=== PATIENT | male | born 1945 | race Caucasian/White ===

== ENCOUNTER 2018-04-16 09:09 | Inpatient (IN) | payer MEDICARE, OTHER ==
--- OUTSIDE RECORDS SUMMARY | 2018-04-16 09:15 | XMS REPORT ---
:1945 External Reference #:[id number] Author Organization [facility] Address [address] [address] Phone [phone] Care Team Providers Name Role Phone Nidhi Medeiros MD Primary Care Physician Unavailable Payers Type Date Identification Numbers Payment Provider Subscriber Medicare Primary Effective: Policy Number: Medicare Forrest Antony 2009 [id number] PayID: [id number] [address] [place] [address] Commercial Policy Number: [id number] [facility] Forrest Antony PayID: [id number] [address] [place] [address] Medigap Part B Effective: 2011 Policy Number: BS Allan Antony [id number] Expires: 2017 PayID: [id number] [address] [address] [place] [address] Medigap Part B Effective: 2010 Policy Number: BS Price IBARRAJeremy Antony [id number] Expires: 2011 PayID: [id number] [address] [address] [place] [address] Problems Date Description Provider Status Onset: 06/29/2013 Mitral valve disorder Sergio Whitley M.D. Active Onset: 06/29/2013 Coronary arteriosclerosis Sergio Whitley M.D. Active Onset: 06/29/2013 Benign essential hypertension Sergio Whitley M.D. Active Onset: 06/29/2013 Type 2 diabetes mellitus Sergio Whitley M.D. Active Onset: 08/31/2015 Alzheimer's disease Nivia Leal M.D. Active Onset: 10/07/2016 Essential hypertension ESE Howard Active Onset: 02/10/2018 Parkinson's disease Kj Wood M.D. Active Family History Date Family Member(s) Problem(s) Comments : (age 65 Years) Father due to Emphysema Father due to Cancer, Colon () : (age 75 Years) Mother due to Lymphoma Social History Type Date Description Comments Marital Status Lives With Margot Occupation Retired Cigarette Use Quit 21 Years Ago ETOH Use Rarely consumes alcohol Smoking Patient is a former smoker 32 years no smoking!! 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 at bedtime Yobany Whitley Nitro-Dur 08/26/ Active Patches 0.2mg/HR 90uni 1 patch I25.810 Sergio 2015 24HR ts every day on F. in the Mauser, morning, off M.D. at night 12 hours Donepezil HCL 03/19/ Active Tablets 10mg 90tab take 1 2015 s tablet by Mel, mouth once M.D. daily Aspir-81 07/08/ Active Tablets 81mg 100ta 1 by mouth Sergio 2013 DR wooten every day Driss Whitley M.D. Vitamins 07/04/ Active Tablets 30tab 1 PO qd Sergio Multiple 2003 s Driss Whitley M.D. calcium/vit D 07/04/ Active 600mg One PO bid Sergio 2003 Driss Whitley M.D. Lumigan / Active Solution 0.01% instill one Unknown 0000 drop in both eye at bedtime every day Magnesium Oxide / Active Capsules 400mg 1 by mouth Unknown -MG Supplement 0000 every day Vitamin B1 00/00/ Active Tablets 100mg 1 by mouth Unknown 0000 every day Carbidopa-Levodo / Active Tablets 10-100mg tab 1 by Unknown pa 0000 mouth every 6 hours Memantine HCL / Active Tablets 10mg 1 by mouth Unknown 0000 twice a day Tradjenta / Active Tablets 5mg 1 by mouth Unknown 0000 every day Lisinopril / Active Tablets 10mg 1 by mouth Unknown 0000 every day Pantoprazole / Active Solution 40mg 1 by mouth Unknown Sodium 0000 Rec every day Nystatin / Active Cream [id number] 2-3 daily Unknown 0000 t/GM Atorvastatin / Active Tablets 20mg half tab Unknown Calcium 0000 daily Nitrostat / Active Tablets 0.4mg 1sl as Unknown 0000 Sub needed, repeat five minutes up to three tabs, call 911 Aldactone 09/20/ Hx Tablets 25mg 90tab 1/2 tab by I42.9 Sergio 2015 - s mouth every F. 08/11/ day Gutierrez, 2016 Yobany Toprol XL 08/07/ Hx Tablets 25mg 90tab 1/2 by mouth I25.810 Sergio 2015 - ER 24HR s every day F. Gutierrez, 2015 Yobany Carvedilol 07/20/ Hx Tablets 3.125mg 60tab 1 by mouth I25.119 Sergio 2015 - s twice a day F. Gutierrez, 2015 Yobany Norvasc 07/08/ Hx Tablets 2.5mg 100ta 1 by mouth Sergio 2013 - bs every day . Gutierrez, 2014 Yobany Norvasc 05/03/ Hx Tablets 5mg 1 po qd Sergio 2009 - F. 07/08/ Gutierrez, 2013 Yobany Lopressor 05/04/ Hx Tablets 50mg 90tab 1/2 po qod x Sergio 2008 - s 2 weeks the . 09/04/ d/c Gutierrez, 2008 Yobany Lipitor 05/04/ Hx Tablets 20mg 90tab 1/2 tab po Sergio 2008 - s qd pm F. 03/19/ Gutierrez, 2016 Yobany Januvia 01/25/ Hx Tablets 100mg 90tab 1 po qd Sergio 2008 s , 2017 M.D. Norvasc 01/25/ Hx Tablets 2.5mg 180ta 2 po qd Sergio 2008 bs , 2009 M.D. Glucosamine/Kamran 11/03/ Hx Capsules 500-400 one bid Sergio droitin 2007, 2007 M.D. Aspirin 11/03/ Hx Tablets 325mg 1 PO qd Sergio 2007, 2013 M.D. Plavix 11/03/ Hx Tablets 75mg 90tab 1 PO qd Sergio 2007, 2012 M.D. Norvasc 11/03/ Hx Tablets 2.5mg 90tab 1 po qd Sergio 2007, 2008 M.D. Lipitor 04/21/ Hx Tablets 20mg 90tab 1 PO QHS Sergio 2007, 2008 M.D. Aspirin 04/21/ Hx Tablets 81mg 1 PO qd Sergio 2007, 2007 M.D. Altace 07/11/ Hx Capsules 10mg 90cap 1 po qd Sergio 2004, 2017 M.Barrera. Lopressor 07/10/ Hx Tablets 50mg 1 po qd Sergio 2004 - , 2008 M.D. Glipizide 07/10/ Hx Tablets 2.5mg 1 po qd Sergio Extended Release 2004, 2008 M.D. Ginko-Biloba 07/10/ Hx 60mg one bid Sergio 2004, 2007 M.Barrera. Ginseng 07/10/ Hx 100mg One bid Sergio 2004 - , 2007 M.D. Silenium 07/10/ Hx 100mg one qd Sergio 2004 - , 2007 M.Barrera. Beta-Carotene 07/10/ Hx 25,000Iu one qd Sergio 2004 F. 11/03/ Mauser, 2007 M.D. Glucosamine 07/10/ Hx 1500/1200 two qd Sergio chondroitin 2004 - F. 07/11/ Mauser, 2004 M.D. Glucosamine 07/10/ Hx 1500/1200 1 po bid Sergio 2004 - F. 03/18/ Mauser, 2015 M.D. Folic Acid 07/10/ Hx 400mcg One qd Sergio 2004 - F. 11/03/ [place]auser, 2007 M.D. Lipitor 07/05/ Hx Tablets 10mg 1 po bid Sergio 2003 - F. 04/21/ [place]er, 2007 M.D. Magnesium 07/05/ Hx Tablets 250mg qd Sergio 2003 - F. 11/03/ [place]er, 2007 M.D. Altace 07/05/ Hx Capsules 5mg 30cap 1 po qd Sergio 2003 - s F. 07/11/ Mauser, 2004 M.D. Prevacid 07/04/ Hx Capsules 30mg 60cap one qd-bid Sergio 2003 - s prn F. 06/21/ ulcer/GERD Mauser, 2003 M.D. Combivent 07/04/ Hx Aerosol 18mcg;103 two puffs Sergio Inhalation 2003 - mcg/Actua qid prn F. 07/05/ ti Mauser, 2003 M.D. Colace 07/04/ Hx Capsules 100mg 30cap 1 po qd Sergio 2003 - s F. 07/05/ [place]er, 2003 M.D. Ferrous 07/04/ Hx Tablets 300mg 30tab one po bid Sergio Gluconate 2003 - s F. 07/05/ Mauser, 2003 M.D. Glucophage 07/04/ Hx Tablets 500mg 60tab 0NE bid Sergio 2003 - s F. 06/21/ Mauser, 2003 M.D. Glucotrol 07/04/ Hx Tablets 2.5mg 60tab 1 po qd Sergio 2003 - s F. 07/11/ Mauser, 2004 M.D. Lopressor 07/04/ Hx Tablets 25mg 60tab 1 po bid Sergio 2003 - s F. 07/11/ [place]auser, 2004 M.D. Altace 07/04/ Hx Capsules 2.5mg 30cap 1 po qd Sergio 2003 - s F. use[place], 2003 M.D. Fish Oil 07/04/ Hx 1000mg one po bid Sergio 2003 - . , 2017 M.DRenée vit E 07/04/ 400Iu one po qd Sergio 2003 - . useerica, 2003 M.DRenée Vitamin C 07/04/ Hx 500mg one po qd Sergio 2003 - F. , 2014 M.D. Viagra 07/04/ Hx Tablets 50mg 30tab 1/2-1 tab Sergio 2003 - s before F. Gutierrez, 2004 M.D. Aspirin Buffered 07/03/ Caplets 325mg 100ca 1 PO qd Sergio 2003 - ps F. , 2007 M.D. Lipitor 06/27/ Hx Tablets 20mg 30tab 1 po qd Sergio 2003 - s F. , 2003 M.D. Prevacid 06/21/ Hx Capsules 30mg 1 po qd Sergio 2003 - . , 2017 M.DRenée Glucophage 06/21/ Hx Tablets 500mg two bid Sergio 2003 - . , 2017 M.D. Donepezil HCL / Hx Tablets 5mg 1 every day Unknown 0000 - 2015 Glucosamine / Hx Capsules 1200/1200 1 tab by Unknown Chondroitin 0000 - mg mouth bid 2017 Vitamin B12 / Hx Tablets 1000mg 1 by mouth Unknown 0000 - every day 2016 Spironolactone / Hx Tablets 25mg 45tab 1/2 by mouth Sergio - s every day . vianey, 2017 M.DRenée Medications Administered in Office Medication Date Status Form Strength Qnty SIG Indications Ordering Provider Inj, Administered Injection Eduardo Schmitz Regadenoson, 016 DO Braulio 0.1 MG FACC Technetium TC Administered Injection Eduarod SRenée 99M 016 DO Braulio Tetrofosmin, FACC Per Unit Dose Up To 40 Millicuries Vital Signs Date Vital Result Comment 04/07/2018 Height 70 inches 5'10" Weight 230.00 lb Heart Rate 86 /min BP Systolic Sitting 114 mmHg BP Diastolic Sitting 68 mmHg Respiratory Rate 16 /min BMI (Body Mass Index) 33.0 kg/m2 02/10/2018 Height 70 inches 5'10" Weight 222.00 lb Heart Rate 78 /min BP Systolic Sitting 102 mmHg BP Diastolic Sitting 58 mmHg Respiratory Rate 16 /min BMI (Body Mass Index) 31.9 kg/m2 10/02/2017 Height 65 inches 5'5" Weight 221.00 lb without shoes Heart Rate 92 /min BP Systolic Sitting 110 mmHg Lue lg cuff BP Diastolic Sitting 70 mmHg Lue lg cuff BP Systolic Standing 114 mmHg Lue lg cuff BP Diastolic Standing 70 mmHg Lue lg cuff Respiratory Rate 17 /min O2 % BldC Oximetry 94 % at room air BMI (Body Mass Index) 36.8 kg/m2 Ejection Fraction 30-35% date 08/26/2016 ECHO 08/12/2017 Height 70 inches 5'10" Weight 229.00 lb w/shoes Heart Rate 82 /min BP Systolic Sitting 118 mmHg LA lg cuff BP Diastolic Sitting 74 mmHg LA lg cuff BMI (Body Mass Index) 32.9 kg/m2 Ejection Fraction 30-35% Echo 08/26/16 08/12/2017 Height 70 inches 5'10" Weight 230.00 lb Heart Rate 68 /min BP Systolic Sitting 130 mmHg BP Diastolic Sitting 76 mmHg Respiratory Rate 16 /min BMI (Body Mass Index) 33.0 kg/m2 03/20/2017 Height 70 inches 5'10" Weight 230.00 lb Heart Rate 56 /min BP Systolic Sitting 128 mmHg BP Diastolic Sitting 80 mmHg Respiratory Rate 14 /min BMI (Body Mass Index) 33.0 kg/m2 03/19/2017 Height 70 inches 5'10" Weight 235.50 lb Heart Rate 68 /min irreg BP Systolic Sitting 132 mmHg LA, large BP Diastolic Sitting 68 mmHg LA, large BP Systolic Standing 118 mmHg la repeat large sittin BP Diastolic Standing 59 mmHg la repeat large sittin BMI (Body Mass Index) 33.8 kg/m2 Ejection Fraction 30-35% echo 08/26/16 11/21/2016 Heart Rate 74 /min BP Systolic 122 mmHg Ra, regular, manual BP Diastolic 60 mmHg Ra, regular, manual BP Systolic Sitting 125 mmHg Ra, home unit BP Diastolic Sitting 57 mmHg Ra, home unit 11/14/2016 Height 70 inches 5'10" Weight 236.00 lb with shoes Heart Rate 68 /min BP Systolic Sitting 98 mmHg Lue lg cuff BP Diastolic Sitting 70 mmHg Lue lg cuff BP Systolic Standing 104 mmHg Lue lrg cuff BP Diastolic Standing 70 mmHg Lue lrg cuff Respiratory Rate 17 /min BMI (Body Mass Index) 33.9 kg/m2 Ejection Fraction 30-35% date 08/26/2016 ECHO 10/07/2016 Height 70 inches 5'10" Weight 239.25 lb with shoes Heart Rate 74 /min BP Systolic Sitting 110 mmHg LA reg cuff BP Diastolic Sitting 70 mmHg LA reg cuff BMI (Body Mass Index) 34.3 kg/m2 Ejection Fraction 30% - 35% echo 08/26/16 09/20/2016 Height 70 inches 5'10" Weight 235.00 lb with shoes Heart Rate 84 /min BP Systolic Sitting 140 mmHg LA lrg cuff BP Diastolic Sitting 72 mmHg LA lrg cuff BMI (Body Mass Index) 33.7 kg/m2 Ejection Fraction 30%-35% echo 08/26/16 09/19/2016 Height 70 inches 5'10" Weight 235.00 lb Heart Rate 80 /min BP Systolic Sitting 132 mmHg BP Diastolic Sitting 78 mmHg BMI (Body Mass Index) 33.7 kg/m2 08/26/2016 Height 70 inches 5'10" Weight 238.00 lb with shoes Heart Rate 56 /min BP Systolic Sitting 140 mmHg LA reg cuff BP Diastolic Sitting 84 mmHg LA reg cuff BP Systolic Standing 140 mmHg LA reg cuff BP Diastolic Standing 80 mmHg LA reg cuff Respiratory Rate 16 /min BMI (Body Mass Index) 34.1 kg/m2 Ejection Fraction 35-40% date 06/26/15 ECHO 08/07/2016 Height 70 inches 5'10" Weight 239.25 lb with shoes BP Systolic Sitting 120 mmHg LA reg cuff BP Diastolic Sitting 90 mmHg LA reg cuff BMI (Body Mass Index) 34.3 kg/m2 Ejection Fraction 35-40% date 06/26/2015 ECHO 03/19/2016 Height 70 inches 5'10" Weight 229.25 lb Heart Rate 72 /min BP Systolic Sitting 124 mmHg BP Diastolic Sitting 72 mmHg Respiratory Rate 16 /min BMI (Body Mass Index) 32.9 kg/m2 08/31/2015 Height 70 inches 5'10" Weight 228.00 lb Heart Rate 68 /min BP Systolic Sitting 122 mmHg BP Diastolic Sitting 76 mmHg Respiratory Rate 14 /min BMI (Body Mass Index) 32.7 kg/m2 07/20/2015 Height 70 inches 5'10" Weight 226.50 lb w/ shoes Heart Rate 78 /min BP Systolic Sitting 144 mmHg LA, reg BP Diastolic Sitting 74 mmHg LA, reg BMI (Body Mass Index) 32.5 kg/m2 Ejection Fraction 35-40% 06/26/15 ECHO 06/21/2015 Height 70 inches 5'10" Weight 230.00 lb w/shoes Heart Rate 80 /min BP Systolic Sitting 124 mmHg LA reg cuff BP Diastolic Sitting 76 mmHg LA reg cuff BMI (Body Mass Index) 33.0 kg/m2 Ejection Fraction 40-45 echo 08/02/14 09/08/2014 Height 70 inches 5'10" Weight 227.25 lb Heart Rate 86 /min BP Systolic Sitting 140 mmHg LA reg cuff BP Diastolic Sitting 70 mmHg LA reg cuff Respiratory Rate 14 /min BMI (Body Mass Index) 32.6 kg/m2 07/08/2014 Height 70 inches 5'10" Weight 222.25 lb w/shoes. Heart Rate 72 /min BP Systolic Sitting 142 mmHg BP Diastolic Sitting 76 mmHg Respiratory Rate 16 /min BMI (Body Mass Index) 31.9 kg/m2 06/29/2013 Height 70 inches 5'10" Weight 239.00 lb Heart Rate 80 /min BP Systolic Sitting 138 mmHg BP Diastolic Sitting 82 mmHg Respiratory Rate 16 /min BMI (Body Mass Index) 34.3 kg/m2 11/21/2010 Height 70 inches 5'10" Weight 247.00 lb Heart Rate 79 /min BP Systolic 128 mmHg BP Diastolic 82 mmHg Respiratory Rate 16 /min BMI (Body Mass Index) 35.4 kg/m2 09/04/2009 Height 70 inches 5'10" Weight 251.00 lb Heart Rate 83 /min BP Systolic Sitting 130 mmHg BP Diastolic Sitting 70 mmHg BMI (Body Mass Index) 36.0 kg/m2 05/04/2009 Height 70 inches 5'10" Weight 254.00 lb Heart Rate 60 /min BP Systolic Sitting 126 mmHg L BP Diastolic Sitting 50 mmHg L BMI (Body Mass Index) 36.4 kg/m2 01/25/2009 Height 70 inches 5'10" Weight 258.00 lb Heart Rate 68 /min BP Systolic Sitting 158 mmHg L BP Diastolic Sitting 70 mmHg L BMI (Body Mass Index) 37.0 kg/m2 11/03/2008 Height 70 inches 5'10" Weight 260.00 lb Heart Rate 54 /min BP Systolic Sitting 170 mmHg L BP Diastolic Sitting 82 mmHg L BMI (Body Mass Index) 37.3 kg/m2 04/21/2008 Height 70 inches 5'10" Weight 259.00 lb Heart Rate 61 /min BP Systolic Sitting 140 mmHg L BP Diastolic Sitting 80 mmHg L BMI (Body Mass Index) 37.2 kg/m2 07/11/2005 Height 70 inches 5'10" Weight 257.00 lb Heart Rate 84 /min BP Systolic Sitting 130 mmHg R BP Diastolic Sitting 64 mmHg R BP Systolic Standing 140 mmHg R BP Diastolic Standing 76 mmHg R O2 % BldC Oximetry 97 % BMI (Body Mass Index) 36.9 kg/m2 07/18/2004 Height 70 inches 5'10" Weight 260.00 lb Heart Rate 68 /min regular BP Systolic Sitting 128 mmHg BP Diastolic Sitting 80 mmHg BP Systolic Standing 124 mmHg BP Diastolic Standing 80 mmHg BMI (Body Mass Index) 37.3 kg/m2 07/05/2004 Height 70 inches 5'10" Weight 260.00 lb Heart Rate 59 /min BP Systolic Sitting 148 mmHg left arm, right arm:150/88 BP Diastolic Sitting 88 mmHg left arm, right arm:150/88 BP Systolic Standing 138 mmHg BP Diastolic Standing 84 mmHg O2 % BldC Oximetry 96 % BMI (Body Mass Index) 37.3 kg/m2 Results Test Date Test Result H/L Range Note CBC Auto Diff 10/07/2017 White Blood Count 8.4 10^3/uL 3.5-10.8 Red Blood Count 4.88 10^6/uL 4.0-5.4 Hemoglobin 16.2 g/dL 14.0-18.0 Hematocrit 49 % 42-52 Mean Corpuscular Volume 100 fL High 80-94 Mean Corpuscular Hemoglobin 33 pg High 27-31 Mean Corpuscular HGB Conc 33 g/dL 31-36 Red Cell Distribution Width 13 % 10.5-15 Platelet Count 200 10^3/uL 150-450 Mean Platelet Volume 9 um3 7.4-10.4 Abs Neutrophils 5.2 10^3/uL 1.5-7.7 Abs Lymphocytes 1.8 10^3/uL 1.0-4.8 Abs Monocytes 0.8 10^3/uL 0-0.8 Abs Eosinophils 0.5 10^3/uL 0-0.6 Abs Basophils 0.1 10^3/uL 0-0.2 Abs Nucleated RBC 0 10^3/uL Granulocyte % 62.1 % 38-83 Lymphocyte % 21.0 % Low 25-47 Monocyte % 9.6 % High 1-9 Eosinophil % 6.5 % High 0-6 Basophil % 0.8 % 0-2 Nucleated Red Blood Cells % 0 Lipid Panel - [facility] 10/07/2017 Creatine Kinase(CK) 58 U/L 10-223 1 Comp Metabolic Panel 10/07/2017 Sodium 137 mmol/L 133-145 Potassium 4.6 mmol/L 3.5-5.0 Chloride 102 mmol/L 101-111 Co2 Carbon Dioxide 24 mmol/L 22-32 Anion Gap 11 mmol/L 2-11 Glucose 91 mg/dL 70-100 Blood Urea Nitrogen 10 mg/dL 6-24 Creatinine 1.09 mg/dL 0.67-1.17 BUN/Creatinine Ratio 9.2 8-20 Calcium 10.2 mg/dL 8.6-10.3 Total Protein 7.0 g/dL 6.4-8.9 Albumin 4.2 g/dL 3.2-5.2 Globulin 2.8 g/dL 2-4 Albumin/Globulin Ratio 1.5 1-3 Total Bilirubin 0.70 mg/dL 0.2-1.0 Alkaline Phosphatase 64 U/L 34-104 Alt 17 U/L 7-52 Ast 20 U/L 13-39 Egfr Non- 66.3 >60 Egfr 85.3 >60 2 Laboratory test finding 10/07/2017 Magnesium 1.6 mg/dL Low 1.9-2.7 3 TSH (Thyroid Stim Horm) 1.40 mcIU/mL 0.34-5.60 4 Lipid Profile (Trig/Chol/HDL) 10/07/2017 Triglycerides 87 mg/dL 5 Cholesterol 145 mg/dL 6 HDL Cholesterol 59.4 mg/dL 7 LDL Cholesterol 68 mg/dL 8 Laboratory test finding 05/01/2017 PSA Screening 6.667 ng/mL High 0-4.000 9 Lipid Profile (Trig/Chol/HDL) 05/01/2017 Triglycerides 110 mg/dL 10 Cholesterol 123 mg/dL 11 HDL Cholesterol 49.1 mg/dL 12 LDL Cholesterol 52 mg/dL 13 Comp Metabolic Panel 05/01/2017 Sodium 136 mmol/L 133-145 Potassium 4.7 mmol/L 3.5-5.0 Chloride 101 mmol/L 101-111 Co2 Carbon Dioxide 25 mmol/L 22-32 Anion Gap 10 mmol/L 2-11 Glucose 74 mg/dL 70-100 Blood Urea Nitrogen 14 mg/dL 6-24 Creatinine 1.26 mg/dL High 0.67-1.17 BUN/Creatinine Ratio 11.1 8-20 Calcium 9.7 mg/dL 8.6-10.3 Total Protein 7.5 g/dL 6.4-8.9 Albumin 4.6 g/dL 3.2-5.2 Globulin 2.9 g/dL 2-4 Albumin/Globulin Ratio 1.6 1-3 Total Bilirubin 0.70 mg/dL 0.2-1.0 Alkaline Phosphatase 53 U/L 34-104 Alt 31 U/L 7-52 Ast 29 U/L 13-39 Egfr Non- 56.1 >60 Egfr 72.1 >60 14 Lipid Panel - [facility] 05/01/2017 Creatine Kinase(CK) 176 U/L 10-223 15 CBC Auto Diff 05/01/2017 White Blood Count 9.7 10^3/uL 3.5-10.8 Red Blood Count 5.09 10^6/uL 4.0-5.4 Hemoglobin 16.9 g/dL 14.0-18.0 Hematocrit 51 % 42-52 Mean Corpuscular Volume 101 fL High 80-94 Mean Corpuscular Hemoglobin 33 pg High 27-31 Mean Corpuscular HGB Conc 33 g/dL 31-36 Red Cell Distribution Width 13 % 10.5-15 Platelet Count 235 10^3/uL 150-450 Mean Platelet Volume 9 um3 7.4-10.4 Abs Neutrophils 6.2 10^3/uL 1.5-7.7 Abs Lymphocytes 2.1 10^3/uL 1.0-4.8 Abs Monocytes 0.9 10^3/uL High 0-0.8 Abs Eosinophils 0.5 10^3/uL 0-0.6 Abs Basophils 0.1 10^3/uL 0-0.2 Abs Nucleated RBC 0.01 10^3/uL Granulocyte % 63.4 % 38-83 Lymphocyte % 21.2 % Low 25-47 Monocyte % 9.2 % High 1-9 Eosinophil % 5.3 % 0-6 Basophil % 0.9 % 0-2 Nucleated Red Blood Cells % 0.1 Basic Metabolic Panel 09/27/2016 Sodium 138 mmol/L 133-145 Potassium 4.4 mmol/L 3.5-5.0 Chloride 102 mmol/L 101-111 Co2 Carbon Dioxide 29 mmol/L 22-32 Anion Gap 7 mmol/L 2-11 Glucose 121 mg/dL High 70-100 Blood Urea Nitrogen 15 mg/dL 6-24 Creatinine 1.28 mg/dL High 0.67-1.17 BUN/Creatinine Ratio 11.7 8-20 Calcium 10.0 mg/dL 8.6-10.3 Egfr Non- 55.2 >60 Egfr 71.0 >60 16 Creatinine 09/02/2016 Creatinine 1.16 mg/dL 0.67-1.17 Egfr Non- 61.9 >60 Egfr 79.6 >60 17 CBC Auto Diff 08/14/2016 White Blood Count 6.8 10^3/uL 3.5-10.8 Red Blood Count 4.99 10^6/uL 4.0-5.4 Hemoglobin 16.5 g/dL 14.0-18.0 Hematocrit 50 % 42-52 Mean Corpuscular Volume 100 fL High 80-94 Mean Corpuscular Hemoglobin 33 pg High 27-31 Mean Corpuscular HGB Conc 33 g/dL 31-36 Red Cell Distribution Width 13 % 10.5-15 Platelet Count 159 10^3/uL 150-450 Mean Platelet Volume 9 um3 7.4-10.4 Abs Neutrophils 3.9 10^3/uL 1.5-7.7 Abs Lymphocytes 1.6 10^3/uL 1.0-4.8 Abs Monocytes 0.8 10^3/uL 0-0.8 Abs Eosinophils 0.5 10^3/uL 0-0.6 Abs Basophils 0.1 10^3/uL 0-0.2 Abs Nucleated RBC 0.01 10^3/uL Granulocyte % 58.0 % 38-83 Lymphocyte % 22.9 % Low 25-47 Monocyte % 11.2 % High 1-9 Eosinophil % 6.8 % High 0-6 Basophil % 1.1 % 0-2 Nucleated Red Blood Cells % 0.1 Basic Metabolic Panel 08/14/2016 Sodium 137 mmol/L 133-145 Potassium 4.7 mmol/L 3.5-5.0 Chloride 102 mmol/L 101-111 Co2 Carbon Dioxide 27 mmol/L 22-32 Anion Gap 8 mmol/L 2-11 Glucose 141 mg/dL High 70-100 Blood Urea Nitrogen 12 mg/dL 6-24 Creatinine 1.24 mg/dL High 0.67-1.17 BUN/Creatinine Ratio 9.7 8-20 Calcium 9.2 mg/dL 8.6-10.3 Egfr Non- 57.3 >60 Egfr 73.7 >60 18 Lipid Panel - [facility] 07/22/2014 Creatine Kinase 47 U/L 10-223 Comp Metabolic Panel 07/22/2014 Sodium 136 mmol/L 133-145 Potassium 4.4 mmol/L 3.7-5.6 Chloride 103 mmol/L 101-111 Co2 Carbon Dioxide 26 mmol/L 22-32 Anion Gap 7 mmol/L 2-11 Glucose 95 mg/dL 70-100 Blood Urea Nitrogen 9 mg/dL 6-24 Creatinine 1.04 mg/dL 0.67-1.17 BUN/Creatinine Ratio 8.7 8-20 Calcium 9.2 mg/dL 8.6-10.3 Total Protein 6.8 g/dL 6.4-8.9 Albumin 4.2 g/dL 3.2-5.2 Globulin 2.6 g/dL 2-4 Albumin/Globulin Ratio 1.6 1-3 Total Bilirubin 0.70 mg/dL 0.2-1.0 Alkaline Phosphatase 52 U/L 34-104 Alt 16 U/L 7-52 Ast 18 U/L 13-39 Egfr Non- 70.6 >60 Egfr 90.8 >60 19 Lipid Profile (Trig/Chol/HDL) 07/22/2014 Triglycerides 101 mg/dL 20 Cholesterol 120 mg/dL 21 HDL Cholesterol 49.2 mg/dL 22 LDL Cholesterol 51 mg/dL 23 Laboratory test finding 07/22/2014 TSH (Thyroid Stimulating 1.51 IU/mL 0.34-5.60 Horm) CBC Auto Diff 07/22/2014 White Blood Count 6.0 10^3/uL 4.8-10.8 Red Blood Count 4.82 10^6/uL 4.0-5.4 Hemoglobin 16.1 g/dL 14.0-18.0 Hematocrit 48 % 42-52 Mean Corpuscular Volume 99 fL High 80-94 Mean Corpuscular Hemoglobin 33 pg High 27-31 Mean Corpuscular HGB Conc 34 g/dL 31-36 Red Cell Distribution Width 13 % 10.5-15 Platelet Count 173 10^3/uL 150-450 Mean Platelet Volume 8 um3 7.4-10.4 Abs Neutrophils 3.2 10^3/uL 1.5-7.7 Abs Lymphocytes 1.4 10^3/uL 1.0-4.8 Abs Monocytes 0.6 10^3/uL 0-0.8 Abs Eosinophils 0.7 10^3/uL High 0-0.6 Abs Basophils 0.1 10^3/uL 0-0.2 Abs Nucleated RBC 0.01 10^3/uL Granulocyte % 53.9 % 38-83 Lymphocyte % 22.8 % Low 25-47 Monocyte % 10.4 % High 1-9 Eosinophil % 11.9 % High 0-6 Basophil % 1.0 % 0-2 Nucleated Red Blood Cells % 0.1 Vitamin B12 And Folate Serum 07/22/2014 Vitamin B12 304 pg/mL 180-914 24 Folate > 20.00 ng/mL >3.99 Laboratory test finding 07/22/2014 PSA Diagnostic 0.548 ng/mL 0-4.0 25 1 FASTING 2 Because ethnic data is not always readily available, this report includes an eGFR for both -Americans and non- Americans. The National Kidney Disease Education Program (NKDEP) does not endorse the use of the MDRD equation for patients that are not between the ages of 18 and 70, are , have extremes of body size, muscle mass, or nutritional status, or are non- or non-. According to the National Kidney Foundation, irrespective of diagnosis, the stage of the disease is based on the level of kidney function: Stage Description GFR(mL/min/1.73 m(2)) 1 Kidney damage with normal or decreased GFR 90 2 Kidney damage with mild decrease in GFR 60-89 3 Moderate decrease in GFR 30-59 4 Severe decrease in GFR 15-29 5 Kidney failure <15 (or dialysis) 3 FASTING 4 FASTING 5 Desirable: <150 Borderline High: 150-199 High: 200-499 Very High: >500 6 Desirable: <200 Borderline High: 200-239 High: >239 7 Low: <40 Desirable: 40-60 High: >60 8 Desirable: <100 Near Optimal: 100-129 Borderline High: 130-159 High: 160-189 Very High: >189 9 Serum levels of PSA measured using the [employer] DXI Hybritech immunoassay should not be interpreted as absolute evidence of the presence or absence of disease. The PSA value should be used in conjunction with other pertinent clinical diagnostic procedures. The values obtained with different assay methods or kits cannot be used interchangeably. 10 Desirable <150 Borderline high 150-199 High 200-499 Very High >500 11 Desirable <200 Borderline high 200-239 High >239 12 Low <40 Desirable: 40-60 High: >60 13 Desirable: <100 mg/dL Near Optimal: 100-129 mg/dL Borderline High: 130-159 mg/dL High: 160-189 mg/dL Very High: >189 mg/dL 14 Because ethnic data is not always readily available, this report includes an eGFR for both -Americans and non- Americans. The National Kidney Disease Education Program (NKDEP) does not endorse the use of the MDRD equation for patients that are not between the ages of 18 and 70, are , have extremes of body size, muscle mass, or nutritional status, or are non- or non-. According to the National Kidney Foundation, irrespective of diagnosis, the stage of the disease is based on the level of kidney function: Stage Description GFR(mL/min/1.73 m(2)) 1 Kidney damage with normal or decreased GFR 90 2 Kidney damage with mild decrease in GFR 60-89 3 Moderate decrease in GFR 30-59 4 Severe decrease in GFR 15-29 5 Kidney failure <15 (or dialysis) 15 FASTING cc pmd Copy Result to: NIDHI MEDEIROS ([id number]) 16 Because ethnic data is not always readily available, this report includes an eGFR for both -Americans and non- Americans. The National Kidney Disease Education Program (NKDEP) does not endorse the use of the MDRD equation for patients that are not between the ages of 18 and 70, are , have extremes of body size, muscle mass, or nutritional status, or are non- or non-. According to the National Kidney Foundation, irrespective of diagnosis, the stage of the disease is based on the level of kidney function: Stage Description GFR(mL/min/1.73 m(2)) 1 Kidney damage with normal or decreased GFR 90 2 Kidney damage with mild decrease in GFR 60-89 3 Moderate decrease in GFR 30-59 4 Severe decrease in GFR 15-29 5 Kidney failure <15 (or dialysis) 17 Because ethnic data is not always readily available, this report includes an eGFR for both -Americans and non- Americans. The National Kidney Disease Education Program (NKDEP) does not endorse the use of the MDRD equation for patients that are not between the ages of 18 and 70, are , have extremes of body size, muscle mass, or nutritional status, or are non- or non-. According to the National Kidney Foundation, irrespective of diagnosis, the stage of the disease is based on the level of kidney function: Stage Description GFR(mL/min/1.73 m(2)) 1 Kidney damage with normal or decreased GFR 90 2 Kidney damage with mild decrease in GFR 60-89 3 Moderate decrease in GFR 30-59 4 Severe decrease in GFR 15-29 5 Kidney failure <15 (or dialysis) 18 Because ethnic data is not always readily available, this report includes an eGFR for both -Americans and non- Americans. The National Kidney Disease Education Program (NKDEP) does not endorse the use of the MDRD equation for patients that are not between the ages of 18 and 70, are , have extremes of body size, muscle mass, or nutritional status, or are non- or non-. According to the National Kidney Foundation, irrespective of diagnosis, the stage of the disease is based on the level of kidney function: Stage Description GFR(mL/min/1.73 m(2)) 1 Kidney damage with normal or decreased GFR 90 2 Kidney damage with mild decrease in GFR 60-89 3 Moderate decrease in GFR 30-59 4 Severe decrease in GFR 15-29 5 Kidney failure <15 (or dialysis) 19 Because ethnic data is not always readily available, this report includes an eGFR for both -Americans and non- Americans. The National Kidney Disease Education Program (NKDEP) does not endorse the use of the MDRD equation for patients that are not between the ages of 18 and 70, are , have extremes of body size, muscle mass, or nutritional status, or are non- or non-. According to the National Kidney Foundation, irrespective of diagnosis, the stage of the disease is based on the level of kidney function: Stage Description GFR(mL/min/1.73 m(2)) 1 Kidney damage with normal or decreased GFR 90 2 Kidney damage with mild decrease in GFR 60-89 3 Moderate decrease in GFR 30-59 4 Severe decrease in GFR 15-29 5 Kidney failure <15 (or dialysis) 20 Desirable <150 Borderline high 150-199 High 200-499 Very High >500 21 Desirable <200 Borderline high 200-239 High >239 22 Low <40 Desirable: 40-60 High: >60 23 Desirable <100 Near Optimal 100-129 Borderline high 130-159 High 160-189 Very High >189 24 Normal Range 180 to 914 Indeterminate Range 145 to 180 Deficient Range <145 25 Serum levels of PSA measured using the [employer] DXI Hybritech immunoassay should not be interpreted as absolute evidence of the presence or absence of disease. The PSA value should be used in conjunction with other pertinent clinical diagnostic procedures. A PSA value in the range of 0.1 to 0.6 ng/ml is indeterminate if being used as an indicator of recurrent or residual disease. The values obtained with different assay methods or kits cannot be used interchangeably. Procedures Date CPT Code Description Status 11/07/2017 89690 ECHO Transthoracic, Real-Time 2D With Doppler And Color Completed Flow 11/07/2017 16693 ECHO Transthoracic, Real-Time 2D With Doppler And Color Completed Flow 10/18/2017 71414 Holter Monitor Review (24 hr)dr gordillo & taylor Completed only 10/14/2017 35533 ECG Monitor/Recording W/Visual Superimposition Scanning Completed 10/14/2017 48375 ECG Monitor/Recording W/Visual Superimposition Scanning Completed 10/02/2017 16460 EKG Tracing & Interpretation Completed 10/02/2017 98185 EKG Tracing & Interpretation Completed 08/12/2017 96706 EKG Tracing & Interpretation Completed 03/19/2017 73815 EKG Tracing & Interpretation Completed 09/20/2016 15310 EKG Tracing & Interpretation Completed 08/26/2016 02500 ECHO Transthoracic, Real-Time 2D With Doppler And Color Completed Flow 08/07/2016 73838 EKG Tracing & Interpretation Completed 08/05/2016 25531 Stress Test Completed 08/05/2016 70296 Myocardial Perfusion Imaging Tomographic (Spect) Completed Multiple Studies 07/20/2015 09238 EKG Tracing & Interpretation Completed 06/26/2015 69143 ECHO Transthoracic, Real-Time 2D With Doppler And Color Completed Flow 06/21/2015 52819 EKG Tracing & Interpretation Completed 08/02/2014 68224 ECHO Transthoracic, Real-Time 2D With Doppler And Color Completed Flow 07/08/2014 61878 EKG Tracing & Interpretation Completed 07/06/2013 47912 Treadmill Interp/Report Only Completed 07/06/2013 83112 Stress Test Supervsn W/Out I/R Completed 06/29/2013 55198 ECHO Transthoracic, Real-Time 2D With Doppler And Color Completed Flow 06/29/2013 13861 EKG Tracing & Interpretation Completed 07/17/2011 26030 ECHO Transthoracic, Real-Time 2D With Doppler And Color Completed Flow 11/21/2010 62496 EKG Tracing & Interpretation Completed 09/04/2009 90995 EKG Tracing & Interpretation Completed 07/18/2009 99399 Treadmill Interp/Report Only Completed 07/18/2009 02007 Stress Test Supervsn W/Out I/R Completed 11/03/2008 84215 EKG Tracing & Interpretation Completed 07/27/2008 89735 ECHO/Stress Completed 07/27/2008 95834 ECHO/Stress Completed 07/27/2008 62027 Stress Test Completed 07/27/2008 75790 Stress Test Completed 07/27/2008 35013 Stress Test Completed 04/21/2008 97177 EKG Tracing & Interpretation Completed 07/30/2005 59990 Stress Test Supervsn W/Out I/R Completed 07/30/2005 11523 Treadmill Interp/Report Only Completed 07/30/2005 94209 ECHO/Stress Completed 07/11/2005 86738 EKG Tracing & Interpretation Completed 07/18/2004 70283 Color Doppler Completed 07/18/2004 04900 Pulse Doppler & Continuous Wave Completed 07/18/2004 09358 Echocardiogram Completed 07/05/2004 78196 EKG Tracing & Interpretation Completed 01/12/2004 83547 ECHO/Stress Completed 01/12/2004 68977 Stress Test Completed 01/12/2004 01738 IV Infusion For DX/Upt To 1 HR. Completed 01/12/2004 16049 Intro. Needle Or Intracath.,Vein Completed Encounters Type Date Location Provider CPT E/M Dx Office Visit 02/10/2018 [facility] Kj Wood M.D. 10472 G30.9 11:00a [facility] G20 Office Visit 10/02/2017 10:30a [facility] ESE Howard 12302 E78.5 I10 I49.1 I25.810 I42.9 Office Visit 08/12/2017 10:45a [facility] Nivia Leal, 58610 G30.9 [facility] Yobany I49.9 Office Visit 03/20/2017 8:45a [facility] Nivia Leal, 14455 G30.9 [facility] Yobany F02.80 Office Visit 03/19/2017 11:20a [facility] Sergio Whitley M.D. 98929 I10 I42.9 I25.810 R06.00 I34.9 Office Visit 11/21/2016 2:[place]p [facility] [place] [address] I10 Office Visit 11/14/2016 1:00p [facility] ESE Howard 32847 I42.9 I10 I25.810 Office Visit 10/07/2016 11:00a [facility] ESE Howard 45514IRW I25.810 I42.9 I10 Office Visit 09/20/2016 1:20p [facility] Sergio Whitley M.D. 90847 I42.9 I25.810 R06.00 I34.9 Office Visit 09/19/2016 9:45a [facility] Nivia AntonyRenée Leal, 24656 G30.9 [facility] M.DRenée F02.80 Office Visit 08/26/2016 11:00a [facility] ESE Howard 04663 I25.810 I42.9 R06.00 Office Visit 08/07/2016 2:30p [facility] Sergio Whitley M.D. 41372 I34.9 R94.31 I42.9 I25.810 Office Visit 03/19/2016 9:45a [facility] Nivia AntonyRenée Leal, [address] [facility] M.Smitha F02.80 Office Visit 08/31/2015 10:00a [facility] Nivia AntonyRenée Leal, 38794 F03.90 [facility] M.DRenée Office Visit 07/20/2015 9:30a [facility] ESE [place] 55090 414.01 412 401.1 250.00 425.9 414.8 Office Visit 06/21/2015 1:40p [facility] Sergio Whitley M.D. 21547 424.0 412 401.1 250.00 414.01 425.9 Office Visit 09/08/2014 11:00a [facility] ESE Howard 32454ZNU 414.01 401.1 250.00 424.0 Office Visit 07/08/2014 8:40a [facility] Sergio Whitley M.D. 21151 424.0 414.01 401.1 412 250.00 794.31 275.2 785.1 780.93 Office Visit 06/29/2013 11:00a [facility] Sergio Whitley M.D. 97071 424.0 414.01 401.1 250.00 Office Visit 11/21/2010 10:00a [facility] Sergio Whitley 51804 414.01 MRenéeDRenée 401.1 250.00 272.0 414.02 Office Visit 09/04/2009 10:00a [facility] Sergio Whitley 91958 414.01 M.D. 401.1 250.00 272.0 Office Visit 06/06/2009 10:30[place] [facility] [place] [address] 401.1 Office Visit 05/04/2009 11:20a [facility] Sergio Whitley, 45137 414.01 M.D. 250.00 424.0 272.0 786.09 Office Visit 01/25/2009 11:00a [facility] Sergio Whitley, 18560 414.01 M.D. 250.00 272.0 V45.81 401.0 Office Visit 11/03/2008 11:20a [facility] Sergio Whitley, 53989 414.01 M.D. 250.00 272.0 Office Visit 04/21/2008 10:20a [facility] Sergio Whitley, 60904 414.01 M.D. 250.00 272.0 V45.81 Office Visit 07/11/2005 9:40a [facility] Sergio Whitley, 12150 414.01 M.D. 250.00 272.0 Office Visit 07/05/2004 9:40a [facility] Sergio Whitley, 58581 414.01 M.D. 401.0 250.00 Plan of Care Future Appointment(s):07/16/2018 11:00 am - Kj Wood M.D. at [facility]04/07/2018 - Kj Wood M.D.G30.9 Alzheimer's disease, [id number] Parkinson's disease
[2018-04-16] MEDS ORDERED: NS 0.9% 1000 ML* 1,000 ML IV ONE ×2 (09:31→11:15)
[2018-04-16 09:55] LABS: ABS Basophils 0 10^3/ul (0-0.2); ABS Eosinophils 0.1 10^3/ul (0-0.6); ABS Lymphocytes 0.9 10^3/ul (1.0-4.8); ABS Monocytes 0.8 10^3/ul (0-0.8); ABS Neutrophils 7.4 10^3/ul (1.5-7.7); ABS Nucleated RBC 0 10^3/ul; Eosinophil % 0.9 % (0-6); Hematocrit 46 % (42-52); Hemoglobin 15.6 g/dl (14.0-18.0); Lymphocyte % 9.4 % (25-47); Mean Corpuscular HGB Conc 34 g/dl (31-36); Mean Corpuscular Hemoglobin 34 pg (27-31); Mean Corpuscular Volume 98 fL (80-94); Mean Platelet Volume 7.7 um3 (7.4-10.4); Nucleated Red Blood Cells % 0.1; Platelet Count 201 10^3/ul (150-450); Red Blood Count 4.67 10^6/ul (4.0-5.4); Red Cell Distribution Width 14 % (10.5-15); White Blood Count 9.2 10^3/ul (3.5-10.8)
--- NOTE | 2018-04-16 10:07 | ED ---
Back Pain - HPI Summary HPI Summary: Pt. is a 73-year-old male who presents emergency department for evaluation after a fall that occurred last night. Patient is a history of Parkinson's, dementia, diabetes,........ Last night around midnight he states he was going to the bathroom when he took to small of a step and fell. He states he did not strike his head or lose consciousness. He has chronic low back pain and states his pain is worse after fall. Pt. lives at home with his who is present. She states he is at his baseline mentation. Patient states he was unable to get off of the floor because his legs felt weak which is chronic and his was unable to help him off the floor as well. Patient laid on the floor until this morning when he called EMS and was brought to the emergency department. Patient denies chest pain, shortness of breath, lightheadedness, dizziness, recent illness, Tylenol pain, vomiting, diarrhea, urinary symptoms. Symptoms are moderate in severity. Movement makes symptoms worse. Rest makes symptoms better. Patient states he took oxycodone this morning and pain has improved. - History of Current Complaint Chief Complaint: EDBackInjuryPain Stated Complaint: FALL Time Seen by Provider: 04/16/18 09:20 Hx Obtained From: Patient, Family/Junction Maker Pain Intensity: 9 - Allergies/Home Medications Allergies/Adverse Reactions: Allergies Allergy/AdvReac Type Severity Reaction Status Date / Time lorazepam [From Ativan] Allergy Mild Agitation Verified 04/16/18 09:18 Home Medications: Home Medications Aspirin EC TAB* [Ecotrin EC Low Dose 81 MG*] 81 mg PO DAILY 04/16/18 [History Confirmed 04/16/18] Atorvastatin* [Lipitor*] 10 mg PO DAILY 04/16/18 [History Confirmed 04/16/18] Bimatoprost 0.01% OPHTH (NF) [Lumigan 0.01% OPHTH (NF)] 1 drop BOTH EYES QPM [History Confirmed 04/16/18] Calcium Carbonate/Vitamin D3 [Calcium 600 + Vit D Tablet] 1 tab PO BID 04/16/18 [History Confirmed 04/16/18] Carbidopa/Levodop 10/100 MG(*) [Sinemet 10/100 TAB(*)] 1 tab PO Q6H 04/16/18 [ History Confirmed 04/16/18] Donepezil TAB* [Aricept 5 MG TAB*] 10 mg PO DAILY 04/16/18 [History Confirmed ] Linagliptin (NF) [Tradjenta (NF)] 5 mg PO DAILY 04/16/18 [History Confirmed ] Lisinopril TAB* [Prinivil TAB*] 10 mg PO DAILY 04/16/18 [History Confirmed 04/16] Memantine TAB* [Namenda TAB*] 10 mg PO BID 04/16/18 [History Confirmed 04/16/18] Multivitamins/Minerals TAB* [Theragran/minerals TAB*] 1 tab PO DAILY 04/16/18 [ History Confirmed 04/16/18] Nitroglycerin 0.2 MG/HR PATCH* [Nitroglycerin 5 MG PATCH*] 1 patch TRANSDERM DAILY 04/16/18 [History Confirmed 04/16/18] Nystatin CREAM* [Nystatin Cream*] 1 applic TOPICAL TID 04/16/18 [History Confirmed 04/16/18] Pantoprazole TAB (NF) [Protonix TAB (NF)] 40 mg PO DAILY 04/16/18 [History Confirmed 04/16/18] Thiamine TAB* [Vitamin B-1 TAB*] 100 mg PO DAILY 04/16/18 [History Confirmed ] PMH/Surg Hx/FS Hx/Imm Hx Previously Healthy: Yes Endocrine/Hematology History: Reports: Hx Diabetes Cardiovascular History: Reports: Hx Angina, Hx Coronary Artery Disease, Hx Hypertension, Other Cardiovascular Problems/Disorders - heart failure, irregular HR Denies: Hx Pacemaker/ICD Respiratory History: Denies: Hx Asthma, Hx Chronic Obstructive Pulmonary Disease (COPD) Musculoskeletal History: Reports: Hx Arthritis, Hx Back Problems Sensory History: Reports: Hx Cataracts, Hx Contacts or Glasses, Hx Hearing Aid, Hx Hearing Problem Opthamlomology History: Reports: Hx Cataracts, Hx Contacts or Glasses Neurological History: Reports: Hx Dementia - very mild Psychiatric History: Denies: Hx Panic Disorder - Surgical History Surgery Procedure, Year, and Place: HEART CATH WITH STENTS 2001, TRIPLE BYPASS 2000. carpal tunnel 2005. back surgery 2006 @ [facility] [place] Infectious Disease History: No Infectious Disease History: Denies: Traveled Outside the [place] in Last 30 Days - Social History Occupation: Retired Lives: With Family Alcohol Use: Weekly Alcohol Amount: 3-4 DRINKS Substance Use Type: Reports: None Smoking Status (MU): Never Smoked Tobacco Review of Systems Constitutional: Negative Negative: Fever, Chills Eyes: Negative ENT: Negative Cardiovascular: Negative Negative: Palpitations, Chest Pain Respiratory: Negative Negative: Shortness Of Breath, Cough Gastrointestinal: Negative Negative: Abdominal Pain, Vomiting, Diarrhea, Nausea Genitourinary: Negative Positive: Other - Low back pain Positive: Bruising Neurological: Negative Negative: Headache, Weakness, Paresthesia, Numbness, Syncope, Slurred Speech All Other Systems Reviewed And Are Negative: Yes Physical Exam Triage Information Reviewed: Yes Vital Signs On Initial Exam: Initial Vitals Temp Pulse Resp BP Pulse Ox 98.3 F 87 18 149/94 92 04/16/18 09:13 04/16/18 09:13 04/16/18 09:13 04/16/18 09:13 04/16/18 09:13 Vital Signs Reviewed: Yes Appearance: Positive: Well-Appearing - Patient sitting up in bed in no acute distress. Pleasant. present. Skin: Positive: Warm, Dry Head/Face: Positive: Normal Head/Face Inspection Eyes: Positive: Normal Neck: Positive: Supple, Nontender Respiratory/Lung Sounds: Positive: Clear to Auscultation, Breath Sounds Present Cardiovascular: Positive: Normal, RRR Abdomen Description: Positive: Nontender, Soft - Obese Musculoskeletal: Positive: Strength/ROM Intact, Other - Superficial abrasions on bilateral lower extremities without pain. No midline back tenderness but lumbar pain with rotation and flexion and extension. Chronic 3/5 strength in right foot. 5/5 strength in left foot. Neurological: Positive: Normal, CN Intact II-III Psychiatric: Positive: Affect/Mood Appropriate Diagnostics - Vital Signs Vital Signs Temp Pulse Resp BP Pulse Ox 04/16/18 09:14 115 14 149/94 84 04/16/18 09:13 98.3 F 87 18 149/94 92 - Laboratory Lab Results: Lab Results 04/16/18 Range/Units 09:44 WBC 9.2 (3.5-10.8) 10^3/ul RBC 4.67 (4.0-5.4) 10^6/ul Hgb 15.6 (14.0-18.0) g/dl Hct 46 (42-52) % MCV 98 H (80-94) fL MCH 34 H (27-31) pg MCHC 34 (31-36) g/dl RDW 14 (10.5-15) % Plt Count 201 (150-450) 10^3/ul MPV 7.7 (7.4-10.4) um3 Neut % (Auto) 80.5 (38-83) % Lymph % (Auto) 9.4 L (25-47) % [place] % (Auto) 8.7 H (0-7) % Eos % (Auto) 0.9 (0-6) % Baso % (Auto) 0.5 (0-2) % Absolute Neuts (auto) 7.4 (1.5-7.7) 10^3/ul Absolute Lymphs (auto) 0.9 L (1.0-4.8) 10^3/ul Absolute Monos (auto) 0.8 (0-0.8) 10^3/ul Absolute Eos (auto) 0.1 (0-0.6) 10^3/ul Absolute Basos (auto) 0 (0-0.2) 10^3/ul Absolute Nucleated RBC 0 10^3/ul Nucleated RBC % 0.1 Result Diagrams: 04/16/18 09:44 04/16/18 09:44 Lab Statement: Any lab studies that have been ordered have been reviewed, and results considered in the medical decision making process. Back Pain Course/Dx - Course Course Of Treatment: Patient presenting for worsening low back pain after minute mechanical fall that occurred at midnight. Patient did lie on the ground for about 9 hours before calling for help. In the ER patient's only complaint is low back pain. He has no neuro deficits on exam. Will obtain basic labs, EKG, chest x-ray, CT scan of lumbar spine in severity fluids. Patient declines pain medication at this time. CT scan lumbar spine shows chronic changes without acute injury, reading per radiology. Labs are unremarkable other than mildly increased creatinine 1.26 and elevated CK of 599. She done at 0947 shows a sinus rhythm of 75 bpm, incomplete bundle branch block, left axis deviation, no STEMI. Patient was eventually given IV morphine for pain. He is is concerned with him going home and this amount of pain and patient notes his legs feel weak and he does not feel he'll be able to ambulate secondary to pain. Case discussed with Dr. Carolina and will give patient a liter of IV fluids and recheck CK to make sure it is not rising. Repeat CK is coming down to 552. Attempted daily patient but he is unwilling Bed Secondary to Back Pain. Patient Is Concerned with Taking Him Home and That She Will Not Be Able to Care for Him. Hospitalist Was Consulted for Possible Admission for PT/OT Evaluation and Placement. Patient was examined by hospitalist, Dr. Jordan, and she has accepted admission. - Diagnoses Differential Diagnosis/HQI/PQRI: Positive: Arthritis, Fracture, Herniated Disc, Strain, Sprain Provider Diagnoses: Back pain, Fall, Elevated creatine kinase level Discharge - Sign-Out/Discharge Documenting (check all that apply): Discharge/Admit/Transfer - Discharge Plan Condition: Stable Disposition: ADMITTED TO [facility] Referrals: Luc Medeiros MD [Primary Care Provider] - - Billing Disposition and Condition Condition: STABLE Disposition: [facility]OSP-[facility]
[2018-04-16 10:15] LABS: EGFR Non-African American 55.9 (>60)
--- NOTE | 2018-04-16 10:27 | RAD ---
INDICATION: Fall. COMPARISON: Comparison is made with prior chest x-ray study from December 03 2005. TECHNIQUE: A single AP AP view of the chest was obtained in the sitting position. FINDINGS: The patient appears to be status post coronary artery bypass surgery. The heart is within normal limits in size. The right costophrenic angle is cut off on the film limiting the study. The lungs are underinflated and clear. No pneumothorax or pleural effusion is seen. IMPRESSION: SLIGHTLY LIMITED EXAM, NO EVIDENCE FOR ACUTE FINDING.
--- NOTE | 2018-04-16 10:52 | RAD ---
Indication: Back pain. CT of the lumbar spine was obtained in the axial plane. Sagittal and coronal reconstructed images were obtained. The vertebral bodies appear normal in height. Normal bone marrow signal is noted. At L5-S1 there is no disc protrusion. No central or foraminal stenosis is identified. Facet arthropathy is noted. At L4-L5 there is degenerative disc disease. Broad-based protrusion flattens the thecal sac. There is grade 1 spondylolisthesis noted. Facet and ligamentous hypertrophy is noted. Moderate degree of spinal stenosis is noted. At L3-L4 there is degenerative disc disease noted. I cannot totally exclude impingement upon the right exiting nerve root due to broad-based protrusion. At L2-L3 retrolisthesis is noted. Moderate facet hypertrophy is noted. At L1-L2 no disc protrusion is identified. No fracture noted. IMPRESSION: At L3-L4 degenerative disc disease, broad-based protrusion with ligamentous hypertrophy results in mild to moderate spinal stenosis. I cannot totally exclude right nerve root impingement of the exiting L3 nerve root. Grade 1 spondylolisthesis of L4 on 5. Facet arthropathy is noted. Moderate degree of central stenosis is noted at L4-L5.
[2018-04-16 11:21] LABS: Urine Appearance Clear; Urine Blood Negative (Negative); Urine Color Yellow; Urine Ketones 1+ (Negative); Urine Protein Negative (Negative); Urine Specific Gravity 1.013 (1.010-1.030); Urine Urobilinogen Negative (Negative)
[2018-04-16] MEDS ORDERED: Morphine VIAL* 4 MG/ML VIAL (1 ml vial) IV ONE (11:22)
[2018-04-16] MEDS ORDERED: Al Hydrox/Mg Hydrox/Simet LIQ* 30 ML UDC PO PRN (15:27)
[2018-04-16] MEDS ORDERED: Morphine VIAL* 4 MG/ML VIAL (1 ml vial) IV PRN (15:27)
[2018-04-16] MEDS ORDERED: Dextrose 50% Syringe 50 ML* 25 GM/50 ML SYRINGE IV PUSH PRN (15:32)
[2018-04-16] MEDS ORDERED: oxyCODONE/Acetamin 5/325 MG* TAB PO ONE (16:51)
[2018-04-16] MEDS: Insulin LISPRO* 1 UNITS UNIT SUBCUT SCH ×2 (19:26→20:58)
[2018-04-16] MEDS: Carbidopa/Levodop 10/100 MG TAB(*) PO SCH ×2 (19:26→21:41)
[2018-04-16] MEDS: oxyCODONE/Acetamin 5/325 MG* TAB PO PRN (19:37)
[2018-04-16] MEDS: NS 0.9% 1000 ML* 1,000 ML IV SCH (19:57)
[2018-04-16] MEDS: Docusate CAP* 100 MG PO SCH (20:59)
[2018-04-16] MEDS: Senna TAB PO SCH (21:00)
[2018-04-16] MEDS: Memantine TAB* 10 MG PO SCH (21:00)
[2018-04-16] MEDS: Heparin VIAL(*) 5000 UNITS/ML VIAL (FIVE THOUSAND) SUBCUT SCH (21:42)
[2018-04-16] MEDS: Nystatin CREAM* 15 GM TUBE TOPICAL SCH (21:44)
[2018-04-16] MEDS ORDERED: hydrALAZINE IV* 20 MG/ML VIAL IV SLOW PU PRN (23:20)
--- NOTE | 2018-04-17 01:19 | HP ---
CC: Dr. Medeiros; Dr. Whitley; Dr. Gold * HISTORY AND PHYSICAL: DATE OF ADMISSION: 04/16/18 PRIMARY CARE PROVIDER: Dr. Medeiros. CHIEF COMPLAINT: Lower back pain, status post fall. HISTORY OF PRESENT ILLNESS: Forrest Antony is a 73-year-old male with history of Parkinson's, mild dementia, coronary artery disease, and chronic lower back pain who presented to the hospital with the help of his after he has fallen a couple of times in the past several days. The patient's , who gives primary history when the patient is being evaluated, stated that the patient has fallen couple of times in the past week. Both of those falls were purely mechanical. He simply tripped and fell. There was no history of the patient losing consciousness. After the second fall, he had problems getting up and the patient's brought him to the emergency department for evaluation. Apparently, the patient has chronic lumbar spine problems for which he had epidural injections with steroids by Dr. Gold that "did not help." He has chronic right lumbar radiculopathy. Today, he complains of pain mostly in the left buttock and bilateral knees. Due to pain in the left leg, he refuses to get up from bed. As per the patient's , the patient's memory is "not good." In fact, during the conversation today, he occasionally is oriented x2, but occasionally he forgets where he is. He is going to be placed on overnight observation with a diagnosis of status post fall and back pain. The patient also has mild rhabdomyolysis. PAST MEDICAL HISTORY: 1. History of coronary artery disease, status post coronary artery bypass grafting. 2. History of coronary artery stenting in 2007. 3. History of diabetes, type 2. 4. Hypertension. 5. History of mild COPD. 6. History of Parkinson. 7. History of lumbar laminectomy in the past. 8. History of cataract surgery bilaterally. CURRENT MEDICATIONS: 1. Multivitamin 1 tablet daily. 2. Calcium, vitamin D 1 tablet b.i.d. 3. Namenda 10 mg b.i.d. 4. Sinemet 10/100 one tablet every 6 hours. 5. Thiamine 100 mg daily. 6. Nitroglycerin patch 0.2 mg per hour daily. 7. Lumigan eye drops 0.01% 1 drop both eyes q.p.m. 8. Lipitor 10 mg daily. 9. Nystatin cream apply to affected areas t.i.d. 10. Aricept 10 mg daily. 11. Aspirin 81 mg daily. 12. Protonix 40 mg daily. 13. Lisinopril 10 mg daily. 14. Tradjenta 5 mg daily. ALLERGIES: LORAZEPAM. FAMILY HISTORY: Positive for brother who had colon cancer at the age of 55. The patient's father of colon cancer at the age of 65. Her mother of lymphoma at the age of 75. SOCIAL HISTORY: The patient has a history of remote smoking for a total of 25 years, 2 packs per day. Currently, he does not smoke anymore. He denies any alcohol or drug use. He lives with his , who is his surrogate. His 's name is Margot Antony. REVIEW OF SYSTEMS: Please see history of present illness. Please note that the patient is a very poor historian. His is helping with the report of the patient's recent events with the patient and the patient's falls, although she also is not in the best of historians at this point. Currently, the patient denies any chest pain, shortness of breath. His memory has been impaired for quite some time. He is usually ambulating with a roller walker and he has had troubles with that. His pain is chronic and basically uncontrolled at this point. He has had no urinary symptoms. All the remaining 12 systems were attempted to be reviewed with the patient and the patient's and they were otherwise negative. PHYSICAL EXAMINATION GENERAL: The patient is a pleasant 73-year-old obese male, who is in no acute distress. He is alert and oriented x2. He is able to tell me the current date , but occasionally he gets disoriented and he does not know where he is. VITAL SIGNS: Blood pressure of 160/92, heart rate of 82 and regular, respiratory rate 20, oxygen saturation 91% on room air, temperature of 98.3. HEENT: Head: Atraumatic, normocephalic. Eyes: Pupils are equal, reactive to light and accommodation. Oropharynx clear. Mucosa moist. NECK: Supple. No JVD. No bruits bilaterally. RESPIRATORY: Clear to auscultation bilaterally. CARDIOVASCULAR: Regular rate and rhythm. No murmur. ABDOMEN: Protuberant ventral hernia noted, nontender. Bowel sounds are present in all 4 quadrants. EXTREMITIES: There is no edema. Pulses are +2 bilaterally. No clubbing or cyanosis. NEURO: On neuro evaluation, the patient refuses to raise his left leg over 30 degrees of the bed due to pain elicited in the knee area. He denies pain in the hip area. Complains of bilateral back and buttock pain when raising his legs. There is no neuro abnormality detected otherwise and motor strength in bilateral lower extremities and bilateral upper extremities is 5/5. Notable Parkinsonian tremor also during the evaluation. Cranial nerves II through XII grossly intact and speech is intact. SKIN: On evaluation of the skin, the patient has multiple small abrasions in bilateral hips and bilateral knees. PSYCHIATRIC: Very poor historian. No evidence of anxiety or depression. LABORATORY DATA/DIAGNOSTIC STUDIES: Laboratory data showed white blood cell count of 9.2, hemoglobin 15.6, hematocrit of 46, MCV of 98, and platelets of 201. Sodium was 137, potassium 4.2, chloride 100, carbon dioxide 27, BUN 11, creatinine was 1.26. Liver function tests are unremarkable. Total CPK of 599 at admission. Urinalysis grossly unremarkable. Lumbar spine CT, impression, "At L3-L4, degenerative disk disease, broad based protrusion with ligamentous hypertrophy resulting in mild to moderate spinal stenosis. I cannot totally exclude right nerve root impingement of the existing L3 root. Grade 1 spondylolisthesis of L4 on L5. Positive arthropathy is noted. Moderate degree of central stenosis noted at L4 and L5." ASSESSMENT AND PLAN: 1. Status post fall with mild rhabdomyolysis. The patient is going to be placed on intravenous hydration. CPK levels are going to be repeated in the morning. I will obtain physical therapy, occupational therapy evaluation in regards to the patient's history of frequent falls. 2. Acute kidney injury, likely due to mild dehydration. Once again, intravenous fluids are going to be instituted. 3. The patient has a history of chronic lower back pain. At this point, I do not believe he is a good candidate for neurosurgery. At this point, we will continue medical management with narcotic pain killers. 4. For his Parkinson, his outpatient medications are going to be continued. 5. For his diabetes, his oral medications for diabetes are going to be held and the patient is going to be placed on insulin sliding scale. 6. For DVT prophylaxis, the patient is going to be placed on heparin subcutaneously. 7. The patient's code status is full. His surrogate is his . TIME SPENT: Approximately 72 minutes were spent on admission of this patient, more than half of that time was spent [id number] with the patient during the interview and physical exam. [id number]/[facility] #: [id number] MTDD
[2018-04-17] MEDS: Omeprazole CAP* 20 MG PO SCH (04:08)
[2018-04-17] MEDS: Carbidopa/Levodop 10/100 MG TAB(*) PO SCH ×4 (04:08→20:38)
[2018-04-17] MEDS: Heparin VIAL(*) 5000 UNITS/ML VIAL (FIVE THOUSAND) SUBCUT SCH ×3 (04:09→21:33)
[2018-04-17 06:46] LABS: ABS Basophils 0.1 10^3/ul (0-0.2); ABS Eosinophils 0.3 10^3/ul (0-0.6); ABS Lymphocytes 1.4 10^3/ul (1.0-4.8); ABS Monocytes 0.8 10^3/ul (0-0.8); ABS Neutrophils 5.6 10^3/ul (1.5-7.7); ABS Nucleated RBC 0 10^3/ul; Eosinophil % 3.8 % (0-6); Hematocrit 44 % (42-52); Hemoglobin 14.5 g/dl (14.0-18.0); Lymphocyte % 17.6 % (25-47); Mean Corpuscular HGB Conc 33 g/dl (31-36); Mean Corpuscular Hemoglobin 33 pg (27-31); Mean Corpuscular Volume 99 fL (80-94); Mean Platelet Volume 8.1 um3 (7.4-10.4); Nucleated Red Blood Cells % 0.1; Platelet Count 179 10^3/ul (150-450); Red Blood Count 4.38 10^6/ul (4.0-5.4); Red Cell Distribution Width 14 % (10.5-15); White Blood Count 8.2 10^3/ul (3.5-10.8)
[2018-04-17 07:00] LABS: EGFR Non-African American 62.2 (>60)
[2018-04-17] MEDS: Insulin LISPRO* 1 UNITS UNIT SUBCUT SCH ×4 (07:54→20:34)
[2018-04-17] MEDS: oxyCODONE/Acetamin 5/325 MG* TAB PO PRN ×2 (08:34→13:06)
[2018-04-17] MEDS: Thiamine TAB* 100 MG TAB PO SCH (08:35)
[2018-04-17] MEDS: Aspirin EC TAB* 81 MG TAB.EC PO SCH (08:35)
[2018-04-17] MEDS: Atorvastatin* 10 MG TAB PO SCH (08:35)
[2018-04-17] MEDS: Memantine TAB* 10 MG PO SCH ×2 (08:35→20:38)
[2018-04-17] MEDS: Donepezil TAB* 5 MG PO SCH (08:35)
[2018-04-17] MEDS: Senna TAB PO SCH ×2 (08:35→20:38)
[2018-04-17] MEDS: Docusate CAP* 100 MG PO SCH ×2 (08:35→20:38)
[2018-04-17] MEDS: Nitroglycerin 0.2 MG/HR PATCH* (5 MG) TRANSDERM SCH (08:35)
[2018-04-17] MEDS: Nystatin CREAM* 15 GM TUBE TOPICAL SCH ×3 (08:38→20:40)
[2018-04-17] MEDS: NS 0.9% 1000 ML* 1,000 ML IV SCH (11:36)
--- NOTE | 2018-04-17 17:25 | PN ---
Subjective Date of Service: 04/17/18 Interval History: Pt is feeling ok. He tells me he got quite confused with a medication that he received today. Nursing indicates it was after the morphine he got increasingly confused. He denies any pain at this time. Objective Active Medications: Acetaminophen (Tylenol Tab*) 650 mg PO Q4H PRN PRN Reason: FEVER/PAIN Al Hydrox/Mg Hydrox/Simethicone (Maalox Plus*) 30 ml PO Q6H PRN PRN Reason: INDIGESTION Aspirin (Aspirin Ec Tab*) 81 mg PO DAILY [facility] Last Admin: 04/17/18 08:35 Dose: 81 mg Atorvastatin Calcium (Lipitor*) 10 mg PO DAILY [facility] Last Admin: 04/17/18 08:35 Dose: 10 mg Carbidopa/Levodopa (Sinemet 10/100 Tab(*)) 1 tab PO Q6H [facility] Last Admin: 04/17/18 16:30 Dose: 1 tab Dextrose (D50w Syringe 50 Ml*) 12.5 gm IV PUSH .FOR FS < 60 - SS PRN PRN Reason: FS < 60 Docusate Sodium (Colace Cap*) 100 mg PO BID [facility] Last Admin: 04/17/18 08:35 Dose: 100 mg Donepezil HCl (Aricept Tab*) 10 mg PO DAILY [facility] Last Admin: 04/17/18 08:35 Dose: 10 mg Heparin Sodium (Porcine) (Heparin Vial(*)) 5,000 units SUBCUT Q8HR [facility] Last Admin: 04/17/18 13:07 Dose: 5,000 units Hydralazine HCl (Apresoline Iv*) 5 mg IV SLOW PU Q6H PRN PRN Reason: BLOOD PRESSURE Sodium Chloride (Ns 0.9% 1000 Ml*) 1,000 mls @ 75 mls/hr IV PER RATE [facility] Stop: 04/18/18 04:49 Last Admin: 04/17/18 11:36 Dose: 75 mls/hr Insulin Human Lispro (Humalog*) 0 units SUBCUT ACHS [facility] PRN Reason: Protocol Last Admin: 04/17/18 16:33 Dose: Not Given Memantine (Namenda Tab*) 10 mg PO BID [facility] Last Admin: 04/17/18 08:35 Dose: 10 mg Morphine Sulfate (Morphine Vial*) 2 mg IV Q4H PRN PRN Reason: PAIN Last Admin: 04/17/18 11:30 Dose: 2 mg Nitroglycerin (Nitroglycerin 5 Mg Patch*) 1 patch TRANSDERM DAILY [facility] Last Admin: 04/17/18 08:35 Dose: 1 patch Nystatin (Nystatin Cream*) 1 applic TOPICAL TID [facility] Last Admin: 04/17/18 13:07 Dose: 1 applic Omeprazole (Prilosec Cap*) 20 mg PO 0600 [facility] Last Admin: 04/17/18 04:08 Dose: 20 mg Oxycodone/Acetaminophen (Percocet 5/325 Tab*) 1 tab PO Q4H PRN PRN Reason: Pain Last Admin: 04/17/18 13:06 Dose: 1 tab Senna (Senokot Tab*) 1 tab PO BID [facility] Last Admin: 04/17/18 08:35 Dose: 1 tab Thiamine HCl (Vitamin B-1 Tab*) 100 mg PO DAILY [facility] Last Admin: 04/17/18 08:35 Dose: 100 mg Vital Signs - 8 hr 04/17/18 04/17/18 04/17/18 11:24 11:30 11:45 Temperature 98.3 F Pulse Rate 80 Respiratory 20 16 18 Rate Blood Pressure 133/70 (mmHg) O2 Sat by Pulse 95 Oximetry 04/17/18 04/17/18 04/17/18 12:58 13:06 14:49 Temperature Pulse Rate Respiratory 18 18 16 Rate Blood Pressure (mmHg) O2 Sat by Pulse Oximetry Oxygen Devices in Use Now: None Appearance: Elderly male sitting up in a recliner chair, NAD Eyes: No Scleral Icterus Ears/Nose/Mouth/Throat: Mucous Membranes Moist Respiratory: Symmetrical Chest Expansion and Respiratory Effort, Clear to Auscultation Cardiovascular: NL Sounds; No Murmurs; No JVD, RRR, No Edema Abdominal: NL Sounds; No Tenderness; No Distention Extremities: No Clubbing, Cyanosis Skin: No Nodules or Sclerosis, - - excoriations noted on pt's knees bilaterally and R anterior deal Neurological: - - moderately confused Result Diagrams: 04/17/18 06:10 04/17/18 06:10 Additional Lab and Data: Lab Results 04/16/18 Range/Units 09:44 WBC 9.2 (3.5-10.8) 10^3/ul RBC 4.67 (4.0-5.4) 10^6/ul Hgb 15.6 (14.0-18.0) g/dl Hct 46 (42-52) % MCV 98 H (80-94) fL MCH 34 H (27-31) pg MCHC 34 (31-36) g/dl RDW 14 (10.5-15) % Plt Count 201 (150-450) 10^3/ul MPV 7.7 (7.4-10.4) um3 Neut % (Auto) 80.5 (38-83) % Lymph % (Auto) 9.4 L (25-47) % [place] % (Auto) 8.7 H (0-7) % Eos % (Auto) 0.9 (0-6) % Baso % (Auto) 0.5 (0-2) % Absolute Neuts (auto) 7.4 (1.5-7.7) 10^3/ul Absolute Lymphs (auto) 0.9 L (1.0-4.8) 10^3/ul Absolute Monos (auto) 0.8 (0-0.8) 10^3/ul Absolute Eos (auto) 0.1 (0-0.6) 10^3/ul Absolute Basos (auto) 0 (0-0.2) 10^3/ul Absolute Nucleated RBC 0 10^3/ul Nucleated RBC % 0.1 Assess/Plan/Problems-Billing Mr. Antony is a 73 yo M who has a h/o probable dementia, parkinsons, HTN, Type II DM and CAD who presented to the ER after falling a couple times in one week. - Patient Problems (1) Low back pain Current Visit: Yes Status: Acute Code(s): M54.5 - LOW BACK PAIN SNOMED Code(s): 917308190 Comment: S/P fall. Will need STR per PT. Stop morphine due to confusion and utilize percocet alone for now. (2) Type II diabetes mellitus Current Visit: Yes Status: Acute Comment: BS are under very good control. Continue lispro sliding scale. (3) HTN (hypertension) Current Visit: Yes Status: Acute Code(s): I10 - ESSENTIAL (PRIMARY) HYPERTENSION SNOMED Code(s): 44417004 Comment: BP is under fair control. Resume lisinopril. (4) CAD (coronary artery disease) Current Visit: Yes Status: Acute Code(s): I25.10 - ATHSCL HEART DISEASE OF [place] CORONARY ARTERY W/O ANG PCTRS SNOMED Code(s): 35952798 Comment: Stable without complaints. Continue ASA. (5) Parkinsons disease Current Visit: Yes Status: Acute Code(s): G20 - PARKINSON'S DISEASE SNOMED Code(s): 96564643 Comment: Contiue sinement and aricept and namenda for dementia. (6) DVT prophylaxis Current Visit: Yes Status: Acute Code(s): MVN3732 - SNOMED Code(s): 352688568 Comment: SQ heparin (7) Full code status Current Visit: Yes Status: Acute Code(s): Z78.9 - OTHER SPECIFIED HEALTH STATUS SNOMED Code(s): 879687110
[2018-04-18] MEDS: Carbidopa/Levodop 10/100 MG TAB(*) PO SCH ×4 (03:58→21:23)
[2018-04-18] MEDS: Heparin VIAL(*) 5000 UNITS/ML VIAL (FIVE THOUSAND) SUBCUT SCH ×3 (05:45→21:25)
[2018-04-18] MEDS: Omeprazole CAP* 20 MG PO SCH (05:45)
[2018-04-18] MEDS: Insulin LISPRO* 1 UNITS UNIT SUBCUT SCH ×4 (07:45→21:23)
--- NOTE | 2018-04-18 09:18 | PN ---
Subjective Date of Service: 04/18/18 Interval History: Patient reports back pain, this is chronic. Was out of bed to chair w/ Garrett yesterday. Prior to admission was able to get out of bed and walk short distances. Has new urinary incontinence. Denies dysuria. Has the urge, but cannot get out of bed to go. Family History: Unchanged from Admission Social History: Unchanged from Admission Past Medical History: Unchanged from Admission Objective Active Medications: Acetaminophen (Tylenol Tab*) 650 mg PO Q4H PRN PRN Reason: FEVER/PAIN Al Hydrox/Mg Hydrox/Simethicone (Maalox Plus*) 30 ml PO Q6H PRN PRN Reason: INDIGESTION Aspirin (Aspirin Ec Tab*) 81 mg PO DAILY [facility] Last Admin: 04/17/18 08:35 Dose: 81 mg Atorvastatin Calcium (Lipitor*) 10 mg PO DAILY [facility] Last Admin: 04/17/18 08:35 Dose: 10 mg Carbidopa/Levodopa (Sinemet 10/100 Tab(*)) 1 tab PO Q6H [facility] Last Admin: 04/18/18 03:58 Dose: 1 tab Dextrose (D50w Syringe 50 Ml*) 12.5 gm IV PUSH .FOR FS < 60 - SS PRN PRN Reason: FS < 60 Docusate Sodium (Colace Cap*) 100 mg PO BID [facility] Last Admin: 04/17/18 20:38 Dose: 100 mg Donepezil HCl (Aricept Tab*) 10 mg PO DAILY [facility] Last Admin: 04/17/18 08:35 Dose: 10 mg Heparin Sodium (Porcine) (Heparin Vial(*)) 5,000 units SUBCUT Q8HR [facility] Last Admin: 04/18/18 05:45 Dose: 5,000 units Insulin Human Lispro (Humalog*) 0 units SUBCUT ACHS [facility] PRN Reason: Protocol Last Admin: 04/18/18 07:45 Dose: Not Given Lisinopril (Prinivil Tab*) 10 mg PO DAILY [facility] Memantine (Namenda Tab*) 10 mg PO BID [facility] Last Admin: 04/17/18 20:38 Dose: 10 mg Nitroglycerin (Nitroglycerin 5 Mg Patch*) 1 patch TRANSDERM DAILY [facility] Last Admin: 04/17/18 08:35 Dose: 1 patch Nystatin (Nystatin Cream*) 1 applic TOPICAL TID [facility] Last Admin: 04/17/18 20:40 Dose: 1 applic Omeprazole (Prilosec Cap*) 20 mg PO 0600 [facility] Last Admin: 04/18/18 05:45 Dose: 20 mg Oxycodone/Acetaminophen (Percocet 5/325 Tab*) 1 tab PO Q4H PRN PRN Reason: Pain Last Admin: 04/17/18 13:06 Dose: 1 tab Senna (Senokot Tab*) 1 tab PO BID [facility] Last Admin: 04/17/18 20:38 Dose: 1 tab Thiamine HCl (Vitamin B-1 Tab*) 100 mg PO DAILY [facility] Last Admin: 04/17/18 08:35 Dose: 100 mg Vital Signs - 8 hr 04/18/18 04/18/18 03:35 08:30 Temperature 36.9 C 37.0 C Pulse Rate 76 84 Respiratory 16 18 Rate Blood Pressure 153/87 171/94 (mmHg) O2 Sat by Pulse 93 100 Oximetry Oxygen Devices in Use Now: None Appearance: elderly, eating breakfast Eyes: No Scleral Icterus Ears/Nose/Mouth/Throat: Clear Oropharnyx Neck: No Thyroid Enlargement, Masses Respiratory: Clear to Auscultation, Clear to Percussion Cardiovascular: NL Sounds; No Murmurs; No JVD Abdominal: NL Sounds; No Tenderness; No Distention Skin: No Rash or Ulcers Neurological: - - alert, oriented to self, place, motor 4/5 hip flex bilat, 5/5 distal Lines/Tubes/Other Access: Clean, Dry and Intact Peripheral IV Nutrition: Taking PO's Result Diagrams: 04/17/18 06:10 04/17/18 06:10 Additional Lab and Data: L Assess/Plan/Problems-Billing Mr. Antony is a 73 yo M who has a h/o probable dementia, parkinsons, HTN, Type II DM and CAD who presented to the ER after falling a couple times in one week. - Patient Problems (1) Parkinsons disease Current Visit: Yes Status: Acute Priority: Medium Code(s): G20 - PARKINSON 'S DISEASE SNOMED Code(s): 13074454 Comment: -Continue sinement for PD and aricept and namenda for dementia. -mobility is main issue, eval by PT appreciated -back pain also contributes (2) Type II diabetes mellitus Current Visit: Yes Status: Acute Priority: Low Comment: -BS are under very good control. Continue lispro sliding scale. (3) HTN (hypertension) Current Visit: Yes Status: Acute Priority: Medium Code(s): I10 - ESSENTIAL (PRIMARY) HYPERTENSION SNOMED Code(s): 69767628 Comment: - not under good control. Resumed lisinopril yesterday - will add norvasc (4) Urinary incontinence due to immobility Current Visit: Yes Status: Acute Priority: Low Code(s): R39.81 - FUNCTIONAL URINARY INCONTINENCE SNOMED Code(s): 725262563 Comment: -reviewed UA, no infection -will work on mobility, avoid Yun (5) DVT prophylaxis Current Visit: Yes Status: Acute Priority: Low Code(s): MEX5667 - SNOMED Code(s): 645419776 Comment: SQ heparin
[2018-04-18] MEDS: Docusate CAP* 100 MG PO SCH ×2 (10:22→21:23)
[2018-04-18] MEDS: Donepezil TAB* 5 MG PO SCH (10:22)
[2018-04-18] MEDS: Lisinopril TAB* 10 MG PO SCH (10:23)
[2018-04-18] MEDS: Aspirin EC TAB* 81 MG TAB.EC PO SCH (10:23)
[2018-04-18] MEDS: Atorvastatin* 10 MG TAB PO SCH (10:23)
[2018-04-18] MEDS: Nitroglycerin 0.2 MG/HR PATCH* (5 MG) TRANSDERM SCH (10:23)
[2018-04-18] MEDS: Nystatin CREAM* 15 GM TUBE TOPICAL SCH ×3 (10:23→21:25)
[2018-04-18] MEDS: Thiamine TAB* 100 MG TAB PO SCH (10:23)
[2018-04-18] MEDS: Senna TAB PO SCH ×2 (10:23→21:23)
[2018-04-18] MEDS: Memantine TAB* 10 MG PO SCH ×2 (10:23→21:23)
[2018-04-18] MEDS: amLODIPine TAB* 5 MG PO SCH (10:23)
[2018-04-18] MEDS: Acetaminophen TAB* 325 MG PO PRN ×3 (10:31→21:22)
[2018-04-19] MEDS: Carbidopa/Levodop 10/100 MG TAB(*) PO SCH ×4 (03:49→21:54)
[2018-04-19] MEDS: Heparin VIAL(*) 5000 UNITS/ML VIAL (FIVE THOUSAND) SUBCUT SCH ×3 (05:43→21:54)
[2018-04-19] MEDS: Omeprazole CAP* 20 MG PO SCH (05:43)
[2018-04-19] MEDS: Insulin LISPRO* 1 UNITS UNIT SUBCUT SCH ×4 (07:58→21:53)
[2018-04-19] MEDS: amLODIPine TAB* 5 MG PO SCH (09:12)
[2018-04-19] MEDS: Lisinopril TAB* 10 MG PO SCH (09:12)
[2018-04-19] MEDS: Donepezil TAB* 5 MG PO SCH (09:12)
[2018-04-19] MEDS: Memantine TAB* 10 MG PO SCH ×2 (09:12→21:53)
[2018-04-19] MEDS: Docusate CAP* 100 MG PO SCH ×2 (09:12→21:53)
[2018-04-19] MEDS: Senna TAB PO SCH ×2 (09:12→21:53)
[2018-04-19] MEDS: Thiamine TAB* 100 MG TAB PO SCH (09:12)
[2018-04-19] MEDS: Aspirin EC TAB* 81 MG TAB.EC PO SCH (09:12)
[2018-04-19] MEDS: Atorvastatin* 10 MG TAB PO SCH (09:12)
[2018-04-19] MEDS: Acetaminophen TAB* 325 MG PO PRN (09:13)
[2018-04-19] MEDS: Nystatin CREAM* 15 GM TUBE TOPICAL SCH ×3 (09:15→21:54)
[2018-04-19] MEDS: Nitroglycerin 0.2 MG/HR PATCH* (5 MG) TRANSDERM SCH (09:15)
[2018-04-19] MEDS: oxyCODONE/Acetamin 5/325 MG* TAB PO PRN ×3 (10:46→20:06)
--- NOTE | 2018-04-19 15:54 | PN ---
Subjective Date of Service: 04/19/18 Interval History: Patient had some relief of back pain w/ Percocet earlier. Has been able to get up to chair. Seen by Dr. Hernandez today, seen by Dr. Albarado yesterday. Has blood testing and nerve conduction testing planned tomorrow. Family History: Unchanged from Admission Social History: Unchanged from Admission Past Medical History: Unchanged from Admission Objective Active Medications: Acetaminophen (Tylenol Tab*) 650 mg PO Q4H PRN PRN Reason: FEVER/PAIN Last Admin: 04/19/18 09:13 Dose: 650 mg Al Hydrox/Mg Hydrox/Simethicone (Maalox Plus*) 30 ml PO Q6H PRN PRN Reason: INDIGESTION Amlodipine Besylate (Norvasc Tab*) 2.5 mg PO DAILY [facility] Last Admin: 04/19/18 09:12 Dose: 2.5 mg Aspirin (Aspirin Ec Tab*) 81 mg PO DAILY [facility] Last Admin: 04/19/18 09:12 Dose: 81 mg Carbidopa/Levodopa (Sinemet 10/100 Tab(*)) 1 tab PO Q6H [facility] Last Admin: 04/19/18 09:16 Dose: 1 tab Dextrose (D50w Syringe 50 Ml*) 12.5 gm IV PUSH .FOR FS < 60 - SS PRN PRN Reason: FS < 60 Docusate Sodium (Colace Cap*) 100 mg PO BID [facility] Last Admin: 04/19/18 09:12 Dose: 100 mg Donepezil HCl (Aricept Tab*) 10 mg PO DAILY [facility] Last Admin: 04/19/18 09:12 Dose: 10 mg Heparin Sodium (Porcine) (Heparin Vial(*)) 5,000 units SUBCUT Q8HR [facility] Last Admin: 04/19/18 14:05 Dose: 5,000 units Insulin Human Lispro (Humalog*) 0 units SUBCUT ACHS [facility] PRN Reason: Protocol Last Admin: 04/19/18 12:16 Dose: Not Given Lisinopril (Prinivil Tab*) 10 mg PO DAILY [facility] Last Admin: 04/19/18 09:12 Dose: 10 mg Memantine (Namenda Tab*) 10 mg PO BID [facility] Last Admin: 04/19/18 09:12 Dose: 10 mg Nitroglycerin (Nitroglycerin 5 Mg Patch*) 1 patch TRANSDERM DAILY [facility] Last Admin: 04/19/18 09:15 Dose: 1 patch Nystatin (Nystatin Cream*) 1 applic TOPICAL TID [facility] Last Admin: 04/19/18 14:05 Dose: 1 applic Omeprazole (Prilosec Cap*) 20 mg PO 0600 [facility] Last Admin: 04/19/18 05:43 Dose: 20 mg Oxycodone/Acetaminophen (Percocet 5/325 Tab*) 1 tab PO Q4H PRN PRN Reason: Pain Last Admin: 04/19/18 10:46 Dose: 1 tab Senna (Senokot Tab*) 1 tab PO BID [facility] Last Admin: 04/19/18 09:12 Dose: 1 tab Thiamine HCl (Vitamin B-1 Tab*) 100 mg PO DAILY [facility] Last Admin: 04/19/18 09:12 Dose: 100 mg Vital Signs - 8 hr 04/19/18 04/19/18 04/19/18 08:00 10:46 12:13 Temperature 36.8 C Pulse Rate 69 Respiratory 18 18 18 Rate Blood Pressure 114/59 (mmHg) O2 Sat by Pulse 95 Oximetry Oxygen Devices in Use Now: None Appearance: alert, sitting in chair Ears/Nose/Mouth/Throat: Clear Oropharnyx Neck: NL Appearance and Movements; NL JVP Respiratory: Symmetrical Chest Expansion and Respiratory Effort, Clear to Auscultation Cardiovascular: NL Sounds; No Murmurs; No JVD Abdominal: NL Sounds; No Tenderness; No Distention Neurological: - - alert, oriented to place, person, motor 4+/5 bilat LE hip flexion, 5/5 distal Lines/Tubes/Other Access: Clean, Dry and Intact Peripheral IV Result Diagrams: 04/17/18 06:10 04/17/18 06:10 Additional Lab and Data: Laboratory Tests 04/19/18 04/19/18 13:52 13:52 ESR 15 Total Creatine Kinase 66 Vitamin B12 416 TSH 1.29 Assess/Plan/Problems-Billing Mr. Antony is a 73 yo M who has a h/o dementia, parkinsons, HTN, Type II DM and CAD who presented to the ER after falling a couple times in one week. - Patient Problems (1) Parkinsons disease Current Visit: Yes Status: Acute Priority: Medium Code(s): G20 - PARKINSON 'S DISEASE SNOMED Code(s): 21267591 Comment: -Continue sinement for PD and aricept and namenda for dementia. -mobility is main issue, eval by PT appreciated (2) Type II diabetes mellitus Current Visit: Yes Status: Acute Priority: Low Comment: -BS are under very good control. Continue lispro sliding scale. -A1c pending in AM (3) HTN (hypertension) Current Visit: Yes Status: Acute Priority: Medium Code(s): I10 - ESSENTIAL (PRIMARY) HYPERTENSION SNOMED Code(s): 75921523 Comment: - Resumed lisinopril after admission - under better control w/ norvasc added (4) Urinary incontinence due to immobility Current Visit: Yes Status: Acute Priority: Low Code(s): R39.81 - FUNCTIONAL URINARY INCONTINENCE SNOMED Code(s): 271949981 Comment: -reviewed UA, no infection -will work on mobility, avoid Yun (5) DVT prophylaxis Current Visit: Yes Status: Acute Priority: Low Code(s): VTK5551 - SNOMED Code(s): 940848381 Comment: SQ heparin (6) Spinal stenosis Current Visit: Yes Status: Acute Priority: Medium Code(s): M48.00 - SPINAL STENOSIS, SITE UNSPECIFIED SNOMED Code(s): 38737220 Comment: -Discussed case with Dr. Hernandez -tests pending to assess for radiculopathy, other causes of neuropathy -may need neurosurgical intervention. Status and Disposition: inpatient, may need short-term rehab
--- NOTE | 2018-04-19 22:05 | CONS ---
CC: Dr. Wood* NEUROLOGY CONSULTATION: DATE OF CONSULT: 04/19/18 REFERRING PHYSICIAN: Dr. Burnett. LOCATION: He is an inpatient in room 416. CHIEF COMPLAINT: Difficulty walking. HISTORY OF PRESENT ILLNESS: Forrest Antony is a 73-year-old man with a history of parkinsonism, dementia, and lumbar stenosis. He has had chronic back pain, which has been refractory to treatment. He was in [place] over the winter and fell and spent 2 weeks in the hospital and rehab center. He improved and was able to return to [place]. After about a month at home, his back pain was worse again. He had some steroid injections at the pain clinic and did not see an improvement. He saw Dr. Kj Wood in followup in our office in February. He would walk, bent forward at the waist with significant back pain. He was diagnosed as having Parkinson's disease in [place] this past winter. He was put on Sinemet in between that and physical therapy his walking improved. He fell at home and was not able to get up. He came into the emergency room and was admitted on April 16. Since being here, he has not been able to bear weight due to severe pain in his back and legs. I was asked to see him in consultation. He reports back pain, which radiates into both proximal legs. He does not have pain in his feet, but he has numbness in his feet and he was diagnosed having a neuropathy from diabetes some time in the past, but forgets the details. He does not have any pain in his neck or arms or weakness in his arms. No numbness in his hands. His laboratory studies so far had been notable for a CT of the lumbar spine, which reveals pretty severe degenerative disk disease. He has grade 1 spondylolisthesis of L4 and L5. He had an MRI of the lumbar spine last June, which looked similar. Other laboratory studies notable this admission has an elevated creatinine kinase when he came in at 599, it came down to 552 later that day and 327 the day before yesterday. He had been falling at home. He is on atorvastatin 10 mg and he thinks he has been on a long time, but he is cognitively impaired and is not able to give me a clear history on that. He does note some tremor in his hands. PAST MEDICAL HISTORY: Notable for dementia, treated with donepezil and Namenda ; COPD; recent diagnosis of Parkinson's disease; coronary artery disease with stenting, also bypass grafting; remote history of lumbar laminectomy over 10 years ago; hypertension. MEDICATIONS: At home consist of: 1. Thiamine 100 mg p.o. daily. 2. Sinemet 10/100 one tablet q.6 hours. 3. Nitroglycerin 0.2 mg patch per hour daily. 4. Lipitor 10 mg p.o. daily. 5. Aricept 10 mg p.o. daily. 6. Tradjenta 5 mg p.o. daily. 7. Protonix 40 mg p.o. daily. 8. Aspirin 81 mg p.o. daily. 9. Lisinopril 40 mg p.o. daily. ALLERGIES: He said to be allergic to LORAZEPAM, although the reaction is not recollected. SOCIAL HISTORY: He lives with his and they split time between [place] and [place]. He quit smoking years ago. He drinks alcohol rarely. He lives with his . REVIEW OF SYSTEMS: He denies current chest pain, shortness of breath, or abdominal pain. He says his bladder control is "pretty good." He denies problem with vision. No history of head trauma, strokes, or seizures. No problems with swallowing or choking. No change in voice. PHYSICAL EXAMINATION: He is an overweight gentleman, seated in the hospital recliner with his legs held up in extension. Temperature 98.0 orally, blood pressure 140/76, heart rate about 70 and seems regular, respiratory rate 18, and oxygen saturation is 94% on room air. Lungs are clear bilaterally. Heart is in a regular rhythm without murmurs heard. Carotid pulses are hard to feel, I do not hear any bruits. Oral mucosa is moist and atraumatic. Neck range of motion is mildly limited in lateral rotation and lateral flexion, but there is no pain. There is no pedal edema. Feet are warm. On neurological exam, pupils react equally from 3 to 2 mm. Eye movements are normal. Visual fernandez are full to confrontation. Funduscopic exam is normal. Facial musculature is symmetric with light hypomimia. Palate and tongue are normal and speech is clear without hypophonia or dysarthria. He is a little bit hard of hearing bilaterally. Neck muscle bulk and strength is intact. Facial sensation to light touch and pin is symmetric. On sensory exam, he has absent pin discrimination in the legs to the knees, normal pin discrimination in the hands. He has absent light touch in the feet to the ankles, normal light touch in the hands. He has absent vibration in the toes, absent at the right ankle, markedly diminished at the left ankle. He has impaired proprioception in the great toes and ankles bilaterally. He has normal vibration and proprioception in the hands. Motor exam in the upper extremities is normal. There are no abnormalities of tone or weakness proximally or distally. In the lower extremities, there is pain with movement of the proximal legs in any direction. This is both passively and actively. It is very hard to assess proximal strength in the lower extremities accordingly. He has bilateral ankle dorsiflexor weakness, worse on the rightwards perhaps are grade 3 than on the leftwards perhaps grade 4-. Plantar flexion seems weak, but he develops proximal pain with forceful testing. He has reasonably good quadriceps strength , but it is hard to assess resistive strength because of the pain. Reflexes are trace at the biceps and otherwise absent. Plantar responses are flexor bilaterally. He has some mild sustention tremor and action tremor on [id number] maneuver bilaterally. I did not see a rest tremor. Finger taps are a bit slow and clumsy in both hands, little worse on the left. He is awake and alert and oriented to person and place. He is not aware how long he has been in the hospital. He knows what year it is. He is able to provide some history, but clearly has impaired memory. Language is fluent, but he loses his train of thought pretty easily. DIAGNOSTIC STUDIES/LAB DATA: Laboratory data reviewed and includes images of the lumbar spine MRI from 06/19/17 and of the lumbar spine CT from 04/16/18. CT of the brain from May is reviewed and reveals somewhat enlarged ventricles and some atrophy. Laboratory studies at this admission included unremarkable urinalysis, chemistry profile notable for normal glucoses, creatinine kinase described above and most recently 327 on 04/17/18, normal liver enzymes. Last vitamin B12 level in the chart is from 07/22/14 was normal. TSH normal on 10/07/17 at 1.4. CBC on admission unremarkable. IMPRESSION AND PLAN: Impression is that of a pretty severe neuropathy as well as proximal pain in the lower extremities making hard to assess strength. Proximal pain seems to be more diffuse and that would expect from lumbar stenosis alone particularly at rest and just with passive movement. Monitoring with his elevated creatinine kinase if he does not have inflammatory or toxic myopathy. I advised stopping atorvastatin, getting nerve conductions and an EMG study which we will plan to do tomorrow. Recommend additional blood work for his neuropathy to include a hemoglobin A1c, Lyme screen, serum protein electrophoresis, vitamin B12 level, and I will repeat his creatinine kinase. Also check a sedimentation rate. Another consideration with his parkinsonism and cognitive decline and gait would be normal pressure hydrocephalus. That would not explain the pain in his lower extremities and so I am going to pursue that angle first before considering repeat imaging of his brain. We will continue to follow while he is here and until his workup is complete. [id number]/[facility] #: [id number] FAIZAN
[2018-04-20] MEDS: Carbidopa/Levodop 10/100 MG TAB(*) PO SCH ×4 (04:05→22:24)
[2018-04-20] MEDS: Omeprazole CAP* 20 MG PO SCH (05:29)
[2018-04-20] MEDS: Heparin VIAL(*) 5000 UNITS/ML VIAL (FIVE THOUSAND) SUBCUT SCH ×3 (05:29→22:24)
[2018-04-20] MEDS: Insulin LISPRO* 1 UNITS UNIT SUBCUT SCH ×4 (07:51→22:26)
[2018-04-20] MEDS: oxyCODONE/Acetamin 5/325 MG* TAB PO PRN ×2 (08:43→14:52)
[2018-04-20] MEDS: Senna TAB PO SCH ×2 (08:44→22:24)
[2018-04-20] MEDS: Memantine TAB* 10 MG PO SCH ×2 (08:44→22:25)
[2018-04-20] MEDS: Thiamine TAB* 100 MG TAB PO SCH (08:44)
[2018-04-20] MEDS: Docusate CAP* 100 MG PO SCH ×2 (08:44→22:25)
[2018-04-20] MEDS: Aspirin EC TAB* 81 MG TAB.EC PO SCH (08:44)
[2018-04-20] MEDS: Donepezil TAB* 5 MG PO SCH (08:45)
[2018-04-20] MEDS: Lisinopril TAB* 10 MG PO SCH (08:45)
[2018-04-20] MEDS: Nitroglycerin 0.2 MG/HR PATCH* (5 MG) TRANSDERM SCH (08:45)
[2018-04-20] MEDS: amLODIPine TAB* 5 MG PO SCH (08:45)
[2018-04-20] MEDS: Nystatin CREAM* 15 GM TUBE TOPICAL SCH ×3 (08:47→22:27)
[2018-04-20] MEDS: Lidocaine PATCH 5%* 1 PATCH TRANSDERM SCH (11:57)
--- NOTE | 2018-04-20 15:08 | CONS ---
CC: Dr. Medeiros; Dr. Brewster * NEUROLOGY FOLLOWUP NOTE: DATE OF CONSULTATION: 04/20/18 LOCATION: He is an inpatient, room 416. HOSPITALIST: Bladimir Zelaya MD CHIEF COMPLAINT: Back pain, weakness. INTERVAL HISTORY: Since yesterday, Mr. Antony feels the same. He still has a lot of pain in his back and hips are worse with any movement. The pain radiates into his thighs. He has not noticed any numbness or weakness in his arms or neck pain. MEDICATIONS: Medications are reviewed and he remains on: 1. Amlodipine 2.5 mg p.o. daily. 2. Aspirin 81 mg p.o. daily. 3. Sinemet 10/100 mg 1 p.o. q.6 hours. 4. Donepezil 10 mg p.o. daily. 5. Dilaudid 0.5 mg IV q.6 hours as needed for pain. 6. Heparin subcutaneous 5000 units q.8 hours. 7. Lidoderm patch daily. 8. Lisinopril 10 mg p.o. daily. 9. Namenda 10 mg p.o. b.i.d. 10. Nitroglycerin patch 1 daily. 11. Omeprazole 20 mg p.o. daily. 12. Oxycodone 1 p.o. q.4 hours p.r.n. 13. Thiamine 100 mg p.o. daily. PHYSICAL EXAM: On exam he remains afebrile, blood pressure most recently 122/57 , heart rate in the 80s. Respirations 18 and oxygen saturation is 98% on room air. He continues with exquisite pain with movement about the hips or proximal legs. He has pretty good strength proximally in the upper extremities and some intrinsic hand muscle weakness. He has bilateral ankle dorsiflexor weakness and more profound toe dorsiflexor weakness. Proximal testing is difficult due to pain, but he has difficulty raising his legs up without his arms. DIAGNOSTIC STUDIES/LAB DATA: Includes nerve conduction EMG testing today, which reveals a pretty severe neuropathy, but also abundant chronic and recent denervation in L5, S1, and possibly L4 myotomes on the right. There is no evidence of a myopathic process. Other laboratory data includes a normal vitamin B12 level at 416 yesterday, normal TSH, creatine kinase is down to 66. Lyme screen and serum protein electrophoresis are pending. Sedimentation rate is normal at 15. IMPRESSION: Most of his weakness is from his back pain and subsequent radiculopathies. However, there may be a significant component from a peripheral neuropathy which may be diabetic as no other etiology is evident. Lyme screen and serum protein electrophoresis are still pending. There is no evidence of a myopathic process. I will reinstitute his atorvastatin. I recommended neurosurgical consultation. I am not sure that they would feel that they could help him with his multiple medical issues, but I think at least we should ask their opinion. I will discuss my impression with Dr. Zelaya. If his Lyme screen comes back positive or serum protein electrophoresis is positive , then further evaluation will be needed. [id number]/[facility] #: [id number] FAIZAN
--- NOTE | 2018-04-20 17:49 | PN ---
Subjective Date of Service: 04/20/18 Interval History: Pt with 9/10 pain in lower left back with any motion. 6/10 at rest. Had EMG with Dr. Hernandez which showed demylination. Was referred to Dr. Kingsley of Neurosurgery. Lidocaine patch added in AM. Family History: Unchanged from Admission Social History: Unchanged from Admission Past Medical History: Unchanged from Admission Objective Active Medications: Acetaminophen (Tylenol Tab*) 650 mg PO Q4H PRN PRN Reason: FEVER/PAIN Last Admin: 04/19/18 09:13 Dose: 650 mg Al Hydrox/Mg Hydrox/Simethicone (Maalox Plus*) 30 ml PO Q6H PRN PRN Reason: INDIGESTION Amlodipine Besylate (Norvasc Tab*) 2.5 mg PO DAILY [facility] Last Admin: 04/20/18 08:45 Dose: 2.5 mg Aspirin (Aspirin Ec Tab*) 81 mg PO DAILY [facility] Last Admin: 04/20/18 08:44 Dose: 81 mg Carbidopa/Levodopa (Sinemet 10/100 Tab(*)) 1 tab PO Q6H [facility] Last Admin: 04/20/18 15:52 Dose: 1 tab Dextrose (D50w Syringe 50 Ml*) 12.5 gm IV PUSH .FOR FS < 60 - SS PRN PRN Reason: FS < 60 Docusate Sodium (Colace Cap*) 100 mg PO BID [facility] Last Admin: 04/20/18 08:44 Dose: 100 mg Donepezil HCl (Aricept Tab*) 10 mg PO DAILY [facility] Last Admin: 04/20/18 08:45 Dose: 10 mg Heparin Sodium (Porcine) (Heparin Vial(*)) 5,000 units SUBCUT Q8HR [facility] Last Admin: 04/20/18 14:51 Dose: 5,000 units Hydromorphone HCl (Dilaudid Inj*) 0.5 mg IV Q6H PRN PRN Reason: PAIN Insulin Human Lispro (Humalog*) 0 units SUBCUT ACHS [facility] PRN Reason: Protocol Last Admin: 04/20/18 16:54 Dose: Not Given Lidocaine (Lidoderm 5% Patch*) 1 patch TRANSDERM DAILY [facility] Last Admin: 04/20/18 11:57 Dose: 1 patch Lisinopril (Prinivil Tab*) 10 mg PO DAILY [facility] Last Admin: 04/20/18 08:45 Dose: 10 mg Memantine (Namenda Tab*) 10 mg PO BID [facility] Last Admin: 04/20/18 08:44 Dose: 10 mg Nitroglycerin (Nitroglycerin 5 Mg Patch*) 1 patch TRANSDERM DAILY [facility] Last Admin: 04/20/18 08:45 Dose: 1 patch Nystatin (Nystatin Cream*) 1 applic TOPICAL TID [facility] Last Admin: 04/20/18 14:57 Dose: 1 applic Omeprazole (Prilosec Cap*) 20 mg PO 0600 [facility] Last Admin: 04/20/18 05:29 Dose: 20 mg Oxycodone/Acetaminophen (Percocet 5/325 Tab*) 1 tab PO Q4H PRN PRN Reason: Pain Last Admin: 04/20/18 14:52 Dose: 1 tab Pharmacy Profile Note (Lidocaine Patch Remove*) 1 note N/A 2100 [facility] Senna (Senokot Tab*) 1 tab PO BID [facility] Last Admin: 04/20/18 08:44 Dose: 1 tab Thiamine HCl (Vitamin B-1 Tab*) 100 mg PO DAILY [facility] Last Admin: 04/20/18 08:44 Dose: 100 mg Vital Signs - 8 hr 04/20/18 04/20/18 04/20/18 10:43 12:06 14:52 Temperature 98.9 F Pulse Rate 82 Respiratory 18 18 17 Rate Blood Pressure 122/57 (mmHg) O2 Sat by Pulse 98 Oximetry 04/20/18 04/20/18 04/20/18 15:47 16:15 16:54 Temperature 100.0 F 98.2 F Pulse Rate 78 Respiratory 16 17 Rate Blood Pressure 110/60 (mmHg) O2 Sat by Pulse 99 Oximetry Oxygen Devices in Use Now: None Appearance: NAD Eyes: No Scleral Icterus, PERRLA Ears/Nose/Mouth/Throat: NL Teeth, Lips, Gums, Mucous Membranes Moist Neck: NL Appearance and Movements; NL JVP, Trachea Midline Respiratory: Symmetrical Chest Expansion and Respiratory Effort, Clear to Auscultation Cardiovascular: NL Sounds; No Murmurs; No JVD, RRR Lymphatic: No Cervical Adenopathy, No Axillary Adenopathy Extremities: No Edema Skin: No Rash or Ulcers, No Nodules or Sclerosis Neurological: Alert and Oriented x 3 Nutrition: Taking PO's Result Diagrams: 04/17/18 06:10 04/17/18 06:10 Additional Lab and Data: Laboratory Results - last 24 hr 04/19/18 04/20/18 04/20/18 21:44 07:33 12:00 POC Glucose (mg/dL) 112 H 109 H 122 H 04/20/18 16:38 POC Glucose (mg/dL) 119 H Assess/Plan/Problems-Billing Mr. Antony is a 73 yo M who has a h/o dementia, parkinsons, HTN, Type II DM and CAD who presented to the ER after falling a couple times in one week. - Patient Problems (1) Spinal stenosis Current Visit: Yes Status: Acute Priority: Medium Code(s): M48.00 - SPINAL STENOSIS, SITE UNSPECIFIED SNOMED Code(s): 17536058 Comment: -Discussed case with Dr. Hernandez, now s/p EMG w/ e/o demylination -awaiting neurosurgical evaluation with Dr. Kingsley. (2) Low back pain Current Visit: Yes Status: Acute Code(s): M54.5 - LOW BACK PAIN SNOMED Code(s): 313604923 Comment: S/P fall. Will need STR per PT. continue percocet prn s/p EMG with Dr. Hernandez with (3) CAD (coronary artery disease) Current Visit: Yes Status: Acute Code(s): I25.10 - ATHSCL HEART DISEASE OF [place] CORONARY ARTERY W/O ANG PCTRS SNOMED Code(s): 74667757 Comment: Stable without complaints. Continue ASA. (4) DVT prophylaxis Current Visit: Yes Status: Acute Priority: Low Code(s): WXE9549 - SNOMED Code(s): 722169692 Comment: SQ heparin (5) Full code status Current Visit: Yes Status: Acute Code(s): Z78.9 - OTHER SPECIFIED HEALTH STATUS SNOMED Code(s): 372262841 (6) HTN (hypertension) Current Visit: Yes Status: Acute Priority: Medium Code(s): I10 - ESSENTIAL (PRIMARY) HYPERTENSION SNOMED Code(s): 49241632 Comment: - continue lisinopril 10 and norvasc 2.5mg (7) Parkinsons disease Current Visit: Yes Status: Acute Priority: Medium Code(s): G20 - PARKINSON 'S DISEASE SNOMED Code(s): 38271482 Comment: -Continue sinement for PD and aricept and namenda for dementia. -mobility is main issue, eval by PT appreciated (8) Type II diabetes mellitus Current Visit: Yes Status: Acute Priority: Low Comment: -BS are under very good control. Continue lispro sliding scale. -A1c 5.1 (9) Urinary incontinence due to immobility Current Visit: Yes Status: Acute Priority: Low Code(s): R39.81 - FUNCTIONAL URINARY INCONTINENCE SNOMED Code(s): 949664325 Comment: -reviewed UA, no infection -will work on mobility, avoid Yun Status and Disposition: inpatient, may need short-term rehab
[2018-04-20] MEDS: Lidocaine Patch REMOVE* 1 NOTE MISC SCH (22:26)
[2018-04-20] MEDS: Acetaminophen TAB* 325 MG PO PRN (23:55)
[2018-04-21] MEDS: Carbidopa/Levodop 10/100 MG TAB(*) PO SCH ×4 (04:57→21:38)
[2018-04-21] MEDS: Heparin VIAL(*) 5000 UNITS/ML VIAL (FIVE THOUSAND) SUBCUT SCH ×3 (05:55→21:39)
[2018-04-21] MEDS: Omeprazole CAP* 20 MG PO SCH (05:55)
[2018-04-21] MEDS: Insulin LISPRO* 1 UNITS UNIT SUBCUT SCH ×4 (08:50→21:32)
[2018-04-21] MEDS: Docusate CAP* 100 MG PO SCH ×2 (09:32→21:39)
[2018-04-21] MEDS: Memantine TAB* 10 MG PO SCH ×2 (09:32→21:38)
[2018-04-21] MEDS: Lisinopril TAB* 10 MG PO SCH (09:32)
[2018-04-21] MEDS: Donepezil TAB* 5 MG PO SCH (09:32)
[2018-04-21] MEDS: Aspirin EC TAB* 81 MG TAB.EC PO SCH (09:32)
[2018-04-21] MEDS: Thiamine TAB* 100 MG TAB PO SCH (09:33)
[2018-04-21] MEDS: amLODIPine TAB* 5 MG PO SCH (09:33)
[2018-04-21] MEDS: Senna TAB PO SCH ×2 (09:33→21:38)
[2018-04-21] MEDS: Nitroglycerin 0.2 MG/HR PATCH* (5 MG) TRANSDERM SCH (09:34)
[2018-04-21] MEDS: Acetaminophen TAB* 325 MG PO PRN ×2 (09:38→19:55)
[2018-04-21] MEDS: Lidocaine PATCH 5%* 1 PATCH TRANSDERM SCH (09:39)
[2018-04-21] MEDS: Nystatin CREAM* 15 GM TUBE TOPICAL SCH ×3 (09:43→21:39)
[2018-04-21] MEDS: oxyCODONE/Acetamin 5/325 MG* TAB PO PRN (12:39)
--- NOTE | 2018-04-21 16:38 | CONSULT ---
Consult Consult: Neurosurgery Consult Date of Consult: 04/21/18 Reason for Consult: Lower extremity weakness, low back pain Referring Provider: Dr. Zelaya Primary Care Provider: Dr. Medeiros HPI: This is a 73 year old male with past medical history significant for dementia, HTN, parkinson's disease, diabetes type II and CAD who presented to [facility] after a fall with complaint of severe low back pain. He and his provide the history during this consult. He reports a long history of chronic low back pain which has been managed with medication, lumbar epidural steroid injections, therapy, radiofrequency ablation and surgery. Approximately 15 years ago, he underwent surgery for what sounds like stenosis, he recovered well and was asymptomatic for many years until recent months. The patient was following with Dr. Gold for low back pain management in 2016. He underwent MRI of the lumbar spine on 06/19/17, LESI on 07/24/18 and 08/07/17, and RFA on . The patient states that these treatments did not provide lasting improvement in low back pain. His reports recent history beginning while they were in [place] in December 2017. She states that he would experience severe low back pain without radiculopathy while walking, improved with sitting or limiting movement. He experienced a fall while in [place] which she describes as the patient suddenly losing complete strength in his legs and falling to the ground. He presented to [facility] for evaluation and was admitted for 5 days. He underwent imaging work up while admitted including lumbar spine MRI on 01/12/18. This imaging was not available for review today. He was then discharged to a rehab facility where he spent 2 weeks regaining strength and mobility. His states that he was doing very well at time of discharge from rehab, independently mobile and low back pain manageable. They returned home to [place] on . Approximately 2 weeks ago, he developed more severe low back pain. He again experienced 2 falls where he lost complete strength and fell suddenly. When this occurs, he is unable to get himself up secondary to weakness of the lower extremities. His called for help and EMS transported the patient to [facility]. Currently, the patient complains of low back pain. He is unable to describe a specific distribution of pain radiating into the lower extremities. He does report numbness/tingling in the right anterolateral thigh and into the lateral lower leg but sparing the foot. He denies numbness and tingling of the LLE. He has difficulty standing up and has required the use of a lift while in the hospital. He is unable to describe whether he has difficulty standing secondary to pain or weakness. He reports increased back pain with coughing and sneezing. Past Medical History: 1. HTN 2. Diabetes type II 3. Dementia 4. Parkinson's Disease 5. Coronary artery disease with CABG and stenting 6. COPD 7. Thoracic and abdominal aortic aneurysms diagnosed 12/2017 in [place] Past Surgical History: 1. Lumbar laminectomy approx 15 years ago 2. Bilateral cataract extractions Family History: Patient's father and brother with history of colon cancer. Social History: Patient is a former smoker. Does not consume alcohol. Lives with his . Home Medications: 1. Aspirin EC TAB* [Ecotrin EC Low Dose 81 MG*] 81 mg PO DAILY 04/16/18 [ History Confirmed 04/16/18] 2. Atorvastatin* [Lipitor*] 10 mg PO DAILY 04/16/18 [History Confirmed 04/16/18] 3. Bimatoprost 0.01% OPHTH (NF) [Lumigan 0.01% OPHTH (NF)] 1 drop BOTH EYES QPM 04/16/18 [History Confirmed 04/16/18] 4. Calcium Carbonate/Vitamin D3 [Calcium 600 + Vit D Tablet] 1 tab PO BID [History Confirmed 04/16/18] 5. Carbidopa/Levodop 10/100 MG(*) [Sinemet 10/100 TAB(*)] 1 tab PO Q6H 04/16/18 [History Confirmed 04/16/18] 6. Donepezil TAB* [Aricept 5 MG TAB*] 10 mg PO DAILY 04/16/18 [History Confirmed 04/16/18] 7. Linagliptin (NF) [Tradjenta (NF)] 5 mg PO DAILY 04/16/18 [History Confirmed 04/16/18] 8. Lisinopril TAB* [Prinivil TAB*] 10 mg PO DAILY 04/16/18 [History Confirmed ] 9. Memantine TAB* [Namenda TAB*] 10 mg PO BID 04/16/18 [History Confirmed ] 10. Multivitamins/Minerals TAB* [Theragran/minerals TAB*] 1 tab PO DAILY [History Confirmed 04/16/18] 11. Nitroglycerin 0.2 MG/HR PATCH* [Nitroglycerin 5 MG PATCH*] 1 patch TRANSDERM DAILY 04/16/18 [History Confirmed 04/16/18] 12. Nystatin CREAM* [Nystatin Cream*] 1 applic TOPICAL TID 04/16/18 [History Confirmed 04/16/18] 13. Pantoprazole TAB (NF) [Protonix TAB (NF)] 40 mg PO DAILY 04/16/18 [History Confirmed 04/16/18] 14. Thiamine TAB* [Vitamin B-1 TAB*] 100 mg PO DAILY 04/16/18 [History Confirmed 04/16/18] Allergies: 1. Lorazepam ROS: Full ROS completed. Pertinent findings stated in HPI and all others negative. Physical Exam: Vital Signs: Temp Pulse Resp BP Pulse Ox 98.7 F 73 16 110/56 94 04/21/18 15:13 04/21/18 15:13 04/21/18 15:13 04/21/18 15:13 04/21/18 15:13 General: Alert and no distress, sitting comfortably in chair. HEENT: Head is normocephalic and atraumatic. PERRL, EOMI. Sclerae anicteric. Gross hearing intact. Moist mucus membranes. Neck: Supple and symmetric. CV: Radial pulses 2+ and equal. Pedal pulses 2+ and equal. Mild bilateral pedal edema. Lungs: Breathing is nonlabored. Abdomen: The abdomen is rounded, nontender and nondistended. Normoactive bowel sounds. Hips: Bilateral hips nontender to palpation, no pain elicited with hip rotation. Neuro: CN II-XII intact. Speech is clear. Able to answer questions appropriately. No pronator drift. No ankle clonus. Strength 5/5 bilateral upper extremities. Sensation intact to light touch throughout upper and lower. Strength RLE: hip flexor 4/5, dorsiflexion 4/5, quadriceps 5/5, gastroc 5/5. Strength LLE: 5/5 with exception of mild dorseflexion weakness. Imagin. CT lumbar spine 04/16/18 shows degenerative disc disease, L2-3 retrolisthesis , spondylolisthesis L4-5. 2. MRI lumbar spine 06/19/17 shows degenerative disc disease and stenosis worst at L2-3, L3-4 and L4-5. Assessment: This is a 73 year old male with multiple medical conditions who presents with exacerbation of chronic low back pain and lower extremity weakness , limiting his mobility. Weakness appreciated primarily in RLE. Persistent low back pain despite medical management. Plan: 1. Recommend MRI of the lumbar spine, possibly work up as outpatient 2. Continue pain management
--- NOTE | 2018-04-21 17:36 | PN ---
Subjective Date of Service: 04/21/18 Interval History: complaint of continued pain in left lower back. The percoset made him feel a little "funny" used tylenol today. Family History: Unchanged from Admission Social History: Unchanged from Admission Past Medical History: Unchanged from Admission Objective Active Medications: Acetaminophen (Tylenol Tab*) 650 mg PO Q4H PRN PRN Reason: FEVER/PAIN Last Admin: 04/21/18 09:38 Dose: 650 mg Al Hydrox/Mg Hydrox/Simethicone (Maalox Plus*) 30 ml PO Q6H PRN PRN Reason: INDIGESTION Amlodipine Besylate (Norvasc Tab*) 2.5 mg PO DAILY [facility] Last Admin: 04/21/18 09:33 Dose: 2.5 mg Aspirin (Aspirin Ec Tab*) 81 mg PO DAILY [facility] Last Admin: 04/21/18 09:32 Dose: 81 mg Carbidopa/Levodopa (Sinemet 10/100 Tab(*)) 1 tab PO Q6H [facility] Last Admin: 04/21/18 16:29 Dose: 1 tab Dextrose (D50w Syringe 50 Ml*) 12.5 gm IV PUSH .FOR FS < 60 - SS PRN PRN Reason: FS < 60 Docusate Sodium (Colace Cap*) 100 mg PO BID [facility] Last Admin: 04/21/18 09:32 Dose: 100 mg Donepezil HCl (Aricept Tab*) 10 mg PO DAILY [facility] Last Admin: 04/21/18 09:32 Dose: 10 mg Heparin Sodium (Porcine) (Heparin Vial(*)) 5,000 units SUBCUT Q8HR [facility] Last Admin: 04/21/18 14:11 Dose: 5,000 units Hydromorphone HCl (Dilaudid Inj*) 0.5 mg IV Q6H PRN PRN Reason: PAIN Insulin Human Lispro (Humalog*) 0 units SUBCUT ACHS [facility] PRN Reason: Protocol Last Admin: 04/21/18 16:44 Dose: Not Given Lidocaine (Lidoderm 5% Patch*) 1 patch TRANSDERM DAILY [facility] Last Admin: 04/21/18 09:39 Dose: 1 patch Lisinopril (Prinivil Tab*) 10 mg PO DAILY [facility] Last Admin: 04/21/18 09:32 Dose: 10 mg Memantine (Namenda Tab*) 10 mg PO BID [facility] Last Admin: 04/21/18 09:32 Dose: 10 mg Nitroglycerin (Nitroglycerin 5 Mg Patch*) 1 patch TRANSDERM DAILY [facility] Last Admin: 04/21/18 09:34 Dose: 1 patch Nystatin (Nystatin Cream*) 1 applic TOPICAL TID [facility] Last Admin: 04/21/18 14:12 Dose: Not Given Omeprazole (Prilosec Cap*) 20 mg PO 0600 [facility] Last Admin: 04/21/18 05:55 Dose: 20 mg Oxycodone/Acetaminophen (Percocet 5/325 Tab*) 1 tab PO Q4H PRN PRN Reason: Pain Last Admin: 04/21/18 12:39 Dose: 1 tab Pharmacy Profile Note (Lidocaine Patch Remove*) 1 note N/A 2100 [facility] Last Admin: 04/20/18 22:26 Dose: 1 note Senna (Senokot Tab*) 1 tab PO BID [facility] Last Admin: 04/21/18 09:33 Dose: 1 tab Thiamine HCl (Vitamin B-1 Tab*) 100 mg PO DAILY [facility] Last Admin: 04/21/18 09:33 Dose: 100 mg Vital Signs - 8 hr 04/21/18 04/21/18 04/21/18 11:43 12:39 14:14 Temperature 97.4 F Pulse Rate 72 Respiratory 17 20 18 Rate Blood Pressure 108/59 (mmHg) O2 Sat by Pulse 94 Oximetry 04/21/18 15:13 Temperature 98.7 F Pulse Rate 73 Respiratory 16 Rate Blood Pressure 110/56 (mmHg) O2 Sat by Pulse 94 Oximetry Oxygen Devices in Use Now: None Appearance: NAD Eyes: No Scleral Icterus, PERRLA Ears/Nose/Mouth/Throat: NL Teeth, Lips, Gums Neck: NL Appearance and Movements; NL JVP Respiratory: Symmetrical Chest Expansion and Respiratory Effort, Clear to Auscultation Cardiovascular: NL Sounds; No Murmurs; No JVD, RRR Abdominal: NL Sounds; No Tenderness; No Distention, No Hepatosplenomegaly Extremities: No Edema, No Clubbing, Cyanosis Neurological: Alert and Oriented x 3, NL Sensation Nutrition: Taking PO's Result Diagrams: 04/17/18 06:10 04/17/18 06:10 Additional Lab and Data: Laboratory Results - last 24 hr 06/03/18 06/05/18 06/05/18 13:52 07:36 11:32 POC Glucose (mg/dL) 87 81 Lyme Disease Serology Negative 04/21/18 16:37 POC Glucose (mg/dL) 120 H Lyme Disease Serology Assess/Plan/Problems-Billing Mr. Antony is a 73 yo M who has a h/o dementia, parkinsons, HTN, Type II DM and CAD who presented to the ER after falling a couple times in one week. 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 - Patient Problems (1) Spinal stenosis Current Visit: Yes Status: Acute Priority: Medium Code(s): M48.00 - SPINAL STENOSIS, SITE UNSPECIFIED SNOMED Code(s): 27697158 Comment: -Discussed case with Dr. Hernandez, now s/p EMG w/ e/o demylination -Appreciate neurosurgical recs: no intervention planned this admission, can f/u as an outpatient but can get lumbar spine MRI w/o contrast to further evaluate ( consider in house if he goes to [facility], since likely won't transfer at this late hour, have placed order for overnight). (2) Low back pain Current Visit: Yes Status: Acute Code(s): M54.5 - LOW BACK PAIN SNOMED Code(s): 313490206 Comment: S/P fall. Will need STR per PT. continue percocet prn s/p EMG with Dr. Hernandez (3) CAD (coronary artery disease) Current Visit: Yes Status: Acute Code(s): I25.10 - ATHSCL HEART DISEASE OF [place] CORONARY ARTERY W/O ANG PCTRS SNOMED Code(s): 39737192 Comment: Stable without complaints. Continue ASA. (4) DVT prophylaxis Current Visit: Yes Status: Acute Priority: Low Code(s): LTX0751 - SNOMED Code(s): 179089121 Comment: SQ heparin (5) Full code status Current Visit: Yes Status: Acute Code(s): Z78.9 - OTHER SPECIFIED HEALTH STATUS SNOMED Code(s): 591209160 (6) HTN (hypertension) Current Visit: Yes Status: Acute Priority: Medium Code(s): I10 - ESSENTIAL (PRIMARY) HYPERTENSION SNOMED Code(s): 78586784 Comment: - continue lisinopril 10 and norvasc 2.5mg (7) Parkinsons disease Current Visit: Yes Status: Acute Priority: Medium Code(s): G20 - PARKINSON 'S DISEASE SNOMED Code(s): 35346088 Comment: -Continue sinement for PD and aricept and namenda for dementia. -mobility is main issue, eval by PT appreciated (8) Type II diabetes mellitus Current Visit: Yes Status: Acute Priority: Low Comment: -BS are under very good control, and has not required any SSI. Continue lispro sliding scale. -A1c 5.1 (9) Urinary incontinence due to immobility Current Visit: Yes Status: Acute Priority: Low Code(s): R39.81 - FUNCTIONAL URINARY INCONTINENCE SNOMED Code(s): 320626211 Comment: -reviewed UA, no infection -will work on mobility, avoid Yun Status and Disposition: inpatient, planned short-term rehab
--- NOTE | 2018-04-21 21:11 | RAD ---
Indication: Lumbar stenosis, back pain. Image sequences: Sagittal T1, T2, STIR, axial T1 and T2-weighted images of the lumbar spine were obtained. Vertebral bodies appear normal in height. Grade 1 spondylolisthesis of L4 on L5 is noted. There is an epidural mass occupying the posterior lateral aspect of the spinal canal. This measures approximately 5.9 cm in length x 1.3 cm AP x 1.5 cm in width. This has increased signal on T1-weighted sequences and decreased signal on T2-weighted sequences. This may represent a fat-containing tumor. Other differential considerations such as a hematoma is not totally excluded. Contrast enhanced study is suggested. This mass occupies the spinal canal from L2 the top of L2 to the bottom of L3. There is marked spinal stenosis at the L2 level. At L2-L3 facet arthropathy is noted. No central or foraminal stenosis is noted. At L1-L2 and T12-L1 degenerative disc disease is noted. IMPRESSION: Ovoid intrathecal mass extending from L2 through the L3 level with increased signal on T1-weighted sequences and decreased signal on T2-weighted sequences. This was not present on prior exam of June 19, 2017. Differential diagnosis includes lipoma or possibly a hematoma. Correlation with contrast enhancement is suggested. Marked spinal stenosis is noted at the L2 level.
--- NOTE | 2018-04-21 21:39 | PN ---
Hospitalist Progress Note Date of Service: 04/21/18 Pt's RN paged me informing my person that she was called by our commercial tire service technician, Destiney to ask practitioners to take a look at the result of the "MRI of his head." Unfortunately, context was unclear and only was able to see MRI of his lumbar area available to me. Given this discrepancy, clarified above with Destiney who mentioned her radiologist instructed her that given the finding found on non-contrast MRI, that if team would further want to study it, that labs will need to be ordered for the AM. More specifically, she confirmed that the MRI in question is of lumbar area and not head. When the findings were reviewed, the differential offered by radiologist is either a lipoma or hematoma vs. the clinical impression of possible spinal stenosis. He is currently on ASA for his history of CAD as well as possible spinal stenosis. Given question of hematoma, I will hold ASA and DVT prophylaxis with heparin until patient is re-evaluated in AM. Will ask nursing staff to continue with neurochecks. AM labs ordered in case MRI with contrast will be the course of action in AM.
[2018-04-21] MEDS: Lidocaine Patch REMOVE* 1 NOTE MISC SCH (21:40)
[2018-04-22] MEDS: Carbidopa/Levodop 10/100 MG TAB(*) PO SCH ×4 (04:04→21:06)
[2018-04-22] MEDS: Omeprazole CAP* 20 MG PO SCH (05:31)
[2018-04-22 06:10] LABS: ABS Basophils 0.1 10^3/ul (0-0.2); ABS Eosinophils 0.5 10^3/ul (0-0.6); ABS Lymphocytes 1.7 10^3/ul (1.0-4.8); ABS Monocytes 0.8 10^3/ul (0-0.8); ABS Nucleated RBC 0 10^3/ul; Eosinophil % 7.6 % (0-6); Hematocrit 45 % (42-52); Hemoglobin 14.9 g/dl (14.0-18.0); Lymphocyte % 28.4 % (25-47); Mean Corpuscular HGB Conc 33 g/dl (31-36); Mean Corpuscular Hemoglobin 33 pg (27-31); Mean Corpuscular Volume 99 fL (80-94); Mean Platelet Volume 8.1 um3 (7.4-10.4); Nucleated Red Blood Cells % 0.1; Platelet Count 208 10^3/ul (150-450); Red Blood Count 4.51 10^6/ul (4.0-5.4); Red Cell Distribution Width 14 % (10.5-15)
[2018-04-22 06:35] LABS: EGFR Non-African American 62.2 (>60)
[2018-04-22] MEDS ORDERED: Magnesium Sulfate 2 GM IV* 2 GM/50 ML BAG IVPB ONE (08:14)
[2018-04-22] MEDS: Insulin LISPRO* 1 UNITS UNIT SUBCUT SCH ×4 (08:59→21:07)
[2018-04-22] MEDS: Lidocaine PATCH 5%* 1 PATCH TRANSDERM SCH (09:10)
[2018-04-22] MEDS: Nitroglycerin 0.2 MG/HR PATCH* (5 MG) TRANSDERM SCH (09:11)
[2018-04-22] MEDS: Memantine TAB* 10 MG PO SCH ×2 (09:12→21:06)
[2018-04-22] MEDS: Thiamine TAB* 100 MG TAB PO SCH (09:12)
[2018-04-22] MEDS: Lisinopril TAB* 10 MG PO SCH (09:12)
[2018-04-22] MEDS: Donepezil TAB* 5 MG PO SCH (09:12)
[2018-04-22] MEDS: Senna TAB PO SCH ×2 (09:12→21:05)
[2018-04-22] MEDS: amLODIPine TAB* 5 MG PO SCH (09:12)
[2018-04-22] MEDS: Docusate CAP* 100 MG PO SCH ×2 (09:12→21:06)
[2018-04-22] MEDS: Nystatin CREAM* 15 GM TUBE TOPICAL SCH ×3 (09:13→22:37)
[2018-04-22] MEDS: oxyCODONE/Acetamin 5/325 MG* TAB PO PRN (09:15)
[2018-04-22] MEDS ORDERED: Gadoteridol* (CONTRAST) 279.3 MG/ML 10 ML IV ONE (10:30)
--- NOTE | 2018-04-22 11:05 | RAD ---
HISTORY: Follow-up intrathecal mass, recent fall COMPARISONS: April 21, 2018, June 19, 2017 TECHNIQUE: The following sequences were obtained of the lumbar spine: Sagittal and axial T1-weighted images were obtained after contrast enhancement with a gadolinium-based intravenous contrast agent. The study is read in conjunction with the MRI of April 21, 2018. FINDINGS: Again noted is a intradural, extramedullary mass centered posteriorly within the central canal of silhouette of L2 and L3. This is high signal on precontrast T1-weighted images. This is similar in signal intensity after contrast enhancement. This does not saturate with fat. IMPRESSION: THE EXTRA MEDULLARY MASS NOTED ON THE PREVIOUS EXAMINATION DOES NOT DEMONSTRATE ENHANCEMENT AND DOES NOT SATURATE WITH FAT. GIVEN THE HISTORY OF RECENT TRAUMA, THIS MOST LIKELY REPRESENTS AN EPIDURAL HEMATOMA.
[2018-04-22] MEDS ORDERED: Perflutren Lipid Microsphere* 3 ML VIAL ONE (11:22)
--- NOTE | 2018-04-22 14:44 | ECHO ---
Amended Report Patient: MILTON GR [facility] Rec#: [id number] : 1945 Date: 04/22/2018 Age: 73y Height: 177.8 cm / 70.0 in Weight: 102.51 kg / 225.9 lbs Sex: M BSA: 2.2 Room#: [facility] Admit Date#: 04/17/2018 Type: Inpatient Referring: Bladimir Zelaya Reading: Jenny Ellison MD Parliamentary Counsel: Jeanne Uribe RDCS CC: Luc Medeiros MD Transthoracic Echocardiogram Indication: CAD BP: 146/76 HR: 73 Rhythm: NSR Findings History: CAD,s/p CABG, s/p PCI,DM.HTN,COPD,Parkinson's,dementia,peripheral neuropathy. Technical Comments: The study is technically difficult. Definity used to enhance images. The study is technically limited due to the patient's history of COPD. Left Ventricle: The left ventricular chamber size is normal. Moderate concentric left ventricular hypertrophy is observed. There are multiple regional wall motion abnormalities. Base of the lateral wall and anterior carlson move best. Septum is dyskinetic, large inferior posterior scar. There is moderate to severely decreased left ventricular systolic function. The estimated ejection fraction is 35-40%. Post surgical hypokinesis of the interventricular septum is observed consistent with coronary artery bypass. Abnormal left ventricular diastolic filling is observed, consistent with impaired relaxation. Left Atrium: The left atrium is mildly dilated. Right Ventricle: The right ventricular cavity size is normal. The right ventricular global systolic function is normal. The septum has abnormal paradoxical motion consistent with post-operative pressure. Right Atrium: The right atrial cavity size is normal. Aortic Valve: The aortic valve is trileaflet. There is no evidence of aortic valve thickening. There is no evidence of aortic regurgitation. There is no evidence of aortic stenosis. Mitral Valve: The mitral valve leaflets appear normal. There is mild mitral regurgitation. There is no evidence of mitral stenosis. Tricuspid Valve: The tricuspid valve leaflets are normal. There is trace to mild tricuspid regurgitation. The right ventricular systolic pressure is estimated at 33 mmHg. There is evidence that pulmonary hypertension may be underestimated. There is no tricuspid stenosis. Pulmonic Valve: The pulmonic valve appears normal. There is no evidence of pulmonic regurgitation. There is no pulmonic stenosis. Pericardium: A pericardial fat pad is visualized. Aorta: There is mild dilatation of the ascending aorta. The aortic arch is not well visualized. There is no dilation of the aortic root. Pulmonary Artery: The main pulmonary artery appears normal. Contrast: Definity was used to optimize study. 5 ml. Intravenous contrast was used to enhance endocardial border definition. Conclusions Moderate concentric left ventricular hypertrophy is observed. There are multiple regional wall motion abnormalities. Base of the lateral wall and anterior carlson move best. Septum is dyskinetic, large inferior posterior scar. There is moderate to severely decreased left ventricular systolic function. The estimated ejection fraction is 35%. Abnormal left ventricular diastolic filling is observed, consistent with impaired relaxation. The right ventricular global systolic function is normal. There is mild mitral regurgitation. There is trace to mild tricuspid regurgitation. The right ventricular systolic pressure is estimated at 33 mmHg: pulmonary hypertension may be underestimated. There is mild dilatation of the ascending aorta: 3.5 cm. Compared with prior echo of 11/07/17, EF was 40-45%, septal dyskinesis seen before, other wall motion abnormalities newly described, valve function is stable, aorta diameter previously measured 4.1 cm. Measurements Name Value Normal Range RVIDd (AP) 2D 3 cm (0.9 - 2.6) RVDdMajor (2D) 2.7 cm (2.2 - 4.4) RAd ISD 4CH 5 cm (3.4 - 4.9) RA (A4C)W 3.3 cm (2.9 - 4.6) IVSd (2D) 1.4 cm (0.6 - 1) LVPWd (2D) 1.3 cm (0.6 - 1) LVIDd (2D) 3.7 cm (3.6 - 5.4) LVIDs (2D) 2.4 cm - LV FS (2D) 37 % (25 - 45) Aortic Annulus 2 cm (1.4 - 2.6) Ao root diameter (2D) 3.5 cm (2.1 - 3.5) Ascending Ao 3.5 cm (2.1 - 3.4) LA dimension (AP) 2D 4.4 cm (2.3 - 3.8) LAd ISD 4CH 5.6 cm (2.9 - 5.3) LA ISD 4CH W 3.6 cm (2.5 - 4.5) Name Value Normal Range LA ESV SP 4CH (A/L) 73 ml - LA ESV SP 2CH (A/L) 55 ml - LA ESV BP (A/L) 64 ml - LA ESV BP (A/L) index 29.33 ml/m2 - LA ESV SP 4CH (MOD) 69 ml - LA ESV SP 2CH (MOD) 51 ml - Name Value Normal Range MV E-wave Vmax 0.5 m/sec - MV deceleration time 243 msec - MV A-wave Vmax 0.8 m/sec - MV E:A ratio 0.63 ratio - LV septal e' Vmax 0.04 m/sec - LV lateral e' Vmax 0.09 m/sec - LV E:e' septal ratio 12.5 ratio - LV E:e' lateral ratio 5.56 ratio - Name Value Normal Range AV Vmax 1.3 m/sec - AV VTI 23.2 cm - AV peak gradient 7.05 mmHg - AV mean gradient 4.13 mmHg - LVOT Vmax 0.7 m/sec - LVOT VTI 15.6 cm - LVOT peak gradient 2.17 mmHg - LVOT mean gradient 1.15 mmHg - Name Value Normal Range MR Vmax 4.44 m/sec - MR VTI 152.68 cm - Name Value Normal Range TR Vmax 2.5 m/sec - TR peak gradient 25 mmHg - RAP 8 mmHg - RVSP 33 mmHg - Name Value Normal Range PV Vmax 0.7 m/sec - PV peak gradient 2.02 mmHg -
--- NOTE | 2018-04-22 17:57 | PN ---
Subjective Date of Service: 04/22/18 Interval History: MRI non contrast with mass. MRI with contrast ordered and most consistent with hematoma per radiology report. Pain similar, hurts with movement. ECHO performed. surgery planned on Friday. Family History: Unchanged from Admission Social History: Unchanged from Admission Past Medical History: Unchanged from Admission Objective Active Medications: Acetaminophen (Tylenol Tab*) 650 mg PO Q4H PRN PRN Reason: FEVER/PAIN Last Admin: 04/21/18 19:55 Dose: 650 mg Al Hydrox/Mg Hydrox/Simethicone (Maalox Plus*) 30 ml PO Q6H PRN PRN Reason: INDIGESTION Amlodipine Besylate (Norvasc Tab*) 2.5 mg PO DAILY [facility] Last Admin: 04/22/18 09:12 Dose: 2.5 mg Carbidopa/Levodopa (Sinemet 10/100 Tab(*)) 1 tab PO Q6H [facility] Last Admin: 04/22/18 17:15 Dose: 1 tab Dextrose (D50w Syringe 50 Ml*) 12.5 gm IV PUSH .FOR FS < 60 - SS PRN PRN Reason: FS < 60 Docusate Sodium (Colace Cap*) 100 mg PO BID [facility] Last Admin: 04/22/18 09:12 Dose: 100 mg Donepezil HCl (Aricept Tab*) 10 mg PO DAILY [facility] Last Admin: 04/22/18 09:12 Dose: 10 mg Hydromorphone HCl (Dilaudid Inj*) 0.5 mg IV Q6H PRN PRN Reason: PAIN Insulin Human Lispro (Humalog*) 0 units SUBCUT ACHS [facility] PRN Reason: Protocol Last Admin: 04/22/18 16:53 Dose: Not Given Lidocaine (Lidoderm 5% Patch*) 1 patch TRANSDERM DAILY [facility] Last Admin: 04/22/18 09:10 Dose: 1 patch Lisinopril (Prinivil Tab*) 10 mg PO DAILY [facility] Last Admin: 04/22/18 09:12 Dose: 10 mg Memantine (Namenda Tab*) 10 mg PO BID [facility] Last Admin: 04/22/18 09:12 Dose: 10 mg Nitroglycerin (Nitroglycerin 5 Mg Patch*) 1 patch TRANSDERM DAILY [facility] Last Admin: 04/22/18 09:11 Dose: 1 patch Nystatin (Nystatin Cream*) 1 applic TOPICAL TID [facility] Last Admin: 04/22/18 13:50 Dose: Not Given Omeprazole (Prilosec Cap*) 20 mg PO 0600 [facility] Last Admin: 04/22/18 05:31 Dose: 20 mg Oxycodone/Acetaminophen (Percocet 5/325 Tab*) 1 tab PO Q4H PRN PRN Reason: Pain Last Admin: 04/22/18 09:15 Dose: 1 tab Pharmacy Profile Note (Lidocaine Patch Remove*) 1 note N/A 2100 [facility] Last Admin: 04/21/18 21:40 Dose: 1 note Senna (Senokot Tab*) 1 tab PO BID [facility] Last Admin: 04/22/18 09:12 Dose: 1 tab Thiamine HCl (Vitamin B-1 Tab*) 100 mg PO DAILY [facility] Last Admin: 04/22/18 09:12 Dose: 100 mg Vital Signs - 8 hr 04/22/18 04/22/18 04/22/18 11:10 12:00 15:04 Temperature 97.9 F 98.3 F Pulse Rate 71 76 Respiratory 18 17 20 Rate Blood Pressure 116/57 95/49 (mmHg) O2 Sat by Pulse 96 97 Oximetry 04/22/18 16:23 Temperature Pulse Rate Respiratory Rate Blood Pressure 98/50 (mmHg) O2 Sat by Pulse Oximetry Oxygen Devices in Use Now: None Appearance: NAD, sitting in chair. Eyes: No Scleral Icterus, PERRLA Ears/Nose/Mouth/Throat: NL Teeth, Lips, Gums Neck: NL Appearance and Movements; NL JVP Respiratory: Symmetrical Chest Expansion and Respiratory Effort, Clear to Auscultation Cardiovascular: NL Sounds; No Murmurs; No JVD, RRR, No Edema Extremities: No Edema, No Clubbing, Cyanosis Skin: No Rash or Ulcers, No Nodules or Sclerosis Neurological: Alert and Oriented x 3, NL Sensation Nutrition: Taking PO's Result Diagrams: 04/22/18 05:49 04/22/18 05:49 Additional Lab and Data: Laboratory Results - last 24 hr 04/19/18 04/22/18 04/22/18 13:52 05:49 05:49 WBC 6.0 RBC 4.51 Hgb 14.9 Hct 45 MCV 99 H MCH 33 H MCHC 33 RDW 14 Plt Count 208 MPV 8.1 Neut % (Auto) 49.2 Lymph % (Auto) 28.4 [place] % (Auto) 13.6 H Eos % (Auto) 7.6 H Baso % (Auto) 1.2 Absolute Neuts (auto) 3.0 Absolute Lymphs (auto) 1.7 Absolute Monos (auto) 0.8 Absolute Eos (auto) 0.5 Absolute Basos (auto) 0.1 Absolute Nucleated RBC 0 Nucleated RBC % 0.1 Sodium 136 L Potassium 4.4 Chloride 101 Carbon Dioxide 28 Anion Gap 7 BUN 19 Creatinine 1.15 Est GFR ( Amer) 79.9 Est GFR (Non-Af Amer) 62.2 BUN/Creatinine Ratio 16.5 Glucose 104 H POC Glucose (mg/dL) Calcium 9.4 Phosphorus 3.3 Magnesium 1.7 L Total Bilirubin 0.50 AST 30 ALT 6 L Alkaline Phosphatase 58 Total Protein 6.9 Total Protein (PEP) 6.4 Albumin 3.8 Albumin (PEP) 3.0 L Globulin 3.1 Albumin/Globulin Ratio 1.2 Albumin/Globulin (PEP) 0.88 Dgflo-6-Brawdwrya 0.3 Klinr-1-Gahckkqkv 1.1 H Lrwt-6-Jhwfefmz 1.1 Gamma Globulins 0.9 PEP Impression See comment 04/22/18 04/22/18 04/22/18 08:00 11:56 16:50 WBC RBC Hgb Hct MCV MCH MCHC RDW Plt Count MPV Neut % (Auto) Lymph % (Auto) [place] % (Auto) Eos % (Auto) Baso % (Auto) Absolute Neuts (auto) Absolute Lymphs (auto) Absolute Monos (auto) Absolute Eos (auto) Absolute Basos (auto) Absolute Nucleated RBC Nucleated RBC % Sodium Potassium Chloride Carbon Dioxide Anion Gap BUN Creatinine Est GFR ( Amer) Est GFR (Non-Af Amer) BUN/Creatinine Ratio Glucose POC Glucose (mg/dL) 97 101 H 111 H Calcium Phosphorus Magnesium Total Bilirubin AST ALT Alkaline Phosphatase Total Protein Total Protein (PEP) Albumin Albumin (PEP) Globulin Albumin/Globulin Ratio Albumin/Globulin (PEP) Pqeoc-3-Ejvlupdtc Itffg-5-Ifiabxukk Vazr-1-Jvwqujnw Gamma Globulins PEP Impression 04/22/18 20:55 WBC RBC Hgb Hct MCV MCH MCHC RDW Plt Count MPV Neut % (Auto) Lymph % (Auto) [place] % (Auto) Eos % (Auto) Baso % (Auto) Absolute Neuts (auto) Absolute Lymphs (auto) Absolute Monos (auto) Absolute Eos (auto) Absolute Basos (auto) Absolute Nucleated RBC Nucleated RBC % Sodium Potassium Chloride Carbon Dioxide Anion Gap BUN Creatinine Est GFR ( Amer) Est GFR (Non-Af Amer) BUN/Creatinine Ratio Glucose POC Glucose (mg/dL) 145 H Calcium Phosphorus Magnesium Total Bilirubin AST ALT Alkaline Phosphatase Total Protein Total Protein (PEP) Albumin Albumin (PEP) Globulin Albumin/Globulin Ratio Albumin/Globulin (PEP) Pqejb-0-Cfefoejbt Zuygc-8-Cjnxwdemj Biqx-1-Wooyyzky Gamma Globulins PEP Impression Assess/Plan/Problems-Billing 73 yo M PMH CAD s/p CABG, 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 Interthecal mass 5.9x1.3x1.5cm, ?hematoma vs tumor. Planned Neurosurgery 04/24. - Patient Problems (1) Spinal stenosis Current Visit: Yes Status: Acute Priority: Medium Code(s): M48.00 - SPINAL STENOSIS, SITE UNSPECIFIED SNOMED Code(s): 93376025 Comment: - Appreciate Dr. Hernandez recs EMG w/ e/o demylination -Appreciate neurosurgical recs: planned surgery Tuesday 04/24. was found to have interthecal mass. hematoma vs tumor vs lipoma (though does not enhace with fat so less likely) Pt Revised Cardiac Risk Index of 2 points (CHF, e/o previous infarction on EKG) , moderate but acceptable risk for surgery. (2) Low back pain Current Visit: Yes Status: Acute Code(s): M54.5 - LOW BACK PAIN SNOMED Code(s): 539256010 Comment: likely related to interthecal mass. S/P fall. continue percocet prn and tyelonol prn (3) CAD (coronary artery disease) Current Visit: Yes Status: Acute Code(s): I25.10 - ATHSCL HEART DISEASE OF [place] CORONARY ARTERY W/O ANG PCTRS SNOMED Code(s): 08351868 Comment: Stable without complaints. Continue ASA. patient not on statin, adding lipid panel for AM. (4) DVT prophylaxis Current Visit: Yes Status: Acute Priority: Low Code(s): GGY5086 - SNOMED Code(s): 720939401 Comment: SQ heparin (5) Full code status Current Visit: Yes Status: Acute Code(s): Z78.9 - OTHER SPECIFIED HEALTH STATUS SNOMED Code(s): 370419050 (6) HTN (hypertension) Current Visit: Yes Status: Acute Priority: Medium Code(s): I10 - ESSENTIAL (PRIMARY) HYPERTENSION SNOMED Code(s): 00232340 Comment: Pt has developed hypotension to 90s systolic will stop home lisinopril 10 and norvasc 2.5mg (7) Parkinsons disease Current Visit: Yes Status: Acute Priority: Medium Code(s): G20 - PARKINSON 'S DISEASE SNOMED Code(s): 90743830 Comment: -Continue sinement for PD and aricept and namenda for dementia. -mobility is main issue, eval by PT appreciated (8) Type II diabetes mellitus Current Visit: Yes Status: Acute Priority: Low Comment: -BS are under very good control, and has not required any SSI. Continue lispro sliding scale. -A1c 5.1 (9) Urinary incontinence due to immobility Current Visit: Yes Status: Acute Priority: Low Code(s): R39.81 - FUNCTIONAL URINARY INCONTINENCE SNOMED Code(s): 347809364 Comment: -reviewed UA, no infection -will work on mobility, avoid Yun (10) Systolic and diastolic CHF, chronic Current Visit: Yes Status: Acute Code(s): I50.42 - CHRONIC COMBINED SYSTOLIC AND DIASTOLIC HRT FAIL SNOMED Code(s): 313091633430928 Comment: euvolemic ECHO with EF 35-40%, diastolic dysfunction. Status and Disposition: inpatient, planned short-term rehab
[2018-04-22] MEDS: Acetaminophen TAB* 325 MG PO PRN (21:05)
[2018-04-22] MEDS: Lidocaine Patch REMOVE* 1 NOTE MISC SCH (22:33)
[2018-04-23] MEDS: Carbidopa/Levodop 10/100 MG TAB(*) PO SCH ×4 (04:30→20:44)
[2018-04-23] MEDS: Omeprazole CAP* 20 MG PO SCH (05:40)
[2018-04-23] MEDS: Insulin LISPRO* 1 UNITS UNIT SUBCUT SCH ×4 (08:16→20:49)
[2018-04-23] MEDS: Docusate CAP* 100 MG PO SCH ×2 (08:17→20:31)
[2018-04-23] MEDS: Memantine TAB* 10 MG PO SCH ×2 (08:17→20:31)
[2018-04-23] MEDS: Thiamine TAB* 100 MG TAB PO SCH (08:17)
[2018-04-23] MEDS: Senna TAB PO SCH ×2 (08:17→20:31)
[2018-04-23] MEDS: Acetaminophen TAB* 325 MG PO PRN ×2 (08:18→20:31)
[2018-04-23] MEDS: Donepezil TAB* 5 MG PO SCH (08:18)
[2018-04-23] MEDS: Nitroglycerin 0.2 MG/HR PATCH* (5 MG) TRANSDERM SCH (08:21)
[2018-04-23] MEDS: oxyCODONE/Acetamin 5/325 MG* TAB PO PRN (10:12)
[2018-04-23] MEDS: Lidocaine PATCH 5%* 1 PATCH TRANSDERM SCH (10:14)
[2018-04-23] MEDS: Nystatin CREAM* 15 GM TUBE TOPICAL SCH ×3 (10:16→20:34)
[2018-04-23] MEDS: HYDROmorphone INJ* 2 MG/ML CARPUJECT SYRINGE IV PRN ×2 (11:43→19:21)
--- NOTE | 2018-04-23 15:58 | PN ---
Subjective Date of Service: 04/23/18 Interval History: Pt able to sleep, still has a lot of pain in back with any movement. Lipid panel good. right foot slightly purple this AM. Family History: Unchanged from Admission Social History: Unchanged from Admission Past Medical History: Unchanged from Admission Objective Active Medications: Acetaminophen (Tylenol Tab*) 650 mg PO Q4H PRN PRN Reason: FEVER/PAIN Last Admin: 04/23/18 08:18 Dose: 650 mg Al Hydrox/Mg Hydrox/Simethicone (Maalox Plus*) 30 ml PO Q6H PRN PRN Reason: INDIGESTION Carbidopa/Levodopa (Sinemet 10/100 Tab(*)) 1 tab PO Q6H [facility] Last Admin: 04/23/18 10:12 Dose: 1 tab Dextrose (D50w Syringe 50 Ml*) 12.5 gm IV PUSH .FOR FS < 60 - SS PRN PRN Reason: FS < 60 Docusate Sodium (Colace Cap*) 100 mg PO BID [facility] Last Admin: 04/23/18 08:17 Dose: 100 mg Donepezil HCl (Aricept Tab*) 10 mg PO DAILY [facility] Last Admin: 04/23/18 08:18 Dose: 10 mg Hydromorphone HCl (Dilaudid Inj*) 0.5 mg IV Q6H PRN PRN Reason: PAIN Last Admin: 04/23/18 11:43 Dose: 0.5 mg Insulin Human Lispro (Humalog*) 0 units SUBCUT ACHS [facility] PRN Reason: Protocol Last Admin: 04/23/18 13:19 Dose: 2 unit Lidocaine (Lidoderm 5% Patch*) 1 patch TRANSDERM DAILY [facility] Last Admin: 04/23/18 10:14 Dose: 1 patch Memantine (Namenda Tab*) 10 mg PO BID [facility] Last Admin: 04/23/18 08:17 Dose: 10 mg Nitroglycerin (Nitroglycerin 5 Mg Patch*) 1 patch TRANSDERM DAILY [facility] Last Admin: 04/23/18 08:21 Dose: 1 patch Nystatin (Nystatin Cream*) 1 applic TOPICAL TID [facility] Last Admin: 04/23/18 10:16 Dose: 1 applic Omeprazole (Prilosec Cap*) 20 mg PO 0600 [facility] Last Admin: 04/23/18 05:40 Dose: 20 mg Pharmacy Profile Note (Lidocaine Patch Remove*) 1 note N/A 2100 [facility] Last Admin: 04/22/18 22:33 Dose: 1 note Senna (Senokot Tab*) 1 tab PO BID [facility] Last Admin: 04/23/18 08:17 Dose: 1 tab Thiamine HCl (Vitamin B-1 Tab*) 100 mg PO DAILY [facility] Last Admin: 04/23/18 08:17 Dose: 100 mg Vital Signs - 8 hr 04/23/18 04/23/18 04/23/18 08:00 10:12 11:04 Temperature 97.9 F Pulse Rate 92 Respiratory 16 18 17 Rate Blood Pressure 103/59 (mmHg) O2 Sat by Pulse 98 Oximetry 04/23/18 11:43 Temperature Pulse Rate Respiratory 18 Rate Blood Pressure (mmHg) O2 Sat by Pulse Oximetry Oxygen Devices in Use Now: None Appearance: NAD Ears/Nose/Mouth/Throat: NL Teeth, Lips, Gums Neck: NL Appearance and Movements; NL JVP, Trachea Midline Respiratory: Symmetrical Chest Expansion and Respiratory Effort, Clear to Auscultation Cardiovascular: NL Sounds; No Murmurs; No JVD, RRR Abdominal: NL Sounds; No Tenderness; No Distention, No Hepatosplenomegaly Lymphatic: No Cervical Adenopathy, No Axillary Adenopathy Extremities: No Edema, - - slight purple right foot, intact pulses. 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 Interthecal mass 5.9x1.3x1.5cm, ?hematoma vs tumor. Planned Neurosurgery 04/24. - Patient Problems (1) Spinal stenosis Current Visit: Yes Status: Acute Priority: Medium Code(s): M48.00 - SPINAL STENOSIS, SITE UNSPECIFIED SNOMED Code(s): 01993888 Comment: - Appreciate Dr. Hernandez recs EMG w/ e/o demylination -Appreciate neurosurgical recs: planned surgery Tuesday 04/24. was found to have interthecal mass. hematoma vs tumor vs lipoma (though does not enhace with fat so less likely) Pt Revised Cardiac Risk Index of 2 points (CHF, e/o previous infarction on EKG) , moderate but acceptable risk for surgery. (2) Low back pain Current Visit: Yes Status: Acute Code(s): M54.5 - LOW BACK PAIN SNOMED Code(s): 658767204 Comment: likely related to larger interthecal mass. S/P fall. continue percocet prn and tyelonol prn (3) CAD (coronary artery disease) Current Visit: Yes Status: Acute Code(s): I25.10 - ATHSCL HEART DISEASE OF [place] CORONARY ARTERY W/O ANG PCTRS SNOMED Code(s): 95714656 Comment: Stable without complaints. Continue ASA. patient not on statin, on recheck:LDL 73, HDL 40. (4) DVT prophylaxis Current Visit: Yes Status: Acute Priority: Low Code(s): KYZ6274 - SNOMED Code(s): 324431406 Comment: SQ heparin (5) Full code status Current Visit: Yes Status: Acute Code(s): Z78.9 - OTHER SPECIFIED HEALTH STATUS SNOMED Code(s): 670136116 (6) HTN (hypertension) Current Visit: Yes Status: Acute Priority: Medium Code(s): I10 - ESSENTIAL (PRIMARY) HYPERTENSION SNOMED Code(s): 64153177 Comment: BPs better 100-110. Will continue to hold home lisinopril 10 and norvasc 2.5mg (7) Parkinsons disease Current Visit: Yes Status: Acute Priority: Medium Code(s): G20 - PARKINSON 'S DISEASE SNOMED Code(s): 58866554 Comment: -Continue sinement for PD and aricept and namenda for dementia. -mobility is main issue, eval by PT appreciated (8) Type II diabetes mellitus Current Visit: Yes Status: Acute Priority: Low Comment: -BS are under very good control, and has not required any SSI. Continue lispro sliding scale. -A1c 5.1 (9) Urinary incontinence due to immobility Current Visit: Yes Status: Acute Priority: Low Code(s): R39.81 - FUNCTIONAL URINARY INCONTINENCE SNOMED Code(s): 809795190 Comment: -reviewed UA, no infection -will work on mobility, avoid Yun (10) Systolic and diastolic CHF, chronic Current Visit: Yes Status: Acute Code(s): I50.42 - CHRONIC COMBINED SYSTOLIC AND DIASTOLIC HRT FAIL SNOMED Code(s): 592435755799902 Comment: euvolemic ECHO with EF 35-40%, diastolic dysfunction. Status and Disposition: inpatient, planned surgery with Dr. Brewster 04/24
--- NOTE | 2018-04-23 19:34 | PN ---
Progress Note - Progress Note Date of Service: 04/23/18 SOAP: Subjective: []Patient with back pain , LE weakness Workup reveals lumbar mass L2-L4 Differential diagnosis of hematoma vs tumor Objective: []Neuro exam stable Weakness of dorsiflexion noted Echo report noted Assessment: []Patient has mass from L2-L4 Appears intrathecal though epidural hematoma a possibility Plan: []A proposed decompressive laminectomy with removal of tumor or hematoma discussed with patient and his . A proposed procedure was discussed in detail. The risks of surgery including bleeding infection, numbness, weakness, and CSF leak were all discussed Plan Lumbar Decompression L1-L4 with removal of tumor Patient and aware of increased risk from his marginal cardiac status. Procedure is basically urgent as he is losing neurological function and has a significant mass.
[2018-04-23] MEDS: Lidocaine Patch REMOVE* 1 NOTE MISC SCH (20:35)
[2018-04-24] MEDS: Carbidopa/Levodop 10/100 MG TAB(*) PO SCH ×4 (03:02→21:53)
[2018-04-24] MEDS: oxyCODONE TAB* 5 MG TAB PO PRN ×2 (03:05→12:30)
[2018-04-24] MEDS: Omeprazole CAP* 20 MG PO SCH (05:35)
[2018-04-24] MEDS ORDERED: Artificial Tear OPHTH.OINT* 3.5 GM ONE (06:59)
[2018-04-24] MEDS ORDERED: Lidocaine 1% MPF wEPI 200,000* 30 ML SDV ONE (07:09)
[2018-04-24] MEDS ORDERED: Thrombin 5,000 UNITS* 1 APPLIC KIT - topical use - TOPICAL ONE (07:09)
[2018-04-24] MEDS ORDERED: Bacitracin IV* 50,000 UNITS INJ ONE (07:09)
[2018-04-24] MEDS ORDERED: Propofol* 10 MG/ML 20 ML BTL IV PUSH ONE (07:10)
[2018-04-24] MEDS ORDERED: Lidocaine 2% PF * 5 ML VIAL ONE (07:10)
[2018-04-24] MEDS ORDERED: Ondansetron ODT TAB* 4 MG ONE (07:10)
[2018-04-24] MEDS ORDERED: Phenylephrine INJ* 10 MG/ML 1 ML VIAL (10 MG) ONE (07:10)
[2018-04-24] MEDS ORDERED: Dexamethasone IV* 4 MG/ML 1 ML (4 MG) ONE (07:10)
[2018-04-24] MEDS ORDERED: fentaNYL* 50 MCG/ML 2 ML VIAL (100 MCG VIAL) ONE (07:10)
[2018-04-24] MEDS ORDERED: Midazolam* 1 MG/ML 5 ML VIAL (5 MG) ONE ×2 (07:11→08:10)
[2018-04-24] MEDS ORDERED: Cisatracurium* 2 MG/ML MDV 5 ML ONE (07:11)
[2018-04-24] MEDS ORDERED: ceFAZolin 2 GM PREMIX (*) 2 GM/50 ML BAG IVPB ONE (07:32)
[2018-04-24] MEDS: Insulin LISPRO* 1 UNITS UNIT SUBCUT SCH ×4 (09:36→21:45)
[2018-04-24] MEDS ORDERED: fentaNYL* 50 MCG/ML 2 ML VIAL (100 MCG VIAL) IV PRN (10:14)
[2018-04-24] MEDS ORDERED: Naloxone* 0.4 MG/ML 1 ML VIAL IV PRN (10:14)
[2018-04-24] MEDS ORDERED: HYDROmorphone INJ* 1 MG/ML CARPUJECT SYRINGE ONE (10:38)
[2018-04-24] MEDS: Docusate CAP* 100 MG PO SCH ×3 (11:06→21:49)
[2018-04-24] MEDS: Nystatin CREAM* 15 GM TUBE TOPICAL SCH ×3 (11:07→22:13)
[2018-04-24] MEDS: Senna TAB PO SCH ×3 (11:07→21:47)
[2018-04-24] MEDS: Memantine TAB* 10 MG PO SCH ×3 (11:07→21:47)
[2018-04-24] MEDS: Donepezil TAB* 5 MG PO SCH (12:37)
[2018-04-24] MEDS: Thiamine TAB* 100 MG TAB PO SCH (12:38)
[2018-04-24] MEDS: Lidocaine PATCH 5%* 1 PATCH TRANSDERM SCH (12:51)
--- NOTE | 2018-04-24 13:38 | RAD ---
HISTORY: LUMBAR LAMINECTOMY FOR TUMOR L1-L4 COMPARISONS: MRI dated April 22, 2018 VIEWS: 1 , portable intraoperative view of the spine for localization during surgery FINDINGS: A single crosstable lateral view of the spine performed at 8:41 AM demonstrates a metallic probe opposite of L3-L4, counting from L5 as the last lumbar vertebral body. IMPRESSION: LIMITED PORTABLE VIEW OF THE SPINE FOR LOCALIZATION DURING SPINAL SURGERY
[2018-04-24] MEDS: HYDROmorphone INJ* 2 MG/ML CARPUJECT SYRINGE IV PRN (14:07)
[2018-04-24] MEDS: Nitroglycerin 0.2 MG/HR PATCH* (5 MG) TRANSDERM SCH (14:07)
[2018-04-24] MEDS ORDERED: Morphine VIAL* 4 MG/ML VIAL (1 ml vial) IV PRN (15:31)
[2018-04-24] MEDS: oxyCODONE/Acetamin 5/325 MG* TAB PO PRN ×2 (16:39→21:50)
--- NOTE | 2018-04-24 18:53 | PN ---
Subjective Date of Service: 04/24/18 Interval History: Pt had hematoma found during surgery (per RN report). now on bedrest with improved levels of pain (though still "8/10"). no numbness in lower extremity. good urine output. no reported complications. Family History: Unchanged from Admission Social History: Unchanged from Admission Past Medical History: Unchanged from Admission Objective Active Medications: Acetaminophen (Tylenol Tab*) 650 mg PO Q4H PRN PRN Reason: FEVER/PAIN Last Admin: 04/23/18 20:31 Dose: 650 mg Al Hydrox/Mg Hydrox/Simethicone (Maalox Plus*) 30 ml PO Q6H PRN PRN Reason: INDIGESTION Carbidopa/Levodopa (Sinemet 10/100 Tab(*)) 1 tab PO Q6H [facility] Last Admin: 04/24/18 17:45 Dose: 1 tab Dextrose (D50w Syringe 50 Ml*) 12.5 gm IV PUSH .FOR FS < 60 - SS PRN PRN Reason: FS < 60 Docusate Sodium (Colace Cap*) 100 mg PO BID [facility] Last Admin: 04/24/18 12:37 Dose: 100 mg Donepezil HCl (Aricept Tab*) 10 mg PO DAILY [facility] Last Admin: 04/24/18 12:37 Dose: 10 mg Lactated Ringer's (Lactated Ringers 1000 Ml Bag*) 1,000 mls @ 75 mls/hr IV PER RATE [facility] Last Admin: 04/24/18 12:34 Dose: 75 mls/hr Insulin Human Lispro (Humalog*) 0 units SUBCUT ACHS [facility] PRN Reason: Protocol Last Admin: 04/24/18 17:39 Dose: Not Given Memantine (Namenda Tab*) 10 mg PO BID [facility] Last Admin: 04/24/18 12:37 Dose: 10 mg Morphine Sulfate (Morphine Vial*) 2 mg IV Q4H PRN PRN Reason: PAIN Nitroglycerin (Nitroglycerin 5 Mg Patch*) 1 patch TRANSDERM DAILY [facility] Last Admin: 04/24/18 14:07 Dose: 1 patch Nystatin (Nystatin Cream*) 1 applic TOPICAL TID [facility] Last Admin: 04/24/18 14:11 Dose: Not Given Omeprazole (Prilosec Cap*) 20 mg PO 0600 [facility] Last Admin: 04/24/18 05:35 Dose: 20 mg Oxycodone/Acetaminophen (Percocet 5/325 Tab*) 2 tab PO Q4H PRN PRN Reason: PAIN Last Admin: 04/24/18 16:39 Dose: 2 tab Senna (Senokot Tab*) 1 tab PO BID [facility] Last Admin: 04/24/18 12:37 Dose: 1 tab Thiamine HCl (Vitamin B-1 Tab*) 100 mg PO DAILY [facility] Last Admin: 04/24/18 12:38 Dose: 100 mg Vital Signs - 8 hr 04/24/18 04/24/18 04/24/18 10:53 10:55 10:57 Temperature 98.1 F Pulse Rate Respiratory 16 17 16 Rate Blood Pressure 141/75 143/72 (mmHg) O2 Sat by Pulse 96 94 Oximetry 04/24/18 04/24/18 04/24/18 11:00 11:05 11:10 Temperature Pulse Rate 66 66 68 Respiratory 15 15 14 Rate Blood Pressure 131/73 139/73 127/66 (mmHg) O2 Sat by Pulse 94 100 100 Oximetry 04/24/18 04/24/18 04/24/18 11:15 11:16 11:18 Temperature Pulse Rate 66 66 66 Respiratory 16 15 14 Rate Blood Pressure 116/75 (mmHg) O2 Sat by Pulse 96 97 95 Oximetry 04/24/18 04/24/18 04/24/18 11:19 11:20 11:21 Temperature Pulse Rate 64 66 69 Respiratory 14 17 16 Rate Blood Pressure 108/62 (mmHg) O2 Sat by Pulse 96 95 95 Oximetry 04/24/18 04/24/18 04/24/18 11:23 11:24 11:25 Temperature Pulse Rate 68 66 68 Respiratory 16 16 18 Rate Blood Pressure 107/70 (mmHg) O2 Sat by Pulse 95 95 94 Oximetry 04/24/18 04/24/18 04/24/18 11:27 11:28 11:29 Temperature Pulse Rate 68 70 68 Respiratory 16 16 16 Rate Blood Pressure (mmHg) O2 Sat by Pulse 94 94 94 Oximetry 04/24/18 04/24/18 04/24/18 11:30 11:32 11:33 Temperature Pulse Rate 72 68 69 Respiratory 15 15 15 Rate Blood Pressure 110/73 (mmHg) O2 Sat by Pulse 94 94 94 Oximetry 04/24/18 04/24/18 04/24/18 11:34 11:35 11:45 Temperature 98.2 F Pulse Rate 67 67 65 Respiratory 14 16 15 Rate Blood Pressure 118/62 115/61 (mmHg) O2 Sat by Pulse 94 95 95 Oximetry 04/24/18 04/24/18 04/24/18 11:46 12:15 12:30 Temperature 97.4 F Pulse Rate 69 Respiratory 20 20 20 Rate Blood Pressure 123/67 (mmHg) O2 Sat by Pulse 100 Oximetry 04/24/18 04/24/18 04/24/18 13:09 14:07 14:16 Temperature 98.4 F 97.5 F Pulse Rate 75 76 Respiratory 18 18 18 Rate Blood Pressure 139/66 123/69 (mmHg) O2 Sat by Pulse 97 98 Oximetry 04/24/18 04/24/18 04/24/18 16:00 16:04 16:27 Temperature 97.9 F Pulse Rate 80 Respiratory 18 22 Rate Blood Pressure 136/65 (mmHg) O2 Sat by Pulse 94 94 Oximetry 04/24/18 16:39 Temperature Pulse Rate Respiratory 16 Rate Blood Pressure (mmHg) O2 Sat by Pulse Oximetry Oxygen Devices in Use Now: Nasal Cannula Appearance: NAD. lying flat being fed food. Eyes: No Scleral Icterus, PERRLA Ears/Nose/Mouth/Throat: NL Teeth, Lips, Gums, Mucous Membranes Moist Neck: NL Appearance and Movements; NL JVP Respiratory: Symmetrical Chest Expansion and Respiratory Effort, Clear to Auscultation Cardiovascular: NL Sounds; No Murmurs; No JVD Abdominal: NL Sounds; No Tenderness; No Distention, No Hepatosplenomegaly Extremities: No Edema Skin: No Rash or Ulcers, No Nodules or Sclerosis Neurological: Alert and Oriented x 3, NL Sensation Nutrition: Taking PO's Result Diagrams: 04/22/18 05:49 04/23/18 21:40 Additional Lab and Data: Laboratory Results - last 24 hr 04/23/18 04/23/18 04/24/18 20:43 21:40 06:49 Potassium 4.9 POC Glucose (mg/dL) 139 H 123 H 04/24/18 04/24/18 04/24/18 11:03 12:36 16:32 Potassium POC Glucose (mg/dL) 135 H 153 H 98 Assess/Plan/Problems-Billing 73 yo M PMH CAD s/p CABG, 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 Interthecal mass 5.9x1.3x1.5cm that was found to be a hematoma with Dr. Brewster's neurosurgery 04/24. - Patient Problems (1) Spinal stenosis Current Visit: Yes Status: Acute Priority: Medium Code(s): M48.00 - SPINAL STENOSIS, SITE UNSPECIFIED SNOMED Code(s): 25378630 Comment: - Appreciate Dr. Hernandez recs EMG w/ e/o demylination -Appreciate neurosurgical recs s/p surgery Tuesday 04/24 which reportedly found hematoma. follow-up official report. (2) Low back pain Current Visit: Yes Status: Acute Code(s): M54.5 - LOW BACK PAIN SNOMED Code(s): 711042368 Comment: acute on chronic, likely worsened by interthecal hematoma. continue percocet prn and tyelonol prn Physical therapy. (3) CAD (coronary artery disease) Current Visit: Yes Status: Acute Code(s): I25.10 - ATHSCL HEART DISEASE OF [place] CORONARY ARTERY W/O ANG PCTRS SNOMED Code(s): 57674981 Comment: Stable without complaints. Continue ASA. patient not on statin, on recheck:LDL 73, HDL 40. (4) DVT prophylaxis Current Visit: Yes Status: Acute Priority: Low Code(s): UVO0539 - SNOMED Code(s): 825772149 Comment: SQ heparin (5) Full code status Current Visit: Yes Status: Acute Code(s): Z78.9 - OTHER SPECIFIED HEALTH STATUS SNOMED Code(s): 652098701 (6) HTN (hypertension) Current Visit: Yes Status: Acute Priority: Medium Code(s): I10 - ESSENTIAL (PRIMARY) HYPERTENSION SNOMED Code(s): 08028418 Comment: BPs better 100-110. Will continue to hold home lisinopril 10 and norvasc 2.5mg (7) Parkinsons disease Current Visit: Yes Status: Acute Priority: Medium Code(s): G20 - PARKINSON 'S DISEASE SNOMED Code(s): 58104013 Comment: -Continue sinement for PD and aricept and namenda for dementia. -mobility is main issue, eval by PT appreciated (8) Type II diabetes mellitus Current Visit: Yes Status: Acute Priority: Low Comment: -BS are under very good control, and has not required any SSI. Continue lispro sliding scale. -A1c only 5.1 - home med is tradjenta 5mg daily. (9) Urinary incontinence due to immobility Current Visit: Yes Status: Acute Priority: Low Code(s): R39.81 - FUNCTIONAL URINARY INCONTINENCE SNOMED Code(s): 065709787 Comment: -reviewed UA, no infection -will work on mobility, avoid Yun (10) Systolic and diastolic CHF, chronic Current Visit: Yes Status: Acute Code(s): I50.42 - CHRONIC COMBINED SYSTOLIC AND DIASTOLIC HRT FAIL SNOMED Code(s): 073989339083453 Comment: euvolemic ECHO with EF 35-40%, diastolic dysfunction. Status and Disposition: inpatient, s/p surgery with Dr. Brewster 04/24. Being evaluated by [facility] vs has offer from [facility].
[2018-04-24] MEDS: Nitro Patch/OINT Remove PATCH OFF SCH (22:34)
[2018-04-25] MEDS: oxyCODONE/Acetamin 5/325 MG* TAB PO PRN ×4 (02:59→22:03)
[2018-04-25] MEDS: Carbidopa/Levodop 10/100 MG TAB(*) PO SCH ×4 (03:01→22:04)
[2018-04-25] MEDS: Omeprazole CAP* 20 MG PO SCH (06:15)
[2018-04-25] MEDS: Insulin LISPRO* 1 UNITS UNIT SUBCUT SCH ×4 (07:59→22:06)
--- NOTE | 2018-04-25 08:57 | PN ---
Progress Note - Progress Note Date of Service: 04/25/18 SOAP: Subjective: [S/p decompressive lumbar laminectomy L2-3 for evacuation of intradural hematoma , POD #1. Patient has remained flat post-operatively for CSF loss during surgery. Patient continues to complain of back pain. Denies headache, nausea, lower extremity symptoms. Is eating and drinking well. ] Objective: [ Vital Signs: Temp Pulse Resp BP Pulse Ox 98.7 F 85 18 130/60 91 04/25/18 07:20 04/25/18 07:20 04/25/18 07:45 04/25/18 07:20 04/25/18 07:45 General: Alert and oriented to person, place and date. Neuro: RLE weakness persistent, Left foot weakness improved. Sensation intact. ] Assessment: [Stable post-op] Plan: [1. Patient may sit up to 30 degrees, if headache then return to flat position. 2. Continue pain management.]
[2018-04-25] MEDS: Senna TAB PO SCH ×2 (09:31→22:06)
[2018-04-25] MEDS: Donepezil TAB* 5 MG PO SCH (09:31)
[2018-04-25] MEDS: Thiamine TAB* 100 MG TAB PO SCH (09:32)
[2018-04-25] MEDS: Docusate CAP* 100 MG PO SCH ×2 (09:32→22:06)
[2018-04-25] MEDS: Memantine TAB* 10 MG PO SCH ×2 (09:32→19:43)
[2018-04-25] MEDS: Nystatin CREAM* 15 GM TUBE TOPICAL SCH ×3 (09:33→22:05)
[2018-04-25] MEDS: Nitroglycerin 0.2 MG/HR PATCH* (5 MG) TRANSDERM SCH (10:04)
[2018-04-25] MEDS: Cyclobenzaprine TAB* 10 MG PO PRN ×2 (10:06→19:40)
[2018-04-25 10:31] LABS: ABS Basophils 0.1 10^3/ul (0-0.2); ABS Eosinophils 0 10^3/ul (0-0.6); ABS Lymphocytes 1.8 10^3/ul (1.0-4.8); ABS Monocytes 1.1 10^3/ul (0-0.8); ABS Neutrophils 6.8 10^3/ul (1.5-7.7); ABS Nucleated RBC 0 10^3/ul; Eosinophil % 0.5 % (0-6); Hematocrit 43 % (42-52); Hemoglobin 14.1 g/dl (14.0-18.0); Lymphocyte % 18.1 % (25-47); Mean Corpuscular HGB Conc 33 g/dl (31-36); Mean Corpuscular Hemoglobin 33 pg (27-31); Mean Corpuscular Volume 99 fL (80-94); Mean Platelet Volume 8.2 um3 (7.4-10.4); Nucleated Red Blood Cells % 0; Platelet Count 200 10^3/ul (150-450); Red Blood Count 4.35 10^6/ul (4.0-5.4); Red Cell Distribution Width 14 % (10.5-15); White Blood Count 9.7 10^3/ul (3.5-10.8)
[2018-04-25 10:51] LABS: EGFR Non-African American 64.8 (>60)
[2018-04-25] MEDS ORDERED: Magnesium Sulfate IV* 3 GM in NS 0.9% 100 ML* 100 ML IVPB ONE (15:44)
--- NOTE | 2018-04-25 15:48 | PN ---
Subjective Date of Service: 04/25/18 Interval History: pt reports back pain but states he is able to sleep. Currently reports mild HELMS, HOB lowered, "reports 'thats feels better". Denies numbness tingling, Reports he has a good appetite. No fever or chills. No SOB/CP Family History: Unchanged from Admission Social History: Unchanged from Admission Past Medical History: Unchanged from Admission Objective Active Medications: Acetaminophen (Tylenol Tab*) 650 mg PO Q4H PRN PRN Reason: FEVER/PAIN Last Admin: 04/23/18 20:31 Dose: 650 mg Al Hydrox/Mg Hydrox/Simethicone (Maalox Plus*) 30 ml PO Q6H PRN PRN Reason: INDIGESTION Carbidopa/Levodopa (Sinemet 10/100 Tab(*)) 1 tab PO Q6H [facility] Last Admin: 04/25/18 15:34 Dose: 1 tab Cyclobenzaprine HCl (Flexeril Tab*) 10 mg PO TID PRN PRN Reason: muscle spams Last Admin: 04/25/18 10:06 Dose: 10 mg Dextrose (D50w Syringe 50 Ml*) 12.5 gm IV PUSH .FOR FS < 60 - SS PRN PRN Reason: FS < 60 Docusate Sodium (Colace Cap*) 100 mg PO BID [facility] Last Admin: 04/25/18 09:32 Dose: 100 mg Donepezil HCl (Aricept Tab*) 10 mg PO DAILY [facility] Last Admin: 04/25/18 09:31 Dose: 10 mg Lactated Ringer's (Lactated Ringers 1000 Ml Bag*) 1,000 mls @ 75 mls/hr IV PER RATE [facility] Last Admin: 04/24/18 12:34 Dose: 75 mls/hr Magnesium Sulfate 3 gm/ Sodium (Chloride) 106 mls @ 53 mls/hr IVPB ONCE ONE Stop: 04/25/18 17:43 Insulin Human Lispro (Humalog*) 0 units SUBCUT ACHS [facility] PRN Reason: Protocol Last Admin: 04/25/18 14:02 Dose: 1 unit Memantine (Namenda Tab*) 10 mg PO BID [facility] Last Admin: 04/25/18 09:32 Dose: 10 mg Morphine Sulfate (Morphine Vial*) 2 mg IV Q4H PRN PRN Reason: PAIN Nitroglycerin (Nitroglycerin 5 Mg Patch*) 1 patch TRANSDERM DAILY [facility] Last Admin: 04/25/18 10:04 Dose: 1 patch Nystatin (Nystatin Cream*) 1 applic TOPICAL TID [facility] Last Admin: 04/25/18 14:04 Dose: Not Given Omeprazole (Prilosec Cap*) 20 mg PO 0600 [facility] Last Admin: 04/25/18 06:15 Dose: 20 mg Oxycodone/Acetaminophen (Percocet 5/325 Tab*) 2 tab PO Q4H PRN PRN Reason: PAIN Last Admin: 04/25/18 15:34 Dose: 2 tab Pharmacy Profile Note (Nitro Patch/Oint Remove*) 1 note PATCH OFF 2100 [facility] Last Admin: 04/24/18 22:34 Dose: 1 patch Senna (Senokot Tab*) 1 tab PO BID [facility] Last Admin: 04/25/18 09:31 Dose: 1 tab Thiamine HCl (Vitamin B-1 Tab*) 100 mg PO DAILY [facility] Last Admin: 04/25/18 09:32 Dose: 100 mg Vital Signs - 8 hr 04/25/18 04/25/18 04/25/18 09:44 10:06 11:30 Temperature 99.3 F Pulse Rate 91 Respiratory 18 16 18 Rate Blood Pressure 126/55 (mmHg) O2 Sat by Pulse 92 Oximetry 04/25/18 04/25/18 04/25/18 12:20 15:24 15:34 Temperature 97.9 F Pulse Rate 85 Respiratory 18 18 16 Rate Blood Pressure 125/57 (mmHg) O2 Sat by Pulse 95 Oximetry Oxygen Devices in Use Now: None Appearance: A+O x3 in NAD Eyes: No Scleral Icterus, PERRLA Ears/Nose/Mouth/Throat: Mucous Membranes Moist Neck: NL Appearance and Movements; NL JVP Respiratory: Symmetrical Chest Expansion and Respiratory Effort, Clear to Auscultation Cardiovascular: NL Sounds; No Murmurs; No JVD, RRR Abdominal: NL Sounds; No Tenderness; No Distention Extremities: No Edema, No Clubbing, Cyanosis Neurological: Alert and Oriented x 3, NL Sensation Lines/Tubes/Other Access: Clean, Dry and Intact Peripheral IV Nutrition: Taking PO's Result Diagrams: 04/25/18 10:02 04/25/18 10:02 Additional Lab and Data: Laboratory Results - last 24 hr 04/23/18 04/23/1818 20:43 21:40 06:49 Potassium 4.9 POC Glucose (mg/dL) 139 H 123 H 04/24/18 04/24/18 04/24/18 11:03 12:36 16:32 Potassium POC Glucose (mg/dL) 135 H 153 H 98 Assess/Plan/Problems-Billing 73 yo M PMH CAD s/p CABG, 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 Interthecal mass 5.9x1.3x1.5cm that was found to be a hematoma with Dr. Brewster's neurosurgery 04/24. - Patient Problems (1) Status post lumbar spine operative procedure for decompression of spinal cord Comment: POD#1 - Dispo Per NS L2-L3 lumbar laminectomy L2-L3 for evacuation of intradural hematoma Pt has been lauying flat post-op for CSF loss during surgery - ok to sit at 30 degrees per NS unless HELMS returns and he should return to flat again continue neuro checks Pain management; bowel regimen. (2) Spinal stenosis Comment: - Appreciate Dr. David de leon EMG w/ e/o demylination (3) CAD (coronary artery disease) Comment: Stable without complaints. Continue ASA. patient not on statin, on recheck:LDL 73, HDL 40. (4) HTN (hypertension) Comment: BPs stable 100-120. Will continue to hold home lisinopril 10 and norvasc 2.5mg (5) Low back pain Comment: Improving. acute on chronic, likely worsened by interthecal hematoma. continue percocet prn and tyelonol prn Physical therapy when cleared by NS. (6) Parkinsons disease Comment: -Continue sinement for PD and aricept and namenda for dementia. -mobility is main issue, continue with PT when cleared by NS (7) Systolic and diastolic CHF, chronic Comment: appears euvolemic ECHO with EF 35-40%, diastolic dysfunction. (8) Type II diabetes mellitus Comment: -BS are under very good control, and has not required any SSI. Continue lispro sliding scale. -A1c only 5.1 - home med is tradjenta 5mg daily, currently on hold. (9) DVT prophylaxis Comment: SCDs (10) Full code status Status and Disposition: inpatient, s/p surgery with Dr. Brewster 04/24. Being evaluated by [facility] vs has offer from [facility].
[2018-04-25] MEDS ORDERED: Magnesium Sulfate 2 GM IV IVPB ONE (16:00)
[2018-04-25] MEDS ORDERED: Magnesium Sulfate 1 GM IV* 1 GM/100 ML BAG IV ONE (17:00)
[2018-04-25] MEDS: Nitro Patch/OINT Remove PATCH OFF SCH (21:59)
[2018-04-26] MEDS: Omeprazole CAP* 20 MG PO SCH (05:30)
[2018-04-26] MEDS: Carbidopa/Levodop 10/100 MG TAB(*) PO SCH ×4 (05:30→22:03)
[2018-04-26 05:39] LABS: Hematocrit 43 % (42-52); Hemoglobin 14.3 g/dl (14.0-18.0); Mean Corpuscular HGB Conc 33 g/dl (31-36); Mean Corpuscular Hemoglobin 33 pg (27-31); Mean Corpuscular Volume 98 fL (80-94); Mean Platelet Volume 7.7 um3 (7.4-10.4); Platelet Count 202 10^3/ul (150-450); Red Blood Count 4.39 10^6/ul (4.0-5.4); Red Cell Distribution Width 13 % (10.5-15); White Blood Count 14.5 10^3/ul (3.5-10.8)
[2018-04-26 05:47] LABS: ABS Basophils 0.1 10^3/ul (0-0.2); ABS Eosinophils 0.1 10^3/ul (0-0.6); ABS Lymphocytes 1.1 10^3/ul (1.0-4.8); ABS Monocytes 2.4 10^3/ul (0-0.8); ABS Neutrophils 10.9 10^3/ul (1.5-7.7); ABS Nucleated RBC 0 10^3/ul; Eosinophil % 0.5 % (0-6); Lymphocyte % 7.6 % (25-47); Nucleated Red Blood Cells % 0
[2018-04-26 05:56] LABS: EGFR Non-African American 69.8 (>60)
[2018-04-26] MEDS: oxyCODONE/Acetamin 5/325 MG* TAB PO PRN ×2 (07:40→15:29)
[2018-04-26] MEDS ORDERED: Magnesium Sulfate 2 GM IV* 2 GM/50 ML BAG IVPB ONE (08:54)
[2018-04-26] MEDS: Insulin LISPRO* 1 UNITS UNIT SUBCUT SCH ×4 (09:20→20:13)
[2018-04-26] MEDS: Thiamine TAB* 100 MG TAB PO SCH (09:24)
[2018-04-26] MEDS: Memantine TAB* 10 MG PO SCH ×2 (09:24→20:21)
[2018-04-26] MEDS: Donepezil TAB* 5 MG PO SCH (09:24)
[2018-04-26] MEDS: Docusate CAP* 100 MG PO SCH ×2 (09:24→20:21)
[2018-04-26] MEDS: Senna TAB PO SCH ×2 (09:24→20:22)
--- NOTE | 2018-04-26 10:01 | RAD ---
INDICATION: Audible rhonchi and leukocytosis COMPARISON: Chest x-ray February 14, 2018 TECHNIQUE: Single AP portable view of the chest was obtained. FINDINGS: Image quality is compromised due to the relative inferiority of a portable chest x-ray. Postsurgical findings are unchanged from the previous chest x-ray. There is a mild degree of cardiomegaly similar in appearance to the previous chest x-ray. There is coarse calcification overlying the arch of the aorta. The lungs are grossly clear. There is no evidence of a large pleural effusion. Visualized bones are normal for the patient's age. IMPRESSION: No radiographic evidence for acute cardiopulmonary abnormality on this portable chest x-ray.
[2018-04-26] MEDS: Nitroglycerin 0.2 MG/HR PATCH* (5 MG) TRANSDERM SCH (10:27)
[2018-04-26] MEDS: Nystatin CREAM* 15 GM TUBE TOPICAL SCH ×3 (10:30→20:22)
--- NOTE | 2018-04-26 10:43 | RAD ---
INDICATION: Change of mental status in a patient with a recent history of L2/L3 laminectomy COMPARISON: Most recent CT of the brain is dated May 31, 2015. TECHNIQUE: Contiguous axial sections of the brain were obtained from the skull base to the vertex without contrast. FINDINGS: There is extra-axial air adjacent to the anterior margin of the left frontal lobe and scattered along the medial margins of the bilateral frontal lobes and scattered along the peripheral margin of the anterolateral right temporal lobe. There is also a focus of air in the right anterior horn ventricle. The ventricles otherwise exhibit mild involutional changes not significantly changed from the prior CT examination. There is a mild degree of subcortical and periventricular white matter hypoattenuation most consistent with chronic microvascular disease. Otherwise the orosco-white matter differentiation is adequately maintained and there is no sulcal effacement. No significant focal abnormality or mass effect is present. There is no evidence for intracranial hemorrhage. No significant focal osseous abnormality is present. The visualized portion of the paranasal sinuses appear clear. The mastoid air cells are well aerated bilaterally. IMPRESSION: Interval appearance of extra-axial gas adjacent to the bilateral frontal lobes, right temporal lobe and in the anterior horn of the right ventricle as described above. Findings reported to ESE Barron over the telephone at 1038 hours on April 26, 2018.
--- NOTE | 2018-04-26 12:22 | PN ---
Progress Note - Progress Note Date of Service: 04/26/18 SOAP: Subjective: [S/p decompression for intradural hematoma evacuation, POD #2. Patient is quite drowsy today. Falling asleep with eyes open. Less alert and conversational this morning. Able to answer questions and follow commands. Denies headache, nausea, abdominal discomfort. Reports feeling feverish and chills. Eating and drinking without difficulty. ] Objective: [ Vital Signs: Temp Pulse Resp BP Pulse Ox 98.7 F 93 14 126/63 97 04/26/18 12:13 04/26/18 12:13 04/26/18 12:13 04/26/18 12:13 04/26/18 12:13 General: Patient recumbent in bed, no distress. Awakens to voice but falls asleep quickly. Back of gown is soaked with sweat. Neuro: Oriented to person and place. Able to follow commands but requires prompting. Answers questions appropriately. Upper extremity strength 5/5. Persistent lower extremity weakness. Sensation intact. No pronator drift. Pupils 2mm and reactive. Tongue protrudes midline, smile is symmetric. Incision: Intact with suture. No swelling or bulging. No erythema or ecchymosis. Dressing changed today with RN. ] Assessment: [S/p lumbar decompression for intradural hematoma evacuation. Change in mental status and alertness compared to yesterday morning. ] Plan: [1. CT brain stat 2. Urinalysis 3. Discontinue mcknight catheter 4. Physical therapy consult 5. Up out of bed with assistance 6. Continue pain management 7. Continue neuro checks]
--- NOTE | 2018-04-26 14:08 | PN ---
Subjective Date of Service: 04/26/18 Interval History: Patient reports he feels better today. Denies HELMS. Back pain controlled. Per his mental status this afternoon appears to be improving and he is back to his baseline. There was concern this morning for AMS and leukocytosis - underwent CT brain which was wnls. Now currently back to baseline per . Pt denies any cough, SOB, CP. no fever or chills. reports improved appetite. No abdominal pain, nausea. No urinary symptoms. Family History: Unchanged from Admission Social History: Unchanged from Admission Past Medical History: Unchanged from Admission Objective Active Medications: Acetaminophen (Tylenol Tab*) 650 mg PO Q4H PRN PRN Reason: FEVER/PAIN Last Admin: 04/23/18 20:31 Dose: 650 mg Al Hydrox/Mg Hydrox/Simethicone (Maalox Plus*) 30 ml PO Q6H PRN PRN Reason: INDIGESTION Carbidopa/Levodopa (Sinemet 10/100 Tab(*)) 1 tab PO Q6H [facility] Last Admin: 04/26/18 11:22 Dose: 1 tab Cyclobenzaprine HCl (Flexeril Tab*) 10 mg PO TID PRN PRN Reason: muscle spams Last Admin: 04/25/18 19:40 Dose: 10 mg Dextrose (D50w Syringe 50 Ml*) 12.5 gm IV PUSH .FOR FS < 60 - SS PRN PRN Reason: FS < 60 Docusate Sodium (Colace Cap*) 100 mg PO BID [facility] Last Admin: 04/26/18 09:24 Dose: 100 mg Donepezil HCl (Aricept Tab*) 10 mg PO DAILY [facility] Last Admin: 04/26/18 09:24 Dose: 10 mg Lactated Ringer's (Lactated Ringers 1000 Ml Bag*) 1,000 mls @ 75 mls/hr IV PER RATE [facility] Last Admin: 04/24/18 12:34 Dose: 75 mls/hr Insulin Human Lispro (Humalog*) 0 units SUBCUT ACHS [facility] PRN Reason: Protocol Last Admin: 04/26/18 12:16 Dose: Not Given Memantine (Namenda Tab*) 10 mg PO BID [facility] Last Admin: 04/26/18 09:24 Dose: 10 mg Morphine Sulfate (Morphine Vial*) 2 mg IV Q4H PRN PRN Reason: PAIN Nitroglycerin (Nitroglycerin 5 Mg Patch*) 1 patch TRANSDERM DAILY [facility] Last Admin: 04/26/18 10:27 Dose: 1 patch Nystatin (Nystatin Cream*) 1 applic TOPICAL TID [facility] Last Admin: 04/26/18 10:30 Dose: 1 applic Omeprazole (Prilosec Cap*) 20 mg PO 0600 [facility] Last Admin: 04/26/18 05:30 Dose: 20 mg Oxycodone/Acetaminophen (Percocet 5/325 Tab*) 2 tab PO Q4H PRN PRN Reason: PAIN Last Admin: 04/26/18 07:40 Dose: 2 tab Pharmacy Profile Note (Nitro Patch/Oint Remove*) 1 note PATCH OFF 2100 [facility] Last Admin: 04/25/18 21:59 Dose: 1 patch Senna (Senokot Tab*) 1 tab PO BID [facility] Last Admin: 04/26/18 09:24 Dose: 1 tab Thiamine HCl (Vitamin B-1 Tab*) 100 mg PO DAILY [facility] Last Admin: 04/26/18 09:24 Dose: 100 mg Vital Signs - 8 hr 04/26/18 04/26/18 04/26/18 07:14 07:40 08:00 Temperature 99.7 F Pulse Rate 101 Respiratory 20 18 18 Rate Blood Pressure 135/90 (mmHg) O2 Sat by Pulse 93 93 Oximetry 04/26/18 04/26/18 04/26/18 08:35 10:52 12:13 Temperature 98.7 F Pulse Rate 93 Respiratory 20 18 14 Rate Blood Pressure 126/63 (mmHg) O2 Sat by Pulse 97 Oximetry Oxygen Devices in Use Now: None Appearance: 73 yo male sitting up in bed in [facility]. A+O x3 Eyes: No Scleral Icterus, PERRLA, - Ears/Nose/Mouth/Throat: Mucous Membranes Moist Respiratory: Symmetrical Chest Expansion and Respiratory Effort, Clear to Auscultation Cardiovascular: NL Sounds; No Murmurs; No JVD, RRR, No Edema Abdominal: NL Sounds; No Tenderness; No Distention Extremities: No Edema, No Clubbing, Cyanosis Skin: No Rash or Ulcers, No Nodules or Sclerosis Neurological: Alert and Oriented x 3, NL Sensation, NL Muscle Strength and Tone Lines/Tubes/Other Access: Clean, Dry and Intact Peripheral IV Nutrition: Taking PO's Result Diagrams: 04/26/18 05:25 04/26/18 05:25 Additional Lab and Data: Laboratory Results - last 24 hr 04/23/18 04/23/18 04/24/18 20:43 21:40 06:49 Potassium 4.9 POC Glucose (mg/dL) 139 H 123 H 04/24/18 04/24/18 04/24/18 11:03 12:36 16:32 Potassium POC Glucose (mg/dL) 135 H 153 H 98 Assess/Plan/Problems-Billing 73 yo M PMH CAD s/p CABG, 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 Interthecal mass 5.9x1.3x1.5cm that was found to be a hematoma with Dr. Brewster's neurosurgery 04/24. - Patient Problems (1) Leukocytosis Comment: Suspect post-op reaction No obvious infection. Infectious work-up negative so far. Afebrile. Negative chest xray urine and blood cx pending (resent) normal lactic acid (2) Status post lumbar spine operative procedure for decompression of spinal cord Comment: POD#2 - Dispo Per NS L2-L3 lumbar laminectomy, L2-L3 evacuation of intradural hematoma Repeat CT brain d/t worsening AMS - suspect delirium continue neuro checks Pain management; bowel regimen. (3) Spinal stenosis Comment: - Appreciate Dr. David de leon EMG w/ e/o demylination (4) CAD (coronary artery disease) Comment: Stable without complaints. Continue ASA. patient not on statin, on recheck:LDL 73, HDL 40. (5) HTN (hypertension) Comment: Restart lisinopril 10 (6) Low back pain Comment: Improving. acute on chronic, likely worsened by interthecal hematoma. continue percocet prn and tyelonol prn Physical therapy ok per NS (7) Parkinsons disease Comment: - Dx Oct 2017 -Continue sinement for PD and aricept and namenda for dementia. -mobility is main issue, continue with PT when cleared by NS (8) Systolic and diastolic CHF, chronic Comment: appears euvolemic ECHO with EF 35-40%, diastolic dysfunction. Resume lisinopril (9) Type II diabetes mellitus Comment: -BS are under good control, required very little SSI. Does have a noted low blood sugar last night of 51, most likely d/t poor PO intake. Continue lispro sliding scale. -A1c only 5.1 - home med is tradjenta 5mg daily, currently on hold. (10) DVT prophylaxis Comment: SCDs (11) Full code status Status and Disposition: inpatient, s/p surgery with Dr. Brewster 04/24. Being evaluated by [facility] vs has offer from [facility].
[2018-04-26] MEDS: NS 0.9% 1000 ML* 1,000 ML IV SCH (17:07)
[2018-04-26 19:46] LABS: Urine Appearance Clear; Urine Blood 1+ (Negative); Urine Color Yellow; Urine Ketones Negative (Negative); Urine Protein Negative (Negative); Urine Specific Gravity 1.016 (1.010-1.030); Urine Urobilinogen Negative (Negative)
[2018-04-26] MEDS: Cyclobenzaprine TAB* 10 MG PO PRN (20:20)
[2018-04-26] MEDS: Nitro Patch/OINT Remove PATCH OFF SCH (20:23)
[2018-04-27] MEDS: NS 0.9% 1000 ML* 1,000 ML IV SCH (03:09)
[2018-04-27] MEDS: Carbidopa/Levodop 10/100 MG TAB(*) PO SCH ×4 (03:09→22:10)
[2018-04-27] MEDS: oxyCODONE/Acetamin 5/325 MG* TAB PO PRN ×3 (03:09→15:16)
[2018-04-27 05:35] LABS: Hematocrit 39 % (42-52); Hemoglobin 13.1 g/dl (14.0-18.0); Mean Corpuscular HGB Conc 33 g/dl (31-36); Mean Corpuscular Hemoglobin 33 pg (27-31); Mean Corpuscular Volume 97 fL (80-94); Mean Platelet Volume 7.9 um3 (7.4-10.4); Platelet Count 193 10^3/ul (150-450); Red Blood Count 4.03 10^6/ul (4.0-5.4); Red Cell Distribution Width 13 % (10.5-15); White Blood Count 12.4 10^3/ul (3.5-10.8)
[2018-04-27 05:43] LABS: ABS Basophils 0.1 10^3/ul (0-0.2); ABS Eosinophils 0.1 10^3/ul (0-0.6); ABS Lymphocytes 1.3 10^3/ul (1.0-4.8); ABS Monocytes 1.8 10^3/ul (0-0.8); ABS Neutrophils 9.1 10^3/ul (1.5-7.7); ABS Nucleated RBC 0 10^3/ul; Eosinophil % 0.9 % (0-6); Lymphocyte % 10.1 % (25-47); Nucleated Red Blood Cells % 0
[2018-04-27 05:53] LABS: EGFR Non-African American 67.6 (>60)
[2018-04-27] MEDS: Omeprazole CAP* 20 MG PO SCH (05:55)
--- NOTE | 2018-04-27 07:45 | PN ---
Progress Note - Progress Note Date of Service: 04/27/18 SOAP: Subjective: []Remains confused Will orient to place Na trending downward 129 this am Follows commands Objective: []Moves LE to request CT yest showed pneumocephalus,small chronic SDH on left Assessment: []slow progress Plan: []Increase activity level
[2018-04-27] MEDS ORDERED: Magnesium Sulfate 2 GM IV* 2 GM/50 ML BAG IVPB ONE (08:30)
[2018-04-27] MEDS: Insulin LISPRO* 1 UNITS UNIT SUBCUT SCH ×4 (09:14→21:52)
[2018-04-27] MEDS: Nystatin CREAM* 15 GM TUBE TOPICAL SCH ×3 (09:30→21:57)
[2018-04-27] MEDS: Nitroglycerin 0.2 MG/HR PATCH* (5 MG) TRANSDERM SCH (09:30)
[2018-04-27] MEDS: Donepezil TAB* 5 MG PO SCH (09:31)
[2018-04-27] MEDS: Thiamine TAB* 100 MG TAB PO SCH (09:31)
[2018-04-27] MEDS: Docusate CAP* 100 MG PO SCH ×2 (09:31→21:01)
[2018-04-27] MEDS: Lisinopril TAB* 10 MG PO SCH (09:31)
[2018-04-27] MEDS: Senna TAB PO SCH ×2 (09:31→21:02)
[2018-04-27] MEDS: Memantine TAB* 10 MG PO SCH ×2 (09:33→21:00)
--- NOTE | 2018-04-27 10:27 | PN ---
Subjective Date of Service: 04/27/18 Interval History: Patient per and staff continues to have some confusion, not feeding himself this morning, grabbing for objects that are not there. [place]". He denies any pain. is noted to be moving all extremities but is not following commands well. Family History: Unchanged from Admission Social History: Unchanged from Admission Past Medical History: Unchanged from Admission Objective Active Medications: Acetaminophen (Tylenol Tab*) 650 mg PO Q4H PRN PRN Reason: FEVER/PAIN Last Admin: 04/23/18 20:31 Dose: 650 mg Al Hydrox/Mg Hydrox/Simethicone (Maalox Plus*) 30 ml PO Q6H PRN PRN Reason: INDIGESTION Carbidopa/Levodopa (Sinemet 10/100 Tab(*)) 1 tab PO Q6H [facility] Last Admin: 04/27/18 09:31 Dose: 1 tab Dextrose (D50w Syringe 50 Ml*) 12.5 gm IV PUSH .FOR FS < 60 - SS PRN PRN Reason: FS < 60 Docusate Sodium (Colace Cap*) 100 mg PO BID [facility] Last Admin: 04/27/18 09:31 Dose: 100 mg Donepezil HCl (Aricept Tab*) 10 mg PO DAILY [facility] Last Admin: 04/27/18 09:31 Dose: 10 mg Insulin Human Lispro (Humalog*) 0 units SUBCUT ACHS [facility] PRN Reason: Protocol Last Admin: 04/27/18 09:14 Dose: Not Given Lisinopril (Prinivil Tab*) 10 mg PO DAILY [facility] Last Admin: 04/27/18 09:31 Dose: 10 mg Memantine (Namenda Tab*) 10 mg PO BID [facility] Last Admin: 04/27/18 09:33 Dose: 10 mg Nitroglycerin (Nitroglycerin 5 Mg Patch*) 1 patch TRANSDERM DAILY [facility] Last Admin: 04/27/18 09:30 Dose: 1 patch Nystatin (Nystatin Cream*) 1 applic TOPICAL TID [facility] Last Admin: 04/27/18 09:30 Dose: 1 applic Omeprazole (Prilosec Cap*) 20 mg PO 0600 [facility] Last Admin: 04/27/18 05:55 Dose: 20 mg Oxycodone/Acetaminophen (Percocet 5/325 Tab*) 2 tab PO Q4H PRN PRN Reason: PAIN Last Admin: 04/27/18 09:33 Dose: 2 tab Pharmacy Profile Note (Nitro Patch/Oint Remove*) 1 note PATCH OFF 2099 [facility] Last Admin: 04/26/18 20:23 Dose: 1 patch Senna (Senokot Tab*) 1 tab PO BID [facility] Last Admin: 04/27/18 09:31 Dose: 1 tab Thiamine HCl (Vitamin B-1 Tab*) 100 mg PO DAILY [facility] Last Admin: 04/27/18 09:31 Dose: 100 mg Vital Signs - 8 hr 04/27/18 04/27/18 04/27/18 03:08 03:09 04:58 Temperature 100.2 F Pulse Rate 105 Respiratory 24 22 20 Rate Blood Pressure 137/76 (mmHg) O2 Sat by Pulse 98 Oximetry 04/27/18 04/27/18 04/27/18 07:21 08:00 09:33 Temperature 99.3 F Pulse Rate 109 Respiratory 18 18 18 Rate Blood Pressure 152/91 (mmHg) O2 Sat by Pulse 92 92 Oximetry Oxygen Devices in Use Now: None Appearance: 73 yo male sitting up in bed alert, awake confused Eyes: No Scleral Icterus, PERRLA Ears/Nose/Mouth/Throat: Mucous Membranes Moist Respiratory: Symmetrical Chest Expansion and Respiratory Effort, Clear to Auscultation Cardiovascular: NL Sounds; No Murmurs; No JVD, RRR, No Edema Abdominal: NL Sounds; No Tenderness; No Distention Extremities: No Edema, No Clubbing, Cyanosis Skin: No Rash or Ulcers, No Nodules or Sclerosis Neurological: NL Sensation, - - alert + awake Lines/Tubes/Other Access: Clean, Dry and Intact Peripheral IV Nutrition: Taking PO's Result Diagrams: 04/27/18 05:14 04/27/18 05:14 Additional Lab and Data: Laboratory Results - last 24 hr 04/23/18 04/23/18 04/24/18 20:43 21:40 06:49 Potassium 4.9 POC Glucose (mg/dL) 139 H 123 H 04/24/18 04/24/18 04/24/18 11:03 12:36 16:32 Potassium POC Glucose (mg/dL) 135 H 153 H 98 Assess/Plan/Problems-Billing 73 yo M PMH CAD s/p CABG, 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 Interthecal mass 5.9x1.3x1.5cm that was found to be a hematoma with Dr. Brewster's neurosurgery 04/24. - Patient Problems (1) Altered mental status Comment: - Suspect delirium - Hyponatremia noted today 129 - per NS recommended Hypertonic 3% sodium chloride 250 ml bolus at 50 ml/hr over 5 hours - Discussed with Director Child Abuse Therapy who agreed could be done on floor with tele monitoring and Q2 hour vital signs for close/critical care monitoring. Per [facility] charge nurse/assisted living housekeeper nursing staff are not comfortable giving on floor, patient will be transferred to [facility] for infusion. Ok to give through peripheral line Serial Na+ continue neuro checks (2) Leukocytosis Comment: trending down - Dr. Brewster asked for empiric coveraged for meningitis in the setting of AMS Other infectious work-up negative so far. Afebrile. Negative chest xray Blood cx NTD, urinalysis unremarkable - urine cx pending normal lactic acid (3) Status post lumbar spine operative procedure for decompression of spinal cord Comment: POD#3 - Dispo Per NS L2-L3 lumbar laminectomy, L2-L3 evacuation of intradural hematoma Repeat CT brain negative - suspect delirium continue neuro checks Pain management; bowel regimen. (4) Spinal stenosis Comment: - Appreciate Dr. David de leon EMG w/ e/o demylination (5) CAD (coronary artery disease) Comment: Stable without complaints. Continue ASA. patient not on statin, on recheck:LDL 73, HDL 40. (6) HTN (hypertension) Comment: Restart lisinopril 10 (7) Low back pain Comment: Improving. acute on chronic, likely worsened by interthecal hematoma. continue percocet prn and tyelonol prn Physical therapy ok per NS (8) Parkinsons disease Comment: - Dx Oct 2017 -Continue sinement for PD and aricept and namenda for dementia. -mobility is main issue, continue with PT when cleared by NS (9) Systolic and diastolic CHF, chronic Comment: appears euvolemic ECHO with EF 35-40%, diastolic dysfunction. Resume lisinopril (10) Type II diabetes mellitus Comment: -Continue FSBG ACHS with lispro SS - fairly well controlled. -A1c only 5.1 - home med is tradjenta 5mg daily, currently on hold. (11) DVT prophylaxis Comment: SCDs (12) Full code status Status and Disposition: inpatient, s/p surgery with Dr. Brewster 04/24. Being evaluated by [facility] vs has offer from [facility].
[2018-04-27] MEDS ORDERED: Sodium Chloride 3% HYPERTONIC* 250 ML IVPB ONE ×2 (11:30→12:54)
[2018-04-27] MEDS: cefTRIAXone(*) 2 GM in NS 0.9% 100 ML* 100 ML IVPB SCH ×2 (12:06→23:19)
[2018-04-27] MEDS: Acetaminophen TAB* 325 MG PO PRN (20:58)
[2018-04-27] MEDS: Nitro Patch/OINT Remove PATCH OFF SCH (21:54)
[2018-04-28] MEDS: Carbidopa/Levodop 10/100 MG TAB(*) PO SCH ×4 (04:24→21:54)
[2018-04-28 05:26] LABS: Hematocrit 41 % (42-52); Hemoglobin 13.8 g/dl (14.0-18.0); Mean Corpuscular HGB Conc 34 g/dl (31-36); Mean Corpuscular Hemoglobin 33 pg (27-31); Mean Corpuscular Volume 98 fL (80-94); Mean Platelet Volume 8.5 um3 (7.4-10.4); Platelet Count 221 10^3/ul (150-450); Red Blood Count 4.17 10^6/ul (4.00-5.40); Red Cell Distribution Width 13 % (10.5-15); White Blood Count 12.7 10^3/ul (3.5-10.8)
[2018-04-28 05:38] LABS: ABS Basophils 0.1 10^3/ul (0-0.2); ABS Eosinophils 0.1 10^3/ul (0-0.6); ABS Lymphocytes 0.9 10^3/ul (1.0-4.8); ABS Monocytes 1.6 10^3/ul (0-0.8); ABS Neutrophils 10.1 10^3/ul (1.5-7.7); ABS Nucleated RBC 0 10^3/ul; Eosinophil % 0.7 % (0-6); Lymphocyte % 6.7 % (25-47); Nucleated Red Blood Cells % 0.1
[2018-04-28 05:41] LABS: EGFR Non-African American 75.7 (>60)
[2018-04-28] MEDS: Acetaminophen TAB* 325 MG PO PRN (06:27)
[2018-04-28] MEDS: Omeprazole CAP* 20 MG PO SCH (06:32)
[2018-04-28] MEDS: Nitroglycerin 0.2 MG/HR PATCH* (5 MG) TRANSDERM SCH (09:47)
[2018-04-28] MEDS: Docusate CAP* 100 MG PO SCH ×2 (09:47→21:56)
[2018-04-28] MEDS: Thiamine TAB* 100 MG TAB PO SCH (09:47)
[2018-04-28] MEDS: Senna TAB PO SCH ×2 (09:48→21:57)
[2018-04-28] MEDS: Nystatin CREAM* 15 GM TUBE TOPICAL SCH ×3 (09:48→21:59)
[2018-04-28] MEDS: Donepezil TAB* 5 MG PO SCH (09:48)
[2018-04-28] MEDS: Memantine TAB* 10 MG PO SCH ×2 (09:48→21:53)
[2018-04-28] MEDS: Lisinopril TAB* 10 MG PO SCH (09:48)
[2018-04-28] MEDS: cefTRIAXone(*) 2 GM in NS 0.9% 100 ML* 100 ML IVPB SCH ×2 (10:02→23:16)
[2018-04-28] MEDS: Insulin LISPRO* 1 UNITS UNIT SUBCUT SCH ×4 (10:02→21:58)
--- NOTE | 2018-04-28 14:22 | PN ---
Progress Note - Progress Note Date of Service: 04/28/18 SOAP: Subjective: [S/p lumbar decompression and evacuation of intradural hematoma, POD #4. Difficult to assess secondary to altered mental status. Patient remains confused. Able to follow some commands. Unable to answer questions regarding how he is feeling. Up to chair today with lin lift. Unable to participate with PT today.] Objective: [ Vital Signs: Temp Pulse Resp BP Pulse Ox 98.7 F 105 18 152/88 94 04/28/18 07:16 04/28/18 07:16 04/28/18 09:45 04/28/18 07:16 04/28/18 09:45 General: Confused and falls asleep during encounter. Neuro: Does not respond to orientation questions. Persistent lower extremity weakness although difficult to assess. Able to wiggle toes. CT brain on 04/26/18 shows pneumocephalus. ] Assessment: [Minimal progress. Confused and persistent lower extremity weakness postoperatively.] Plan: [1. Continue pain management. 2. Up to chair at least BID 3. Requires further monitoring.]
--- NOTE | 2018-04-28 18:35 | PN ---
Subjective Date of Service: 04/28/18 Interval History: Patient seen and examined, remains confused. No acute overnight events. Appears comfortable. Not able to follow commands. Family History: Unchanged from Admission Social History: Unchanged from Admission Past Medical History: Unchanged from Admission Objective Active Medications: Acetaminophen (Tylenol Tab*) 650 mg PO Q4H PRN PRN Reason: FEVER/PAIN Last Admin: 04/28/18 06:27 Dose: 650 mg Al Hydrox/Mg Hydrox/Simethicone (Maalox Plus*) 30 ml PO Q6H PRN PRN Reason: INDIGESTION Carbidopa/Levodopa (Sinemet 10/100 Tab(*)) 1 tab PO Q6H [facility] Last Admin: 04/28/18 16:54 Dose: 1 tab Dextrose (D50w Syringe 50 Ml*) 12.5 gm IV PUSH .FOR FS < 60 - SS PRN PRN Reason: FS < 60 Docusate Sodium (Colace Cap*) 100 mg PO BID [facility] Last Admin: 04/28/18 09:47 Dose: 100 mg Donepezil HCl (Aricept Tab*) 10 mg PO DAILY [facility] Last Admin: 04/28/18 09:48 Dose: 10 mg Ceftriaxone Sodium 2 gm/ (Sodium Chloride) 100 mls @ 200 mls/hr IVPB Q12H [facility] Last Admin: 04/28/18 10:02 Dose: 200 mls/hr Insulin Human Lispro (Humalog*) 0 units SUBCUT ACHS [facility] PRN Reason: Protocol Last Admin: 04/28/18 16:47 Dose: Not Given Lisinopril (Prinivil Tab*) 10 mg PO DAILY [facility] Last Admin: 04/28/18 09:48 Dose: 10 mg Memantine (Namenda Tab*) 10 mg PO BID [facility] Last Admin: 04/28/18 09:48 Dose: 10 mg Nitroglycerin (Nitroglycerin 5 Mg Patch*) 1 patch TRANSDERM DAILY [facility] Last Admin: 04/28/18 09:47 Dose: 1 patch Nystatin (Nystatin Cream*) 1 applic TOPICAL TID [facility] Last Admin: 04/28/18 16:00 Dose: 1 applic Omeprazole (Prilosec Cap*) 20 mg PO 0600 [facility] Last Admin: 04/28/18 06:32 Dose: 20 mg Oxycodone/Acetaminophen (Percocet 5/325 Tab*) 2 tab PO Q4H PRN PRN Reason: PAIN Last Admin: 04/27/18 15:16 Dose: 2 tab Pharmacy Profile Note (Nitro Patch/Oint Remove*) 1 note PATCH OFF 2099 [facility] Last Admin: 04/27/18 21:54 Dose: 1 patch Senna (Senokot Tab*) 1 tab PO BID [facility] Last Admin: 04/28/18 09:48 Dose: 1 tab Thiamine HCl (Vitamin B-1 Tab*) 100 mg PO DAILY [facility] Last Admin: 04/28/18 09:47 Dose: 100 mg Vital Signs - 8 hr 04/28/18 04/28/18 04/28/18 11:05 15:23 15:43 Temperature 98.2 F 98.4 F Pulse Rate 102 103 Respiratory 20 18 Rate Blood Pressure 125/72 114/73 (mmHg) O2 Sat by Pulse 95 99 99 Oximetry Oxygen Devices in Use Now: None Appearance: Alert, NAD Eyes: No Scleral Icterus, PERRLA Ears/Nose/Mouth/Throat: NL Teeth, Lips, Gums, Mucous Membranes Moist Neck: NL Appearance and Movements; NL JVP, Trachea Midline Respiratory: Symmetrical Chest Expansion and Respiratory Effort, Clear to Auscultation Cardiovascular: NL Sounds; No Murmurs; No JVD, No Edema Abdominal: NL Sounds; No Tenderness; No Distention Extremities: No Edema, No Clubbing, Cyanosis Neurological: NL Sensation, - - cconfused Nutrition: Taking PO's Result Diagrams: 04/28/18 05:11 04/28/18 05:11 Additional Lab and Data: Laboratory Results - last 24 hr 04/23/18 04/23/18 04/24/18 20:43 21:40 06:49 Potassium 4.9 POC Glucose (mg/dL) 139 H 123 H 04/24/18 04/24/18 04/24/18 11:03 12:36 16:32 Potassium POC Glucose (mg/dL) 135 H 153 H 98 Microbiology and Other Data: Microbiology 04/26/18 15:38 Aerobic Blood Culture - Preliminary Blood Venous No Growth Day 2 Anaerobic Blood Culture - Preliminary No Growth Day 2 04/26/18 11:34 Aerobic Blood Culture - Preliminary Blood Venous No Growth Day 2 Anaerobic Blood Culture - Preliminary No Growth Day 2 04/26/18 19:30 Urine Culture - Final Urine Assess/Plan/Problems-Billing 73 yo M PMH CAD s/p CABG, 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 Intradural mass 5.9x1.3x1.5cm that was found to be a hematoma with Dr. Brewster neurosurgery 04/24, with pneumocephalus on latest imaging and persistent confusion. - Patient Problems (1) Altered mental status Code(s): R41.82 - ALTERED MENTAL STATUS, UNSPECIFIED SNOMED Code(s): 731616597 Comment: - Multifactorial delerium; hyponatremia, neurosurgery, dementia - s/p 3% saline infusion, no improvement in mentation - Pneumocephalus noted on last scan - Neuro checks - Supportive care (2) CAD (coronary artery disease) Code(s): I25.10 - ATHSCL HEART DISEASE OF [place] CORONARY ARTERY W/O ANG PCTRS SNOMED Code(s): 48496396 Comment: - Stable, continue ASA. (3) HTN (hypertension) Code(s): I10 - ESSENTIAL (PRIMARY) HYPERTENSION SNOMED Code(s): 95869703 Comment: - Lisinopril 10mg daily (4) Leukocytosis Code(s): D72.829 - ELEVATED WHITE BLOOD CELL COUNT, UNSPECIFIED SNOMED Code(s) : 198489225 Comment: - Trending down - Dr. Brewster asked for empiric coveraged for meningitis in the setting of AMS - Other infectious work-up negative - Afebrile. - Follow cultures (5) Parkinsons disease Code(s): G20 - PARKINSON'S DISEASE SNOMED Code(s): 83677367 Comment: - Continue sinement, and aricept and namenda for dementia - Mobility is main issue, continue with PT when cleared by NS (6) Status post lumbar spine operative procedure for decompression of spinal cord Code(s): Z98.890 - OTHER SPECIFIED POSTPROCEDURAL STATES SNOMED Code(s): 855902537 Comment: - POD4 L2-L3 lumbar laminectomy, L2-L3 evacuation of intradural hematoma - POC as per neurosurgery (7) Systolic and diastolic CHF, chronic Code(s): I50.42 - CHRONIC COMBINED SYSTOLIC AND DIASTOLIC HRT FAIL SNOMED Code (s): 264591463181671 Comment: - Appears euvolemic - ECHO with EF 35-40%, diastolic dysfunction (8) Type II diabetes mellitus Comment: - A1c is 5.1 - Tradjenta at home - Continue SS coverage while inpatient (9) Urinary incontinence due to immobility Code(s): R39.81 - FUNCTIONAL URINARY INCONTINENCE SNOMED Code(s): 979190184 Comment: - Follow I&Os Status and Disposition: Denied by [facility]. Dispo to [facility] when clear by neurosurgery
[2018-04-28] MEDS: Nitro Patch/OINT Remove PATCH OFF SCH (21:59)
[2018-04-29] MEDS: Omeprazole CAP* 20 MG PO SCH (05:03)
[2018-04-29] MEDS: Carbidopa/Levodop 10/100 MG TAB(*) PO SCH ×2 (05:03→09:39)
[2018-04-29] MEDS: Insulin LISPRO* 1 UNITS UNIT SUBCUT SCH ×2 (08:36→14:02)
--- NOTE | 2018-04-29 09:19 | PN ---
Progress Note - Progress Note Date of Service: 04/29/18 SOAP: Subjective: [S/p lumbar decompression for evacuation of intradural hematoma. Mental status slightly improved today. Able to communicate pain and symptoms. Able to follow some commands. Remains confused but better today. Complains of low back pain. Denies headache and nausea.] Objective: [ Vital Signs: Temp Pulse Resp BP Pulse Ox 98.3 F 96 20 150/87 96 04/29/18 07:21 04/29/18 07:21 04/29/18 08:00 04/29/18 07:21 04/29/18 08:00 General: More alert today after being awoken. Oriented to person. Neuro: Lower extremity weakness improved. Sensation intact. Able to follow commands for physical exam today.] Assessment: [Slow progress, improving.] Plan: [1. Continue to monitor mental status. 2. Up out of bed at least BID 3. Physical therapy 4. Continue pain management. 5. Possible discharge to rehab today if bed available. ]
[2018-04-29] MEDS: Senna TAB PO SCH (09:38)
[2018-04-29] MEDS: Donepezil TAB* 5 MG PO SCH (09:38)
[2018-04-29] MEDS: Docusate CAP* 100 MG PO SCH (09:39)
[2018-04-29] MEDS: Thiamine TAB* 100 MG TAB PO SCH (09:39)
[2018-04-29] MEDS: Lisinopril TAB* 10 MG PO SCH (09:39)
[2018-04-29] MEDS: Memantine TAB* 10 MG PO SCH (09:39)
[2018-04-29] MEDS: Nitroglycerin 0.2 MG/HR PATCH* (5 MG) TRANSDERM SCH (09:41)
[2018-04-29] MEDS: Nystatin CREAM* 15 GM TUBE TOPICAL SCH ×2 (10:29→14:09)
[2018-04-29] MEDS: cefTRIAXone(*) 2 GM in NS 0.9% 100 ML* 100 ML IVPB SCH (10:53)
[2018-04-29 12:14] VITALS: BP 110/51
[2018-04-29] MEDS: Acetaminophen TAB* 325 MG PO PRN (14:05)
--- NOTE | 2018-04-29 14:56 | DS ---
AMENDED REPORT NOW INCLUDES COSIGNER DESIGNATION - ESIGNED BEFORE ADJUSTMENT CC: Dr. Medeiros * DISCHARGE SUMMARY: DATE OF ADMISSION: 04/16/18 DATE OF DISCHARGE: 04/29/18 PRIMARY CARE PROVIDER: Dr. Luc Medeiros ATTENDING PHYSICIAN: Dr. Kassie Phillip.* (DICTATED BY SIDNEY WEST NP) Dr. Phillip is also my attending for today. SPECIALISTS INVOLVED IN THIS PATIENT'S CARE: 1. Dr. Forrest Brewster of Neurosurgery. 2. Dr. Forrest Hernandez of Neurology. HOSPITAL COURSE: This is a 73-year-old male patient who presented on 04/16/18 with a complaint of lower back pain. His states that he had several falls at home. The patient does have a history of Parkinson's, mild dementia, coronary artery disease, and chronic low back pain; however, the patient's stated that falls were tripping and falling and not losing consciousness; however, the patient's said his chronic lumbar spine problems she felt were contributing to his falls and that his memory was not good and with his new diagnosis of Parkinson's, he was too unstable to be home. The patient was admitted at that time for fall with rhabdomyolysis. He was placed on IV hydration. We followed his CPK levels and his renal function secondary to dehydration. He was given some pain management and pain control for his chronic low back pain. His diabetes and Parkinson's were managed appropriately. The patient was not progressing secondary to his low back pain. He had received some imaging, CT of the lumbar spine and also MRI of the lumbar spine that was noted from 2017. So at that point, Neurosurgery was consulted and they planned for MRI of the lumbar spine on 04/21/18. MRI at that time showed an extramedullary mass noted. Given the patient's recent trauma, it was most consistent with an epidural hematoma. The patient again was evaluated by Dr. Brewster and he underwent resection and evacuation of the hematoma and decompression of the lumbar spine. After his lumbar laminectomy and evacuation of the hematoma, the patient had some CSF loss during surgery, had to remain flat postoperatively and was gradually increased in flexion to 30 degrees. Headache was controlled and the patient did not have any acute issues at that time. However, the patient did have some neurologic deficit. He does have underlying dementia. At this point, it was multifactorial given his extensive history of dementia and Parkinson's disease; however, it was also noted per Neurosurgery that he had a pneumocephalus postoperatively and this may have contributed to his continued altered mental status. The patient was given supportive care, pain control, physical therapy over the past week. He was cleared by Neurosurgery on 04/29/18 to be discharged to subacute rehab. DISCHARGE DIAGNOSES: 1. Altered mental status, multifactorial. 2. Coronary artery disease, stable. 3. Hypertension, stable. 4. Leukocytosis, resolved. 5. History of Parkinson's disease, stable, at baseline. 6. Intradural hematoma, status post evacuation and spinal decompression. 7. Combined systolic and diastolic heart failure, stable. 8. Diabetes mellitus type 2. 9. Urinary incontinence due to functional immobility. MEDICATIONS AT THE TIME OF DISCHARGE: Include: 1. Tylenol 650 mg as needed. 2. Maalox 30 mL as needed. 3. Sinemet 10/100 one tab q. 6 hours. 4. Colace 100 mg 2 times a day. 5. Donepezil 10 mg daily. 6. Lispro sliding scale. 7. Lisinopril 10 mg daily. 8. Namenda 10 mg 2 times a day. 9. Nitro patch, 1 patch transderm weekly. 10. Nystatin cream topical 3 times a day as needed. 11. Omeprazole 20 mg daily. 12. Percocet 2 tabs q. 4 hours as needed. 13. Thiamine 100 mg daily. 14. Senokot tablets, 1 tab 2 times a day as needed. On day of discharge, the patient does not have any acute complaints. His pain is well controlled. Due to his confusion, it is difficult to obtain a full review of systems; however, he does not appear to be in distress and he does appear to be very comfortable. PHYSICAL EXAMINATION: Vital Signs: Blood pressure 110/51, heart rate 96, respiratory rate 20, satting at 99% on room air with a temperature of 98.3. HEENT: The patient is atraumatic, normocephalic. PERRLA with nonicteric sclerae. Neck is supple, nontender. No JVD noted. No carotid bruit auscultated. Cardiovascular: S1, S2 present. No murmurs, gallops, or rubs noted. Lungs are clear bilaterally to auscultation with no wheezing, rhonchi, or rales. Abdomen is soft, nontender, nondistended. Positive bowel sounds in all 4 quadrants. Musculoskeletal: There is no clubbing, no cyanosis, and no edema. He has +2 distal pulses palpable. He is weak in the lower extremities at baseline. Neurologic: He is confused, but appropriate. Psychiatric: Again , confused, but appropriate. LABORATORY DATA: WBCs 12.7, RBCs 4.17, hemoglobin 13, hematocrit 41, platelets 221. Sodium 132, potassium 4.4, chloride 97, CO2 26, BUN 17, creatinine 0.97, GFR 75.7, glucose 128. Calcium 9.3. DISPOSITION: The patient is being discharged to [facility] for rehabilitation. His is aware of this plan. The patient was cleared by Neurosurgery today and will be transferred this afternoon in stable condition. He can have a heart healthy diet as tolerated and ambulation, physical therapy to continue to rehabilitate his lower back and keep him oriented given his dementia and Parkinson's. SIDNEY WEST NP [id number]/CPS #: [id number] [facility]ITAL[facility]
--- NOTE | 2018-04-30 13:21 | OP ---
DATE OF OPERATION: 04/24/18 - ROOM #336 DATE OF : 43 SURGEON: Forrest Brewster MD BARREL CAP SETTER: ESE Barron ANESTHESIA: General. 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 POST-OP DIAGNOSES: Intradural hematoma L2-3, spinal stenosis L3-4. OPERATIVE PROCEDURE: Lumbar laminectomy, L2-3, L3-4; with removal of intradural hematoma; decompression, L3-4; with bilateral foraminotomies, L3-4; with microdissection. DESCRIPTION OF PROCEDURE: After satisfactory general anesthesia was obtained, the patient was placed on the operating table in the prone position with the chest supported on the Jose Luis frame and back slightly flexed. The lumbar region was then clipped, prepped and draped in a sterile manner for lumbar laminectomy and skin incision outlined from L2 to L4. This incision was infiltrated with 1+ Xylocaine with epinephrine, after which it was turned in sharply to the level of the lumbar fascia. The fascia was divided along the spinous processes from L2 to L4, and the paraspinal musculature stripped away from these posterior elements using the periosteal elevator and monopolar cautery. Preoperative imaging had suggested an intradural mass at L2-3 as well as a significant stenosis at L3-4. The initial step in the decompression was removal of the posterior elements of L2 and L3. A bond manager x-ray was done verifying proper interspace localization after which the spinous processes of L2 and L3 were removed with a combination of the Ginger rib shear and Leksell rongeurs. A Midas Kwasi drill was then used to thin out the remaining portion of the lamina and base of the spinous process at L2 and a decompression carried out at L2 with a Kerrison rongeur. This was carried superiorly until all the posterior elements of L2 had been removed. In a similar manner, the posterior elements of L3 were removed. Inferiorly, at the L3-4 level, there was noted to be marked synovial hypertrophy contributing to a stenosis at this level. This was decompressed with the Kerrison rongeurs bilaterally. At the conclusion of this decompression, both L4 nerve roots were noted to be free in their course. At this point of the procedure, the operating microscope was brought into the field and the remainder of the procedure done under microscopic visualization. The dura was opened with an 11-blade knife and a very liquid intradural clot extruded itself. The intradural contents were inspected and appeared normal. There was no other evidence of mass or bleeding source. After assuring adequate hemostasis, the wound was thoroughly irrigated after which the dura was reapproximated with 4-0 Nurolon suture in a running locking manner. DuraSeal tissue adhesive was then used on top of the dura repair. The fascia was then reapproximated with closely spaced 0 Vicryl sutures, the subcutaneous tissues were reapproximated with 3-0 Vicryl sutures, and the skin was closed with a running locking nylon suture. The estimated blood loss was 150 cc and the final sponge, padding, and needle counts were correct. The patient was taken to the recovery room extubated and in stable condition. [id number]/[facility] #: [id number] FAIZAN
== END 2018-04-29 14:05 | DRG 515 ==
LOC: ED 09:09 → MED 15:27 → OBSVTOIN 04-17 09:30 → SSU 04-24 12:09 → ICU 04-27 13:31 → SSU 04-27 19:51
PROVIDERS: ADMIT Internal Medicine; ATTEND Internal Medicine
PROC: 00CU0ZZ Extirpation of Matter from Spinal Canal, Open Approach (ICD-10-PCS; 2018-04-20)
PROC: 01NB0ZZ Release Lumbar Nerve, Open Approach (ICD-10-PCS; principal; 2018-04-24 07:30)
DX: M48.061 Spinal stenosis, lumbar region without neurogenic claudication (principal); S06.4X0A Epidural hemorrhage without loss of consciousness, initial encounter; N17.9 Acute kidney failure, unspecified; I50.42 Chronic combined systolic (congestive) and diastolic (congestive) heart failure; E87.1 Hypo-osmolality and hyponatremia; T79.6XXA Traumatic ischemia of muscle, initial encounter; Z87.891 Personal history of nicotine dependence; G96.19 Other disorders of meninges, not elsewhere classified; G20 Parkinson's disease; F02.80 Dementia in other diseases classified elsewhere, unspecified severity, without behavioral disturbance, psychotic disturbance, mood disturbance, and anxiety; M54.5 Low back pain; G89.29 Other chronic pain; I25.10 Atherosclerotic heart disease of native coronary artery without angina pectoris; M19.90 Unspecified osteoarthritis, unspecified site; W01.0XXA Fall on same level from slipping, tripping and stumbling without subsequent striking against object, initial encounter; E66.9 Obesity, unspecified; E86.0 Dehydration; J44.9 Chronic obstructive pulmonary disease, unspecified; M51.16 Intervertebral disc disorders with radiculopathy, lumbar region; M43.10 Spondylolisthesis, site unspecified; I11.0 Hypertensive heart disease with heart failure; G62.89 Other specified polyneuropathies; E11.42 Type 2 diabetes mellitus with diabetic polyneuropathy; G93.89 Other specified disorders of brain; D72.829 Elevated white blood cell count, unspecified; R41.0 Disorientation, unspecified; R32 Unspecified urinary incontinence; Z68.32 Body mass index [BMI] 32.0-32.9, adult; Z98.41 Cataract extraction status, right eye; Z95.5 Presence of coronary angioplasty implant and graft; Z80.0 Family history of malignant neoplasm of digestive organs; Z80.7 Family history of other malignant neoplasms of lymphoid, hematopoietic and related tissues; Y92.002 Bathroom of unspecified non-institutional (private) residence as the place of occurrence of the external cause; Z88.8 Allergy status to other drugs, medicaments and biological substances; Z95.1 Presence of aortocoronary bypass graft; Z72.89 Other problems related to lifestyle; Z98.42 Cataract extraction status, left eye; Z79.4 Long term (current) use of insulin
CPT/HCPCS: 36415; 70450; 71045; 72100; 72131; 72148; 72149; 80048; 80051; 80053; 80061; 81003; 81015; 82550; 82607; 83036; 83605; 83735; 84100; 84155; 84165; 84300; 84443; 84484; 85025; 85652; 86618; 87040; 87086; 93005; 93306; 95885; 95886; 95910; 99284; A9270-GY; A9579; C8929; G8978-GP-CL; G8978-GP-CM; G8979-GP-CH; G8979-GP-CI; G8987-GO-CL; G8988-GO-CI; J0690; J0696; J1100; J1170; J1644; J2001; J2250; J2270; J2704; J3010; J3475

== ENCOUNTER 2018-05-06 10:36 | Inpatient (IN) | payer MEDICARE, OTHER ==
--- NOTE | 2018-05-06 10:58 | ED ---
Eloise Bolden Simon, scribed for Jacy Dominguez MD on 05/06/18 at 1058 . Altered Mental Status - HPI Summary HPI Summary: This patient is a 73 year old M presenting to [facility] accompanied by Margot with a chief complaint of AMS since his 04/24/18 spinal surgery performed by Dr. Brewster; the surgery was for stenosis and hematoma evacuation that occurred following a fall. and pt endorse post-op delirium, but deny fever. Pt was noted to have confusion post-operatively, had a CT scan and was given emperic antibiotics. states has not improved since. Pt reported LE weakness and pain prior to surgery and continues with report of pain since. Pt was transferred to [facility] for rehab approx 1 week ago. Pt has been unable to ambulate since. Pt reported to have slid out of bed and was found on the floor 2 days ago at [facility]. No obvious injuries noted. Per , care givers at [facility] reported drainage on bandage from wound yesterday and again today. Sutures remain in place. Pt with decreased food intake and difficulty feeding self. Pt does have a tremor which waxes and wanes. Pt able to identify and supply her name. Pt provided an incorrect year for himself, and cant identify the [place] president. Attempts have been made with PT per . REview of records states pt with a h/o Parkinson's disease and dementia Pt's mental status previously noted to wax and wane between A+Ox 4 and A+) to name only. Pt has been incontient since procedure. Pt unable to provide much history. No report of fevers, shortness of breath, chest pain, vomiting or other concerns Patients medication reviewed this visit. HPI limited due to Pt's AMS. - History Of Current Complaint Stated Complaint: CONFUSION Time Seen by Provider: 05/06/18 10:42 Hx Obtained From: Patient, Family/Supervisor Maintenance And Custodians, Medical Records Hx From Patient Unobtainable Due To: Dementia Onset/Duration: Still Present, Suddenly - post-op 04/24/18 Timing: Constant, Lasting Weeks Severity Initially: Moderate Severity Currently: Moderate Character: Confusion Aggravating Factor(s): Unknown Alleviating Factor(s): Unknown Associated Signs And Symptoms: Positive: Fever, Weakness Related History: Other: - 04/24 spinal surgery - Allergies/Home Medications Allergies/Adverse Reactions: Allergies Allergy/AdvReac Type Severity Reaction Status Date / Time lorazepam [From Ativan] Allergy Mild Agitation Verified 04/16/18 09:18 Home Medications: Home Medications Insulin LISPRO* [HumaLOG*] 2 units SUBCUT ACHS 05/06/18 [History Confirmed 05/06] Lisinopril TAB* [Prinivil TAB*] 10 mg PO DAILY 05/06/18 [History Confirmed 05/06] Nystatin TOP POWDER* 1 applic TOPICAL TID 05/06/18 [History Confirmed 05/06/18] oxyCODONE/Acetamin 5/325 MG* [Percocet 5/325 TAB*] 1 tab PO Q12HR 05/06/18 [ History Confirmed 05/06/18] PMH/Surg Hx/FS Hx/Imm Hx Previously Healthy: Yes Endocrine/Hematology History: Reports: Hx Diabetes Denies: Hx Anticoagulant Therapy Cardiovascular History: Reports: Hx Angina, Hx Coronary Artery Disease, Hx Hypertension, Other Cardiovascular Problems/Disorders - heart failure, irregular HR Denies: Hx Pacemaker/ICD Respiratory History: Reports: Hx Chronic Obstructive Pulmonary Disease (COPD) Denies: Hx Asthma Musculoskeletal History: Reports: Hx Arthritis, Hx Back Problems Sensory History: Reports: Hx Cataracts, Hx Contacts or Glasses, Hx Hearing Aid - AT HOME, Hx Hearing Problem Opthamlomology History: Reports: Hx Cataracts, Hx Contacts or Glasses Neurological History: Reports: Hx Dementia Psychiatric History: Denies: Hx Panic Disorder - Surgical History Surgery Procedure, Year, and Place: HEART CATH WITH STENTS 2001, TRIPLE BYPASS 2000. CTR. LUMBAR LAMINECTOMY-2005 @ [facility]. CATARACTS. EXCISION OF HEMATOMA IN BACK, LAMINECTOMY OF L2-3- 04/24/18 Infectious Disease History: No Infectious Disease History: Denies: Traveled Outside the [place] in Last 30 Days - Family History Known Family History: Positive: Diabetes, Other - cancer - Social History Lives: At [facility] currently Alcohol Use: Weekly Alcohol Amount: 3-4 drinks weekly Substance Use Type: Reports: None Smoking Status (MU): Never Smoked Tobacco Review of Systems Negative: Fever Positive: Arthralgia - lower back Positive: Other - coccyx skin breakdown Neurological: Other - Confusion, delerium Positive: Weakness All Other Systems Reviewed And Are Negative: Yes - Comments Additional Review of Systems Comments: ROS limited due to Pt's AMS. Physical Exam - Summary Physical Exam Summary: Vital Signs Reviewed: Yes Alert, oriented x 1 Eyes: Conjunctiva Clear, NIKHIL. EOM intact and full ENT: Hearing grossly normal TM x 2 clear, mmoist, uvula midline, no exudate, no erythema Neck: Positive: S(this upple Respiratory: Positive: No respiratory distress, No accessory muscle use + CTA throughout no w/r Cardiovascular: RRR nl s1, s2 no m/r CBT <2 sec abd soft + BS nt/nd no guarding, no distension is Pt with noted abdominal hernia. Non-tender Musculoskeletal Exam: Pt w4/5 b/l grasp. Pt with noted movement of feet. Pt unable SLE bilateral - unable to comprehend commands Neurological: Positive: Alert, but not oriented. Able to follow some simple commands Psychological: pt with confusion but no distress Skin: Positive: Suture line - lumbar area - c/d/I No warmth, drainage, odor, fluctuance, discomfort No drainage noted. No erythema. Suture in place Pt with STage 1 decubitus ulcer sacrum - no drainage, no bleeding Triage Information Reviewed: Yes Vital Signs On Initial Exam: Initial Vitals Temp Pulse Resp BP Pulse Ox 97.4 F 91 16 120/98 98 05/06/18 10:48 05/06/18 10:48 05/06/18 10:48 05/06/18 10:48 05/06/18 10:48 Vital Signs Reviewed: Yes Diagnostics - Vital Signs Vital Signs Temp Pulse Resp BP Pulse Ox 05/06/18 10:48 97.4 F 91 16 120/98 98 - Laboratory Result Diagrams: 05/06/18 11:52 05/06/18 11:52 Lab Statement: Any lab studies that have been ordered have been reviewed, and results considered in the medical decision making process. - Radiology CXR Xray Interpretation: Positive (See Comments) Radiology Interpretation Completed By: Radiologist - Cardiomegaly with minimal right basilar atelectasis with postoperative change. Dr. Dominguez has reviewed this radiology report. - CT Brain CT Interpretation: Positive (See Comments) - 1. Subacute nonhemorrhagic left frontotemporal infarct. There is associated mass effect 2. Resolution of left frontoparietal subdural collection 3. Resolution of pneumocephalus. CT Interpretation Completed By: Radiologist - 1. Subacute nonhemorrhagic left frontotemporal infarct. There is associated mass effect 2. Resolution of left frontoparietal subdural collection 3. Resolution of pneumocephalus. Dr. Dominguez has reviewed this report. - EKG 1104 Cardiac Rate: NL - 89 EKG Rhythm: Sinus Rhythm ST Segment: Normal EKG Interpretation: No STEMI EKG Comparison: No Significant Change - since 04/17 EKG Re-Evaluation - Re-Evaluation First Eval Comment: Pt continues with confusion. spoke with - updated regarding brain CT findings for subacute CVA. Will admit to hospitalist. Will d/w neurosurgery regarding wound check and possible suture removal Altered Mental Statu Course/Dx - Course Course Of Treatment: Patient is a 73-year-old gentleman with complex medical history including dementia, coronary artery disease, Parkinson's disease, radicular pain. Patient had surgery for spinal stenosis as well as hematoma evacuation 17 days ago. Postoperatively patient with confusion. Patient was transferred to [facility] for rehabilitation. Patient continues to have confusion and per his . Patient also continues to have back pain. There was concern today related to drainage from the wound. Upon exam wound is well- appearing clean dry and intact. Sutures are still in place. No drainage or erythema noted. Patient is confused however. Patient is alert and oriented to name and his 's name. Patient missed his year by 2. Patient is not alert to president. On exam, patient noticed to have stage I decubitus ulcer on his sacrum. This wound however does not appear infected. Patient without any other focal findings on exam.. Will check head CT, chest x-ray, laboratory studies, urine, and blood work. We will touch base with neurosurgery for them to evaluate the wound and possibly remove sutures. Plan for admission will be pending laboratory workup discussion with neurosurgery and family. Patient's controlling agreement with plan. - Diagnoses Provider Diagnoses: CVA (cerebral vascular accident), Confusion, Decubitus ulcer - Provider Notifications Discussed Care Of Patient With: Elliot Ortiz - Discussed stroke finding in Head CT. Time Discussed With Above Provider: 12:50 Instructed by Provider To: Admit As Inpatient - Dr. Ward Discharge - Sign-Out/Discharge Documenting (check all that apply): Discharge/Admit/Transfer - Discharge Plan Condition: Fair Disposition: ADMITTED TO [facility] Referrals: Luc Medeiros MD [Primary Care Provider] - - Billing Disposition and Condition Condition: FAIR Disposition: Admitted to [facility] Consult Consult: [address] Chris accepted admission to [facility]. [address] Dr[address] Brewster aware pt is being admitted, did not speak to him as he is in OR. The documentation as recorded by the Eloise malone Simon accurately reflects the service I personally performed and the decisions made by me, Jacy Dominguez MD.
[2018-05-06 12:00] LABS: Hematocrit 42 % (42-52); Hemoglobin 14.4 g/dl (14.0-18.0); Mean Corpuscular HGB Conc 34 g/dl (31-36); Mean Corpuscular Hemoglobin 33 pg (27-31); Mean Corpuscular Volume 97 fL (80-94); Platelet Count 346 10^3/ul (150-450); Red Blood Count 4.35 10^6/ul (4.00-5.40); Red Cell Distribution Width 13 % (10.5-15); White Blood Count 10.7 10^3/ul (3.5-10.8)
[2018-05-06 12:04] LABS: ABS Basophils 0 10^3/ul (0-0.2); ABS Eosinophils 0.2 10^3/ul (0-0.6); ABS Lymphocytes 1.3 10^3/ul (1.0-4.8); ABS Monocytes 0.9 10^3/ul (0-0.8); ABS Neutrophils 8.2 10^3/ul (1.5-7.7)
[2018-05-06 12:13] LABS: INR 1.09 (0.77-1.02)
[2018-05-06 12:36] LABS: EGFR Non-African American 55.4 (>60)
[2018-05-06 12:37] LABS: Monocytes % 7 % (0-7)
--- NOTE | 2018-05-06 12:53 | RAD ---
INDICATION: Confusion. Intracranial injury. COMPARISON: CT brain April 26, 2018 TECHNIQUE: Noncontrast axial source images were acquired from the skull base to the vertex. FINDINGS: Ventricles/sulci: There is cortical atrophy with compensatory dilatation of the CSF spaces. Brain parenchyma: There is a new rounded focus of decreased attenuation in the left frontotemporal region measuring 4.8 x 3.4 cm. This is associated with effacement of adjacent sulci and is consistent with a subacute, nonhemorrhagic infarct. There are no other focal parenchymal abnormalities. Intracranial hemorrhage:None. Extra-axial spaces: There is resolution of the left frontoparietal subdural collection. There is resolution of subdural air. Calvarium: There is no calvarial fracture or other calvarial abnormality. Scalp: There is no evidence of scalp or extracalvarial soft tissue abnormality. Paranasal sinuses/mastoid: The paranasal sinuses and mastoid air cells are clear. Other: None. IMPRESSION: 1. Subacute nonhemorrhagic left frontotemporal infarct. There is associated mass effect 2. Resolution of left frontoparietal subdural collection 3. Resolution of pneumocephalus.
[2018-05-06 13:05] LABS: Urine Appearance Clear; Urine Blood Negative (Negative); Urine Color Yellow; Urine Ketones Trace (Negative); Urine Protein Negative (Negative); Urine Specific Gravity 1.023 (1.010-1.030); Urine Urobilinogen Negative (Negative)
--- NOTE | 2018-05-06 13:12 | RAD ---
Indication: Confusion. 2 views of the chest including a reviewed and compared to previous exam dated April 26, 2018. Cardiomegaly is noted. Right basilar atelectasis is noted. Patient is status post tracer thoracotomy. Overall no significant change is noted since April 26, 2018. IMPRESSION: Cardiomegaly with minimal right basilar atelectasis with postoperative change.
[2018-05-06] MEDS ORDERED: Ondansetron 40 MG VIAL* 2 MG/ML 20 ML VIAL IV PRN (14:24)
[2018-05-06] MEDS ORDERED: Al Hydrox/Mg Hydrox/Simet LIQ* 30 ML UDC PO PRN (14:24)
[2018-05-06] MEDS ORDERED: Morphine VIAL* 4 MG/ML VIAL (1 ml vial) IV PRN (14:24)
[2018-05-06] MEDS ORDERED: Albuterol 2.5 MG/3 ML NEB.SOL* (0.083%) INH PRN (14:24)
[2018-05-06] MEDS ORDERED: NS 0.9% 1000 ML* 1,000 ML IV SCH (14:30)
[2018-05-06] MEDS ORDERED: Aspirin 81 mg CHEW TAB* 81 MG TAB.CHEW PO ONE (14:34)
[2018-05-06] MEDS ORDERED: Magnesium Sulfate 1 GM IV* 1 GM/100 ML BAG IV ONE (14:39)
[2018-05-06] MEDS ORDERED: Iodixanol* (CONTRAST) 320 MG/ML 100 ML SDV IV ONE (14:40)
[2018-05-06] MEDS ORDERED: Dextrose 50% Syringe 50 ML* 25 GM/50 ML SYRINGE IV PUSH PRN (15:01)
[2018-05-06] MEDS: Carbidopa/Levodop 10/100 MG TAB(*) PO SCH ×2 (16:31→20:43)
[2018-05-06] MEDS: Insulin LISPRO* 1 UNITS UNIT SUBCUT SCH ×2 (16:32→20:54)
--- NOTE | 2018-05-06 16:38 | RAD ---
INDICATION: Left-sided CVA COMPARISON: CT brain same date TECHNIQUE: Axial source images were acquired with coronal and sagittal reconstructions. CT angiographic technique was utilized with injection of 80 mL Visipaque 320. FINDINGS: Aortic arch: There is intimal calcifications of the arch and the great vessels arising from the arch but there is no evidence to suggest hemodynamically significant stenosis. Right carotid: The common carotid artery, carotid bifurcation, extracranial portions of the internal carotid artery, carotid artery at the skull base, carotid siphon, and carotid termination appear patent. There is moderate calcific plaque formation about the carotid bifurcation with a 70% diameter stenosis. There are also moderate intimal calcifications at the level of the siphon. Left carotid:The common carotid artery, carotid bifurcation, extracranial portions of the internal carotid artery, carotid artery at the skull base, carotid siphon, and carotid termination appear patent. There is moderate calcific plaque formation about the carotid bifurcation with a 50% diameter stenosis. There are also moderate intimal calcifications at the level of the carotid siphon Right middle and anterior cerebral arteries: There are no CT angiographic abnormalities of the middle or anterior cerebral arteries. Left middle and anterior cerebral arteries: There are no CT angiographic abnormalities of the middle or anterior cerebral arteries Right vertebral: The CT angiographic appearance of the vertebral artery is patent. There are sclerotic calcifications near the terminal portion of the vessel. The vertebral arteries are codominant. Left vertebral: The CT angiographic appearance of the vertebral artery is patent. The vertebral arteries are codominant Basilar artery: The basilar artery and basilar tip appear normal. Posterior cerebral arteries: The distal distribution of the right and left posterior cerebral arteries is normal. [place]: The CT angiographic appearance of the [place] is intact. Source images show no evidence of mass or adenopathy within the neck. There is an evolving nonhemorrhagic left frontotemporal infarct as described on the CT of the brain. IMPRESSION: 1. Mild atherosclerotic change of the aortic arch and great vessels arising from the arch. No hemodynamically significant narrowing. 2. 70% diameter stenosis right internal carotid artery with associated calcific plaque formation. 3. 50% diameter stenosis left internal carotid artery with associated calcific plaque formation. 4. Bilateral carotid siphon atherosclerotic changes. 5. No significant intracranial stenosis, evidence of branch occlusion, or aneurysm. CPT II Codes: 3100F [facility]
--- NOTE | 2018-05-06 18:10 | HP ---
CC: Dr. Medeiros* ADMISSION HISTORY AND PHYSICAL: DATE OF ADMISSION: 05/06/18. PATIENT OF: Dr. Dipti Chris. PRIMARY CARE PROVIDER: Dr. Medeiros. ATTENDING HOSPITALIST: Dr. Chris.* (DICTATED BY ESE STEINER) CHIEF COMPLAINT: Altered mental status. HISTORY OF PRESENT ILLNESS: Mr. Antony is a 73-year-old gentleman, who is well known to us from prior admission a week ago when he had a lower back pain secondary to a fall and had a lumbar spine surgery by Dr. Brewster back then. The patient presented to the emergency room today after he was brought from his residence at [facility] with increased confusion and altered mental status. According to the nursing staff, the patient has slid and fell out of his bed 2 days ago, but denies any head trauma or loss of consciousness. He has been more confused than his baseline dementia per nursing staff and also noted to have some drainage from his lower back midline incision from his surgery that was done a couple of weeks ago. The patient himself denies any back pain at current time. He, according to the , has been more confused lately and had delirium related to his long hospitalization a couple of weeks ago. He was evaluated in the emergency room and had a brain CT that revealed a subacute nonhemorrhagic infarct to the left frontotemporal lobe with associated mass effect. The patient exhibits no complaints of weakness, numbness, trouble swallowing, chest pain, or any other associated symptoms. He has been oriented at times and answered questions appropriately; however, at some times he questioned where he is and what time and what day it is. According to the , the patient's memory has been declining and has been on Aricept and Namenda for an extended period of time; however, since his surgery and hospitalization earlier this month, she noticed increased declining related to that. Given his ongoing declining mental status as well as the finding of the subacute infarct, we were asked to see the patient to consider admission, neurological consult, and a neurosurgery consultation as well to check his incision from prior surgery. I did look at the records from his admission last week. The patient was brought in on 04/16/18 and had complaints of back pain due to a fall. A lumbar spine MRI was done and noted to have degenerative disease as well as a questionable hematoma collection. He was taken to the operating room where he had a decompressive laminectomy with removal of hematoma by Dr. Brewster. He was eventually discharged to [facility] on 04/29/18 prior to presentation to the ED today. PAST MEDICAL HISTORY: As mentioned above, significant for: 1. History of coronary artery disease for which he had a coronary artery bypass graft. 2. Coronary artery stenting in 2007. 3. Diabetes mellitus type 2. 4. Hypertension. 5. COPD. 6. Parkinson's. 7. Advanced dementia. 8. History of lumbar laminectomy in the past as well as cataract extraction bilaterally. CURRENT MEDICATIONS: His medication list according to [facility] include: 1. Acetaminophen 650 mg p.o. q.4 hours as needed for pain or fever. 2. Maalox 30 mL p.o. q.6 hours as needed for heartburn. 3. Aspirin 81 mg p.o. daily. 4. Lipitor 10 mg p.o. daily. 5. Lumigan 0.01% ophthalmic solution 1 drop in both eyes every p.m. 6. Calcium carbonate 1 tablet p.o. b.i.d. 7. Carbidopa/levodopa 10/100 one tablet p.o. q.6 hours. 8. Colace 100 mg p.o. b.i.d. 9. Aricept 10 mg p.o. daily. 10. Insulin Humalog per sliding scale. 11. Tradjenta 5 mg p.o. daily. 12. Lisinopril 10 mg p.o. daily. 13. Namenda 10 mg p.o. daily. 14. Multivitamins with minerals 1 tablet p.o. daily. 15. Nitroglycerin patch 0.2% mg/hour transdermal. 16. Nystatin powder applied topically to affected area as prescribed. 17. Percocet 5/325 one tablet p.o. q.12 hours as needed for pain. 18. Protonix 40 mg p.o. daily. 19. Thiamine 100 mg p.o. daily. ALLERGIES: He is allergic to LORAZEPAM. FAMILY HISTORY: He reports brother who had colon cancer at age 55 and his father of colon cancer as well at age 65. Mother of lymphoma at age 75. SOCIAL HISTORY: The patient is a former smoker of 2 packs per day for a total of 25 years, who quit a few years ago. He denies alcohol use or illicit drugs. He lives with his , Margot, who is the surrogate decision maker. REVIEW OF SYSTEMS: See HPI; otherwise, remaining 14 systems were reviewed and essentially negative. PHYSICAL EXAMINATION GENERAL: He is a pleasant elderly gentleman in no acute distress or discomfort at the time of admission. VITAL SIGNS: Revealed a temperature of 97.4, a blood pressure of 139/84, a pulse of 85, respirations of 16, and O2 sat of 100% on room air. HEENT: Head is normocephalic, atraumatic. Sclerae anicteric. PERRLA. EOMs intact. Oropharynx is pink and moist. NECK: Supple. Trachea midline. No cervical adenopathy or thyromegaly. LUNGS: Clear to auscultation bilaterally. HEART: Regular rate and rhythm. Normal S1 and S2 without rubs, murmurs, or gallops. BACK: With normal curvature. No CVA tenderness. There is a lower midline incision over the lumbar spine area that appears to be intact with nylon suture closed in a running interrupted manner. There is no swelling, ecchymosis, or erythema noted. There is no bleeding or drainage from a relatively well-healed incision. ABDOMEN: Soft, nontender, and nondistended. There is a small nontender umbilical hernia noted with no evidence of incarceration. No other hernias, masses, or hepatosplenomegaly. EXTREMITIES: Without cyanosis, clubbing, or edema. RECTAL: Exam deferred at this time. NEUROLOGIC: Formal neurologic exam will eventually be performed by Dr. Healy, who was consulted earlier today; however, grossly it appears to be intact. Hand grasp is equal bilaterally. Sensation is intact bilaterally. Tongue is midline. LABORATORY WORKUP: CBC today with a white count of 10,000, hemoglobin of 14.4 , hematocrit of 42, and platelets of 346. Chemistry with a sodium of 137, potassium of 4.3, chloride of 100, CO2 of 28, BUN of 29, creatinine of 1.2 which appears to be lower than actually his baseline for the patient. His glucose is 164. Hemoglobin A1c was done back on 04/19/18 with value of 5.1. Magnesium is slightly low, which is at 1.8. LFTs essentially within normal limits. Urinalysis appears normal, and Lyme disease serology from 2 weeks ago is negative. ACCESSORY DIAGNOSTIC DATA: CT of the brain performed earlier today revealed evidence of a subacute nonhemorrhagic infarct involving the left frontotemporal area with associated mass effect and there was resolution of left frontoparietal subdural collection. IMPRESSION: A 73-year-old gentleman with multiple medical issues including coronary artery disease, hypertension, diabetes mellitus, chronic obstructive pulmonary disease, advanced dementia, as well as a recent spinal surgery with laminectomy as well as evacuation of subdural hematoma in the lumbar spine, who presented to the emergency room with a week history of progressive mental status declining as well as inability to stand up and ambulate after surgery, and was found to have a subacute nonhemorrhagic infarct on the CT of the head today. ASSESSMENT AND PLAN: 1. Cerebrovascular accident. It is unclear about the time frame when it initially happened; however, it exceeds the frame for any antifibrinolytic therapy at this point. The patient's mental and physical status has been declining since his discharge a week ago after his lumbar spine surgery. The findings of subacute infarct will be addressed with a neurological consult. The patient had a baby aspirin taken on his regular medication regimen this morning and recommendation was made to give him 3 more to make it a full dose aspirin as well. We will continue his statin therapy, check his fasting lipid panel tomorrow, and we will obtain PT/OT evaluation as well as speech therapy and swallowing evaluation to determine if the patient can adequately consume diet without any risk of aspiration. 2. Status post lumbar laminectomy with evacuation of hematoma. The patient at this time appears to be stable. On examination, I do not appreciate any evidence of CSF leakage, bleeding, swelling, erythema, or any suggestion of postoperative infection. His incision appears to be clean and intact. Likely, sutures need to be removed and I believe Dr. Dominguez from the ED had already contacted Dr. Kelly on that regard. 3. Fall. Appears to be a chronic issue for the patient. Unclear if it was related to cerebrovascular accident versus generalized weakness and advanced dementia. We will keep the patient at bedrest with out of bed to chair with assistance activity. Supportive care will be provided. 4. Acute kidney injury. This has been baseline for the patient. Also, it could be related to mild dehydration. We will resume IV fluids gently. 5. Diabetes mellitus. We will continue covering the patient per sliding scale. 6. Hypertension. I will continue his lisinopril. 7. Chronic dementia. We will continue his Aricept and Namenda. 8. DVT prophylaxis: The patient is a high risk and will be covered with a subcu heparin. 9. Code status: The patient is a full code and again his , Margot, is the health care proxy carrier. I have discussed the case with Dr. Chris, who agreed to plans, and he will be admitted to telemetry unit and a consultation with Neurology was already done with Dr. Healy, who will see the patient later this afternoon. At this point, his tells me that the patient had a carotid ultrasound in [place] back in December of this year and she does have records of all his care from [place] at home and she will bring it tomorrow. At this time, based on his BUN and creatinine, we will attempt to do a CTA of the head and neck for further evaluation of cerebrovascular accident and we will follow him up accordingly. TIME SPENT: I spent approximately 60 minutes admitting this patient with more than 50% spent on [id number] taking history and performing physical exam. ESE STEINER [id number]/[facility] #: [id number] FAIZAN
[2018-05-06] MEDS: Docusate CAP* 100 MG PO SCH (20:42)
[2018-05-06] MEDS: oxyCODONE/Acetamin 5/325 MG* TAB PO SCH (20:43)
[2018-05-06] MEDS: Memantine TAB* 10 MG PO SCH (20:44)
[2018-05-06] MEDS: Nystatin TOP POWDER* 15 GM BTL TOPICAL SCH (20:56)
[2018-05-06] MEDS: Heparin VIAL(*) 5000 UNITS/ML VIAL (FIVE THOUSAND) SUBCUT SCH (21:00)
--- NOTE | 2018-05-07 03:10 | CONS ---
CONSULTATION NOTE: DATE OF CONSULT: 05/06/18 REQUESTING PHYSICIAN: Dr. Chris and ESE Melton HISTORY OF PRESENT ILLNESS: Forrest Antony is a 73-year-old gentleman who was admitted for subacute left frontal stroke in the setting of recent admission for lumbosacral surgery. At baseline, he has a history of coronary artery disease with bypass and stents, remote history of smoking stopping 50 years ago , diabetes type 2, hypertension, as well as Parkinson's and dementia, on Aricept and Namenda, who was admitted on 04/16/[address] Hernandez saw him in consultation. He had a severe neuropathy noted on nerve conduction studies and EMG. He went on to have surgery with Dr. Brewster on 04/24/18 for removal of an epidural hematoma with evacuation and decompression. Before his surgery, Dr. Hernandez had obtained B12, which was 416 and normal TSH. He had had a CT of the brain, which had not shown evidence of stroke. His indicates that about 2 days at postop, he became delirious. She tells me it was like "he was on acid." This lasted for about 2 to 3 days. She indicates that this delayed his discharge by one day. He was not back to his baseline. He was discharged from hospital on 04/29/18. [facility]. She indicates he still did not know where he was, what he was talking about. He would reach out to things and bring them to his face, he would talk to people who were not there. His legs continued to be weak. He would stand with help. She indicates that his right side seemed weaker but she attributed this to pain and had noticed this prior to surgery. He would hold on to things when he stood. He did fall out of bed, she did not know the details behind this. She indicates that he never progressed in his leg strength. There were times where his mind was worse than others, off and on. PAST MEDICAL HISTORY: Includes coronary artery disease with bypass and stents; diabetes type 2; hypertension; COPD; Parkinson's disease; dementia, on Aricept and Namenda; laminectomy on 04/24/18 for epidural hematoma, evacuation and decompression; cataract surgery; severe neuropathy diagnosed on last admission on nerve conduction studies. CURRENT MEDICATIONS: Include: 1. Acetaminophen 650 mg p.o. q.4 hours p.r.n. fever, pain. 2. Simethicone 30 mL p.o. q.6 hours p.r.n. indigestion. 3. Albuterol 2.5 mg inhaled every 4 hours while awake p.r.n. shortness of breath and wheezing. 4. Aspirin 81 mg p.o. every day. 5. Lipitor 10 mg p.o. every day. 6. Carbidopa/Levodopa 10/100 one tablet p.o. q. 6 hours. 7. Docusate 100 mg p.o. b.i.d. 8. Donepezil 10 mg p.o. every day. 9. D50 p.r.n. ALLERGIES: Include ATIVAN/LORAZEPAM. FAMILY HISTORY: His father of COPD at age 66. His mother of bladder cancer at 75. His brother had diabetes and lung cancer. SOCIAL HISTORY: Mr. Antony is . He stopped smoking 50 years ago. He drinks an occasional beer. REVIEW OF SYSTEMS: Review of 10 systems was attempted. Mr. Antony does not feel he has any memory problems. He denies any problems with his mood. There has been no new numbness or weakness of arms or legs, change in bowel or bladder habits. There has been no recent sweats, rashes. He denies any pain. Clearly, his history is not entirely reliable and his positive findings from 's history at bedside were incorporated into the HPI. PHYSICAL EXAM: On examination, most recent temperature is 96.8 degrees temporal , heart rate 76 and regular, respiratory rate is 16, saturation is 97%, blood pressure is 126/99. He had a regular cardiac rhythm. His lungs were clear to auscultation. There was no carotid bruit. He was awake, knew he was at [facility], but could not tell me the town. He did not know the season. He thought it was 1969. He thought Evans was President. He was unable to give me details of his medical history. He had pupils that were equal and responsive to light. His fundi could be visualized on the left and was flat. He had full extraocular movements with saccadic intrusions. His facial expression was symmetric, but diminished. His facial sensation was symmetric. His palate was upgoing. Tongue was midline. Sternocleidomastoid and trapezius were 5/5 in strength. There was paratonia noted and perseveration. There was no pronator drift. He gave good proximal and distal arm strength, but it was hard for him to coordinate movements to command often perseverating or delayed in response. He did have good strength in keeping his legs straight at the knee with the extension and he did demonstrate for dorsiflexion bilaterally as well as some wiggling of the toes. I could not get him to participate further in coordination, sensory, and gait examination. I attempted sensory exam and he said he felt everything symmetrically between arms and legs. He did not feel vibration sensation to the best of my ability to detect at the toes and was reduced to the knees. His reflexes were 2+ at the triceps, 1+ at the brachioradialis, absent in the lower extremities and toes were equivocal. Gait was not tested given clinical status. DIAGNOSTIC STUDIES/LAB DATA: CBC shows a white count of 10.7, hemoglobin and hematocrit were 14.4 and 42, platelets were 346. Absolute neutrophils were noted to be elevated at 8.2, INR was 1.09. Metabolic panel showed BUN elevated at 29, creatinine at 1.27 with elevated BUN/creatinine ratio at 22.8, magnesium was low at 1.8. His urinalysis was negative. His CT of the brain did show a subacute left frontal cortical ischemic stroke. Previous CT had shown some air that has now resolved. His chest x-ray was read as showing cardiomegaly with minimal basilar atelectasis with postoperative change. His CTA of the brain and neck showed right internal carotid artery stenosis at 70%, left internal carotid artery stenosis at 50%. Please see report for details. CT of the brain was reviewed directly and compared to previous. He did have an echocardiogram on 04/22/18, which was read as showing moderate concentric left ventricular hypertrophy with multiple regional wall motion abnormalities with a dyskinetic septum, enlarged inferior, posterior scar with severely decreased left ventricular systolic function and an estimated ejection fraction of 35%. Please see report for details. There was no comment regarding PFO. His previous CT of the brain was postop on 04/26/18 and when reviewed did not show the left frontal stroke. IMPRESSION: Subacute left frontal stroke in a 73-year-old gentleman with history of coronary artery disease with bypass and wall motion abnormalities, diabetes type 2, hypertension, Parkinson's, dementia, severe polyneuropathy, and recent lumbosacral surgery on 04/24/18 for L2-3 hematoma evacuation and decompression. The timing of the stroke is unclear given postop delirium and continued confusion and inability to progress while in rehab at [facility]. He was described as having significant confusion after surgery, which can be seen in the setting of dementia, hospitalization and surgery. At [facility], he did not progress the way they would expect and this could also be seen in the setting of postop dementia patient. However, given lack of progression, falling out of bed, they returned to hospital and found left frontal stroke. The stroke is significant size and certainly could be contributing to decreased motivation and increased confusion. Appearance raises question of cardioembolic event. To clarify, an MRI of the brain would be hopeful if it is safe in the setting of his recent surgery. This should be cleared with Dr. Brewster. He does have significant risk factors for stroke. He also has been noted to have significant wall motion abnormalities with low ejection fraction and may have cardioembolic source based on his structure. He is on telemetry. I will check an echocardiogram with bubble study and if it is indeed he does not have a patent foramen ovale, I would check for a deep venous thrombosis given he is postop. Of note, anticoagulation may be an issue given his recent surgery as well as the fact that the surgery was for a spinal hematoma. He had been noted to fall in [place], and have difficulty walking and perhaps this was the source of this finding. He is a fall risk and on anticoagulation. This could result in further problems. He is on aspirin and Lipitor and I would continue these medications. I would stay vigilant for infection or electrolyte changes that could confound this clinical picture. TIME SPENT: Over 90 minutes were spent in direct patient care. Case was discussed with Dr. Healy, who will be assuming care tomorrow and education was given to the patient's including showing her the MRI results. [id number]/[facility] #: [id number] FAIZAN
[2018-05-07] MEDS: Carbidopa/Levodop 10/100 MG TAB(*) PO SCH ×4 (03:14→22:28)
[2018-05-07] MEDS: Heparin VIAL(*) 5000 UNITS/ML VIAL (FIVE THOUSAND) SUBCUT SCH ×3 (05:56→22:28)
[2018-05-07 06:06] LABS: ABS Basophils 0.1 10^3/ul (0-0.2); ABS Eosinophils 0.3 10^3/ul (0-0.6); ABS Lymphocytes 1.3 10^3/ul (1.0-4.8); ABS Monocytes 0.8 10^3/ul (0-0.8); ABS Neutrophils 4.3 10^3/ul (1.5-7.7); ABS Nucleated RBC 0 10^3/ul; Eosinophil % 4.2 % (0-6); Hematocrit 39 % (42-52); Hemoglobin 13.3 g/dl (14.0-18.0); Lymphocyte % 19.3 % (25-47); Mean Corpuscular HGB Conc 34 g/dl (31-36); Mean Corpuscular Hemoglobin 33 pg (27-31); Mean Corpuscular Volume 97 fL (80-94); Mean Platelet Volume 7.6 um3 (7.4-10.4); Nucleated Red Blood Cells % 0; Platelet Count 296 10^3/ul (150-450); Red Blood Count 4.06 10^6/ul (4.00-5.40); Red Cell Distribution Width 13 % (10.5-15); White Blood Count 6.7 10^3/ul (3.5-10.8)
[2018-05-07 06:42] LABS: EGFR Non-African American 72.2 (>60)
[2018-05-07] MEDS: Insulin LISPRO* 1 UNITS UNIT SUBCUT SCH ×4 (08:53→22:34)
[2018-05-07] MEDS: Memantine TAB* 10 MG PO SCH ×2 (08:55→22:28)
[2018-05-07] MEDS: Lisinopril TAB* 10 MG PO SCH (08:55)
[2018-05-07] MEDS: oxyCODONE/Acetamin 5/325 MG* TAB PO SCH ×2 (08:55→22:28)
[2018-05-07] MEDS: Donepezil TAB* 5 MG PO SCH (08:55)
[2018-05-07] MEDS: Aspirin EC TAB* 81 MG TAB.EC PO SCH (08:56)
[2018-05-07] MEDS: Docusate CAP* 100 MG PO SCH ×2 (08:56→22:29)
[2018-05-07] MEDS: Omeprazole CAP* 20 MG PO SCH (08:56)
[2018-05-07] MEDS: Thiamine TAB* 100 MG TAB PO SCH (08:56)
[2018-05-07] MEDS ORDERED: LINAGLIPTIN 5 MG PO SCH (09:00)
[2018-05-07] MEDS ORDERED: Atorvastatin* 10 MG TAB PO SCH (09:00)
[2018-05-07] MEDS ORDERED: Multivitamins/Minerals TAB PO SCH (09:00)
[2018-05-07] MEDS: Nitroglycerin 0.2 MG/HR PATCH* (5 MG) TRANSDERM SCH (09:03)
[2018-05-07] MEDS: Nystatin TOP POWDER* 15 GM BTL TOPICAL SCH ×3 (09:06→22:29)
[2018-05-07] MEDS ORDERED: Trimethobenzamide CAP* 300 MG PO PRN (16:00)
[2018-05-07] MEDS ORDERED: D5W 1/2 NS KCl 20 Meq 1000 ML* 1,000 ML IV SCH (16:00)
[2018-05-07] MEDS: Acetaminophen TAB* 325 MG PO PRN (16:04)
--- NOTE | 2018-05-07 16:12 | PN ---
Subjective Date of Service: 05/07/18 Interval History: No c/o. Objective Active Medications: Acetaminophen (Tylenol Tab*) 650 mg PO Q4H PRN PRN Reason: FEVER/PAIN Last Admin: 05/07/18 16:04 Dose: 650 mg Al Hydrox/Mg Hydrox/Simethicone (Maalox Plus*) 30 ml PO Q6H PRN PRN Reason: INDIGESTION Albuterol (Ventolin 2.5 Mg/3 Ml Neb.Mare*) 2.5 mg INH [id number] AWAKE PRN PRN Reason: sob/wheezing Aspirin (Aspirin Ec Tab*) 81 mg PO DAILY [facility] Last Admin: 05/07/18 08:56 Dose: 81 mg Atorvastatin Calcium (Lipitor*) 10 mg PO DAILY [facility] Last Admin: 05/07/18 08:55 Dose: 10 mg Carbidopa/Levodopa (Sinemet 10/100 Tab(*)) 1 tab PO Q6H [facility] Last Admin: 05/07/18 16:04 Dose: 1 tab Dextrose (D50w Syringe 50 Ml*) 12.5 gm IV PUSH .FOR FS < 60 - SS PRN PRN Reason: FS < 60 Docusate Sodium (Colace Cap*) 100 mg PO BID [facility] Last Admin: 05/07/18 08:56 Dose: 100 mg Donepezil HCl (Aricept Tab*) 10 mg PO DAILY [facility] Last Admin: 05/07/18 08:55 Dose: 10 mg Heparin Sodium (Porcine) (Heparin Vial(*)) 5,000 units SUBCUT Q8HR [facility] Last Admin: 05/07/18 13:28 Dose: 5,000 units Potassium Chloride/Dextrose (D5w 1/2 Ns Kcl 20 Meq 1000 Ml*) 1,000 mls @ 50 mls /hr IV PER RATE [facility] Insulin Human Lispro (Humalog*) 0 units SUBCUT ACHS [facility]; Protocol Last Admin: 05/07/18 13:10 Dose: Not Given Lisinopril (Prinivil Tab*) 10 mg PO DAILY [facility] Last Admin: 05/07/18 08:55 Dose: 10 mg Magnesium Hydroxide (Milk Of Magnesia Liq*) 30 ml PO Q4H PRN PRN Reason: CONSTIPATION Memantine (Namenda Tab*) 10 mg PO BID [facility] Last Admin: 05/07/18 08:55 Dose: 10 mg Multivitamins/Minerals (Theragran/Minerals Tab*) 1 tab PO DAILY [facility] Last Admin: 05/07/18 08:56 Dose: 1 tab Nitroglycerin (Nitroglycerin 5 Mg Patch*) 1 patch TRANSDERM DAILY [facility] Last Admin: 05/07/18 09:03 Dose: 1 patch Nystatin (Nystatin Top Powder*) 1 applic TOPICAL TID [facility] Last Admin: 05/07/18 13:30 Dose: 1 applic Omeprazole (Prilosec Cap*) 20 mg PO DAILY@0730 [facility] Last Admin: 05/07/18 08:56 Dose: 20 mg Oxycodone/Acetaminophen (Percocet 5/325 Tab*) 1 tab PO Q12HR [facility] Last Admin: 05/07/18 08:55 Dose: 1 tab Thiamine HCl (Vitamin B-1 Tab*) 100 mg PO DAILY [facility] Last Admin: 05/07/18 08:56 Dose: 100 mg Trimethobenzamide HCl (Tigan Cap*) 300 mg PO Q6H PRN PRN Reason: NAUSEA Vital Signs - 8 hr 05/07/18 05/07/18 08:55 11:39 Temperature 98.1 F Pulse Rate 79 Respiratory 18 20 Rate Blood Pressure 126/65 (mmHg) O2 Sat by Pulse 100 Oximetry Oxygen Devices in Use Now: None Appearance: Partly up in bed. Neutral affect. Looks comfortable. Eyes: No Scleral Icterus Respiratory: Symmetrical Chest Expansion and Respiratory Effort, Clear to Auscultation, Clear to Percussion Cardiovascular: NL Sounds; No Murmurs; No JVD, RRR, No Edema, - Extremities: No Edema, No Clubbing, Cyanosis, - Skin: No Rash or Ulcers, No Nodules or Sclerosis, - Neurological: NL Sensation - Disoriented, gave his age as 42, does not know he is in a hospital. Passive but polite. No tremor. Result Diagrams: 05/07/18 05:46 05/07/18 05:46 Microbiology and Other Data: Microbiology 05/06/18 11:52 Aerobic Blood Culture - Preliminary Blood Venous No Growth Day 1 Anaerobic Blood Culture - Preliminary No Growth Day 1 05/06/18 11:37 Aerobic Blood Culture - Preliminary Blood Venous No Growth Day 1 Anaerobic Blood Culture - Preliminary No Growth Day 1 05/06/18 14:21 Nasal Screen MRSA (PCR)(NIMISHA) - Final Nasal Mrsa Not Detected Assess/Plan/Problems-Billing Assessment: - Patient Problems (1) Dementia Current Visit: Yes Status: Acute Code(s): F03.90 - UNSPECIFIED DEMENTIA WITHOUT BEHAVIORAL DISTURBANCE SNOMED Code(s): 61145011 Comment: Treated with memantine by Dr. Medeiros. Worsened after CVA. Prognosis poor. I will try to talk to his about this. (2) CVA (cerebral vascular accident) Current Visit: Yes Status: Acute Code(s): I63.9 - CEREBRAL INFARCTION, UNSPECIFIED SNOMED Code(s): 855375781 Comment: L frontotemporal subacute CVA seen on CT 05/06/18. PMRU eval requested. Continue PT/OT. (3) CAD (coronary artery disease) Current Visit: No Status: Acute Code(s): I25.10 - ATHSCL HEART DISEASE OF [place] CORONARY ARTERY W/O ANG PCTRS SNOMED Code(s): 07431172 Comment: Continue statin, ASA. (4) HTN (hypertension) Current Visit: No Status: Acute Priority: Medium Code(s): I10 - ESSENTIAL (PRIMARY) HYPERTENSION SNOMED Code(s): 55585227 Comment: Continue lisinopril 10mg daily. (5) Type II diabetes mellitus Current Visit: No Status: Acute Priority: Low Comment: - A1c is 5.1 Stop linagliptin as all FS under 100 as of 05/07. - Continue SS coverage while inpatient (6) Status post lumbar spine operative procedure for decompression of spinal cord Current Visit: No Status: Acute Code(s): Z98.890 - OTHER SPECIFIED POSTPROCEDURAL STATES SNOMED Code(s): 967354800 Comment: sURGERY 04/24/18. Sutures removed and steri-strips applied by ADRY Dyer.
[2018-05-08] MEDS: Carbidopa/Levodop 10/100 MG TAB(*) PO SCH ×4 (04:06→22:38)
[2018-05-08] MEDS: Acetaminophen TAB* 325 MG PO PRN (04:06)
[2018-05-08] MEDS: Heparin VIAL(*) 5000 UNITS/ML VIAL (FIVE THOUSAND) SUBCUT SCH ×3 (05:14→22:36)
--- NOTE | 2018-05-08 08:48 | PN ---
Subjective Date of Service: 05/08/18 Interval History: No c/o. Objective Active Medications: Acetaminophen (Tylenol Tab*) 650 mg PO Q4H PRN PRN Reason: FEVER/PAIN Last Admin: 05/08/18 04:06 Dose: 650 mg Al Hydrox/Mg Hydrox/Simethicone (Maalox Plus*) 30 ml PO Q6H PRN PRN Reason: INDIGESTION Albuterol (Ventolin 2.5 Mg/3 Ml Neb.Mare*) 2.5 mg INH [id number] AWAKE PRN PRN Reason: sob/wheezing Aspirin (Aspirin Ec Tab*) 81 mg PO DAILY [facility] Last Admin: 05/07/18 08:56 Dose: 81 mg Carbidopa/Levodopa (Sinemet 10/100 Tab(*)) 1 tab PO Q6H [facility] Last Admin: 05/08/18 04:06 Dose: 1 tab Dextrose (D50w Syringe 50 Ml*) 12.5 gm IV PUSH .FOR FS < 60 - SS PRN PRN Reason: FS < 60 Docusate Sodium (Colace Cap*) 100 mg PO BID [facility] Last Admin: 05/07/18 22:29 Dose: 100 mg Donepezil HCl (Aricept Tab*) 10 mg PO DAILY [facility] Last Admin: 05/07/18 08:55 Dose: 10 mg Heparin Sodium (Porcine) (Heparin Vial(*)) 5,000 units SUBCUT Q8HR [facility] Last Admin: 05/08/18 05:14 Dose: 5,000 units Insulin Human Lispro (Humalog*) 0 units SUBCUT ACHS [facility]; Protocol Last Admin: 05/07/18 22:34 Dose: Not Given Lisinopril (Prinivil Tab*) 10 mg PO DAILY [facility] Last Admin: 05/07/18 08:55 Dose: 10 mg Magnesium Hydroxide (Milk Of Magnesia Liq*) 30 ml PO Q4H PRN PRN Reason: CONSTIPATION Memantine (Namenda Tab*) 10 mg PO BID [facility] Last Admin: 05/07/18 22:28 Dose: 10 mg Nitroglycerin (Nitroglycerin 5 Mg Patch*) 1 patch TRANSDERM DAILY [facility] Last Admin: 05/07/18 09:03 Dose: 1 patch Nystatin (Nystatin Top Powder*) 1 applic TOPICAL TID [facility] Last Admin: 06/21/18 22:29 Dose: 1 applic Omeprazole (Prilosec Cap*) 20 mg PO DAILY@0730 [facility] Last Admin: 05/07/18 08:56 Dose: 20 mg Oxycodone/Acetaminophen (Percocet 5/325 Tab*) 1 tab PO Q12HR [facility] Last Admin: 05/07/18 22:28 Dose: 1 tab Thiamine HCl (Vitamin B-1 Tab*) 100 mg PO DAILY [facility] Last Admin: 05/07/18 08:56 Dose: 100 mg Trimethobenzamide HCl (Tigan Cap*) 300 mg PO Q6H PRN PRN Reason: NAUSEA Vital Signs - 8 hr 05/08/18 05/08/18 03:57 08:00 Temperature 98.0 F Pulse Rate 75 Respiratory 16 18 Rate Blood Pressure 133/64 (mmHg) O2 Sat by Pulse 98 Oximetry Oxygen Devices in Use Now: None Appearance: Alert, sitting up in bed, enjoying his breakfast. In good spirits. Looks comfortable. Eyes: No Scleral Icterus Respiratory: Symmetrical Chest Expansion and Respiratory Effort, Clear to Auscultation, Clear to Percussion Cardiovascular: NL Sounds; No Murmurs; No JVD, RRR, No Edema, - Extremities: No Edema, No Clubbing, Cyanosis, - Skin: No Rash or Ulcers, No Nodules or Sclerosis, - Neurological: NL Sensation - Gave his age as 50, then 52. Pleasant and cooperative. No tremor. Result Diagrams: 05/07/18 05:46 05/07/18 05:46 Microbiology and Other Data: Microbiology 05/06/18 11:52 Aerobic Blood Culture - Preliminary Blood Venous No Growth Day 1 Anaerobic Blood Culture - Preliminary No Growth Day 1 05/06/18 11:37 Aerobic Blood Culture - Preliminary Blood Venous No Growth Day 1 Anaerobic Blood Culture - Preliminary No Growth Day 1 05/06/18 14:21 Nasal Screen MRSA (PCR)(NIMISHA) - Final Nasal Mrsa Not Detected Assess/Plan/Problems-Billing Assessment: - Patient Problems (1) Dementia Current Visit: Yes Status: Acute Code(s): F03.90 - UNSPECIFIED DEMENTIA WITHOUT BEHAVIORAL DISTURBANCE SNOMED Code(s): 42147098 Comment: Treated with memantine by Dr. Medeiros. Worsened after CVA. Prognosis poor. I will try to talk to his about this. (2) CVA (cerebral vascular accident) Current Visit: Yes Status: Acute Code(s): I63.9 - CEREBRAL INFARCTION, UNSPECIFIED SNOMED Code(s): 661707102 Comment: L frontotemporal subacute CVA seen on CT 05/06/18. PMRU eval requested. Continue PT/OT. (3) CAD (coronary artery disease) Current Visit: No Status: Acute Code(s): I25.10 - ATHSCL HEART DISEASE OF [place] CORONARY ARTERY W/O ANG PCTRS SNOMED Code(s): 51892116 Comment: Continue statin, ASA. (4) HTN (hypertension) Current Visit: No Status: Acute Priority: Medium Code(s): I10 - ESSENTIAL (PRIMARY) HYPERTENSION SNOMED Code(s): 73285570 Comment: Continue lisinopril 10mg daily. (5) Type II diabetes mellitus Current Visit: No Status: Acute Priority: Low Comment: - A1c is 5.1 Off linagliptin. Highest FS as of 22 AM is 113. - Continue SS coverage q 12 hr while inpatient (6) Status post lumbar spine operative procedure for decompression of spinal cord Current Visit: No Status: Acute Code(s): Z98.890 - OTHER SPECIFIED POSTPROCEDURAL STATES SNOMED Code(s): 388966069 Comment: Surgery was 04/24/18. Sutures removed and steri-strips applied by ADRY Dyer 05/07.
[2018-05-08] MEDS: Lisinopril TAB* 10 MG PO SCH (09:44)
[2018-05-08] MEDS: oxyCODONE/Acetamin 5/325 MG* TAB PO SCH ×2 (09:45→22:37)
[2018-05-08] MEDS: Omeprazole CAP* 20 MG PO SCH (09:45)
[2018-05-08] MEDS: Donepezil TAB* 5 MG PO SCH (09:46)
[2018-05-08] MEDS: Nitroglycerin 0.2 MG/HR PATCH* (5 MG) TRANSDERM SCH (09:47)
[2018-05-08] MEDS: Docusate CAP* 100 MG PO SCH ×2 (09:47→22:38)
[2018-05-08] MEDS: Aspirin 81 mg CHEW TAB* 81 MG TAB.CHEW PO SCH (09:47)
[2018-05-08] MEDS: Memantine TAB* 10 MG PO SCH ×2 (09:48→22:38)
[2018-05-08] MEDS: Thiamine TAB* 100 MG TAB PO SCH (09:59)
[2018-05-08] MEDS: Nystatin TOP POWDER* 15 GM BTL TOPICAL SCH ×3 (10:01→22:46)
--- NOTE | 2018-05-08 11:31 | PN ---
FOLLOWUP NOTE: DATE OF FOLLOWUP: 05/07/18. HISTORY: No acute overnight events. His is at the bedside, who feels he is making some slow improvements, but again notes that his legs are weak and he has not been able to walk normally in quite some time. His sutures were removed this afternoon by Neurosurgery. CURRENT MEDICATIONS: 1. Acetaminophen 650 mg q.4 hours. 2. Simethicone 30 mL q.6 hours. 3. Aspirin 81 mg daily. 4. Lipitor 10 mg daily. 5. Carbidopa/Levodopa 10/100 one tab q.6 hours. 6. Docusate. 7. Donepezil 10 mg daily. PHYSICAL EXAMINATION: Vital Signs: Temperature 98.1, blood pressure 126/65, heart rate 79, oxygen saturation 100% on room air. On general examination, he was lying on his left side and indicated that he was in some pain after the sutures had been removed. He is in no acute distress. His heart was in a regular rate and rhythm. Telemetry has shown sinus rhythm. On neurologic exam, he states he is in [facility]. He is not able to accurately state his age or date of today. He shows some perseveration when asked to name objects. He states calipers for everything presented to him. He is not able to name fingers or even a pen. His pupils are equally responsive to light. His versions are full, but with some saccadic intrusions. His frenandez were full to threat. His facial expression was symmetric. He has good upper extremity strength and is able to cooperate with some strength testing today with no clear focal weakness. His lower extremities are both antigravity and he is able to wiggle both toes. He denies any deficits to light touch in the upper and lower extremities. Reflexes are not tested today. DATA: His CBC today shows a white count of 6.7, hematocrit 39, hemoglobin 13.3 , platelet count 296. Chemistry panel is overall unremarkable. His lipid panel shows triglycerides of 96, cholesterol 119, LDL 76, HDL 24.2. IMPRESSION: A 73-year-old man with a history of dementia, coronary artery disease, type 2 diabetes, and Parkinson's disease, who came in with a subacute left frontal stroke. This occurs in the setting of recent lumbosacral surgery with evacuation of hematoma and decompression. His stroke could be contributing to some additional confusion. The size of the stroke and location appears that it could be consistent with an embolic source. We will obtain repeat TTE with a bubble study to evaluate for PFO. I do not think he needs MRI scan as I do not think it would be helpful to clarify the nature of the current stroke as it is well seen on the CT scan. If his bubble study is positive, then we can proceed with lower extremity Dopplers; however, he may not be a candidate for anticoagulation given his fall risks and the fact that he recently had a spinal hematoma. We will continue his current antiplatelet regimen as well as his statin and he should have therapy evaluations. [id number]/[facility] #: [id number] MTDBarrera
[2018-05-08] MEDS: Insulin LISPRO* 1 UNITS UNIT SUBCUT SCH ×2 (13:38→22:35)
[2018-05-08] MEDS: Aspirin EC TAB* 81 MG TAB.EC PO SCH (13:38)
--- NOTE | 2018-05-08 14:27 | ECHO ---
Patient: MILTON GR [facility] Rec#: [id number] : 1945 Date: 05/08/2018 Age: 73y Height: 180 cm / 70.9 in Weight: 102 kg / 224.8 lbs Sex: M BSA: 2.21 Room#: [facility] Admit Date#: 05/06/2018 Type: Inpatient Referring: Barbara Healy Reading: Guillermo Mack MD General Neurologist: Jeanne Uribe [facility] [place] Transthoracic Echocardiogram Indication: CVA BP: 133/64 HR: 82 Rhythm: NSR Findings History: Recent CVA,CAD with CABG in the past,DM,HTN,COPD,dementia. This is a limited transthoracic echo to evalulate for PFO. Complete echo done 04/22/2018. Technical Comments: The study quality is good. Completed at 1251. Right Atrium: There is no patent foramen ovale visualized. There is no evidence of patent foramen ovale shunting. A patent foramen ovale is not demonstrated by agitated contrast. Contrast: Normal saline was used as contrast for the bubble study. Intravenous contrast was used to help determine presence of intracardiac shunting. Conclusions There is no patent foramen ovale visualized. There is no evidence of patent foramen ovale shunting. A patent foramen ovale is not demonstrated by agitated contrast.
[2018-05-08] MEDS: Atorvastatin* 10 MG TAB PO SCH (15:38)
--- NOTE | 2018-05-08 17:00 | PN ---
Progress Note - Progress Note Date of Service: 05/08/18 SOAP: Subjective: [Patient is s/p lumbar decompression for intradural hematoma evacuation POD # 14. Attempted to remove suture from lumbar wound yesterday with small dehiscence of wound. Suture left in place and steristrips placed. Patient denies low back pain, lower extremity pain. Mental status improved since discharge to [facility]. ] Objective: [ Vital Signs: Temp Pulse Resp BP Pulse Ox 97.5 F 77 18 126/66 98 05/08/18 15:30 05/08/18 15:30 05/08/18 15:30 05/08/18 15:30 05/08/18 15:30 General: Alert and oriented to person. Neuro: Able to answer questions appropriately at times. Able to follow some commands. Right foot weakness improved post-operatively although unable to assess well. Incision: Small 1cm dehiscence of lumbar wound at superior pole. Suture tied off and steristrip placed over open area. No drainage, swelling, erythema or warmth. ] Assessment: [Improvement in pre-operative pain and RLE weakness. Small area wound dehiscence. ] Plan: [1. Daily dressing change. 2. Steristrips remain in place. 3. Nutrition consult with focus on poor wound healing. 4. Calorie count daily x3 days]
--- NOTE | 2018-05-08 17:18 | PN ---
Progress Note - Progress Note Date of Service: 05/07/18 SOAP: Subjective: [S/p lumbar decompression for intradural hematoma evacuation on 04/24/18. Patient returns after slow progress at [facility], CT shows stroke. Patient able to answer some questions appropriately. Denies low back and lower extremity pain. Spoke with patient's , he was not progressing at rehab and was concerned with this. She states that since he arrived at [facility], he has improved.] Objective: [General: Alert and oriented to person. Neuro: Able to answer some questions and follow some commands. RLE foot weakness improved since surgery although exam is limited. Incision: Attempted to remove suture today with small wound dehiscence. Steristrips placed and dressing. ] Assessment: [Slow recovery post-op, new stroke.] Plan: [1. Daily dressing changes. 2. Monitor nutrition. 3. Pain management.]
[2018-05-09] MEDS: Carbidopa/Levodop 10/100 MG TAB(*) PO SCH ×4 (03:33→22:48)
[2018-05-09] MEDS: Acetaminophen TAB* 325 MG PO PRN ×2 (03:33→15:54)
[2018-05-09] MEDS: Heparin VIAL(*) 5000 UNITS/ML VIAL (FIVE THOUSAND) SUBCUT SCH ×3 (05:32→22:53)
--- NOTE | 2018-05-09 07:06 | PN ---
Subjective Date of Service: 05/09/18 Interval History: No events reported overnight. Patient remains pleasantly confused, able to reorient. Intermittent back pain Objective Active Medications: Acetaminophen (Tylenol Tab*) 650 mg PO Q4H PRN PRN Reason: FEVER/PAIN Last Admin: 05/09/18 03:33 Dose: 650 mg Al Hydrox/Mg Hydrox/Simethicone (Maalox Plus*) 30 ml PO Q6H PRN PRN Reason: INDIGESTION Albuterol (Ventolin 2.5 Mg/3 Ml Neb.Mare*) 2.5 mg INH [id number] AWAKE PRN PRN Reason: sob/wheezing Aspirin (Aspirin 81 Mg Chew Tab*) 81 mg PO DAILY [facility] Last Admin: 05/08/18 09:47 Dose: 81 mg Atorvastatin Calcium (Lipitor*) 10 mg PO 1700 [facility] Last Admin: 05/08/18 15:38 Dose: 10 mg Carbidopa/Levodopa (Sinemet 10/100 Tab(*)) 1 tab PO Q6H [facility] Last Admin: 05/09/18 03:33 Dose: 1 tab Dextrose (D50w Syringe 50 Ml*) 12.5 gm IV PUSH .FOR FS < 60 - SS PRN PRN Reason: FS < 60 Docusate Sodium (Colace Cap*) 100 mg PO BID [facility] Last Admin: 05/08/18 22:38 Dose: 100 mg Donepezil HCl (Aricept Tab*) 10 mg PO DAILY [facility] Last Admin: 05/08/18 09:46 Dose: 10 mg Heparin Sodium (Porcine) (Heparin Vial(*)) 5,000 units SUBCUT Q8HR [facility] Last Admin: 05/09/18 05:32 Dose: 5,000 units Insulin Human Lispro (Humalog*) 0 units SUBCUT Q12H [facility]; Protocol Last Admin: 05/08/18 22:35 Dose: Not Given Lisinopril (Prinivil Tab*) 10 mg PO DAILY [facility] Last Admin: 05/08/18 09:44 Dose: 10 mg Magnesium Hydroxide (Milk Of Magnesia Liq*) 30 ml PO Q4H PRN PRN Reason: CONSTIPATION Memantine (Namenda Tab*) 10 mg PO BID [facility] Last Admin: 05/08/18 22:38 Dose: 10 mg Nitroglycerin (Nitroglycerin 5 Mg Patch*) 1 patch TRANSDERM DAILY [facility] Last Admin: 05/08/18 09:47 Dose: 1 patch Nystatin (Nystatin Top Powder*) 1 applic TOPICAL TID [facility] Last Admin: 05/08/18 22:46 Dose: 1 applic Omeprazole (Prilosec Cap*) 20 mg PO DAILY@0730 [facility] Last Admin: 05/08/18 09:45 Dose: 20 mg Oxycodone/Acetaminophen (Percocet 5/325 Tab*) 1 tab PO Q12HR [facility] Last Admin: 05/08/18 22:37 Dose: 1 tab Thiamine HCl (Vitamin B-1 Tab*) 100 mg PO DAILY [facility] Last Admin: 05/08/18 09:59 Dose: 100 mg Trimethobenzamide HCl (Tigan Cap*) 300 mg PO Q6H PRN PRN Reason: NAUSEA Vital Signs 05/08/18 05/08/18 05/08/18 07:21 08:00 09:45 Temperature 97.4 F Pulse Rate 72 Respiratory 20 18 18 Rate Blood Pressure 150/82 (mmHg) O2 Sat by Pulse 96 Oximetry 05/08/18 05/08/18 05/08/18 11:45 13:48 15:30 Temperature 98.4 F 97.5 F Pulse Rate 73 77 Respiratory 16 18 18 Rate Blood Pressure 141/72 126/66 (mmHg) O2 Sat by Pulse 96 98 Oximetry 05/08/18 05/08/18 05/08/18 19:15 19:54 20:00 Temperature 99 F 98.0 F Pulse Rate 91 Respiratory 16 18 Rate Blood Pressure 139/74 (mmHg) O2 Sat by Pulse 100 Oximetry 05/08/18 05/08/18 05/09/18 22:37 22:44 00:02 Temperature 98.2 F 98.7 F Pulse Rate 81 88 Respiratory 18 18 16 Rate Blood Pressure 149/82 144/86 (mmHg) O2 Sat by Pulse 92 93 Oximetry 05/09/18 05/09/18 00:37 04:39 Temperature 98.9 F Pulse Rate 83 Respiratory 18 16 Rate Blood Pressure 121/68 (mmHg) O2 Sat by Pulse 98 Oximetry Oxygen Devices in Use Now: None Neurology Exam: General: HEENT: Normocephelic/atraumatic, sclera anicteric, mucous membranes moist Neck: Supple Chest: Clear to auscultation bilaterally Cardiovascular: Regular rate and rhythm without murmurs, rubs, gallops Abdomen: Soft, obese Extremities: No clubbing, cyanosis, or edema Neurological Findings: Awake, Alert, oriented to person only. Does recognize that he recently underwent surgery for his back Speech: fluent without dysarthria, repetition intact Cranial Nerve: PEERL, EOM intact, VFF, no nystagmus, face symmetric bilaterally , facial sensation intact, hearing intact to finger rub bilaterally, palate elevates symmetrically, tongue midline Motor: 5/5 upper extremities with slightly increased tone in the RUE, no cogwheeling. Antigravity LEs with some giveway secondary to pain. 4+/5 distally , 4/5 proximally Sensation: intact to LT/PP bilaterally upper and lower extremities Reflexes down throughout. Babinski equivocal Finger to nose, rapid alternating movements intact without tremor, no dysdiadochokinesia. NO resting termor noted Result Diagrams: 05/07/18 05:46 05/07/18 05:46 Microbiology and Other Data: Microbiology 05/06/18 11:52 Aerobic Blood Culture - Preliminary Blood Venous No Growth Day 1 Anaerobic Blood Culture - Preliminary No Growth Day 1 05/06/18 11:37 Aerobic Blood Culture - Preliminary Blood Venous No Growth Day 1 Anaerobic Blood Culture - Preliminary No Growth Day 1 05/06/18 14:21 Nasal Screen MRSA (PCR)(NIMISHA) - Final Nasal Mrsa Not Detected Assessment/Plan Assessment: 73 year old with a history of CAD, Type 2 DM, HTN, PD, Dementia, Neuropathy status post LS surgery on 04/24/18 with failure to progress, found to have a left frontal stroke, subacute. 1. Stroke workup complete: repeat TTE showed no evidence of PFO so I think we can manage stroke with ASA only. 2. Continue statin, bp control, DM control 3. PT/OT 4. PD: On C/L, no changes 5. Dementia: On meds, no change 6. Status post LS surgery. NS following At this point, there is no further neurologic workup. I will sign off for now but remain available for any new issues or concerns. He will need continued PT/ OT and can follow up with me 6-8 weeks after d/c
[2018-05-09] MEDS: Insulin LISPRO* 1 UNITS UNIT SUBCUT SCH ×2 (08:11→22:47)
[2018-05-09] MEDS: Nitroglycerin 0.2 MG/HR PATCH* (5 MG) TRANSDERM SCH (09:08)
[2018-05-09] MEDS: Donepezil TAB* 5 MG PO SCH (09:09)
[2018-05-09] MEDS: Lisinopril TAB* 10 MG PO SCH (09:10)
[2018-05-09] MEDS: Memantine TAB* 10 MG PO SCH ×2 (09:10→22:47)
[2018-05-09] MEDS: oxyCODONE/Acetamin 5/325 MG* TAB PO SCH ×2 (09:10→22:46)
[2018-05-09] MEDS: Aspirin 81 mg CHEW TAB* 81 MG TAB.CHEW PO SCH (09:10)
[2018-05-09] MEDS: Omeprazole CAP* 20 MG PO SCH (09:11)
[2018-05-09] MEDS: Nystatin TOP POWDER* 15 GM BTL TOPICAL SCH ×3 (09:11→22:54)
[2018-05-09] MEDS: Docusate CAP* 100 MG PO SCH ×2 (09:11→22:46)
[2018-05-09] MEDS: Thiamine TAB* 100 MG TAB PO SCH (09:11)
--- NOTE | 2018-05-09 12:57 | PN ---
Progress Note - Progress Note Date of Service: 05/09/18 SOAP: Subjective: [S/p lumbar decompression for intradural hematoma, POD #15. Patient reports back pain although "it's not that bad". Back pain worse with movements in bed. Denies lower extremity pain. ] Objective: [ Vital Signs: Temp Pulse Resp BP Pulse Ox 98.1 F 84 18 109/60 95 05/09/18 11:29 05/09/18 11:29 05/09/18 11:39 05/09/18 11:29 05/09/18 11:29 General: Alert, sitting up eating lunch. Oriented to person. Neuro: Able to answer some questions and follow some commands. Pre op RLE weakness improving, 4/5 post-op. Sensation intact. Incision: Intact with suture except 1 cm superiorly. Small wound dehiscence approximated with steri strips. No drainage, erythema, warmth, swelling. Nontender. Dressing clean and dry.] Assessment: [Pre-operative symptoms improving, new stroke.] Plan: [1. Continue pain management. 2. Up out of bed to chair. 3. Encourage good nutrition; discussed this with patient's . 4. Continue daily dressing change.]
--- NOTE | 2018-05-09 13:27 | PN ---
Subjective Date of Service: 05/09/18 Interval History: No c/o. Objective Active Medications: Acetaminophen (Tylenol Tab*) 650 mg PO Q4H PRN PRN Reason: FEVER/PAIN Last Admin: 05/09/18 03:33 Dose: 650 mg Al Hydrox/Mg Hydrox/Simethicone (Maalox Plus*) 30 ml PO Q6H PRN PRN Reason: INDIGESTION Albuterol (Ventolin 2.5 Mg/3 Ml Neb.Mare*) 2.5 mg INH [id number] AWAKE PRN PRN Reason: sob/wheezing Aspirin (Aspirin 81 Mg Chew Tab*) 81 mg PO DAILY [facility] Last Admin: 05/09/18 09:10 Dose: 81 mg Atorvastatin Calcium (Lipitor*) 10 mg PO 1700 [facility] Last Admin: 05/08/18 15:38 Dose: 10 mg Carbidopa/Levodopa (Sinemet 10/100 Tab(*)) 1 tab PO Q6H [facility] Last Admin: 05/09/18 09:09 Dose: 1 tab Dextrose (D50w Syringe 50 Ml*) 12.5 gm IV PUSH .FOR FS < 60 - SS PRN PRN Reason: FS < 60 Docusate Sodium (Colace Cap*) 100 mg PO BID [facility] Last Admin: 05/09/18 09:11 Dose: 100 mg Donepezil HCl (Aricept Tab*) 10 mg PO DAILY [facility] Last Admin: 05/09/18 09:09 Dose: 10 mg Heparin Sodium (Porcine) (Heparin Vial(*)) 5,000 units SUBCUT Q8HR [facility] Last Admin: 05/09/18 13:19 Dose: 5,000 units Insulin Human Lispro (Humalog*) 0 units SUBCUT Q12H [facility]; Protocol Last Admin: 05/09/18 08:11 Dose: Not Given Lisinopril (Prinivil Tab*) 10 mg PO DAILY [facility] Last Admin: 05/09/18 09:10 Dose: 10 mg Magnesium Hydroxide (Milk Of Magnesia Liq*) 30 ml PO Q4H PRN PRN Reason: CONSTIPATION Memantine (Namenda Tab*) 10 mg PO BID [facility] Last Admin: 05/09/18 09:10 Dose: 10 mg Nitroglycerin (Nitroglycerin 5 Mg Patch*) 1 patch TRANSDERM DAILY [facility] Last Admin: 05/09/18 09:08 Dose: 1 patch Nystatin (Nystatin Top Powder*) 1 applic TOPICAL TID [facility] Last Admin: 05/09/18 13:20 Dose: 1 applic Omeprazole (Prilosec Cap*) 20 mg PO DAILY@0730 [facility] Last Admin: 05/09/18 09:11 Dose: 20 mg Oxycodone/Acetaminophen (Percocet 5/325 Tab*) 1 tab PO Q12HR [facility] Last Admin: 05/09/18 09:10 Dose: 1 tab Thiamine HCl (Vitamin B-1 Tab*) 100 mg PO DAILY [facility] Last Admin: 05/09/18 09:11 Dose: 100 mg Trimethobenzamide HCl (Tigan Cap*) 300 mg PO Q6H PRN PRN Reason: NAUSEA Vital Signs - 8 hr 05/09/18 05/09/18 05/09/18 08:00 08:37 09:10 Temperature 98.1 F Pulse Rate 86 Respiratory 18 19 18 Rate Blood Pressure 153/78 (mmHg) O2 Sat by Pulse 98 Oximetry 05/09/18 05/09/18 11:29 11:39 Temperature 98.1 F Pulse Rate 84 Respiratory 20 18 Rate Blood Pressure 109/60 (mmHg) O2 Sat by Pulse 95 Oximetry Oxygen Devices in Use Now: None Appearance: Alert, partly up in bed. More engaged today. Eyes: No Scleral Icterus Extremities: No Edema, No Clubbing, Cyanosis, - Skin: No Rash or Ulcers, No Nodules or Sclerosis, - Neurological: NL Sensation, - - Today he knew his age. He did not know he was in a hospital. No tremor. Result Diagrams: 05/07/18 05:46 05/07/18 05:46 Microbiology and Other Data: Microbiology 05/06/18 11:52 Aerobic Blood Culture - Preliminary Blood Venous No Growth Day 1 Anaerobic Blood Culture - Preliminary No Growth Day 1 05/06/18 11:37 Aerobic Blood Culture - Preliminary Blood Venous No Growth Day 1 Anaerobic Blood Culture - Preliminary No Growth Day 1 05/06/18 14:21 Nasal Screen MRSA (PCR)(NIMISHA) - Final Nasal Mrsa Not Detected Assess/Plan/Problems-Billing Assessment: 73 year old with a history of CAD, Type 2 DM, HTN, PD, Dementia, Neuropathy status post LS surgery on 04/24/18 with failure to progress, found to have a left frontal stroke, subacute. 1. Stroke workup complete: repeat TTE showed no evidence of PFO so I think we can manage stroke with ASA only. 2. Continue statin, bp control, DM control 3. PT/OT 4. PD: On C/L, no changes 5. Dementia: On meds, no change 6. Status post LS surgery. NS following At this point, there is no further neurologic workup. I will sign off for now but remain available for any new issues or concerns. He will need continued PT/ OT and can follow up with me 6-8 weeks after d/c - Patient Problems (1) Dementia Current Visit: Yes Status: Acute Code(s): F03.90 - UNSPECIFIED DEMENTIA WITHOUT BEHAVIORAL DISTURBANCE SNOMED Code(s): 27491117 Comment: Treated with donepezil and memantine by Dr. Medeiros and Dr. Leal. Worsened after CVA, although some improvement in cognition is past few days (05/09). I will try spoke with his 05/09--she is very focused on physical rehab for him. (2) CVA (cerebral vascular accident) Current Visit: Yes Status: Acute Code(s): I63.9 - CEREBRAL INFARCTION, UNSPECIFIED SNOMED Code(s): 200319388 Comment: L frontotemporal subacute CVA seen on CT 05/06/18. He was not accepted to [facility]. Continue PT/OT. Continue ASA. (3) CAD (coronary artery disease) Current Visit: No Status: Acute Code(s): I25.10 - ATHSCL HEART DISEASE OF [place] CORONARY ARTERY W/O ANG PCTRS SNOMED Code(s): 71912830 Comment: Continue statin, ASA. (4) HTN (hypertension) Current Visit: No Status: Acute Priority: Medium Code(s): I10 - ESSENTIAL (PRIMARY) HYPERTENSION SNOMED Code(s): 46745897 Comment: Continue lisinopril 10mg daily. (5) Type II diabetes mellitus Current Visit: No Status: Acute Priority: Low Comment: - A1c is 5.1 Off linagliptin. Highest FS as of 05/08 AM is 113. - Continue SS coverage q 12 hr while inpatient (6) Status post lumbar spine operative procedure for decompression of spinal cord Current Visit: No Status: Acute Code(s): Z98.890 - OTHER SPECIFIED POSTPROCEDURAL STATES SNOMED Code(s): 824784956 Comment: Surgery was 04/24/18. Sutures removed and steri-strips applied by ADRY Dyer 05/07. (7) Parkinsons disease Current Visit: No Status: Acute Priority: Medium Code(s): G20 - PARKINSON' S DISEASE SNOMED Code(s): 27901692 Comment: - Continue carbidopa/Ldopa.
[2018-05-09] MEDS: Atorvastatin* 10 MG TAB PO SCH (17:42)
[2018-05-10] MEDS: Carbidopa/Levodop 10/100 MG TAB(*) PO SCH ×4 (03:33→20:09)
[2018-05-10] MEDS: Acetaminophen TAB* 325 MG PO PRN (03:33)
[2018-05-10] MEDS: Heparin VIAL(*) 5000 UNITS/ML VIAL (FIVE THOUSAND) SUBCUT SCH ×3 (06:07→20:15)
[2018-05-10] MEDS: Insulin LISPRO* 1 UNITS UNIT SUBCUT SCH ×2 (07:30→20:23)
[2018-05-10] MEDS: Docusate CAP* 100 MG PO SCH ×2 (08:30→20:11)
[2018-05-10] MEDS: oxyCODONE/Acetamin 5/325 MG* TAB PO SCH ×2 (08:30→20:10)
[2018-05-10] MEDS: Omeprazole CAP* 20 MG PO SCH (08:30)
[2018-05-10] MEDS: Magnesium Hydroxide LIQ* 30 ML UDC PO PRN (08:30)
[2018-05-10] MEDS: Thiamine TAB* 100 MG TAB PO SCH (08:30)
[2018-05-10] MEDS: Nystatin TOP POWDER* 15 GM BTL TOPICAL SCH ×3 (08:31→20:23)
[2018-05-10] MEDS: Memantine TAB* 10 MG PO SCH ×2 (08:31→20:10)
[2018-05-10] MEDS: Aspirin 81 mg CHEW TAB* 81 MG TAB.CHEW PO SCH (08:31)
[2018-05-10] MEDS: Lisinopril TAB* 10 MG PO SCH (08:31)
[2018-05-10] MEDS: Donepezil TAB* 5 MG PO SCH (08:31)
[2018-05-10] MEDS: Nitroglycerin 0.2 MG/HR PATCH* (5 MG) TRANSDERM SCH (08:31)
--- NOTE | 2018-05-10 16:03 | PN ---
Subjective Date of Service: 05/10/18 Interval History: No c/o. Objective Active Medications: Acetaminophen (Tylenol Tab*) 650 mg PO Q4H PRN PRN Reason: FEVER/PAIN Last Admin: 05/10/18 03:33 Dose: 650 mg Al Hydrox/Mg Hydrox/Simethicone (Maalox Plus*) 30 ml PO Q6H PRN PRN Reason: INDIGESTION Albuterol (Ventolin 2.5 Mg/3 Ml Neb.Mare*) 2.5 mg INH [id number] AWAKE PRN PRN Reason: sob/wheezing Aspirin (Aspirin 81 Mg Chew Tab*) 81 mg PO DAILY [facility] Last Admin: 05/10/18 08:31 Dose: 81 mg Atorvastatin Calcium (Lipitor*) 10 mg PO 1700 [facility] Last Admin: 05/09/18 17:42 Dose: 10 mg Carbidopa/Levodopa (Sinemet 10/100 Tab(*)) 1 tab PO Q6H [facility] Last Admin: 05/10/18 15:37 Dose: 1 tab Dextrose (D50w Syringe 50 Ml*) 12.5 gm IV PUSH .FOR FS < 60 - SS PRN PRN Reason: FS < 60 Docusate Sodium (Colace Cap*) 100 mg PO BID [facility] Last Admin: 05/10/18 08:30 Dose: 100 mg Donepezil HCl (Aricept Tab*) 10 mg PO DAILY [facility] Last Admin: 05/10/18 08:31 Dose: 10 mg Heparin Sodium (Porcine) (Heparin Vial(*)) 5,000 units SUBCUT Q8HR [facility] Last Admin: 05/10/18 13:12 Dose: 5,000 units Insulin Human Lispro (Humalog*) 0 units SUBCUT Q12H [facility]; Protocol Last Admin: 05/10/18 07:30 Dose: Not Given Lisinopril (Prinivil Tab*) 10 mg PO DAILY [facility] Last Admin: 05/10/18 08:31 Dose: 10 mg Magnesium Hydroxide (Milk Of Magnesia Liq*) 30 ml PO Q4H PRN PRN Reason: CONSTIPATION Last Admin: 05/10/18 08:30 Dose: 30 ml Memantine (Namenda Tab*) 10 mg PO BID [facility] Last Admin: 05/10/18 08:31 Dose: 10 mg Multivitamins (Theragran Tab*) 1 tab PO DAILY [facility] Nitroglycerin (Nitroglycerin 5 Mg Patch*) 1 patch TRANSDERM DAILY [facility] Last Admin: 05/10/18 08:31 Dose: 1 patch Nystatin (Nystatin Top Powder*) 1 applic TOPICAL TID [facility] Last Admin: 05/10/18 13:13 Dose: 1 applic Omeprazole (Prilosec Cap*) 20 mg PO DAILY@0730 [facility] Last Admin: 05/10/18 08:30 Dose: 20 mg Oxycodone/Acetaminophen (Percocet 5/325 Tab*) 1 tab PO Q12HR [facility] Last Admin: 05/10/18 08:30 Dose: 1 tab Tamsulosin HCl (Flomax Cap*) 0.4 mg PO BEDTIME [facility] Thiamine HCl (Vitamin B-1 Tab*) 100 mg PO DAILY [facility] Last Admin: 05/10/18 08:30 Dose: 100 mg Trimethobenzamide HCl (Tigan Cap*) 300 mg PO Q6H PRN PRN Reason: NAUSEA Vital Signs - 8 hr 05/10/18 05/10/18 05/10/18 08:06 08:30 10:40 Temperature 97.4 F Pulse Rate 82 Respiratory 16 15 18 Rate Blood Pressure 125/86 (mmHg) O2 Sat by Pulse 97 Oximetry 05/10/18 11:32 Temperature 98.4 F Pulse Rate 77 Respiratory 16 Rate Blood Pressure 102/57 (mmHg) O2 Sat by Pulse 99 Oximetry Oxygen Devices in Use Now: None Appearance: Alert, partly up in bed. In good spirits, sociable. Looks comfortable. Eyes: No Scleral Icterus Extremities: No Edema, No Clubbing, Cyanosis, - Skin: No Rash or Ulcers, No Nodules or Sclerosis, - Neurological: NL Sensation - Sociable and cooperative but poor memory. No tremor. GRANADO. Result Diagrams: 05/07/18 05:46 05/07/18 05:46 Microbiology and Other Data: Microbiology 05/06/18 11:52 Aerobic Blood Culture - Preliminary Blood Venous No Growth Day 1 Anaerobic Blood Culture - Preliminary No Growth Day 1 05/06/18 11:37 Aerobic Blood Culture - Preliminary Blood Venous No Growth Day 1 Anaerobic Blood Culture - Preliminary No Growth Day 1 05/06/18 14:21 Nasal Screen MRSA (PCR)(NIMISHA) - Final Nasal Mrsa Not Detected Assess/Plan/Problems-Billing Assessment: 73 year old with a history of CAD, Type 2 DM, HTN, PD, Dementia, Neuropathy status post LS surgery on 04/24/18 with failure to progress, found to have a left frontal stroke, subacute. 1. Stroke workup complete: repeat TTE showed no evidence of PFO so I think we can manage stroke with ASA only. 2. Continue statin, bp control, DM control 3. PT/OT 4. PD: On C/L, no changes 5. Dementia: On meds, no change 6. Status post LS surgery. NS following At this point, there is no further neurologic workup. I will sign off for now but remain available for any new issues or concerns. He will need continued PT/ OT and can follow up with me 6-8 weeks after d/c - Patient Problems (1) Dementia Current Visit: Yes Status: Acute Code(s): F03.90 - UNSPECIFIED DEMENTIA WITHOUT BEHAVIORAL DISTURBANCE SNOMED Code(s): 85800154 Comment: Treated with donepezil and memantine by Dr. Medeiros and Dr. Leal. Worsened after CVA, although some improvement in cognition is past few days (05/09). I spoke with his 05/09--she is very focused on physical rehab for him. (2) CVA (cerebral vascular accident) Current Visit: Yes Status: Acute Code(s): I63.9 - CEREBRAL INFARCTION, UNSPECIFIED SNOMED Code(s): 835805287 Comment: L frontotemporal subacute CVA seen on CT 05/06/18. He was not accepted to [facility]. Continue PT/OT. Continue ASA. Calorie count 1300 anatoliy for 05/09. MVI ordered 05/10. (3) CAD (coronary artery disease) Current Visit: No Status: Acute Code(s): I25.10 - ATHSCL HEART DISEASE OF [place] CORONARY ARTERY W/O ANG PCTRS SNOMED Code(s): 22792362 Comment: Continue statin, ASA. (4) HTN (hypertension) Current Visit: No Status: Acute Priority: Medium Code(s): I10 - ESSENTIAL (PRIMARY) HYPERTENSION SNOMED Code(s): 01380786 Comment: Continue lisinopril 10mg daily. (5) Type II diabetes mellitus Current Visit: No Status: Acute Priority: Low Comment: - A1c is 5.1 Off linagliptin. Highest FS as of 05/08 AM is 113. - Continue SS coverage q 12 hr while inpatient (6) Status post lumbar spine operative procedure for decompression of spinal cord Current Visit: No Status: Acute Code(s): Z98.890 - OTHER SPECIFIED POSTPROCEDURAL STATES SNOMED Code(s): 488390402 Comment: Surgery was 04/24/18. Sutures removed and steri-strips applied by ADRY Dyer 05/07. (7) Parkinsons disease Current Visit: No Status: Acute Priority: Medium Code(s): G20 - PARKINSON' S DISEASE SNOMED Code(s): 87711881 Comment: - Continue carbidopa/Ldopa. (8) Urinary retention Current Visit: Yes Status: Acute Code(s): R33.9 - RETENTION OF URINE, UNSPECIFIED SNOMED Code(s): 414989809 Comment: Straight cath for 600 ml in ED. Tamsulosin started 05/10 hs. Consider voiding trial in a few days.
[2018-05-10] MEDS: Atorvastatin* 10 MG TAB PO SCH (17:16)
[2018-05-10] MEDS: Tamsulosin CAP* 0.4 MG PO SCH (20:11)
[2018-05-11] MEDS: Acetaminophen TAB* 325 MG PO PRN (03:59)
[2018-05-11] MEDS: Carbidopa/Levodop 10/100 MG TAB(*) PO SCH ×4 (04:00→21:58)
[2018-05-11] MEDS: Magnesium Hydroxide LIQ* 30 ML UDC PO PRN ×2 (04:11→08:11)
[2018-05-11] MEDS: Heparin VIAL(*) 5000 UNITS/ML VIAL (FIVE THOUSAND) SUBCUT SCH ×3 (06:06→22:03)
[2018-05-11] MEDS: Vitamin THERAPEUTIC TAB PO SCH (08:02)
[2018-05-11] MEDS: oxyCODONE/Acetamin 5/325 MG* TAB PO SCH ×2 (08:03→21:59)
[2018-05-11] MEDS: Lisinopril TAB* 10 MG PO SCH (08:03)
[2018-05-11] MEDS: Memantine TAB* 10 MG PO SCH ×2 (08:03→21:59)
[2018-05-11] MEDS: Donepezil TAB* 5 MG PO SCH (08:03)
[2018-05-11] MEDS: Docusate CAP* 100 MG PO SCH ×2 (08:04→21:58)
[2018-05-11] MEDS: Omeprazole CAP* 20 MG PO SCH (08:04)
[2018-05-11] MEDS: Insulin LISPRO* 1 UNITS UNIT SUBCUT SCH ×3 (08:04→21:52)
[2018-05-11] MEDS: Aspirin 81 mg CHEW TAB* 81 MG TAB.CHEW PO SCH (08:04)
[2018-05-11] MEDS: Thiamine TAB* 100 MG TAB PO SCH (08:05)
[2018-05-11] MEDS: Nitroglycerin 0.2 MG/HR PATCH* (5 MG) TRANSDERM SCH (08:05)
[2018-05-11] MEDS: Nystatin TOP POWDER* 15 GM BTL TOPICAL SCH ×3 (08:13→22:09)
[2018-05-11] MEDS ORDERED: NS 0.9% 500 ML* 500 ML IV ONE (12:36)
--- NOTE | 2018-05-11 13:16 | RAD ---
INDICATION: Hypotension COMPARISON: Similar examination May 06, 2018 TECHNIQUE: Single AP view of the chest was obtained. FINDINGS: Stable postoperative findings include sternotomy wires and surgical clips overlying the mediastinum. The heart and mediastinum exhibit normal size and contour. There is coarse calcification overlying the arch of the aorta. The lungs are grossly clear. There is no evidence of a large pleural effusion. Visualized bones are normal for the patient's age. IMPRESSION: No radiographic evidence for acute cardiopulmonary abnormality on this single AP view chest x-ray.
[2018-05-11 13:42] LABS: ABS Basophils 0.1 10^3/ul (0-0.2); ABS Eosinophils 0.1 10^3/ul (0-0.6); ABS Lymphocytes 1.3 10^3/ul (1.0-4.8); ABS Monocytes 0.8 10^3/ul (0-0.8); ABS Neutrophils 6.7 10^3/ul (1.5-7.7); Eosinophil % 0.8 % (0-6); Hematocrit 45 % (42-52); Hemoglobin 14.9 g/dl (14.0-18.0); Lymphocyte % 14.7 % (25-47); Mean Corpuscular HGB Conc 33 g/dl (31-36); Mean Corpuscular Hemoglobin 33 pg (27-31); Mean Corpuscular Volume 98 fL (80-94); Mean Platelet Volume 8.4 um3 (7.4-10.4); Platelet Count 272 10^3/ul (150-450); Red Blood Count 4.59 10^6/ul (4.00-5.40); Red Cell Distribution Width 13 % (10.5-15)
--- NOTE | 2018-05-11 13:47 | PN ---
Subjective Date of Service: 05/11/18 Interval History: Pt seen and examined. Meds and labs reviewed. Saw pt in preparation for previously planned D/C to [facility] today. Pt appeared comfortable, however , on repeat VS check, RN informed me that pt was hypotensive and consistent with manual reading of both arms. Informed staff that D/C plan is placed on hold as we begin to evaluate pts hypotension ROS: Denied HELMS/dizziness, F/C, N/V, CP, SOB, increased cough, sputum production , abd pain, diarrhea, constipation, dysuria, myalgias, arthralgias, throat pain , and new skin lesions. The rest of the 14 point ROS are unremarkable. PHYSICAL EXAM: GEN APPEARANCE: Awake, not in acute distress, not oriented to time and person, obese HEENT: NC/AT, PERRLA, moist oral mucosa, (-) throat erythema NECK: Soft, supple, (-) cervical LAD, (-)JVD HEART: S1S2 WNL, RRR, No MRG CHEST: CTA, BL, GAE, No W/R/R ABD: Soft, ND/NT, NABS 4x Q EXT: No C/C/E SKIN: Warm to touch PSYCH: No active psychosis, hallucinations, depression, SI/HI Objective Active Medications: Acetaminophen (Tylenol Tab*) 650 mg PO Q4H PRN PRN Reason: FEVER/PAIN Last Admin: 05/11/18 03:59 Dose: 650 mg Al Hydrox/Mg Hydrox/Simethicone (Maalox Plus*) 30 ml PO Q6H PRN PRN Reason: INDIGESTION Albuterol (Ventolin 2.5 Mg/3 Ml Neb.Mare*) 2.5 mg INH [id number] AWAKE PRN PRN Reason: sob/wheezing Aspirin (Aspirin 81 Mg Chew Tab*) 81 mg PO DAILY [facility] Last Admin: 05/11/18 08:04 Dose: 81 mg Atorvastatin Calcium (Lipitor*) 10 mg PO 1700 [facility] Last Admin: 05/10/18 17:16 Dose: 10 mg Carbidopa/Levodopa (Sinemet 10/100 Tab(*)) 1 tab PO Q6H [facility] Last Admin: 05/11/18 08:02 Dose: 1 tab Dextrose (D50w Syringe 50 Ml*) 12.5 gm IV PUSH .FOR FS < 60 - SS PRN PRN Reason: FS < 60 Docusate Sodium (Colace Cap*) 100 mg PO BID [facility] Last Admin: 05/11/18 08:04 Dose: 100 mg Donepezil HCl (Aricept Tab*) 10 mg PO DAILY [facility] Last Admin: 05/11/18 08:03 Dose: 10 mg Heparin Sodium (Porcine) (Heparin Vial(*)) 5,000 units SUBCUT Q8HR [facility] Last Admin: 05/11/18 06:06 Dose: 5,000 units Insulin Human Lispro (Humalog*) 0 units SUBCUT Q12H [facility]; Protocol Last Admin: 05/11/18 10:11 Dose: 1 unit Magnesium Hydroxide (Milk Of Magnesia Liq*) 30 ml PO Q4H PRN PRN Reason: CONSTIPATION Last Admin: 05/11/18 08:11 Dose: 30 ml Memantine (Namenda Tab*) 10 mg PO BID [facility] Last Admin: 05/11/18 08:03 Dose: 10 mg Multivitamins (Theragran Tab*) 1 tab PO DAILY [facility] Last Admin: 05/11/18 08:02 Dose: 1 tab Nitroglycerin (Nitroglycerin 5 Mg Patch*) 1 patch TRANSDERM DAILY [facility] Last Admin: 05/11/18 08:05 Dose: 1 patch Nystatin (Nystatin Top Powder*) 1 applic TOPICAL TID [facility] Last Admin: 05/11/18 08:13 Dose: 1 applic Omeprazole (Prilosec Cap*) 20 mg PO DAILY@0730 [facility] Last Admin: 05/11/18 08:04 Dose: 20 mg Oxycodone/Acetaminophen (Percocet 5/325 Tab*) 1 tab PO Q12HR [facility] Last Admin: 05/11/18 08:03 Dose: 1 tab Tamsulosin HCl (Flomax Cap*) 0.4 mg PO BEDTIME [facility] Last Admin: 05/10/18 20:11 Dose: 0.4 mg Thiamine HCl (Vitamin B-1 Tab*) 100 mg PO DAILY [facility] Last Admin: 05/11/18 08:05 Dose: 100 mg Trimethobenzamide HCl (Tigan Cap*) 300 mg PO Q6H PRN PRN Reason: NAUSEA Vital Signs - 8 hr 05/11/18 05/11/18 05/11/18 08:00 08:03 08:20 Temperature 98.3 F Pulse Rate 91 Respiratory 20 15 20 Rate Blood Pressure 114/60 (mmHg) O2 Sat by Pulse 95 Oximetry 05/11/18 05/11/18 05/11/18 12:02 12:08 12:25 Temperature 98.2 F Pulse Rate 87 Respiratory 20 20 Rate Blood Pressure 82/47 84/47 (mmHg) O2 Sat by Pulse 97 Oximetry 05/11/18 05/11/18 12:41 13:03 Temperature Pulse Rate Respiratory Rate Blood Pressure 78/50 78/52 (mmHg) O2 Sat by Pulse Oximetry Oxygen Devices in Use Now: None Result Diagrams: 05/11/18 13:19 05/07/18 05:46 Microbiology and Other Data: Microbiology 05/06/18 11:52 Aerobic Blood Culture - Preliminary Blood Venous No Growth Day 1 Anaerobic Blood Culture - Preliminary No Growth Day 1 05/06/18 11:37 Aerobic Blood Culture - Preliminary Blood Venous No Growth Day 1 Anaerobic Blood Culture - Preliminary No Growth Day 1 05/06/18 14:21 Nasal Screen MRSA (PCR)(NIMISHA) - Final Nasal Mrsa Not Detected Assess/Plan/Problems-Billing Assessment: 73 year old with a history of CAD, Type 2 DM, HTN, PD, Dementia, Neuropathy status post LS surgery on 04/24/18 with failure to progress, found to have a left frontal stroke, subacute. 1. Stroke workup complete: repeat TTE showed no evidence of PFO so I think we can manage stroke with ASA only. 2. Continue statin, bp control, DM control 3. PT/OT 4. PD: On C/L, no changes 5. Dementia: On meds, no change 6. Status post LS surgery. NS following At this point, there is no further neurologic workup. I will sign off for now but remain available for any new issues or concerns. He will need continued PT/ OT and can follow up with me 6-8 weeks after d/c - Patient Problems (1) Hypotension Current Visit: Yes Status: Acute Comment: -Possibly secondary to pre-renal cause/DHN, given I/Os early this AM were in the low negatives -D/C Lisinopril -Will give bolus and order STAT CBC, CMP, Magnesium, and lactic acid -Repeat CXR shows NAD -No complaints of CP/SOB and pt has been on DVT prophylaxis -Check cardiac enzymes (2) Dementia Current Visit: Yes Status: Acute Code(s): F03.90 - UNSPECIFIED DEMENTIA WITHOUT BEHAVIORAL DISTURBANCE SNOMED Code(s): 45699515 Comment: -Treated with donepezil and memantine by Dr. Medeiros and Dr. Leal. Worsened after CVA, although some improvement in cognition is past few days (). I spoke with his 05/09--she is very focused on physical rehab for him. (3) CVA (cerebral vascular accident) Current Visit: Yes Status: Acute Code(s): I63.9 - CEREBRAL INFARCTION, UNSPECIFIED SNOMED Code(s): 118286340 Comment: -L frontotemporal subacute CVA seen on CT 05/06/18. He was not accepted to [facility]. Continue PT/OT. Continue ASA. -Calorie count 1300 anatoliy for 05/09. MVI ordered 05/10. (4) CAD (coronary artery disease) Current Visit: No Status: Acute Code(s): I25.10 - ATHSCL HEART DISEASE OF [place] CORONARY ARTERY W/O ANG PCTRS SNOMED Code(s): 28698014 Comment: -Continue statin, ASA. (5) Diabetes 1.5, managed as type 2 Current Visit: Yes Status: Acute Code(s): E10.9 - TYPE 1 DIABETES MELLITUS WITHOUT COMPLICATIONS SNOMED Code(s): 878560600 Comment: -Continue Insulin SS Status and Disposition: -Hold off planned D/C to [facility] while pending W/U of acute hypotension
[2018-05-11 14:12] LABS: ABS Nucleated RBC 0 10^3/ul; Nucleated Red Blood Cells % 0
[2018-05-11] MEDS ORDERED: NS 0.9% 1000 ML* 1,000 ML IV SCH (14:15)
[2018-05-11 14:48] LABS: EGFR Non-African American 44.7 (>60)
[2018-05-11] MEDS: Atorvastatin* 10 MG TAB PO SCH (16:07)
[2018-05-11 16:11] LABS: Urine Appearance Cloudy; Urine Blood 1+ (Negative); Urine Color Yellow; Urine Ketones Trace (Negative); Urine Protein Negative (Negative); Urine Specific Gravity 1.023 (1.010-1.030); Urine Urobilinogen Negative (Negative)
[2018-05-11] MEDS: Tamsulosin CAP* 0.4 MG PO SCH (22:03)
[2018-05-12] MEDS: Carbidopa/Levodop 10/100 MG TAB(*) PO SCH ×3 (02:48→14:16)
[2018-05-12] MEDS: Omeprazole CAP* 20 MG PO SCH ×2 (05:37→08:45)
[2018-05-12] MEDS: Heparin VIAL(*) 5000 UNITS/ML VIAL (FIVE THOUSAND) SUBCUT SCH ×2 (05:37→14:16)
[2018-05-12 05:43] LABS: EGFR Non-African American 62.8 (>60)
[2018-05-12 06:09] LABS: ABS Basophils 0.1 10^3/ul (0-0.2); ABS Eosinophils 0.3 10^3/ul (0-0.6); ABS Lymphocytes 1.9 10^3/ul (1.0-4.8); ABS Monocytes 0.7 10^3/ul (0-0.8); ABS Neutrophils 5.5 10^3/ul (1.5-7.7); ABS Nucleated RBC 0 10^3/ul; Eosinophil % 3.9 % (0-6); Hematocrit 42 % (42-52); Hemoglobin 14.2 g/dl (14.0-18.0); Lymphocyte % 22.1 % (25-47); Mean Corpuscular HGB Conc 34 g/dl (31-36); Mean Corpuscular Hemoglobin 33 pg (27-31); Mean Corpuscular Volume 97 fL (80-94); Mean Platelet Volume 7.8 um3 (7.4-10.4); Nucleated Red Blood Cells % 0.1; Platelet Count 289 10^3/ul (150-450); Red Blood Count 4.29 10^6/ul (4.00-5.40); Red Cell Distribution Width 13 % (10.5-15); White Blood Count 8.6 10^3/ul (3.5-10.8)
[2018-05-12] MEDS: Aspirin 81 mg CHEW TAB* 81 MG TAB.CHEW PO SCH (08:46)
[2018-05-12] MEDS: Memantine TAB* 10 MG PO SCH (08:47)
[2018-05-12] MEDS: Vitamin THERAPEUTIC TAB PO SCH (08:47)
[2018-05-12] MEDS: Donepezil TAB* 5 MG PO SCH (08:48)
[2018-05-12] MEDS: Thiamine TAB* 100 MG TAB PO SCH (08:48)
[2018-05-12] MEDS: Insulin LISPRO* 1 UNITS UNIT SUBCUT SCH (08:50)
[2018-05-12] MEDS: oxyCODONE/Acetamin 5/325 MG* TAB PO SCH (08:51)
[2018-05-12] MEDS: Nystatin TOP POWDER* 15 GM BTL TOPICAL SCH ×2 (08:52→14:16)
[2018-05-12] MEDS: Docusate CAP* 100 MG PO SCH (08:52)
[2018-05-12] MEDS ORDERED: NS 0.9% 500 ML* 500 ML IV ONE (09:52)
[2018-05-12 13:09] VITALS: BP 113/69
--- NOTE | 2018-05-12 14:24 | DS ---
CC: Dr. Chris; Dr. Jacy Dominguez; Dr. Healy; Dr. Medeiros * DISCHARGE SUMMARY: DATE OF ADMISSION: 05/06/18 DATE OF DISCHARGE: 05/12/18 DISCHARGE DIAGNOSES: 1. Vascular dementia. 2. Cerebrovascular accident of the left frontotemporal, subacute cerebrovascular accident seen on CT on 05/06/18. 3. History of coronary artery disease. 4. History of diabetes mellitus. 5. Hypotension likely due to decreased p.o. intake as well as polypharmacy, resolved. DISCHARGE MEDICATIONS: 1. Carbidopa/levodopa 1 tab p.o. q.6 hours. 2. Colace 100 mg p.o. b.i.d. 3. Benazepril 5 mg p.o. daily. 4. Memantine 10 mg p.o. b.i.d. 5. Nystatin 1 application topically t.i.d. to affected intertriginous areas. 6. Pantoprazole 40 mg p.o. daily. 7. Thiamine 100 mg p.o. daily. 8. Tylenol 650 mg p.o. q.4 p.r.n. 9. Maalox Plus 30 mL p.o. q.6 hours p.r.n. 10. Aspirin 81 mg p.o. daily. 11. Atorvastatin 10 mg p.o. daily. 12. Bimatoprost 1 drop both eyes q.p.m. 13. Calcium carbonate and vitamin D3 1 tablet p.o. b.i.d. 14. Insulin lispro 2 units subcu a.c. and h.s. 15. Linagliptin 5 mg p.o. daily. 16. Tamsulosin 0.4 mg p.o. q.h.s. 17. Tramadol 50 mg p.o. q.8 p.r.n. 18. Trimethobenzamide 300 mg cap p.o. q.6 p.r.n. HISTORY OF PRESENT ILLNESS/HOSPITAL COURSE: The patient is a 73-year-old gentleman with history of CAD, status post CABG, diabetes mellitus and hypertension who presented with altered mental status. He was subsequently diagnosed with CVA with a CT scan done on 05/06/18, showing left frontotemporal subacute CVA. His dementia is likely due to a vascular cause and currently on donepezil and memantine. He was scheduled for discharge back to [facility] yesterday. Unfortunately, he was found to be mildly hypotensive, thought to be due to poor p.o. intake and polypharmacy. More specifically when he takes his Percocet, the at bedside mentions that he gets more confused and somewhat hypotensive. Hence, his Percocet has been discontinued and instead was placed on tramadol p.o. at a lower dose q.8 p.r.n. to control his pain. He was advised to follow up with his facility MD/PODIATRIC TECHNICIAN within [address] and to follow the reevaluations of his physical therapy as well as to follow his prescription instructions. PHYSICAL EXAMINATION: Reveals the most recent vital signs of records with blood pressure of 99/74, from previous 113/70; heart rate of 89; temperature 98 degrees Fahrenheit; saturating at 95%. General Appearance: The patient is awake, not in acute distress. HEENT: Normocephalic, atraumatic. PERRLA. Extraocular muscles intact. Negative for icterus. Moist oral mucosa. Negative throat erythema. Neck is soft and supple with no cervical lymphadenopathy, no JVD. Heart: S1, S2 within normal limits. Regular rate and rhythm. No murmurs, rubs or gallops. Chest: Clear to auscultation bilaterally. Good air entry. No wheezes, rales or rhonchi. Abdomen is soft, nondistended, nontender. Normoactive bowel sounds x4 quadrants. Extremities: No cyanosis, clubbing with 1+ bilateral lower extremity edema. Psychiatric: No active psychosis, depression, suicidal or homicidal ideations. Skin is warm to touch. [id number]/[facility] #: [id number] [facility]
== END 2018-05-12 14:54 | DRG 65 ==
LOC: ED 10:36 → MEDTELE 14:24
PROVIDERS: ADMIT Hospitalist; ATTEND Student in an Organized Health Care Education/Training Program
DX: I63.8 Other cerebral infarction (principal); N17.9 Acute kidney failure, unspecified; I25.10 Atherosclerotic heart disease of native coronary artery without angina pectoris; I11.9 Hypertensive heart disease without heart failure; J44.9 Chronic obstructive pulmonary disease, unspecified; E11.9 Type 2 diabetes mellitus without complications; G20 Parkinson's disease; K42.9 Umbilical hernia without obstruction or gangrene; F02.80 Dementia in other diseases classified elsewhere, unspecified severity, without behavioral disturbance, psychotic disturbance, mood disturbance, and anxiety; I95.2 Hypotension due to drugs; T40.2X5A Adverse effect of other opioids, initial encounter; Y92.230 Patient room in hospital as the place of occurrence of the external cause; Z79.1 Long term (current) use of non-steroidal anti-inflammatories (NSAID); Z95.1 Presence of aortocoronary bypass graft; Z95.5 Presence of coronary angioplasty implant and graft; Z79.82 Long term (current) use of aspirin; Z79.4 Long term (current) use of insulin; Z79.899 Other long term (current) drug therapy; Z88.8 Allergy status to other drugs, medicaments and biological substances; Z80.0 Family history of malignant neoplasm of digestive organs; Z80.7 Family history of other malignant neoplasms of lymphoid, hematopoietic and related tissues; Z87.891 Personal history of nicotine dependence; Z98.890 Other specified postprocedural states; Z91.81 History of falling
CPT/HCPCS: 36415; 70450; 70496; 70498; 71045; 71046; 80048; 80053; 80061; 81003; 81015; 83605; 83735; 84100; 84484; 85025; 85060; 85610; 87040; 87086; 87641; 93005; 93308; 99284; A9270-GY; G8978-GP-CM; G8979-GP-CM; G8987-GO-CN; G8988-GO-CJ; J1644; J3475; Q9967

== ENCOUNTER 2019-12-28 17:50 | Inpatient (IN) | payer MEDICARE, OTHER ==
[2019-12-28] MEDS ORDERED: NS 0.9% 1000 ML** 1,000 ML IV ONE ×2 (18:11→22:16)
--- NOTE | 2019-12-28 18:29 | ED ---
Altered Mental Status - HPI Summary HPI Summary: The patient is a 74-year-old male arriving via ambulance to [facility] with a chief complaint of AMS since this morning. Per , the patient has been suffering from early-onset dementia, but today his confusion appeared to be much worse than usual. He was incontinent of urine throughout the night, and he has been unable to ambulate today, which is unlike his baseline. He denies any fevers, vomiting, abdominal pain, CP, SOB, headache, or neck pain. His notes that he has been experienced some loose stool. He also has chronic back pain, which has been worse than usual as well. He had a witnessed fall yesterday, causing erythema to the right eye. He is not experiencing pain from the fall. No history of liver issues or EtOH abuse. No history of bladder infections. Past medical history significant for diabetes, angina, CAD, HTN, HLD, IA, COPD. Nonsmoker, occasional EtOH, no substance use. Medications reviewed. Allergies noted. Level 5 Caveat secondary to patient presenting with AMS. History obtained from and medical records. - History Of Current Complaint Stated Complaint: AMS PER EMS Time Seen by Provider: 12/28/19 17:54 Hx Obtained From: Family/Dental Associate - , EMS Onset/Duration: Still Present Timing: Constant, Lasting Hours Severity Initially: Mild Severity Currently: Moderate Character: Confusion Aggravating Factor(s): Unknown Alleviating Factor(s): Unknown Associated Signs And Symptoms: Negative: Vomiting, Fever, Headache - Allergies/Home Medications Allergies/Adverse Reactions: Allergies Allergy/AdvReac Type Severity Reaction Status Date / Time lorazepam [From Ativan] Allergy Mild Agitation Verified 12/28/19 19:51 carvedilol Allergy Unknown Verified 12/28/19 19:51 Reaction Details metoprolol [From Toprol XL] Allergy Unknown Verified 12/28/19 19:51 Reaction Details Home Medications: Home Medications Bimatoprost 0.01% OPHTH (NF) [Lumigan 0.01% OPHTH (NF)] 1 drop BOTH EYES BEDTIME 12/28/19 [History Confirmed 12/28/19] Carbidopa/Levodop 10/100 MG(*) [Sinemet 10/100 TAB(*)] 2 tab PO DAILY 12/28/19 [ History Confirmed 12/28/19] Multivitamins/Minerals TAB* [Theragran/minerals TAB*] 1 tab PO DAILY 12/28/19 [ History Confirmed 12/28/19] PMH/Surg Hx/FS Hx/Imm Hx Endocrine/Hematology History: Reports: Hx Diabetes Denies: Hx Anticoagulant Therapy Cardiovascular History: Reports: Hx Angina, Hx Coronary Artery Disease, Hx Hypercholesterolemia, Hx Hypertension, Hx Myocardial Infarction, Other Cardiovascular Problems/Disorders - heart failure, irregular HR Denies: Hx Pacemaker/ICD Respiratory History: Reports: Hx Chronic Obstructive Pulmonary Disease (COPD) Denies: Hx Asthma Musculoskeletal History: Reports: Hx Arthritis, Hx Back Problems Sensory History: Reports: Hx Cataracts, Hx Contacts or Glasses, Hx Hearing Problem Denies: Hx Hearing Aid Opthamlomology History: Reports: Hx Cataracts, Hx Contacts or Glasses Neurological History: Reports: Hx Dementia Psychiatric History: Denies: Hx Panic Disorder - Surgical History Surgical History: Yes Surgery Procedure, Year, and Place: HEART CATH WITH STENTS 2001, TRIPLE BYPASS 2000. CTR. LUMBAR LAMINECTOMY[place]2006 @ [facility] [place] CATARACTS. EXCISION OF HEMATOMA IN BACK, LAMINECTOMY OF L2-3- 04/24/18 - Family History Known Family History: Positive: Diabetes, Other - cancer - Social History Alcohol Use: Occasionally Hx Substance Use: No Substance Use Type: Reports: None Hx Tobacco Use: No Smoking Status (MU): Never Smoked Tobacco Review of Systems Negative: Fever Positive: Erythema - surrouding right eye Negative: Chest Pain Negative: Shortness Of Breath Negative: Abdominal Pain, Vomiting Negative: incontinence Positive: Myalgia - low back. Negative: Other - neck pain Neurological/Mental Status: Other - unable to ambulate, AMS Negative: Headache All Other Systems Reviewed And Are Negative: No - Comments Additional Review of Systems Comments: Level 5 Caveat secondary to AMS Physical Exam - Summary Physical Exam Summary: Constitutional: Well-developed, Well-nourished, Alert. (-) Distressed Skin: Warm, Dry HENT: Normocephalic; Atraumatic Eyes: Conjunctiva normal Neck: Musculoskeletal ROM normal neck. (-) JVD, (-) Stridor, (-) Tracheal deviation Cardio: Rhythm regular, rate normal, Heart sounds normal; Intact distal pulses; The pedal pulses are 2+ and symmetric. Radial pulses are 2+ and symmetric. (-) Murmur Pulmonary/Chest wall: Effort normal. (-) Respiratory distress, (-) Wheezes, (-) Rales Abd: Soft, (-) tenderness, (-) Distension, (-) Guarding, (-) Rebound Musculoskeletal: (-) Edema Lymph: (-) Cervical adenopathy Neuro: Alert, Oriented x2, No focal deficits, BUE tremors Psych: Mood and affect Normal GCS: 15 Triage Information Reviewed: Yes Vital Signs Reviewed: Yes Completion Of Physical Exam Limited Due To: Altered Mental Status, Level 5 - Elliot Coma Scale Best Eye Response: 4 - Spontaneous Best Motor Response: 6 - Obeys Commands Best Verbal Response: 5 - Oriented Coma Scale Total: 15 Procedures - Sedation Patient Received Moderate/Deep Sedation with Procedure: No Diagnostics - Laboratory Result Diagrams: 12/29/19 06:22 12/29/19 06:22 Lab Statement: Any lab studies that have been ordered have been reviewed, and results considered in the medical decision making process. - Radiology CXR Radiology Interpretation Completed By: ED Physician Summary of Radiographic Findings: Poor inspiration. Limited view. No consolidations noted. Dr. Webster has reviewed and interpreted this report. Pending official read. - CT Brain CT CT Interpretation Completed By: Radiologist Summary of CT Findings: Impression: 1. No acute intracranial findings. Age- related atrophy and chronic white matter change. 2. Evolution of left frontal temporal infarct, chronic. ED physician has reviewed this report. Cervical Spine CT CT Interpretation Completed By: Radiologist Summary of CT Findings: Impression: 1. No acute fracture identified. 2. Mild reversal normal lordosis in upper cervical spine, likely secondary to significant multilevel degenerative change as above with bulky anterior osteophytes from C3/C4 through C6/C7. ED physician has reviewed this report. - EKG 1829 Cardiac Rate: NL - 87 BPM EKG Rhythm: Sinus Rhythm Summary of EKG Findings: An EKG at 1829 reveals normal sinus rhythm at [address] BPM. No ischemic changes. Dr. Webster has reviewed and interpreted this EKG. Re-Evaluation - Re-Evaluation First Eval Re-Evaluation Time: 21:00 Comment: Patient and aware and agreeable with admission. Altered Mental Statu Course/Dx - Course Course Of Treatment: 74 y/o male arriving via ambulance with AMS onset this morning as observed by his , who notes patient has been experiencing inability to walk, urinary incontinence, and increased confusion compared to baseline of early-onset dementia. He also had a witnessed fall yesterday, but he is not c/o pain at this time. Hx of CAD, HTN, IA, diabetes, COPD. Level 5 Caveat. Physical exam reveals no neurological deficits, BUE tremors, alert & oriented x3. IV access obtained. Patient administered fluids and Ceftriaxone. Blood work significant for WBCs of 14.1, abs neutrophils of 11.3, INR of 1.11, creatinine of 1.29, and BNP of 172. Negative troponin. An EKG at 1829 reveals normal sinus rhythm at 87 BPM, no ischemic changes. CXR, per my interpretation, reveals poor inspiration, limited view, no consolidations noted. Brain CT is negative for acute findings, chronic changes noted. C-Spine CT reveals chronic changes but is otherwise negative for acute abnormalities. I spoke with Dr. Sullivan from the hospitalist services, who accepts the patient for admission. Patient and his understand and agree with plan. - Diagnoses Provider Diagnoses: Fall, Leukocytosis, General weakness, Dehydration - Provider Notifications Discussed Care Of Patient With: Kota Sullivan - hospitalist Time Discussed With Above Provider: 20:15 Instructed by Provider To: Other - I discussed the patient's case with Dr. Sullivan , who accepts the patient for admission. Discharge ED - Sign-Out/Discharge Documenting (check all that apply): Patient Departure - Patient accepted for admission by Dr. Sullivan. - Discharge Plan Condition: Stable Disposition: ADMITTED TO [facility] - Billing Disposition and Condition Condition: STABLE Disposition: Admitted to [facility] - Attestation Statements Document Initiated by Jammie: Yes Documenting Scribe: Loretta Rodriguez Provider For Whom Jammie is Documenting (Include Credential): Dr. Kj Webster DO Scribe Attestation: ILoretta scribed for Dr. Kj Webster DO on 12/29/19 at 1052. Scribe Documentation Reviewed: Yes Provider Attestation: The documentation as recorded by the Loretta malone accurately reflects the service I personally performed and the decisions made by me, Dr. Kj Webster DO Status of Scribe Document: Viewed
[2019-12-28 19:22] LABS: ABS Basophils 0.1 10^3/ul (0-0.2); ABS Eosinophils 0.1 10^3/ul (0-0.6); ABS Lymphocytes 1.3 10^3/ul (1.0-4.8); ABS Monocytes 1.2 10^3/ul (0-0.8); ABS Neutrophils 11.3 10^3/ul (1.5-7.7); Eosinophil % 0.9 %; Hematocrit 45 % (42-52); Hemoglobin 15.4 g/dL (14.0-18.0); Lymphocyte % 9.1 %; Mean Corpuscular HGB Conc 34 g/dL (31-36); Mean Corpuscular Hemoglobin 33 pg (27-31); Mean Corpuscular Volume 98 fL (80-94); Mean Platelet Volume 8.3 fL (7.4-10.4); Platelet Count 176 10^3/uL (150-450); Red Blood Count 4.64 10^6 /uL (4.18-5.48); Red Cell Distribution Width 14 % (10-15); White Blood Count 14.1 10^3/uL (3.5-10.8)
[2019-12-28 19:27] LABS: INR 1.11 (0.82-1.09)
[2019-12-28] MEDS ORDERED: cefTRIAXone(*) 1 GM in NS 0.9% 50 ML* 50 ML IVPB ONE (19:30)
[2019-12-28 19:43] LABS: Albumin 4.3 g/dL (3.2-5.2); Albumin/Globulin Ratio 1.3 (1-3); BUN/Creatinine Ratio 11.6 (8-20); Calcium 9.4 mg/dL (8.6-10.3); EGFR African American 65.7 (>60); EGFR Non-African American 54.3 (>60); Globulin 3.2 g/dL (2-4); Magnesium 1.9 mg/dL (1.9-2.7); Potassium 4.2 mmol/L (3.5-5.0); Total Bilirubin 0.7 mg/dL (0.2-1.0); Total Protein 7.5 g/dL (6.4-8.9); Troponin I 0.01 ng/mL (<0.03)
[2019-12-28 21:49] LABS: Activated Partial Thrombo Time 36.2 seconds (26.0-38.0)
[2019-12-28 22:36] LABS: Influenza A Molecular Negative (Negative); Influenza B Molecular Negative (Negative)
[2019-12-29] MEDS: NS 0.9% 1000 ML** 1,000 ML IV SCH ×3 (00:20→19:24)
--- NOTE | 2019-12-29 01:09 | HP ---
CC: Dr. Luc Medeiros * ADMISSION HISTORY AND PHYSICAL: DATE OF ADMISSION: 12/28/19 PRIMARY CARE PHYSICIAN: Dr. Luc Medeiros. CHIEF COMPLAINT: Altered mental status and delirium. HISTORY OF PRESENT ILLNESS: This is a 74-year-old gentleman with past medical history of chronic back pain Parkinson's with advanced dementia, history of stroke in summer of 2017. He was in his usual state of health; however, since this morning, the patient has been more and more confused and has been incontinent of urine throughout the night and was unable to ambulate. The who cares for him at home stated that this is very unusual for him so decided to bring him to the ER. The patient's otherwise denies any other symptoms, but she does state that he has been getting more and more agitated and he has been more incontinent of urine. Normally, he only wears the Depends at nighttime , but throughout the day he has been having multiple urinations with incontinence of urine, but no bowel incontinence. He has had some loose stools , but no real diarrhea according to the . He also had a witnessed fall after which he had erythema around the right eye, but did not say that he was having any pain. The patient himself could not provide much history as he was agitated and was trying to pull at his medical equipment throughout my evaluation. The patient's also stated that he has been dropping his food, unable to eat or drink much as he could not hold the containers. It is unclear if he has any swallowing difficulty at this point. PAST MEDICAL HISTORY: 1. History of coronary artery disease status post triple bypass in 1996 followed by a stent in 2007. 2. Type 2 diabetes on medication. 3. Hypertension. 4. Hyperlipidemia. 5. Parkinson's disease, but the diagnosis is unclear as states that one of the neurologist states he does have Parkinson's while the other is not sure, but the patient does take Sinemet either way. 6. History of advanced dementia, has been on dementia medications. 7. History of stroke in 2007, without any residual deficit. The patient did require rehab stay during that time. PAST SURGICAL HISTORY: He has had the open heart surgery as mentioned and a stent. He has also had lumbar laminectomy in the past and bilateral cataract surgery. HOME MEDICATIONS: The patient is currently on: 1. Glucosamine 1 tablet oral daily. 2. Neurontin 600 mg p.o. t.i.d. 3. Atorvastatin 10 mg oral daily. 4. Tylenol 1000 mg p.o. t.i.d. p.r.n. 5. Protonix 40 mg oral daily. 6. Tradjenta 5 mg oral daily. 7. Namenda 10 mg p.o. b.i.d. 8. Sinemet 2 tablets oral daily. 9. Mag-Ox 400 mg daily. 10. Lumigan 1 drop both eyes daily at bedtime. 11. Donepezil 10 mg oral daily. 12. Multivitamin 1 tablet oral daily. 13. Calcium with vitamin D one tablet p.o. b.i.d. 14. Aspirin 81 mg p.o. b.i.d.. 15. Entresto 1 tablet p.o. b.i.d. ALLERGIES: The patient is allergic to ATIVAN, CARVEDILOL, and METOPROLOL. ATIVAN causes severe agitation and an unknown reaction regarding CARVEDILOL and METOPROLOL. FAMILY HISTORY: Brother had colon cancer at age 55 and his father also had colon cancer as well at age 65. Mother of lymphoma at age 75. SOCIAL HISTORY: He is a former smoker of 2 packs per day for a total of 25 years, quit over 5 years ago. Denies any alcohol or drug use. Lives with his , Margot, who is his surrogate decision maker. The patient is otherwise full code according to the . REVIEW OF SYSTEMS: Unable to obtain due to the patient's mental status change, but states that there is no fever, no nausea, vomiting. PHYSICAL EXAMINATION GENERAL: The patient is arousable but does not follow much commands. VITAL SIGNS: In the ER, temperature was recorded at 99.8 maximum, heart rate 84 , respiration rate 21, saturating 96%, BP was 112/68. HEAD AND NECK: The patient does have a bruise on the right eye, with both pupils being reactive. Oral mucosa was severely dry. NECK: Supple. No jugular venous distention. LUNGS: Clear to auscultation bilaterally. No wheezing, rhonchi or rales. HEART: S1, S2. Regular rate and rhythm. ABDOMEN: Soft, obese with positive bowel sounds. EXTREMITIES: The patient did have some toe changes on the foot, which the says is from the previous falls and traumas, but no obvious infection there. He does have some erythema, also noted on his hands probably from scrapes and bruises, but not obviously cellulitic or any obvious abscesses. NEUROLOGIC: Difficult to assess as the patient was not following much commands. SKIN: The patient did have some intertrigo at the pubic skin folds. DIAGNOSTIC STUDIES/LABORATORY DATA: CBC shows mildly elevated white count of 14.1, hemoglobin and hematocrit are stable, platelet count is normal. Coagulation profile shows minimally elevated INR at 1.11. Comprehensive metabolic panel was remarkable for elevated creatinine of 1.29. B-Sarah was noted to be 172, ammonia 38, lactic acid normal. LFTs within normal limits. CT brain was showing evolution of the left frontotemporal infarct, which is chronic. Cervical CT showed no acute fracture, mild reversible normal lordosis in the upper cervical spine likely secondary to significant multilevel degenerative changes as above with bulky anterior osteophyte from C3-C4 through C6-C7. EKG shows sinus rhythm at 87 beats per minute without any ST elevations when compared to his old EKG from 2018 essentially unchanged in wave form. There is an incomplete left bundle branch block from prior which is still present during today's EKG. Portable chest x-ray difficult to read due to the patient's obesity, but I could not appreciate any obvious infiltrate or congestion. Official read by radiologist is still pending. There is a sternotomy suture that is still present. IMPRESSION: This is a 74-year-old gentleman with a history of questionable Parkinson's disease, advanced dementia, previous stroke, here due to new onset of delirium and agitation, unclear if this is due to UTI or infection. No obvious source at this point. The patient was attempted to have a Yun catheter in the ER, but it was a traumatic event and no urine could be obtained and a subsequent bladder scan revealed the patient is only having about 100 cc of urine. So, we will give the patient another liter of bolus. ASSESSMENT AND PLAN: 1. Delirium. Likely secondary to urinary tract infection. We will follow up repeat bladder scan to draw urinalysis and culture. If the urinalysis suggest a urinary tract infection, we could consider starting the patient on antibiotics. He already received a dose of Rocephin, which could be continued once the UA is performed. 2. History of dementia and stroke. CT so far is negative. We will also get a MRI to rule out any acute changes. In the meantime, we will start neuro-checks every 4 hours and follow him up on telemetry and perform a swallow evaluation and keep the patient n.p.o. until the swallow evaluation is complete with the exception of small sips of water with medications as necessary. 3. History of dementia. As mentioned, continue home medications. 4. History of coronary artery disease status post bypass graft and stenting. Continue home statin and aspirin therapy. 5. History of hypertension. We will hold Entresto in light of his acute kidney injury. 6. Acute kidney injury. We will continue with gentle hydration. 7. Type 2 diabetes. We will monitor fingersticks and check an A1c. We will hold the home diabetic medications until the patient is started on an oral diet. 8. Code status. The patient is currently full code. 9. DVT prophylaxis, on sequential compression device. [id number] #: [id number] FAIZAN
[2019-12-29] MEDS ORDERED: Acetaminophen TAB* 325 MG ONE (03:34)
[2019-12-29] MEDS: Acetaminophen TAB* 325 MG PO PRN ×2 (03:36→14:53)
[2019-12-29 06:55] LABS: ABS Eosinophils 0.1 10^3/ul (0-0.6); ABS Lymphocytes 1.5 10^3/ul (1.0-4.8); ABS Monocytes 1.3 10^3/ul (0-0.8); Eosinophil % 0.7 %; Hematocrit 39 % (42-52); Hemoglobin 13.1 g/dL (14.0-18.0); Lymphocyte % 12.4 %; Mean Corpuscular HGB Conc 33 g/dL (31-36); Mean Corpuscular Hemoglobin 33 pg (27-31); Mean Corpuscular Volume 98 fL (80-94); Mean Platelet Volume 8.9 fL (7.4-10.4); Platelet Count 156 10^3/uL (150-450); Red Blood Count 4.02 10^6 /uL (4.18-5.48); Red Cell Distribution Width 13 % (10-15)
[2019-12-29 07:12] LABS: BUN/Creatinine Ratio 10.8 (8-20); Calcium 7.9 mg/dL (8.6-10.3); EGFR African American 71.4 (>60); Potassium 4.2 mmol/L (3.5-5.0)
[2019-12-29] MEDS: Gabapentin CAP(*) 300 MG PO SCH ×3 (08:51→22:09)
[2019-12-29] MEDS: Magnesium Oxide TAB* 400 MG PO SCH (08:51)
[2019-12-29] MEDS: Atorvastatin* 10 MG TAB PO SCH (08:54)
[2019-12-29] MEDS: Multivitamins/Minerals TAB PO SCH (08:54)
[2019-12-29] MEDS: Memantine TAB* 10 MG PO SCH ×2 (08:54→22:10)
[2019-12-29] MEDS: Calcium/Vitamin D TAB 250/125* TAB PO SCH ×2 (08:55→22:08)
[2019-12-29] MEDS: Pantoprazole TAB * 40 MG TAB PO SCH (08:56)
[2019-12-29] MEDS: Carbidopa/Levodop 10/100 MG TAB(*) PO SCH (08:57)
[2019-12-29] MEDS: Donepezil TAB* 5 MG PO SCH (08:57)
[2019-12-29] MEDS ORDERED: Linagliptin (NF) 5 MG TAB PO SCH (09:00)
[2019-12-29] MEDS: GLUCOSAMINE CHONDROITIN PO SCH (09:04)
[2019-12-29 10:13] LABS: TSH (Thyroid Stimulating Horm) 0.59 mcIU/mL (0.34-5.60)
[2019-12-29 10:15] LABS: Free T4 0.92 ng/dL (0.61-1.12)
[2019-12-29 10:24] LABS: Folate > 20.00 ng/mL (>3.99)
--- NOTE | 2019-12-29 12:03 | CONS ---
CC: Dr. Luc Medeiros; Dr. Hernandez * CONSULTATION REPORT: DATE OF CONSULT: 12/29/19 REASON FOR CONSULTATION: Altered mental status. PRIMARY CARE PHYSICIAN: Dr. Luc Medeiros NEUROLOGIST: Dr. Hernandez. HISTORY OF PRESENT ILLNESS: Mr. Antony is a very nice 74-year-old gentleman who has advanced dementia and carries a diagnosis of possible Parkinson's disease, although his states that they have been told in the past that he does not have Parkinson's disease. With that said he is on carbidopa levodopa and follows with Dr. Hernandez. He has a history of coronary artery disease with bypass and stenting. He has a history of type 2 diabetes. He has had a stroke in the past with apparently no residual deficit. He has a history of back surgery and chronic back pain, hypertension, hyperlipidemia, and advanced dementia, on Aricept and Namenda. His states that at baseline he ambulates. He is generally alert and is able to carry on conversations. Two days ago, he fell. He got his feet tangled and fell into the snow bank, hit his head and has a bruise around his right eye. She states that he did not lose consciousness, but rather tripped and fell. He did not complain of any headaches or any other symptoms at that time, but yesterday morning he woke up and she states that he was very confused that he was very different than he normally is. He was weak, had been incontinent of urine, which he does have some baseline incontinence, but it seemed to be much worse. He was having incontinence throughout the night. The patient does note that he has been having some nighttime enuresis, but that overnight the night before it was much worse. He was also very agitated and confused more so than his baseline and based on this she brought him to the ER. He has had no bowel incontinence reported, although he has had some loose stools. There was no fevers reported, no dysuria reported. He has had no shortness of breath or chest pain. He has had no focal numbness, tingling, or weakness reported. No facial droop. No worsening speech, but he is very confused. Yesterday in the ER, he was agitated and trying to pull out his IV. His also noted that he had been dropping his food and not drinking as much because he could not hold containers although there was no choking reported. She states that at baseline he does have some shuffling of his gait and does have some tremor in his hands which seems to improve with the carbidopa levodopa. He was admitted back in 2018, at that time, he was having some difficulty walking. Dr. Hernandez saw him and in fact I had seen him in the past as well. At that time, he was having severe pain in his back, which radiated to his legs and also noted to have a neuropathy in his lower extremities. His reports that he had lumbar surgery, laminectomy in the past by Dr. Brewster and has chronic back pain after that. He does normally go to cardiac rehab. PAST MEDICAL HISTORY: As noted above. PAST SURGICAL HISTORY: Includes open heart surgery and stenting as well as lumbar laminectomy and bilateral cataracts. HOME MEDICATIONS: Include: 1. Glucosamine 1 tablet orally daily. 2. Neurontin 600 mg p.o. t.i.d. 3. Atorvastatin 10 mg daily. 4. Tylenol 1000 mg p.o. t.i.d. p.r.n. 5. Protonix 40 mg daily. 6. Tradjenta 5 mg daily. 7. Namenda 10 mg p.o. b.i.d. 8. Sinemet 2 tablets oral daily 25/100. 9. Mag-Ox 400 mg daily. 10. Lumigan 1 tab 1 drop in both eyes at bedtime. 11. Aricept 10 mg daily. 12. Multivitamin calcium and vitamin D. 13. Aspirin 81 mg p.o. b.i.d. 14. Entresto 1 tablet p.o. b.i.d. ALLERGIES: ATIVAN, CARVEDILOL, METOPROLOL, he has a paradoxical reaction to ATIVAN. FAMILY HISTORY: Brother with colon cancer and father with colon cancer. Mother with lymphoma. SOCIAL HISTORY: Prior smoker quit 5 years ago 25 pack year and no alcohol use. Lives with his who is his surrogate decision maker. She is at the bedside today, unable to provide history. REVIEW OF SYSTEMS: Difficult to obtain, the patient is unable to answer any questions meaningfully, but the notes review of systems as above. PHYSICAL EXAMINATION: Vital Signs: Temperature of 99.1 to 100.0 to 98.8 this morning, pulse of 88, respiratory rate of 24, O2 sats 97, blood pressure 124/61 to 140/55. General: He is a well-nourished, well-developed gentleman in no acute distress. He is obese. He is lying in his hospital bed. HEENT: Normocephalic. He has a bruise around his right eye. His sclerae are anicteric , his mucous membranes are moist. His oropharynx is clear. His nares are patent. His neck is supple. There is no thyromegaly or carotid bruits. Chest : Clear to auscultation bilaterally. Cardiovascular: Regular rate and rhythm. Abdomen is obese nontender. Extremities: No clubbing, cyanosis, or significant edema appreciated. Neurologic Exam: He is awake, alert. He is oriented to person only. He is somewhat distracted. He has positive speech, but he is able to form some basic sentences. There is no dysarthria appreciated. His cranial nerves pupils are equally round and reactive to light and accommodation. Extraocular muscles are intact. Visual fernandez are difficult to assess, but he has no nystagmus, or ptosis. His face is symmetric. Facial sensation is difficult to assess. His tongue is midline, palate raises symmetrically, his hearing appears intact to finger rub bilaterally. Motor Exam: He is spontaneously moving all extremities, although he is not following commands very well. He does not appear to have any drift in the upper or lower extremities. He does have 4+/5 resistance throughout with some give way weakness in all extremities. Tone appears somewhat increased in the upper extremities with some mild cogwheeling in the right upper extremity greater than left upper extremity. Sensation is very difficult to assess as he was not able to respond appropriately, but it appears that he may have some decreased sensation bilaterally in the lower extremities to pain. His finger-to -nose, he would not participate, but he does not have any resting tremor and no postural tremor appreciated when he raises his arms, could not assess rapid alternating movements and gait was not tested. He is too unsteady to stand at this time. DTRs were 1+ at the biceps and brachioradialis. 1+ at the patella, absent at the ankles, equivocal Babinski. DIAGNOSTIC STUDIES/LAB DATA: Lab work includes a complete metabolic profile with a creatinine of 1.29, which appears to be his baseline, hemoglobin A1c of 5.8. BNP is 172. Ammonia 38. LFTs were normal. He has a white count of 14.1 on admission, 12.0 today, hemoglobin 13.1, hematocrit 39. INR 1.11. Influenza A and B negative. Imaging includes a CT of the head, which was reviewed shows a left frontotemporal chronic infarct, significant atrophy, and some white matter disease bilaterally. No significant hydrocephalus is appreciated by me. He also had cervical spine CT, which showed no acute fracture, mild reversal of normal lordosis in the upper cervical spine likely secondary to significant multilevel degenerative changes. Chest x-ray yesterday show hypoinflated lungs, linear airspace opacification in the right lower lung zone, atelectasis versus infiltrate, mild similar enlargement of the cardiac silhouette. ASSESSMENT AND PLAN: Mr. Antony is a 74-year-old gentleman with a history of multiple medical problems including coronary artery disease status post open heart surgery and stenting in the past; type 2 diabetes; a history of a stroke in the distant past with no residuals; history of possible Parkinson's disease, on carbidopa levodopa; hypertension; hyperlipidemia; dementia, on medication, who presented to the hospital with an acute decline in his mental status more agitation than normal, what sounds like worsening incontinence of urine over the last few days, but particularly worse overnight prior to admission. A fall several days prior to admission with no apparent injury, no evidence of a subdural on CT scan, although he did hit his head and has bruising around his right eye. At this point, my concern with his very acute decompensation is that he possibly could have a urinary tract infection, a straight cath urine is pending versus pneumonia with the possible infiltrate noted on chest x-ray versus the possibility of a stroke given his prior history and risk factors. The plan is to get an MRI of his brain to look for any evidence of new infarct, which could cause acute decompensation in his mental status. We will get a urine and I want to check some additional blood work including B12, folate, TSH , and free T4. I defer to the primary team regarding his possible pneumonia and treatment. As far as his Parkinson's disease, he is concerned, I will review his outpatient notes, but it appears that he has been stable on low-dose carbidopa levodopa for quite some time. It is unlikely that this medication has caused an acute decompensation. While Namenda and Aricept can both cause mental status changes, again he has been on these for quite some time. Gabapentin can also cause some alteration in mentation, but he has been on that for some time, so my suspicion that this is a change due to any medications is low. He has had no new medication started and the onset was so sudden that it appears that there may be something more acutely going on. He does have some elevated creatinine, but that is chronic in nature going back and looking at his levels in the past. His diabetes seems to be under good control. I would continue his dementia medications for now, continue his carbidopa levodopa, and will follow up his studies and make further recommendations. Thank you for the opportunity to participate in the care of this very interesting patient. [id number]/[facility] #: [id number] FAIZAN
[2019-12-29 15:22] LABS: Urine Appearance Cloudy; Urine Bilirubin Negative (Negative); Urine Blood 2+ (Negative); Urine Color Yellow; Urine Glucose Negative (Negative); Urine Ketones Negative (Negative); Urine Nitrite Negative (Negative); Urine Protein Negative (Negative); Urine Specific Gravity 1.018 (1.010-1.030); Urine Urobilinogen Negative (Negative)
[2019-12-29 15:27] LABS: Urine Bacteria Absent (Absent); Urine Red Blood Cell 3+(>10/hpf) (Absent); Urine Squamous Epithelial Cell Present (Absent); Urine White Blood Cell 2+(11-20/hpf) (Absent)
[2019-12-29] MEDS: Latanoprost 0.005%* 2.5 ml BTL BOTH EYES SCH (18:40)
--- NOTE | 2019-12-29 19:20 | PN ---
Subjective Date of Service: 12/29/19 Interval History: Pt found sitting up in bed, NAD. Nursing states that his mentation seems to have been improving throughout the day. Denies any lightheadedness, fever, chills, CP, SOB, abdominal discomfort, N/V/D, unusual numbness/tingling. Objective Active Medications: Acetaminophen (Tylenol Tab*) 650 mg PO Q6H PRN PRN Reason: FEVER/PAIN Last Admin: 12/29/19 14:53 Dose: 650 mg Atorvastatin Calcium (Lipitor*) 10 mg PO DAILY [facility] Last Admin: 12/29/19 08:54 Dose: 10 mg Calcium/Vitamin D (Oscal D Tab 250/125*) 2 tab PO BID [facility] Last Admin: 12/29/19 08:55 Dose: 2 tab Carbidopa/Levodopa (Sinemet 10/100 Tab(*)) 2 tab PO DAILY [facility] Last Admin: 12/29/19 08:57 Dose: 2 tab Donepezil HCl (Aricept Tab*) 10 mg PO DAILY [facility] Last Admin: 12/29/19 08:57 Dose: 10 mg Gabapentin (Neurontin Cap(*)) 600 mg PO TID [facility] Last Admin: 12/29/19 14:52 Dose: 600 mg Sodium Chloride (Ns 0.9% 1000 Ml) 1,000 mls @ 125 mls/hr IV PER RATE [facility] Last Admin: 12/29/19 09:05 Dose: 125 mls/hr Ceftriaxone Sodium 1 gm/ (Sodium Chloride) 50 mls @ 100 mls/hr IVPB Q24H [facility] Latanoprost (Xalatan 0.005%*) 1 drop BOTH EYES QPM [facility]; Protocol Last Admin: 12/29/19 18:40 Dose: 1 drop Magnesium Oxide (Magox 400 Tab*) 400 mg PO DAILY [facility] Last Admin: 12/29/19 08:51 Dose: 400 mg Memantine (Namenda Tab*) 10 mg PO BID [facility] Last Admin: 12/29/19 08:54 Dose: 10 mg Multivitamins/Minerals (Theragran/Minerals Tab*) 1 tab PO DAILY [facility] Last Admin: 12/29/19 08:54 Dose: 1 tab Nft: Glucosamine (Chondroitin Capsule) 1 each PO DAILY [facility] Last Admin: 12/29/19 09:04 Dose: Not Given Pantoprazole Sodium (Protonix Tab*) 40 mg PO DAILY [facility] Last Admin: 12/29/19 08:56 Dose: 40 mg Vital Signs - 8 hr 12/29/19 14:52 Respiratory 17 Rate Oxygen Devices in Use Now: Nasal Cannula - 1L Appearance: sitting up in bed, NAD Eyes: No Scleral Icterus Ears/Nose/Mouth/Throat: Mucous Membranes Moist Respiratory: Symmetrical Chest Expansion and Respiratory Effort, Clear to Auscultation Cardiovascular: RRR Abdominal: - - BS throughout. Abdomen large, round, non-tender to palpation. No lower abdominal tenderness to palpation. Extremities: - - strength normal to all extremities Skin: - - erythematous rash to abdominal fold and groin, yeast-like appearance. Bruising and mild swelling noted surrounding R eye Neurological: - - alert and oriented to self, partial situation, unaware of 's name but knows his relation to her. Nutrition: Taking PO's Result Diagrams: 12/30/19 09:31 12/30/19 09:31 Assess/Plan/Problems-Billing Assessment: is a 74yo male with a PMHx significant for CAD with triple bypass in ' and stent in 08', DM, HTN, hyperlipidemia, Parkinson's, dementia, CVA in 08', and chronic back pain. Presented to the ED on 12/28 with increased confusion , urinary incontinence, and was unable to ambulate. CT from ED negative. MRI showed no acute pathology. Pt admitted to . - Patient Problems (1) Altered mental status Current Visit: No Status: Acute Code(s): R41.82 - ALTERED MENTAL STATUS, UNSPECIFIED SNOMED Code(s): 344804106 Comment: Imaging from ED and MRI show no acute pathology. UA not convincing for UTI however pt has already had a dose of ceftriaxone IV and is not showing any other obvious signs for infection. Could be urinary related or could be of a minor viral etiology. A potential infiltrate noted on chest XRay (infiltrate vs atelectasis), lungs clear to auscultation, no SOB, titrating down O2, now on 1L and 99%. Per nursing delirium has improved throughout the day. -continue to monitor -continue ceftriaxone IV - Supportive care (2) History of CVA (cerebrovascular accident) Current Visit: Yes Status: Acute Code(s): Z86.73 - PRSNL HX OF TIA (TIA), AND CEREB INFRC W/O RESID DEFICITS SNOMED Code(s): 978305219 Comment: Swallow eval complete, no deficit noted per nursing. Pt has no noted residual from his prior CVA. Imaging showed no acute pathology. - continue with HH diet - continue neuro checks (3) CAD (coronary artery disease) Current Visit: Yes Status: Acute Code(s): I25.10 - ATHSCL HEART DISEASE OF [place] CORONARY ARTERY W/O ANG PCTRS SNOMED Code(s): 21306596 Comment: appears to be stable at this time - continue statin and asa therapy (4) Acute kidney injury Current Visit: Yes Status: Acute Code(s): N17.9 - ACUTE KIDNEY FAILURE, UNSPECIFIED SNOMED Code(s): 35686093 Comment: creatinine slowly improving from yesterday, 1.20. - continued with IVF - continue to hold entresto at this time (5) HTN (hypertension) Current Visit: No Status: Chronic Priority: Medium Code(s): I10 - ESSENTIAL (PRIMARY) HYPERTENSION SNOMED Code(s): 04115594 Comment: holding entresto - continue to monitor BPs (6) Parkinsons disease Current Visit: No Status: Chronic Priority: Medium Code(s): G20 - PARKINSON'S DISEASE SNOMED Code(s): 87471476 Comment: Weakened state, 2 max assist/EZ stand. - continue cabidopa/levodopa - can f/u outpatient with neurology per recommendation (7) Type II diabetes mellitus Current Visit: No Status: Chronic Priority: Low Comment: A1c 5.8. Glucose levels remain low 100s, pt taking PO - continue tradjenta (home med) (8) Rash Current Visit: Yes Status: Acute Code(s): R21 - RASH AND OTHER NONSPECIFIC SKIN ERUPTION SNOMED Code(s): 102328896 Comment: rash to abdominal fold and groin, yeast-like appearance, other than erythema and moisture skin appears grossly intact, pt has had multiple episodes of urinary incontinence -nystatin powder topically TID -supportive hygiene care (9) DVT prophylaxis Current Visit: No Status: Inactive Priority: Low Code(s): AOC5499 - SNOMED Code(s): 984883127 Comment: SCDs Status and Disposition: Status: improving Disposition: 4S Attending: Dipti Chris
[2019-12-29] MEDS ORDERED: Nystatin TOP POWDER* 15 GM BTL TOPICAL SCH (21:00)
[2019-12-29] MEDS: Nystatin TOP POWDER* 15 GM BTL TOPICAL SCH (22:11)
[2019-12-29] MEDS: cefTRIAXone(*) 1 GM in NS 0.9% 50 ML* 50 ML IVPB SCH (22:16)
[2019-12-30] MEDS: NS 0.9% 1000 ML** 1,000 ML IV SCH ×3 (05:41→18:08)
--- NOTE | 2019-12-30 08:07 | PN ---
Subjective Length of Stay: 2 Days Interval History: No new issues overnight. Stable. Yesterday, mentation was slowly improving. Overnight, he was incontinent of urine but is generally incontinent at home. During the night, when awakened, he was somewhat confused to time per report. Passed bedside swallow. PT evaluation yesterday. MRI: Old infarct but no acute changes UA: no strong evidence of UTI, trace Leukocyte esterase, 2+ WBC, negative bacteria. This was done after antibiotics given. Family History: Unchanged from Admission Social History: Unchanged from Admission Past Medical History: Unchanged from Admission Objective Active Medications: Acetaminophen (Tylenol Tab*) 650 mg PO Q6H PRN PRN Reason: FEVER/PAIN Last Admin: 12/29/19 14:53 Dose: 650 mg Atorvastatin Calcium (Lipitor*) 10 mg PO DAILY [facility] Last Admin: 12/29/19 08:54 Dose: 10 mg Calcium/Vitamin D (Oscal D Tab 250/125*) 2 tab PO BID [facility] Last Admin: 12/29/19 22:08 Dose: 2 tab Carbidopa/Levodopa (Sinemet 10/100 Tab(*)) 2 tab PO DAILY [facility] Last Admin: 12/29/19 08:57 Dose: 2 tab Donepezil HCl (Aricept Tab*) 10 mg PO DAILY [facility] Last Admin: 12/29/19 08:57 Dose: 10 mg Gabapentin (Neurontin Cap(*)) 600 mg PO TID [facility] Last Admin: 12/29/19 22:09 Dose: 600 mg Heparin Sodium (Porcine) (Heparin Vial(*)) 5,000 units SUBCUT Q8HR [facility] Sodium Chloride (Ns 0.9% 1000 Ml) 1,000 mls @ 125 mls/hr IV PER RATE [facility] Last Admin: 12/30/19 05:41 Dose: 125 mls/hr Ceftriaxone Sodium 1 gm/ (Sodium Chloride) 50 mls @ 100 mls/hr IVPB Q24H [facility] Last Admin: 12/29/19 22:16 Dose: 100 mls/hr Latanoprost (Xalatan 0.005%*) 1 drop BOTH EYES QPM [facility]; Protocol Last Admin: 12/29/19 18:40 Dose: 1 drop Linagliptin (Tradjenta (Nf)) 5 mg PO DAILY [facility] Magnesium Oxide (Magox 400 Tab*) 400 mg PO DAILY [facility] Last Admin: 12/29/19 08:51 Dose: 400 mg Memantine (Namenda Tab*) 10 mg PO BID [facility] Last Admin: 12/29/19 22:10 Dose: 10 mg Multivitamins/Minerals (Theragran/Minerals Tab*) 1 tab PO DAILY [facility] Last Admin: 12/29/19 08:54 Dose: 1 tab Nft: Glucosamine (Chondroitin Capsule) 1 each PO DAILY [facility] Last Admin: 12/29/19 09:04 Dose: Not Given Nystatin (Nystatin Top Powder*) 1 applic TOPICAL TID [facility] Last Admin: 12/29/19 22:11 Dose: 1 applic Pantoprazole Sodium (Protonix Tab*) 40 mg PO DAILY [facility] Last Admin: 12/29/19 08:56 Dose: 40 mg Vital Signs 12/29/19 12/29/19 12/29/19 08:00 08:05 08:51 Temperature 97.9 F Pulse Rate 69 Respiratory 19 20 16 Rate Blood Pressure 115/59 (mmHg) O2 Sat by Pulse 98 Oximetry 12/29/19 12/29/19 12/29/19 10:32 10:50 14:52 Temperature 97.8 F Pulse Rate 73 Respiratory 16 17 17 Rate Blood Pressure 136/111 (mmHg) O2 Sat by Pulse 94 Oximetry 12/29/19 12/29/19 12/29/19 16:12 17:35 19:15 Temperature 99.1 F 97.6 F Pulse Rate 69 75 Respiratory 20 19 18 Rate Blood Pressure 145/69 110/50 (mmHg) O2 Sat by Pulse 99 92 Oximetry 12/29/19 12/29/19 12/29/19 20:00 22:00 22:09 Temperature Pulse Rate Respiratory 18 28 20 Rate Blood Pressure (mmHg) O2 Sat by Pulse Oximetry 12/29/19 12/30/19 12/30/19 23:15 00:10 00:19 Temperature 97.2 F Pulse Rate 74 Respiratory 20 20 Rate Blood Pressure 134/66 (mmHg) O2 Sat by Pulse 100 98 Oximetry 12/30/19 12/30/19 12/30/19 02:00 03:15 06:00 Temperature 98.0 F Pulse Rate 76 Respiratory 20 20 20 Rate Blood Pressure 149/57 (mmHg) O2 Sat by Pulse 98 Oximetry Intake and Output Last 24 Hours 12/28/19 12/29/19 12/30/19 12/31/19 06:59 06:59 06:59 06:59 Intake Total 1650 3287 Output Total 120 Balance 1650 3167 Weight 235 lb 12.8 oz 235 lb 12.8 oz Intake: IV Fluids 1650 2807 ABX - CEFTRIAXONE 55 NS (0.9%) 650 2752 Oral 0 480 Output: Urine 120 Other: # Bowel Movements 1 Estimated Stool Amount Medium Oxygen Devices in Use Now: Nasal Cannula Neurology Exam: General: Well nourished, well developed, and in no acute distress. Sleeping but awakens easily HEENT: Normocephalic with bruising over the right eye Neck: Supple Chest: Clear to auscultation bilaterally Cardiovascular: Regular rate and rhythm Abdomen: Soft, non-tender Extremities: No clubbing, cyanosis, or edema Neurological Findings: Awakens, groggy, oriented to person only Speech: fluent without dysarthria Cranial Nerve: PERRL, EOM intact, no nystagmus, face symmetric bilaterally, hearing intact to finger rub bilaterally, palate elevates symmetrically, tongue midline Motor: Moving all extremities antigravity, symmetric, mildly increased tone in the arms, no cogwheeling today Deep Tendon Reflex: down throughout No resting tremor, no postural tremor Result Diagrams: 12/29/19 06:22 12/29/19 06:22 Microbiology and Other Data: Microbiology 12/28/19 20:14 Aerobic Blood Culture - Preliminary Blood Venous No Growth Day 1 Anaerobic Blood Culture - Preliminary No Growth Day 1 12/28/19 20:14 Aerobic Blood Culture - Preliminary Blood Venous No Growth Day 1 Assessment/Plan Mr. Antony is a 74-year-old gentleman with a history of multiple medical problems including coronary artery disease status post open heart surgery and stenting in the past; type 2 diabetes; a history of a stroke in the distant past with no residuals; history of possible Parkinson's disease, on carbidopa levodopa; hypertension; hyperlipidemia; dementia, on medication, who presented to the hospital with an acute decline in his mental status more agitation than normal, what sounds like worsening incontinence of urine over the last few days , but particularly worse overnight prior to admission. A fall several days prior to admission with no apparent injury, no evidence of a subdural on CT scan , although he did hit his head and has bruising around his right eye. Suspect Delirium on Dementia: likely multifactorial --Fall with mild concussion, possible mild UTI, Lung infiltrate--PNA?, viral illness? --On Abx --MRI negative for acute changes --PT: He may do well in PMRU, would recommend consultation. Likely decompensation of his mental status due to multiple issues. He appears to be stable and getting back to baseline. I would not stop/change his Aricept , Namenda or C/L. Plan for follow up in Neurology with Dr. Hernandez in 8-12 weeks. Will sign off for now but remain available for any new issues, questions or concerns. Thank you for the opportunity to participate in his care.
[2019-12-30] MEDS: Donepezil TAB* 5 MG PO SCH (09:25)
[2019-12-30] MEDS: Magnesium Oxide TAB* 400 MG PO SCH (09:25)
[2019-12-30] MEDS: Pantoprazole TAB * 40 MG TAB PO SCH (09:25)
[2019-12-30] MEDS: Calcium/Vitamin D TAB 250/125* TAB PO SCH ×2 (09:25→22:29)
[2019-12-30] MEDS: Atorvastatin* 10 MG TAB PO SCH (09:25)
[2019-12-30] MEDS: Memantine TAB* 10 MG PO SCH ×2 (09:25→22:29)
[2019-12-30] MEDS: Multivitamins/Minerals TAB PO SCH (09:25)
[2019-12-30] MEDS: Gabapentin CAP(*) 300 MG PO SCH ×3 (09:26→22:28)
[2019-12-30] MEDS: GLUCOSAMINE CHONDROITIN PO SCH (09:26)
[2019-12-30] MEDS: Carbidopa/Levodop 10/100 MG TAB(*) PO SCH (09:26)
[2019-12-30] MEDS: Heparin VIAL(*) 5000 UNITS/ML VIAL (FIVE THOUSAND) SUBCUT SCH ×3 (09:27→22:29)
[2019-12-30] MEDS: LINAGLIPTIN 5 MG PO SCH (09:27)
[2019-12-30] MEDS: Nystatin TOP POWDER* 15 GM BTL TOPICAL SCH ×3 (09:27→22:28)
[2019-12-30 09:46] LABS: ABS Eosinophils 0.4 10^3/ul (0-0.6); ABS Monocytes 0.8 10^3/ul (0-0.8); ABS Neutrophils 8.7 10^3/ul (1.5-7.7); Eosinophil % 3.5 %; Hematocrit 42 % (42-52); Lymphocyte % 9.4 %; Mean Corpuscular HGB Conc 33 g/dL (31-36); Mean Corpuscular Hemoglobin 32 pg (27-31); Mean Corpuscular Volume 98 fL (80-94); Mean Platelet Volume 8.6 fL (7.4-10.4); Platelet Count 153 10^3/uL (150-450); Red Blood Count 4.32 10^6 /uL (4.18-5.48); Red Cell Distribution Width 14 % (10-15)
[2019-12-30 09:57] LABS: Activated Partial Thrombo Time 35.5 seconds (26.0-38.0); INR 1.1 (0.82-1.09)
[2019-12-30 10:02] LABS: EGFR African American 77.3 (>60); EGFR Non-African American 63.9 (>60)
--- NOTE | 2019-12-30 17:35 | PN ---
Subjective Date of Service: 12/30/19 Interval History: Pt found this morning sitting up in bed, resting, NAD. Exhibits confusion but oriented to self and some of situation. Better than yesterday. Denies any headache, fever, chills, CP, SOB, N/V/D, unusual numbness/tingling. Needs lots of direction/repition of commands with certain tasks. states he seems more confused than usual but also thinks that his mentation is somewhat improved from yesterday. Has been 2 max assist/EZ stand. Family History: Unchanged from Admission Social History: Unchanged from Admission Past Medical History: Unchanged from Admission Objective Active Medications: Acetaminophen (Tylenol Tab*) 650 mg PO Q6H PRN PRN Reason: FEVER/PAIN Last Admin: 12/29/19 14:53 Dose: 650 mg Atorvastatin Calcium (Lipitor*) 10 mg PO DAILY [facility] Last Admin: 12/30/19 09:25 Dose: 10 mg Calcium/Vitamin D (Oscal D Tab 250/125*) 2 tab PO BID [facility] Last Admin: 12/30/19 09:25 Dose: 2 tab Carbidopa/Levodopa (Sinemet 10/100 Tab(*)) 2 tab PO DAILY [facility] Last Admin: 12/30/19 09:26 Dose: 2 tab Donepezil HCl (Aricept Tab*) 10 mg PO DAILY [facility] Last Admin: 12/30/19 09:25 Dose: 10 mg Gabapentin (Neurontin Cap(*)) 600 mg PO TID [facility] Last Admin: 12/30/19 14:03 Dose: 600 mg Heparin Sodium (Porcine) (Heparin Vial(*)) 5,000 units SUBCUT Q8HR [facility] Last Admin: 12/30/19 14:02 Dose: 5,000 units Ceftriaxone Sodium 1 gm/ (Sodium Chloride) 50 mls @ 100 mls/hr IVPB Q24H [facility] Last Admin: 12/29/19 22:16 Dose: 100 mls/hr Sodium Chloride (Ns 0.9% 1000 Ml) 1,000 mls @ 75 mls/hr IV PER RATE [facility] Latanoprost (Xalatan 0.005%*) 1 drop BOTH EYES QPM [facility]; Protocol Last Admin: 12/29/19 18:40 Dose: 1 drop Linagliptin (Tradjenta (Nf)) 5 mg PO DAILY [facility] Last Admin: 12/30/19 09:27 Dose: Not Given Magnesium Oxide (Magox 400 Tab*) 400 mg PO DAILY [facility] Last Admin: 12/30/19 09:25 Dose: 400 mg Memantine (Namenda Tab*) 10 mg PO BID [facility] Last Admin: 12/30/19 09:25 Dose: 10 mg Multivitamins/Minerals (Theragran/Minerals Tab*) 1 tab PO DAILY [facility] Last Admin: 12/30/19 09:25 Dose: 1 tab Nft: Glucosamine (Chondroitin Capsule) 1 each PO DAILY [facility] Last Admin: 12/30/19 09:26 Dose: Not Given Nystatin (Nystatin Top Powder*) 1 applic TOPICAL TID [facility] Last Admin: 12/30/19 14:03 Dose: 1 applic Pantoprazole Sodium (Protonix Tab*) 40 mg PO DAILY [facility] Last Admin: 12/30/19 09:25 Dose: 40 mg Vital Signs - 8 hr 12/30/19 12/30/19 12/30/19 11:15 12:11 14:03 Temperature 97.5 F Pulse Rate 77 Respiratory 20 20 22 Rate Blood Pressure 131/69 (mmHg) O2 Sat by Pulse 100 Oximetry 12/30/19 12/30/19 15:15 16:19 Temperature 97.8 F Pulse Rate 74 Respiratory 20 18 Rate Blood Pressure 153/78 (mmHg) O2 Sat by Pulse 100 Oximetry Oxygen Devices in Use Now: Nasal Cannula - 2L O2 Appearance: sitting up in bed, resting, NAD Eyes: No Scleral Icterus, - - PERRL Ears/Nose/Mouth/Throat: - Respiratory: Symmetrical Chest Expansion and Respiratory Effort, Clear to Auscultation Cardiovascular: RRR Abdominal: - - large, round, BS throughout, non-tender to palpation Extremities: - - 1+ pitting edema R foot Skin: - - erythematous rash to abdominal fold/groin. Bruising and mild swelling noted around R eye Neurological: - - Alert, oriented to self and partial situation. Needs lots of prompting/direction to complete certain simple tasks. Can hold arms out infront of him, can lift bilateral legs off bed briefly. EOMI, again needs much encouragement to do so. Nutrition: Taking PO's, - - not drinking much, will continue IVF Result Diagrams: 12/30/19 09:31 12/30/19 09:31 Additional Lab and Data: Abnormal Lab Results 12/29/19 12/30/19 12/30/19 18:08 04:54 05:36 WBC RBC Hgb Hct MCV MCH MCHC RDW Plt Count MPV Neut % (Auto) Lymph % (Auto) [place] % (Auto) Eos % (Auto) Baso % (Auto) Absolute Neuts (auto) Absolute Lymphs (auto) Absolute Monos (auto) Absolute Eos (auto) Absolute Basos (auto) Absolute Nucleated RBC Nucleated RBC % INR (Anticoag Therapy) APTT BUN Creatinine Est GFR ( Amer) Est GFR (Non-Af Amer) POC Glucose (mg/dL) 110 H 74 77 12/30/19 12/30/19 12/30/19 09:31 09:31 09:31 WBC 11.0 H RBC 4.32 Hgb 14.0 Hct 42 MCV 98 H MCH 32 H MCHC 33 RDW 14 Plt Count 153 MPV 8.6 Neut % (Auto) 79.1 Lymph % (Auto) 9.4 [place] % (Auto) 7.6 Eos % (Auto) 3.5 Baso % (Auto) 0.4 Absolute Neuts (auto) 8.7 H Absolute Lymphs (auto) 1.0 Absolute Monos (auto) 0.8 Absolute Eos (auto) 0.4 Absolute Basos (auto) 0.0 Absolute Nucleated RBC 0.0 Nucleated RBC % 0.0 INR (Anticoag Therapy) 1.10 H APTT 35.5 BUN 13 Creatinine 1.12 Est GFR ( Amer) 77.3 Est GFR (Non-Af Amer) 63.9 POC Glucose (mg/dL) 12/30/19 12:06 WBC RBC Hgb Hct MCV MCH MCHC RDW Plt Count MPV Neut % (Auto) Lymph % (Auto) [place] % (Auto) Eos % (Auto) Baso % (Auto) Absolute Neuts (auto) Absolute Lymphs (auto) Absolute Monos (auto) Absolute Eos (auto) Absolute Basos (auto) Absolute Nucleated RBC Nucleated RBC % INR (Anticoag Therapy) APTT BUN Creatinine Est GFR ( Amer) Est GFR (Non-Af Amer) POC Glucose (mg/dL) 113 H Microbiology and Other Data: Microbiology 12/28/19 20:14 Aerobic Blood Culture - Preliminary Blood Venous No Growth Day 1 Anaerobic Blood Culture - Preliminary No Growth Day 1 12/28/19 20:14 Aerobic Blood Culture - Preliminary Blood Venous No Growth Day 1 Assess/Plan/Problems-Billing Assessment: is a 74yo male with a PMHx significant for CAD with triple bypass in ' and stent in ', DM, HTN, hyperlipidemia, Parkinson's, dementia, CVA in ', and chronic back pain. Presented to the ED on 12/28 with increased confusion , urinary incontinence, and was unable to ambulate. CT and MRI showed no acute pathology. Pt admitted to 4S. - Patient Problems (1) Altered mental status Current Visit: No Status: Acute Code(s): R41.82 - ALTERED MENTAL STATUS, UNSPECIFIED SNOMED Code(s): 605029697 Comment: Imaging from ED and MRI show no acute pathology. UA not convincing for UTI however pt has already had a dose of ceftriaxone IV and is not showing any other obvious signs for infection. Could be urinary related or could be of a minor viral etiology. A potential infiltrate noted on chest XRay (infiltrate vs atelectasis), lungs clear to auscultation, no SOB, O2 SATs appear to be improving and order entered to titrate down O2. Slight improvement in delirium ( confusion at baseline). -continue to monitor -continue ceftriaxone IV - Supportive care (2) History of CVA (cerebrovascular accident) Current Visit: Yes Status: Acute Code(s): Z86.73 - PRSNL HX OF TIA (TIA), AND CEREB INFRC W/O RESID DEFICITS SNOMED Code(s): 495255254 Comment: Swallow eval complete, no deficit noted per nursing. Pt has no noted residual from his prior CVA. Imaging showed no acute pathology. - continue with HH diet - continue neuro checks (3) CAD (coronary artery disease) Current Visit: Yes Status: Acute Code(s): I25.10 - ATHSCL HEART DISEASE OF [place] CORONARY ARTERY W/O ANG PCTRS SNOMED Code(s): 97206906 Comment: appears to be stable at this time - continue statin and asa therapy (4) Acute kidney injury Current Visit: Yes Status: Acute Code(s): N17.9 - ACUTE KIDNEY FAILURE, UNSPECIFIED SNOMED Code(s): 45710536 Comment: creatinine today WNL. - continued with IVF but at lower rate as he is not drinking much however would want to avoid fluid overload - continue to hold entresto at this time (5) HTN (hypertension) Current Visit: No Status: Chronic Priority: Medium Code(s): I10 - ESSENTIAL (PRIMARY) HYPERTENSION SNOMED Code(s): 82140424 Comment: holding entresto - continue to monitor BPs (6) Parkinsons disease Current Visit: No Status: Chronic Priority: Medium Code(s): G20 - PARKINSON'S DISEASE SNOMED Code(s): 76162820 Comment: Weakened state, 2 max assist/EZ stand. - PMRU referral entered - continue cabidopa/levodopa - can f/u outpatient with neurology per recommendation (7) Type II diabetes mellitus Current Visit: No Status: Chronic Priority: Low Comment: A1c 5.8. Glucose levels remain low 100s, pt taking PO - continue tradjenta (home med) (8) Rash Current Visit: Yes Status: Acute Code(s): R21 - RASH AND OTHER NONSPECIFIC SKIN ERUPTION SNOMED Code(s): 560660537 Comment: rash to abdominal fold and groin, yeast-like appearance, other than erythema and moisture skin appears grossly intact, pt has had multiple episodes of urinary incontinence -nystatin powder topically TID -supportive hygiene care (9) DVT prophylaxis Current Visit: No Status: Inactive Priority: Low Code(s): VDX9357 - SNOMED Code(s): 751774176 Comment: Heparin sq SCDs Status and Disposition: Status: mild improvement Disposition: 4S Attending: Dipti Chris
[2019-12-30] MEDS: Latanoprost 0.005%* 2.5 ml BTL BOTH EYES SCH (17:47)
[2019-12-31] MEDS: cefTRIAXone(*) 1 GM in NS 0.9% 50 ML* 50 ML IVPB SCH ×2 (00:43→21:04)
[2019-12-31] MEDS: Heparin VIAL(*) 5000 UNITS/ML VIAL (FIVE THOUSAND) SUBCUT SCH ×3 (05:58→21:07)
[2019-12-31 06:37] LABS: ABS Basophils 0.1 10^3/ul (0-0.2); ABS Eosinophils 0.5 10^3/ul (0-0.6); ABS Lymphocytes 1.4 10^3/ul (1.0-4.8); ABS Monocytes 0.9 10^3/ul (0-0.8); ABS Neutrophils 4.3 10^3/ul (1.5-7.7); Eosinophil % 6.6 %; Hematocrit 40 % (42-52); Hemoglobin 13.4 g/dL (14.0-18.0); Lymphocyte % 19.9 %; Mean Corpuscular HGB Conc 34 g/dL (31-36); Mean Corpuscular Hemoglobin 33 pg (27-31); Mean Corpuscular Volume 98 fL (80-94); Mean Platelet Volume 8.6 fL (7.4-10.4); Platelet Count 141 10^3/uL (150-450); Red Blood Count 4.09 10^6 /uL (4.18-5.48); Red Cell Distribution Width 13 % (10-15); White Blood Count 7.1 10^3/uL (3.5-10.8)
[2019-12-31 07:06] LABS: EGFR African American 82.4 (>60); EGFR Non-African American 68.1 (>60)
[2019-12-31] MEDS: NS 0.9% 1000 ML** 1,000 ML IV SCH (07:14)
[2019-12-31] MEDS: Multivitamins/Minerals TAB PO SCH (09:24)
[2019-12-31] MEDS: Carbidopa/Levodop 10/100 MG TAB(*) PO SCH (09:24)
[2019-12-31] MEDS: Memantine TAB* 10 MG PO SCH ×2 (09:24→21:05)
[2019-12-31] MEDS: Donepezil TAB* 5 MG PO SCH (09:25)
[2019-12-31] MEDS: Calcium/Vitamin D TAB 250/125* TAB PO SCH ×2 (09:25→21:04)
[2019-12-31] MEDS: Magnesium Oxide TAB* 400 MG PO SCH (09:25)
[2019-12-31] MEDS: Nystatin TOP POWDER* 15 GM BTL TOPICAL SCH ×3 (09:25→21:06)
[2019-12-31] MEDS: Atorvastatin* 10 MG TAB PO SCH (09:25)
[2019-12-31] MEDS: Pantoprazole TAB * 40 MG TAB PO SCH (09:25)
[2019-12-31] MEDS: Gabapentin CAP(*) 300 MG PO SCH ×3 (09:26→21:05)
[2019-12-31] MEDS: GLUCOSAMINE CHONDROITIN PO SCH (09:26)
[2019-12-31] MEDS ORDERED: Levalbuterol 0.63MG/3ML NEB* UNIT OF USE INH PRN (09:52)
[2019-12-31] MEDS: LINAGLIPTIN 5 MG PO SCH (10:36)
--- NOTE | 2019-12-31 18:38 | PN ---
Subjective Date of Service: 12/31/19 Interval History: Pt found sitting up in bed, awake, alert. NAD. Denies any fever, chills, CP, abdominal pain, N/V/D, unusual numbness/tingling. States he has felt "a little" SOB. Family History: Unchanged from Admission Social History: Unchanged from Admission Past Medical History: Unchanged from Admission Objective Active Medications: Acetaminophen (Tylenol Tab*) 650 mg PO Q6H PRN PRN Reason: FEVER/PAIN Last Admin: 12/29/19 14:53 Dose: 650 mg Atorvastatin Calcium (Lipitor*) 10 mg PO DAILY [facility] Last Admin: 12/31/19 09:25 Dose: 10 mg Calcium/Vitamin D (Oscal D Tab 250/125*) 2 tab PO BID [facility] Last Admin: 12/31/19 09:25 Dose: 2 tab Carbidopa/Levodopa (Sinemet 10/100 Tab(*)) 2 tab PO DAILY [facility] Last Admin: 12/31/19 09:24 Dose: 2 tab Donepezil HCl (Aricept Tab*) 10 mg PO DAILY [facility] Last Admin: 12/31/19 09:25 Dose: 10 mg Gabapentin (Neurontin Cap(*)) 600 mg PO TID [facility] Last Admin: 12/31/19 14:32 Dose: 600 mg Heparin Sodium (Porcine) (Heparin Vial(*)) 5,000 units SUBCUT Q8HR [facility] Last Admin: 12/31/19 14:33 Dose: 5,000 units Ceftriaxone Sodium 1 gm/ (Sodium Chloride) 50 mls @ 100 mls/hr IVPB Q24H [facility] Last Admin: 12/31/19 00:43 Dose: 100 mls/hr Latanoprost (Xalatan 0.005%*) 1 drop BOTH EYES QPM [facility]; Protocol Last Admin: 12/30/19 17:47 Dose: 1 drop Levalbuterol HCl (Xopenex 0.63mg/3ml Neb*) 0.63 mg INH Q4H PRN PRN Reason: WHEEZING Last Admin: 12/31/19 10:37 Dose: 0.63 mg Linagliptin (Tradjenta (Nf)) 5 mg PO DAILY [facility] Last Admin: 12/31/19 10:36 Dose: 5 mg Magnesium Oxide (Magox 400 Tab*) 400 mg PO DAILY [facility] Last Admin: 12/31/19 09:25 Dose: 400 mg Memantine (Namenda Tab*) 10 mg PO BID [facility] Last Admin: 12/31/19 09:24 Dose: 10 mg Multivitamins/Minerals (Theragran/Minerals Tab*) 1 tab PO DAILY [facility] Last Admin: 12/31/19 09:24 Dose: 1 tab Nft: Glucosamine (Chondroitin Capsule) 1 each PO DAILY [facility] Last Admin: 12/31/19 09:26 Dose: Not Given Nystatin (Nystatin Top Powder*) 1 applic TOPICAL TID [facility] Last Admin: 12/31/19 14:33 Dose: 1 applic Pantoprazole Sodium (Protonix Tab*) 40 mg PO DAILY [facility] Last Admin: 12/31/19 09:25 Dose: 40 mg Vital Signs - 8 hr 12/31/19 12/31/19 12/31/19 10:38 10:42 11:20 Temperature 98.4 F Pulse Rate 72 73 Respiratory 18 16 Rate Blood Pressure 134/67 (mmHg) O2 Sat by Pulse 91 91 100 Oximetry 12/31/19 12/31/19 12/31/19 11:44 14:31 14:32 Temperature Pulse Rate Respiratory 18 18 Rate Blood Pressure (mmHg) O2 Sat by Pulse 94 Oximetry 12/31/19 12/31/19 12/31/19 15:23 15:51 16:34 Temperature 98.0 F Pulse Rate 71 Respiratory 16 18 Rate Blood Pressure 121/68 (mmHg) O2 Sat by Pulse 100 100 Oximetry Oxygen Devices in Use Now: Nasal Cannula - 1.5 L Appearance: sitting up in bed, NAD Eyes: No Scleral Icterus, - - PERRL Ears/Nose/Mouth/Throat: Mucous Membranes Moist Respiratory: Symmetrical Chest Expansion and Respiratory Effort, - - Audible wheeze to ELSA, all other lobes clear but diminished, normal effort Cardiovascular: RRR Abdominal: - - BSX4, large round, SNT Extremities: - - 1+ pitting edema R foot Skin: - - erythematous rash to abdominal fold and groin, seems to have improved slightly since yesterday. Old bruising noted surrounding R eye. Neurological: - - Alert, oriented to self, partial situation, able to follow commands with much more ease and consistency than yesterday. More interactive than during previous care given Nutrition: Taking PO's Result Diagrams: 12/31/19 06:25 12/31/19 06:25 Additional Lab and Data: Abnormal Lab Results 12/29/19 12/30/19 12/30/19 18:08 04:54 05:36 WBC RBC Hgb Hct MCV MCH MCHC RDW Plt Count MPV Neut % (Auto) Lymph % (Auto) [place] % (Auto) Eos % (Auto) Baso % (Auto) Absolute Neuts (auto) Absolute Lymphs (auto) Absolute Monos (auto) Absolute Eos (auto) Absolute Basos (auto) Absolute Nucleated RBC Nucleated RBC % INR (Anticoag Therapy) APTT BUN Creatinine Est GFR ( Amer) Est GFR (Non-Af Amer) POC Glucose (mg/dL) 110 H 74 77 12/30/19 12/30/19 12/30/19 09:31 09:31 09:31 WBC 11.0 H RBC 4.32 Hgb 14.0 Hct 42 MCV 98 H MCH 32 H MCHC 33 RDW 14 Plt Count 153 MPV 8.6 Neut % (Auto) 79.1 Lymph % (Auto) 9.4 [place] % (Auto) 7.6 Eos % (Auto) 3.5 Baso % (Auto) 0.4 Absolute Neuts (auto) 8.7 H Absolute Lymphs (auto) 1.0 Absolute Monos (auto) 0.8 Absolute Eos (auto) 0.4 Absolute Basos (auto) 0.0 Absolute Nucleated RBC 0.0 Nucleated RBC % 0.0 INR (Anticoag Therapy) 1.10 H APTT 35.5 BUN 13 Creatinine 1.12 Est GFR ( Amer) 77.3 Est GFR (Non-Af Amer) 63.9 POC Glucose (mg/dL) 12/30/19 12:06 WBC RBC Hgb Hct MCV MCH MCHC RDW Plt Count MPV Neut % (Auto) Lymph % (Auto) [place] % (Auto) Eos % (Auto) Baso % (Auto) Absolute Neuts (auto) Absolute Lymphs (auto) Absolute Monos (auto) Absolute Eos (auto) Absolute Basos (auto) Absolute Nucleated RBC Nucleated RBC % INR (Anticoag Therapy) APTT BUN Creatinine Est GFR ( Amer) Est GFR (Non-Af Amer) POC Glucose (mg/dL) 113 H Abnormal Lab Results 12/30/19 12/31/19 12/31/19 18:31 00:28 05:57 WBC RBC Hgb Hct MCV MCH MCHC RDW Plt Count MPV Neut % (Auto) Lymph % (Auto) [place] % (Auto) Eos % (Auto) Baso % (Auto) Absolute Neuts (auto) Absolute Lymphs (auto) Absolute Monos (auto) Absolute Eos (auto) Absolute Basos (auto) Absolute Nucleated RBC Nucleated RBC % BUN Creatinine Est GFR ( Amer) Est GFR (Non-Af Amer) POC Glucose (mg/dL) 89 87 88 12/31/19 12/31/19 12/31/19 06:25 06:25 12:15 WBC 7.1 RBC 4.09 L Hgb 13.4 L Hct 40 L MCV 98 H MCH 33 H MCHC 34 RDW 13 Plt Count 141 L MPV 8.6 Neut % (Auto) 60.2 Lymph % (Auto) 19.9 [place] % (Auto) 12.3 Eos % (Auto) 6.6 Baso % (Auto) 1.0 Absolute Neuts (auto) 4.3 Absolute Lymphs (auto) 1.4 Absolute Monos (auto) 0.9 H Absolute Eos (auto) 0.5 Absolute Basos (auto) 0.1 Absolute Nucleated RBC 0.0 Nucleated RBC % 0.0 BUN 10 Creatinine 1.06 Est GFR ( Amer) 82.4 Est GFR (Non-Af Amer) 68.1 POC Glucose (mg/dL) 114 H Microbiology and Other Data: Microbiology 12/28/19 20:14 Aerobic Blood Culture - Preliminary Blood Venous No Growth Day 1 Anaerobic Blood Culture - Preliminary No Growth Day 1 12/28/19 20:14 Aerobic Blood Culture - Preliminary Blood Venous No Growth Day 1 Assess/Plan/Problems-Billing Assessment: is a 74yo male with a PMHx significant for CAD with triple bypass in 97' and stent in 08', DM, HTN, hyperlipidemia, Parkinson's, dementia, CVA in 08', and chronic back pain. Presented to the ED on 12/28 with increased confusion , urinary incontinence, and was unable to ambulate. CT from ED negative. MRI showed no acute pathology. Pt admitted to 4S. - Patient Problems (1) Altered mental status Current Visit: No Status: Acute Code(s): R41.82 - ALTERED MENTAL STATUS, UNSPECIFIED SNOMED Code(s): 529271597 Comment: Imaging from ED and MRI show no acute pathology. Leukocytosis on arrival. UA not convincing for UTI however pt has already had a dose of ceftriaxone IV and is not showing any other obvious signs for infection. Could be urinary related or could be of a minor viral etiology. A potential infiltrate noted on chest XRay (infiltrate vs atelectasis), but exam not convincing for pneumonia. Mentation improvement noted today, believes he is better but still not at his baseline. -continue to monitor -continue ceftriaxone IV, may be discontinued in the near future - Supportive care (2) History of CVA (cerebrovascular accident) Current Visit: Yes Status: Acute Code(s): Z86.73 - PRSNL HX OF TIA (TIA), AND CEREB INFRC W/O RESID DEFICITS SNOMED Code(s): 194633391 Comment: Swallow eval complete, no deficit noted per nursing. Pt has no noted residual from his prior CVA. Imaging showed no acute pathology. - continue with HH diet - d/c neuro checks as pt has shown some improvement and no neurological decline or other focal deficit during admission (3) CAD (coronary artery disease) Current Visit: Yes Status: Acute Code(s): I25.10 - ATHSCL HEART DISEASE OF [place] CORONARY ARTERY W/O ANG PCTRS SNOMED Code(s): 99964900 Comment: appears to be stable at this time - continue statin and asa therapy (4) HTN (hypertension) Current Visit: No Status: Chronic Priority: Medium Code(s): I10 - ESSENTIAL (PRIMARY) HYPERTENSION SNOMED Code(s): 98804856 Comment: BPs stable with mild elevations at times - continue to monitor BPs - will restart entresto (5) Parkinsons disease Current Visit: No Status: Chronic Priority: Medium Code(s): G20 - PARKINSON'S DISEASE SNOMED Code(s): 33502042 Comment: Weakened state, 2 max assist/SAVAEG. - continue cabidopa/levodopa - can f/u outpatient with neurology per recommendation - Seeking rehab services at discharge (6) Type II diabetes mellitus Current Visit: No Status: Chronic Priority: Low Comment: A1c 5.8. Glucose levels remain WNL to low 100s, pt taking PO - continue tradjenta (home med) (7) Rash Current Visit: Yes Status: Acute Code(s): R21 - RASH AND OTHER NONSPECIFIC SKIN ERUPTION SNOMED Code(s): 586850481 Comment: rash appearance seems to have slight improvement from yesterday -continue nystatin powder topically TID -supportive hygiene care (8) DVT prophylaxis Current Visit: No Status: Inactive Priority: Low Code(s): ZKS7622 - SNOMED Code(s): 619647706 Comment: heparin sq SCDs Status and Disposition: Status: improving Disposition: 4S Attending: Guera Boinlla
[2019-12-31] MEDS: Latanoprost 0.005%* 2.5 ml BTL BOTH EYES SCH (18:42)
[2019-12-31] MEDS: PTO: Sacubitril/Valsartan 24/26(NF) 1 TAB PO SCH (21:07)
[2020-01-01] MEDS: Heparin VIAL(*) 5000 UNITS/ML VIAL (FIVE THOUSAND) SUBCUT SCH ×3 (05:35→21:54)
[2020-01-01 05:51] LABS: ABS Basophils 0.1 10^3/ul (0-0.2); ABS Eosinophils 0.5 10^3/ul (0-0.6); ABS Lymphocytes 1.8 10^3/ul (1.0-4.8); ABS Neutrophils 3.4 10^3/ul (1.5-7.7); Eosinophil % 6.7 %; Hematocrit 41 % (42-52); Hemoglobin 13.9 g/dL (14.0-18.0); Lymphocyte % 26.6 %; Mean Corpuscular HGB Conc 34 g/dL (31-36); Mean Corpuscular Hemoglobin 33 pg (27-31); Mean Corpuscular Volume 97 fL (80-94); Mean Platelet Volume 8.7 fL (7.4-10.4); Platelet Count 162 10^3/uL (150-450); Red Cell Distribution Width 13 % (10-15); White Blood Count 6.8 10^3/uL (3.5-10.8)
[2020-01-01] MEDS: GLUCOSAMINE CHONDROITIN PO SCH (08:32)
[2020-01-01] MEDS: Gabapentin CAP(*) 300 MG PO SCH ×3 (08:40→21:50)
[2020-01-01] MEDS: Donepezil TAB* 5 MG PO SCH (08:40)
[2020-01-01] MEDS: Atorvastatin* 10 MG TAB PO SCH (08:40)
[2020-01-01] MEDS: Magnesium Oxide TAB* 400 MG PO SCH (08:40)
[2020-01-01] MEDS: Carbidopa/Levodop 10/100 MG TAB(*) PO SCH (08:41)
[2020-01-01] MEDS: Multivitamins/Minerals TAB PO SCH (08:41)
[2020-01-01] MEDS: Pantoprazole TAB * 40 MG TAB PO SCH (08:41)
[2020-01-01] MEDS: Calcium/Vitamin D TAB 250/125* TAB PO SCH ×2 (08:41→21:53)
[2020-01-01] MEDS: LINAGLIPTIN 5 MG PO SCH (08:42)
[2020-01-01] MEDS: Memantine TAB* 10 MG PO SCH ×2 (08:42→21:53)
[2020-01-01] MEDS: Nystatin TOP POWDER* 15 GM BTL TOPICAL SCH ×3 (11:43→21:53)
[2020-01-01] MEDS: PTO: Sacubitril/Valsartan 24/26(NF) 1 TAB PO SCH ×2 (11:43→21:56)
--- NOTE | 2020-01-01 16:45 | PN ---
Subjective Date of Service: 01/01/20 Interval History: Pt seen this morning, sitting up in bed, easily awakened and alert. Denies any concerns. Denies headaches, fever, CP, SOB, abdominal discomfort. Was recently incontinent of urine. Unsure of last BM. States that he is feeling "better" today. Family History: Unchanged from Admission Social History: Unchanged from Admission Past Medical History: Unchanged from Admission Objective Active Medications: Acetaminophen (Tylenol Tab*) 650 mg PO Q6H PRN PRN Reason: FEVER/PAIN Last Admin: 12/29/19 14:53 Dose: 650 mg Atorvastatin Calcium (Lipitor*) 10 mg PO DAILY [facility] Last Admin: 01/01/20 08:40 Dose: 10 mg Calcium/Vitamin D (Oscal D Tab 250/125*) 2 tab PO BID [facility] Last Admin: 01/01/20 08:41 Dose: 2 tab Carbidopa/Levodopa (Sinemet 10/100 Tab(*)) 2 tab PO DAILY [facility] Last Admin: 01/01/20 08:41 Dose: 2 tab Donepezil HCl (Aricept Tab*) 10 mg PO DAILY [facility] Last Admin: 01/01/20 08:40 Dose: 10 mg Gabapentin (Neurontin Cap(*)) 600 mg PO TID [facility] Last Admin: 01/01/20 13:45 Dose: 600 mg Heparin Sodium (Porcine) (Heparin Vial(*)) 5,000 units SUBCUT Q8HR [facility] Last Admin: 01/01/20 13:49 Dose: 5,000 units Ceftriaxone Sodium 1 gm/ (Sodium Chloride) 50 mls @ 100 mls/hr IVPB Q24H [facility] Stop: 01/01/20 22:00 Last Admin: 12/31/19 21:04 Dose: 100 mls/hr Latanoprost (Xalatan 0.005%*) 1 drop BOTH EYES QPM [facility]; Protocol Last Admin: 12/31/19 18:42 Dose: 1 drop Levalbuterol HCl (Xopenex 0.63mg/3ml Neb*) 0.63 mg INH Q4H PRN PRN Reason: WHEEZING Last Admin: 12/31/19 10:37 Dose: 0.63 mg Linagliptin (Tradjenta (Nf)) 5 mg PO DAILY [facility] Last Admin: 01/01/20 08:42 Dose: 5 mg Magnesium Oxide (Magox 400 Tab*) 400 mg PO DAILY [facility] Last Admin: 01/01/20 08:40 Dose: 400 mg Memantine (Namenda Tab*) 10 mg PO BID [facility] Last Admin: 01/01/20 08:42 Dose: 10 mg Multivitamins/Minerals (Theragran/Minerals Tab*) 1 tab PO DAILY [facility] Last Admin: 01/01/20 08:41 Dose: 1 tab Nft: Glucosamine (Chondroitin Capsule) 1 each PO DAILY [facility] Last Admin: 01/01/20 08:32 Dose: Not Given Nystatin (Nystatin Top Powder*) 1 applic TOPICAL TID [facility] Last Admin: 01/01/20 14:22 Dose: 1 applic Pantoprazole Sodium (Protonix Tab*) 40 mg PO DAILY [facility] Last Admin: 01/01/20 08:41 Dose: 40 mg Sacubitril/Valsartan (Entresto (Nf)) 1 tab PO BID [facility] Last Admin: 01/01/20 11:43 Dose: 1 tab Vital Signs - 8 hr 01/01/20 01/01/20 01/01/20 08:40 11:15 13:45 Temperature 97.6 F Pulse Rate 68 Respiratory 20 16 19 Rate Blood Pressure 117/63 (mmHg) O2 Sat by Pulse 95 Oximetry 01/01/20 01/01/20 13:49 15:15 Temperature Pulse Rate Respiratory 16 16 Rate Blood Pressure (mmHg) O2 Sat by Pulse Oximetry Oxygen Devices in Use Now: None Appearance: Sitting up in bed, NAD Eyes: No Scleral Icterus Ears/Nose/Mouth/Throat: Mucous Membranes Moist Respiratory: Symmetrical Chest Expansion and Respiratory Effort, - - quiet rhonci noted to BUL, all other lobes clear but slightly diminished Cardiovascular: RRR Abdominal: - - BS throughout. Large, round, SNT Extremities: - - trace pitting edema R foot Skin: - - erythema continues to improve to abdominal fold/groin. Bruising slowly improving surrounding R eye Neurological: Alert and Oriented x 3 Nutrition: Taking PO's Result Diagrams: 01/01/20 05:39 12/31/19 06:25 Additional Lab and Data: Abnormal Lab Results 12/29/19 12/30/19 12/30/19 18:08 04:54 05:36 WBC RBC Hgb Hct MCV MCH MCHC RDW Plt Count MPV Neut % (Auto) Lymph % (Auto) [place] % (Auto) Eos % (Auto) Baso % (Auto) Absolute Neuts (auto) Absolute Lymphs (auto) Absolute Monos (auto) Absolute Eos (auto) Absolute Basos (auto) Absolute Nucleated RBC Nucleated RBC % INR (Anticoag Therapy) APTT BUN Creatinine Est GFR ( Amer) Est GFR (Non-Af Amer) POC Glucose (mg/dL) 110 H 74 77 12/30/19 12/30/19 12/30/19 09:31 09:31 09:31 WBC 11.0 H RBC 4.32 Hgb 14.0 Hct 42 MCV 98 H MCH 32 H MCHC 33 RDW 14 Plt Count 153 MPV 8.6 Neut % (Auto) 79.1 Lymph % (Auto) 9.4 [place] % (Auto) 7.6 Eos % (Auto) 3.5 Baso % (Auto) 0.4 Absolute Neuts (auto) 8.7 H Absolute Lymphs (auto) 1.0 Absolute Monos (auto) 0.8 Absolute Eos (auto) 0.4 Absolute Basos (auto) 0.0 Absolute Nucleated RBC 0.0 Nucleated RBC % 0.0 INR (Anticoag Therapy) 1.10 H APTT 35.5 BUN 13 Creatinine 1.12 Est GFR ( Amer) 77.3 Est GFR (Non-Af Amer) 63.9 POC Glucose (mg/dL) 12/30/19 12:06 WBC RBC Hgb Hct MCV MCH MCHC RDW Plt Count MPV Neut % (Auto) Lymph % (Auto) [place] % (Auto) Eos % (Auto) Baso % (Auto) Absolute Neuts (auto) Absolute Lymphs (auto) Absolute Monos (auto) Absolute Eos (auto) Absolute Basos (auto) Absolute Nucleated RBC Nucleated RBC % INR (Anticoag Therapy) APTT BUN Creatinine Est GFR ( Amer) Est GFR (Non-Af Amer) POC Glucose (mg/dL) 113 H Abnormal Lab Results 12/30/19 12/31/19 12/31/19 18:31 00:28 05:57 WBC RBC Hgb Hct MCV MCH MCHC RDW Plt Count MPV Neut % (Auto) Lymph % (Auto) [place] % (Auto) Eos % (Auto) Baso % (Auto) Absolute Neuts (auto) Absolute Lymphs (auto) Absolute Monos (auto) Absolute Eos (auto) Absolute Basos (auto) Absolute Nucleated RBC Nucleated RBC % BUN Creatinine Est GFR ( Amer) Est GFR (Non-Af Amer) POC Glucose (mg/dL) 89 87 88 12/31/19 12/31/19 12/31/19 06:25 06:25 12:15 WBC 7.1 RBC 4.09 L Hgb 13.4 L Hct 40 L MCV 98 H MCH 33 H MCHC 34 RDW 13 Plt Count 141 L MPV 8.6 Neut % (Auto) 60.2 Lymph % (Auto) 19.9 [place] % (Auto) 12.3 Eos % (Auto) 6.6 Baso % (Auto) 1.0 Absolute Neuts (auto) 4.3 Absolute Lymphs (auto) 1.4 Absolute Monos (auto) 0.9 H Absolute Eos (auto) 0.5 Absolute Basos (auto) 0.1 Absolute Nucleated RBC 0.0 Nucleated RBC % 0.0 BUN 10 Creatinine 1.06 Est GFR ( Amer) 82.4 Est GFR (Non-Af Amer) 68.1 POC Glucose (mg/dL) 114 H Laboratory Results - last 24 hr 12/31/19 01/01/20 01/01/20 18:56 00:24 05:39 WBC 6.8 RBC 4.20 Hgb 13.9 L Hct 41 L MCV 97 H MCH 33 H MCHC 34 RDW 13 Plt Count 162 MPV 8.7 Neut % (Auto) 50.6 Lymph % (Auto) 26.6 [place] % (Auto) 15.3 Eos % (Auto) 6.7 Baso % (Auto) 0.8 Absolute Neuts (auto) 3.4 Absolute Lymphs (auto) 1.8 Absolute Monos (auto) 1.0 H Absolute Eos (auto) 0.5 Absolute Basos (auto) 0.1 Absolute Nucleated RBC 0.0 Nucleated RBC % 0.0 POC Glucose (mg/dL) 88 87 01/01/20 01/01/20 06:40 11:30 WBC RBC Hgb Hct MCV MCH MCHC RDW Plt Count MPV Neut % (Auto) Lymph % (Auto) [place] % (Auto) Eos % (Auto) Baso % (Auto) Absolute Neuts (auto) Absolute Lymphs (auto) Absolute Monos (auto) Absolute Eos (auto) Absolute Basos (auto) Absolute Nucleated RBC Nucleated RBC % POC Glucose (mg/dL) 107 H 131 H Microbiology and Other Data: Microbiology 12/28/19 20:14 Aerobic Blood Culture - Preliminary Blood Venous No Growth Day 1 Anaerobic Blood Culture - Preliminary No Growth Day 1 12/28/19 20:14 Aerobic Blood Culture - Preliminary Blood Venous No Growth Day 1 Assess/Plan/Problems-Billing Assessment: is a 74yo male with a PMHx significant for CAD with triple bypass in ' and stent in ', DM, HTN, hyperlipidemia, Parkinson's, dementia, CVA in , and chronic back pain. Presented to the ED on 12/28 with increased confusion , urinary incontinence, and was unable to ambulate. CT from ED negative. MRI showed no acute pathology. Pt admitted to . - Patient Problems (1) Altered mental status Current Visit: No Status: Acute Code(s): R41.82 - ALTERED MENTAL STATUS, UNSPECIFIED SNOMED Code(s): 508330673 Comment: At this point patient's mentation has improved vastly from the few days prior, states that he is near or at his baseline. Imaging from ED and MRI show no acute pathology. Leukocytosis on arrival. UA not convincing for UTI however pt has already had a dose of ceftriaxone IV and is not showing any other obvious signs for infection. Could be urinary related or could be of a minor viral etiology. A potential infiltrate noted on chest XRay (infiltrate vs atelectasis), but exam not convincing for pneumonia. - d/c ceftriaxone after today's dose - continue to monitor - Supportive care (2) History of CVA (cerebrovascular accident) Current Visit: Yes Status: Acute Code(s): Z86.73 - PRSNL HX OF TIA (TIA), AND CEREB INFRC W/O RESID DEFICITS SNOMED Code(s): 383672407 Comment: Swallow eval complete, no deficit noted per nursing. Pt has no noted residual from his prior CVA. Imaging showed no acute pathology. - continue with HH diet - d/c neuro checks as pt has shown some improvement and no neurological decline or other focal deficit during admission (3) CAD (coronary artery disease) Current Visit: Yes Status: Acute Code(s): I25.10 - ATHSCL HEART DISEASE OF [place] CORONARY ARTERY W/O ANG PCTRS SNOMED Code(s): 40462345 Comment: appears to be stable at this time - continue statin and asa therapy (4) HTN (hypertension) Current Visit: No Status: Chronic Priority: Medium Code(s): I10 - ESSENTIAL (PRIMARY) HYPERTENSION SNOMED Code(s): 01467749 Comment: BPs stable with mild elevations at times - continue to monitor BPs - continue entresto (5) Parkinsons disease Current Visit: No Status: Chronic Priority: Medium Code(s): G20 - PARKINSON'S DISEASE SNOMED Code(s): 63917101 Comment: Weakened state, 2 max assist/SA[place]. - continue cabidopa/levodopa - can f/u outpatient with neurology per recommendation - Seeking rehab services at discharge (6) Type II diabetes mellitus Current Visit: No Status: Chronic Priority: Low Comment: A1c 5.8. Glucose levels remain WNL to low 100s, pt taking PO - continue tradjenta (home med) (7) Rash Current Visit: Yes Status: Acute Code(s): R21 - RASH AND OTHER NONSPECIFIC SKIN ERUPTION SNOMED Code(s): 288818806 Comment: rash appearance seems to have continued improvement -continue nystatin powder topically TID -supportive hygiene care (8) DVT prophylaxis Current Visit: No Status: Inactive Priority: Low Code(s): IDE6674 - SNOMED Code(s): 069942062 Comment: heparin sq SCDs Status and Disposition: Status: improving Disposition: 4S Attending: Guera Bonilla
[2020-01-01] MEDS: Latanoprost 0.005%* 2.5 ml BTL BOTH EYES SCH (18:14)
[2020-01-01] MEDS: cefTRIAXone(*) 1 GM in NS 0.9% 50 ML* 50 ML IVPB SCH (21:53)
[2020-01-02 04:44] LABS: ABS Eosinophils 0.3 10^3/ul (0-0.6); ABS Lymphocytes 1.6 10^3/ul (1.0-4.8); ABS Neutrophils 3.1 10^3/ul (1.5-7.7); Eosinophil % 5.3 %; Hematocrit 46 % (42-52); Hemoglobin 14.6 g/dL (14.0-18.0); Lymphocyte % 26.3 %; Mean Corpuscular HGB Conc 32 g/dL (31-36); Mean Corpuscular Hemoglobin 33 pg (27-31); Mean Corpuscular Volume 103 fL (80-94); Nucleated Red Blood Cells % 0.3; Platelet Count 130 10^3/uL (150-450); Red Blood Count 4.43 10^6 /uL (4.18-5.48); Red Cell Distribution Width 14 % (10-15)
[2020-01-02] MEDS: Heparin VIAL(*) 5000 UNITS/ML VIAL (FIVE THOUSAND) SUBCUT SCH ×2 (05:44→13:43)
[2020-01-02] MEDS: Carbidopa/Levodop 10/100 MG TAB(*) PO SCH (09:20)
[2020-01-02] MEDS: Memantine TAB* 10 MG PO SCH ×2 (09:20→22:15)
[2020-01-02] MEDS: Magnesium Oxide TAB* 400 MG PO SCH (09:20)
[2020-01-02] MEDS: Multivitamins/Minerals TAB PO SCH (09:20)
[2020-01-02] MEDS: Atorvastatin* 10 MG TAB PO SCH (09:21)
[2020-01-02] MEDS: Calcium/Vitamin D TAB 250/125* TAB PO SCH ×2 (09:21→22:13)
[2020-01-02] MEDS: Gabapentin CAP(*) 300 MG PO SCH ×3 (09:21→22:14)
[2020-01-02] MEDS: Donepezil TAB* 5 MG PO SCH (09:22)
[2020-01-02] MEDS: Pantoprazole TAB * 40 MG TAB PO SCH (09:23)
[2020-01-02] MEDS: LINAGLIPTIN 5 MG PO SCH (09:23)
[2020-01-02] MEDS: PTO: Sacubitril/Valsartan 24/26(NF) 1 TAB PO SCH ×2 (09:23→22:15)
[2020-01-02] MEDS: Nystatin TOP POWDER* 15 GM BTL TOPICAL SCH ×3 (09:23→22:15)
[2020-01-02] MEDS: GLUCOSAMINE CHONDROITIN PO SCH (09:24)
--- NOTE | 2020-01-02 10:26 | PN ---
Subjective Date of Service: 01/02/20 Interval History: This morning slightly more confused than yesterday but states that sometimes he goes back and forth at home but is usually more interactive when he is home. Having some difficulty following commands this morning. Denies any HELMS, CP, SOB, abdominal discomfort, unusual numbness/tingling, difficulty urinating. Has been using depends as he has been incontinent or urine , will request to use commode for BM. Family History: Unchanged from Admission Social History: Unchanged from Admission Past Medical History: Unchanged from Admission Objective Active Medications: Acetaminophen (Tylenol Tab*) 650 mg PO Q6H PRN PRN Reason: FEVER/PAIN Last Admin: 12/29/19 14:53 Dose: 650 mg Atorvastatin Calcium (Lipitor*) 10 mg PO DAILY [facility] Last Admin: 01/02/20 09:21 Dose: 10 mg Calcium/Vitamin D (Oscal D Tab 250/125*) 2 tab PO BID [facility] Last Admin: 01/02/20 09:21 Dose: 2 tab Carbidopa/Levodopa (Sinemet 10/100 Tab(*)) 2 tab PO DAILY [facility] Last Admin: 01/02/20 09:20 Dose: 2 tab Donepezil HCl (Aricept Tab*) 10 mg PO DAILY [facility] Last Admin: 01/02/20 09:22 Dose: 10 mg Gabapentin (Neurontin Cap(*)) 600 mg PO TID [facility] Last Admin: 01/02/20 09:21 Dose: 600 mg Heparin Sodium (Porcine) (Heparin Vial(*)) 5,000 units SUBCUT Q8HR [facility] Last Admin: 01/02/20 05:44 Dose: 5,000 units Latanoprost (Xalatan 0.005%*) 1 drop BOTH EYES QPM [facility]; Protocol Last Admin: 01/01/20 18:14 Dose: 1 drop Levalbuterol HCl (Xopenex 0.63mg/3ml Neb*) 0.63 mg INH Q4H PRN PRN Reason: WHEEZING Last Admin: 12/31/19 10:37 Dose: 0.63 mg Linagliptin (Tradjenta (Nf)) 5 mg PO DAILY [facility] Last Admin: 01/02/20 09:23 Dose: 5 mg Magnesium Oxide (Magox 400 Tab*) 400 mg PO DAILY [facility] Last Admin: 01/02/20 09:20 Dose: 400 mg Memantine (Namenda Tab*) 10 mg PO BID [facility] Last Admin: 01/02/20 09:20 Dose: 10 mg Multivitamins/Minerals (Theragran/Minerals Tab*) 1 tab PO DAILY [facility] Last Admin: 01/02/20 09:20 Dose: 1 tab Nft: Glucosamine (Chondroitin Capsule) 1 each PO DAILY [facility] Last Admin: 01/02/20 09:24 Dose: Not Given Nystatin (Nystatin Top Powder*) 1 applic TOPICAL TID [facility] Last Admin: 01/02/20 09:23 Dose: 1 applic Pantoprazole Sodium (Protonix Tab*) 40 mg PO DAILY [facility] Last Admin: 01/02/20 09:23 Dose: 40 mg Sacubitril/Valsartan (Entresto (Nf)) 1 tab PO BID [facility] Last Admin: 01/02/20 09:23 Dose: 1 tab Vital Signs - 8 hr 01/02/20 01/02/20 03:02 09:21 Temperature 97.7 F Pulse Rate 67 Respiratory 16 18 Rate Blood Pressure 133/86 (mmHg) O2 Sat by Pulse 91 Oximetry Oxygen Devices in Use Now: None Appearance: Sitting up in bed, alert but having minor difficulty this morning with following commands Eyes: No Scleral Icterus, - - PERRL, EOMI after excessive prompting Ears/Nose/Mouth/Throat: Mucous Membranes Moist Respiratory: Symmetrical Chest Expansion and Respiratory Effort, - - Fine inspiratory rales to RLL, all other lobes clear but diminished Abdominal: - - BS throughout, large, round, non tender Extremities: - - Trace pitting edema R foot Neurological: - - Alert but slightly slow response time, exhibiting moderate confusing this morning but remains pleasant Nutrition: Taking PO's Result Diagrams: 01/02/20 04:24 12/31/19 06:25 Additional Lab and Data: Abnormal Lab Results 12/29/19 12/30/19 12/30/19 18:08 04:54 05:36 WBC RBC Hgb Hct MCV MCH MCHC RDW Plt Count MPV Neut % (Auto) Lymph % (Auto) [place] % (Auto) Eos % (Auto) Baso % (Auto) Absolute Neuts (auto) Absolute Lymphs (auto) Absolute Monos (auto) Absolute Eos (auto) Absolute Basos (auto) Absolute Nucleated RBC Nucleated RBC % INR (Anticoag Therapy) APTT BUN Creatinine Est GFR ( Amer) Est GFR (Non-Af Amer) POC Glucose (mg/dL) 110 H 74 77 12/30/19 12/30/19 12/30/19 09:31 09:31 09:31 WBC 11.0 H RBC 4.32 Hgb 14.0 Hct 42 MCV 98 H MCH 32 H MCHC 33 RDW 14 Plt Count 153 MPV 8.6 Neut % (Auto) 79.1 Lymph % (Auto) 9.4 [place] % (Auto) 7.6 Eos % (Auto) 3.5 Baso % (Auto) 0.4 Absolute Neuts (auto) 8.7 H Absolute Lymphs (auto) 1.0 Absolute Monos (auto) 0.8 Absolute Eos (auto) 0.4 Absolute Basos (auto) 0.0 Absolute Nucleated RBC 0.0 Nucleated RBC % 0.0 INR (Anticoag Therapy) 1.10 H APTT 35.5 BUN 13 Creatinine 1.12 Est GFR ( Amer) 77.3 Est GFR (Non-Af Amer) 63.9 POC Glucose (mg/dL) 12/30/19 12:06 WBC RBC Hgb Hct MCV MCH MCHC RDW Plt Count MPV Neut % (Auto) Lymph % (Auto) [place] % (Auto) Eos % (Auto) Baso % (Auto) Absolute Neuts (auto) Absolute Lymphs (auto) Absolute Monos (auto) Absolute Eos (auto) Absolute Basos (auto) Absolute Nucleated RBC Nucleated RBC % INR (Anticoag Therapy) APTT BUN Creatinine Est GFR ( Amer) Est GFR (Non-Af Amer) POC Glucose (mg/dL) 113 H Abnormal Lab Results 12/30/19 12/31/19 12/31/19 18:31 00:28 05:57 WBC RBC Hgb Hct MCV MCH MCHC RDW Plt Count MPV Neut % (Auto) Lymph % (Auto) [place] % (Auto) Eos % (Auto) Baso % (Auto) Absolute Neuts (auto) Absolute Lymphs (auto) Absolute Monos (auto) Absolute Eos (auto) Absolute Basos (auto) Absolute Nucleated RBC Nucleated RBC % BUN Creatinine Est GFR ( Amer) Est GFR (Non-Af Amer) POC Glucose (mg/dL) 89 87 88 12/31/19 12/31/19 12/31/19 06:25 06:25 12:15 WBC 7.1 RBC 4.09 L Hgb 13.4 L Hct 40 L MCV 98 H MCH 33 H MCHC 34 RDW 13 Plt Count 141 L MPV 8.6 Neut % (Auto) 60.2 Lymph % (Auto) 19.9 [place] % (Auto) 12.3 Eos % (Auto) 6.6 Baso % (Auto) 1.0 Absolute Neuts (auto) 4.3 Absolute Lymphs (auto) 1.4 Absolute Monos (auto) 0.9 H Absolute Eos (auto) 0.5 Absolute Basos (auto) 0.1 Absolute Nucleated RBC 0.0 Nucleated RBC % 0.0 BUN 10 Creatinine 1.06 Est GFR ( Amer) 82.4 Est GFR (Non-Af Amer) 68.1 POC Glucose (mg/dL) 114 H Laboratory Results - last 24 hr 12/31/19 01/01/20 01/01/20 18:56 00:24 05:39 WBC 6.8 RBC 4.20 Hgb 13.9 L Hct 41 L MCV 97 H MCH 33 H MCHC 34 RDW 13 Plt Count 162 MPV 8.7 Neut % (Auto) 50.6 Lymph % (Auto) 26.6 [place] % (Auto) 15.3 Eos % (Auto) 6.7 Baso % (Auto) 0.8 Absolute Neuts (auto) 3.4 Absolute Lymphs (auto) 1.8 Absolute Monos (auto) 1.0 H Absolute Eos (auto) 0.5 Absolute Basos (auto) 0.1 Absolute Nucleated RBC 0.0 Nucleated RBC % 0.0 POC Glucose (mg/dL) 88 87 01/01/20 01/01/20 06:40 11:30 WBC RBC Hgb Hct MCV MCH MCHC RDW Plt Count MPV Neut % (Auto) Lymph % (Auto) [place] % (Auto) Eos % (Auto) Baso % (Auto) Absolute Neuts (auto) Absolute Lymphs (auto) Absolute Monos (auto) Absolute Eos (auto) Absolute Basos (auto) Absolute Nucleated RBC Nucleated RBC % POC Glucose (mg/dL) 107 H 131 H Microbiology and Other Data: Microbiology 12/28/19 20:14 Aerobic Blood Culture - Preliminary Blood Venous No Growth Day 1 Anaerobic Blood Culture - Preliminary No Growth Day 1 02/11/20 20:14 Aerobic Blood Culture - Preliminary Blood Venous No Growth Day 1 Assess/Plan/Problems-Billing Assessment: is a 74yo male with a PMHx significant for CAD with triple bypass in ' and stent in ', DM, HTN, hyperlipidemia, Parkinson's, dementia, CVA in ', and chronic back pain. Presented to the ED on 12/28 with increased confusion , urinary incontinence, and was unable to ambulate. CT from ED negative. MRI showed no acute pathology. Pt admitted to 4S. - Patient Problems (1) Altered mental status Current Visit: No Status: Acute Code(s): R41.82 - ALTERED MENTAL STATUS, UNSPECIFIED SNOMED Code(s): 236719980 Comment: At this point patient's mentation has improved from the few days prior, states that he is near his baseline, mild decline from yesterday. Imaging from ED and MRI show no acute pathology. Leukocytosis on arrival. No obvious infection source however pt not exhibiting any s/s of infection at this point - continue to monitor - Supportive care (2) History of CVA (cerebrovascular accident) Current Visit: Yes Status: Acute Code(s): Z86.73 - PRSNL HX OF TIA (TIA), AND CEREB INFRC W/O RESID DEFICITS SNOMED Code(s): 824622048 Comment: Swallow eval complete, no deficit noted per nursing. Pt has no noted residual from his prior CVA. Imaging showed no acute pathology. - continue with HH diet - d/c neuro checks as pt has shown some improvement and no neurological decline or other focal deficit during admission (3) CAD (coronary artery disease) Current Visit: Yes Status: Acute Code(s): I25.10 - ATHSCL HEART DISEASE OF [place] CORONARY ARTERY W/O ANG PCTRS SNOMED Code(s): 07871438 Comment: appears to be stable at this time - continue statin and asa therapy (4) HTN (hypertension) Current Visit: No Status: Chronic Priority: Medium Code(s): I10 - ESSENTIAL (PRIMARY) HYPERTENSION SNOMED Code(s): 29719694 Comment: BPs stable with mild elevations at times - continue to monitor BPs - continue entresto (5) Parkinsons disease Current Visit: No Status: Chronic Priority: Medium Code(s): G20 - PARKINSON'S DISEASE SNOMED Code(s): 18559028 Comment: Weakened state, 2 max assist/EZ stand. - continue cabidopa/levodopa - can f/u outpatient with neurology per recommendation - Seeking rehab services at discharge (6) Type II diabetes mellitus Current Visit: No Status: Chronic Priority: Low Comment: A1c 5.8. Glucose levels remain WNL to low 100s, pt taking PO - continue tradjenta (home med) (7) Rash Current Visit: Yes Status: Acute Code(s): R21 - RASH AND OTHER NONSPECIFIC SKIN ERUPTION SNOMED Code(s): 065074526 Comment: Pt continues to be incontinent and wearing depends -continue nystatin powder topically TID -supportive hygiene care (8) DVT prophylaxis Current Visit: No Status: Inactive Priority: Low Code(s): LDS4920 - SNOMED Code(s): 152726042 Comment: heparin sq SCDs Status and Disposition: Status: improving Disposition: 4S Attending: Guera Bonilla
[2020-01-02] MEDS: Latanoprost 0.005%* 2.5 ml BTL BOTH EYES SCH (17:40)
[2020-01-02] MEDS ORDERED: Enoxaparin(*) 40 MG/0.4 ML SYR SUBCUT SCH (21:00)
[2020-01-03] MEDS ORDERED: NS 0.9% 500 ML* 500 ML IV ONE (03:30)
[2020-01-03] MEDS: Memantine TAB* 10 MG PO SCH (08:27)
[2020-01-03] MEDS: Calcium/Vitamin D TAB 250/125* TAB PO SCH (08:27)
[2020-01-03] MEDS: Atorvastatin* 10 MG TAB PO SCH (08:27)
[2020-01-03] MEDS: Magnesium Oxide TAB* 400 MG PO SCH (08:27)
[2020-01-03] MEDS: Pantoprazole TAB * 40 MG TAB PO SCH (08:28)
[2020-01-03] MEDS: Gabapentin CAP(*) 300 MG PO SCH ×2 (08:28→13:10)
[2020-01-03] MEDS: Multivitamins/Minerals TAB PO SCH (08:28)
[2020-01-03] MEDS: Donepezil TAB* 5 MG PO SCH (08:28)
[2020-01-03] MEDS: Carbidopa/Levodop 10/100 MG TAB(*) PO SCH (08:28)
[2020-01-03] MEDS: LINAGLIPTIN 5 MG PO SCH (08:29)
[2020-01-03] MEDS: PTO: Sacubitril/Valsartan 24/26(NF) 1 TAB PO SCH (08:31)
[2020-01-03] MEDS: GLUCOSAMINE CHONDROITIN PO SCH (10:27)
[2020-01-03] MEDS: Nystatin TOP POWDER* 15 GM BTL TOPICAL SCH (11:01)
[2020-01-03 12:15] VITALS: BP 100/62
--- NOTE | 2020-01-04 00:24 | DS ---
CC: Dr. Medeiros * DISCHARGE SUMMARY: DATE OF ADMISSION: 12/28/19 DATE OF DISCHARGE: 01/03/20 ATTENDING PHYSICIAN WHILE IN THE HOSPITAL: Dr. Janeth Cohen * (dictated by ESE De La Rosa) PRIMARY CARE PROVIDER: Dr. Medeiros. PRIMARY DIAGNOSES: 1. Acute mental status changes, likely related to urinary tract infection. 2. Acute kidney injury, resolved, likely related to prerenal causes. 3. Likely dehydration in the setting of presumed urinary tract infection. SECONDARY DIAGNOSES: 1. Coronary artery disease, status post coronary artery bypass graft. 2. Diabetes mellitus, type 2. 3. Hypertension. 4. Hyperlipidemia. 5. Parkinson's with advancing dementia. 6. Cerebrovascular accident without residual deficits. PERTINENT STUDIES WHILE IN THE HOSPITAL: Urine culture, which is collected on 12/29/19 after a dose of 1 g IV ceftriaxone that had already been administered, urine culture was without growth. CT cervical spine: No acute fracture identified. Mild reversible normal lordosis in the upper cervical spine, likely secondary significant multilevel degenerative changes above in full report with bulky anterior osteophytes from C3-C4 through C6- C7. CT of the brain, impression: No acute intracranial findings. Age-related atrophy and chronic white matter change. Evolution of the frontotemporal infarct, chronic. Brain MRI, impression: No acute intracranial abnormality. Old left frontal lobe infarct. Mild chronic small vessel ischemic disease is likely. Moderate cerebral volume loss. Chest x-ray: 1. Hypoinflated lungs with linear airspace opacification in the right lower lung zone (atelectasis versus infiltrate) 2. Mild similar enlargement of the cardiac silhouette status post CABG. SIGNIFICANT LABORATORY DATA: White blood cell count on day of admission 14.4, white blood cell count on 01/02/20 was 6.0. TSH within normal limits. Folate over 20. Vitamin B12 923. Ammonia 38. HISTORY OF PRESENT ILLNESS/HOSPITAL COURSE: Forrest Antony is a 74-year-old white male with a past medical history significant for Parkinson's with advancing dementia; coronary artery disease; diabetes mellitus, type 2, who presented to the emergency department due to his finding him to be more confused and incontinent of urine and lacking ability to ambulate. The patient was started on empiric antibiotic coverage due to suspicion of likely UTI. Unfortunately, his urine culture was not collected until a day after administration of his antibiotics and the urine culture was found to be without growth. I presume this patient likely had a UTI causing his acute mental status changes with continued ceftriaxone for a total of 5 days. The patient improved with his mental status at baseline per his by day of discharge. While in the hospital, he was evaluated by Physical Therapy, who recommended that the patient receive continued inpatient versus subtherapeutic rehab. The patient was accepted by our [facility] and he was ready for discharge. Of note, the patient's acute mental status workup was unrevealing as he continues to improve with ceftriaxone and most likely diagnosis was likely metabolic encephalopathy related to UTI. The urine culture was unrevealing. Likely, this is the clinical presentation. PHYSICAL EXAM ON DAY OF DISCHARGE: General: Obese, elderly white male, sitting upright in chair, appearing comfortable, in no acute distress. Lungs: Clear to auscultation throughout. Cardio: Regular rate and rhythm without murmurs, rubs, or gallops. No edema. Abdomen: Soft, nontender, nondistended. No suprapubic tenderness. Neuro: The patient is alert and oriented x2. DISCHARGE PLAN: The patient is being discharged to [facility] for inpatient rehab, where he will be participating in daily physical therapy and occupational therapy. The patient should return to emergency department if he is experiencing fever, chills, abdominal pain, flank pain, lower back pain, hematuria, or other concerning symptoms. The patient is to follow up with his primary care provider within a week after discharge from [facility]. MEDICATIONS AT TIME OF DISCHARGE: 1. Glucosamine 1 tab p.o. daily. 2. Gabapentin 600 mg p.o. t.i.d. 3. Lipitor 10 mg p.o. daily. 4. Tylenol 1000 mg p.o. t.i.d. p.r.n. pain. 5. Protonix 40 mg p.o. daily. 6. Linagliptin 5 mg p.o. daily. 7. Memantine 10 mg p.o. b.i.d. 8. Carbidopa/levodopa 10/100 mg 2 tabs p.o. daily. 9. Magnesium oxide 400 mg p.o. daily. 10. Lumigan 1 drop both eyes at bedtime. 11. Donepezil 10 mg p.o. daily. 12. Multivitamin 1 tab p.o. daily. 13. Calcium, vitamin D tablet 1 tab p.o. b.i.d. 14. Aspirin 81 mg p.o. daily. 15. Entresto 1 tab p.o. b.i.d. CONDITION ON DISCHARGE: Stable. [place] [facility] [place] SPENT: Approximately 35 minutes was spent on this discharge, approximately half of this time was spent at bedside evaluating the patient and discussing the plan of care. ESE DE LA ROSA [id number]/[facility] #: [id number] MTDBarrera
== END 2020-01-03 13:58 | DRG 689 ==
LOC: ED 17:50 → MEDTELE 21:46
PROVIDERS: ADMIT Internal Medicine; ATTEND Internal Medicine
DX: N39.0 Urinary tract infection, site not specified (principal); G93.41 Metabolic encephalopathy; N17.9 Acute kidney failure, unspecified; E11.9 Type 2 diabetes mellitus without complications; E78.5 Hyperlipidemia, unspecified; J44.9 Chronic obstructive pulmonary disease, unspecified; G20 Parkinson's disease; F02.80 Dementia in other diseases classified elsewhere, unspecified severity, without behavioral disturbance, psychotic disturbance, mood disturbance, and anxiety; I10 Essential (primary) hypertension; E86.0 Dehydration; I44.7 Left bundle-branch block, unspecified; I25.10 Atherosclerotic heart disease of native coronary artery without angina pectoris; E66.9 Obesity, unspecified; M25.78 Osteophyte, vertebrae; R32 Unspecified urinary incontinence; S00.11XA Contusion of right eyelid and periocular area, initial encounter; W18.30XA Fall on same level, unspecified, initial encounter; Y92.009 Unspecified place in unspecified non-institutional (private) residence as the place of occurrence of the external cause; Z95.1 Presence of aortocoronary bypass graft; Z86.73 Personal history of transient ischemic attack (TIA), and cerebral infarction without residual deficits; Z68.33 Body mass index [BMI] 33.0-33.9, adult; Z79.84 Long term (current) use of oral hypoglycemic drugs; Z79.82 Long term (current) use of aspirin; Z79.899 Other long term (current) drug therapy; Z88.8 Allergy status to other drugs, medicaments and biological substances; Z80.0 Family history of malignant neoplasm of digestive organs; Z80.7 Family history of other malignant neoplasms of lymphoid, hematopoietic and related tissues; Z87.891 Personal history of nicotine dependence; Z95.5 Presence of coronary angioplasty implant and graft
CPT/HCPCS: 36415; 70450; 70551; 71045; 72125; 80048; 80053; 81003; 81015; 82140; 82565; 82607; 82746; 83036; 83605; 83735; 83880; 84439; 84443; 84484; 84520; 85025; 85610; 85730; 87040; 87086; 93005; 94640; 96365; 97112; 99284; A9270-GY; J0696; J1644; J1650

== ENCOUNTER 2020-01-03 11:28 | Inpatient (IN) | payer MEDICARE, OTHER ==
[2020-01-03] MEDS ORDERED: Magnesium Hydroxide LIQ* 30 ML UDC PO PRN (15:51)
[2020-01-03] MEDS: Latanoprost 0.005%* 2.5 ml BTL BOTH EYES SCH (18:17)
--- NOTE | 2020-01-03 20:23 | HP ---
HISTORY AND PHYSICAL: DATE OF ADMISSION: 01/03/20 REASON FOR ADMISSION: Parkinson disease, urosepsis. HISTORY OF ILLNESS: Forrest Antony is a 74-year-old male. He has a history of Parkinson disease and sees Dr. Hernandez for that. He also has advanced dementia and is on both Namenda and Aricept for that. He has a history of type 2 diabetes as well. Apparently, the patient somewhere around 12/27/19 was walking and fell. He was walking outside and fell onto a snowbank and hit his head and had a bruise around his right eye. He did not lose consciousness. On 12/29/19, the patient had more difficulty, in that he was confused and different than he normally was and was much weaker. He also was incontinent of urine. His brought him to the ER. He came to the ER on 12/28/19. He was agitated, trying to pull out his IV. The patient had labs sent off. His urine was consistent with a urinary tract infection. The patient's urine culture, however, did not grow out anything. He was given antibiotics. He was resuscitated with IV fluids and had MRI and CAT scan of his brain that did not show any new pathology. His Entresto which he normally takes for blood pressure was held initially because of an elevation in his BUN and creatinine. The patient continued to receive ceftriaxone IV. His mentation seemed to improve. The patient had a lot of difficulty in transfers. His Sinemet instead of being given 1 tablet twice a day was being given 2 tablets once a day. The patient's diabetes medicines were restarted. He was incontinent of urine and wearing Depend. He was felt to have physical therapy and occupational therapy needs. He is now being admitted for inpatient rehab so that he might return to independent living. PAST MEDICAL HISTORY: Significant for type 2 diabetes, hypertension, hyperlipidemia, Parkinson disease, coronary artery disease. He had a triple bypass done in 1996 and a stent in 2007. He has a history of advanced dementia and he had a stroke in 2007 without long-term residual deficits. CURRENT MEDICATIONS: Include: 1. Sinemet. 2. Aricept. 3. Namenda. 4. Lipitor. 5. Gabapentin. 6. Tradjenta. 7. Protonix. 8. Entresto. ALLERGIES: LORAZEPAM and COREG as well as LOPRESSOR. FAMILY HISTORY: Noncontributory. SOCIAL HISTORY: He is a nonsmoker. He has a beer once in a while. He does not do illicit drugs. He lives with his in a trailer with 1 step to enter. There is a ramp outside the trailer. REVIEW OF SYSTEMS: The patient reports no current shortness of breath or chest pain. PHYSICAL EXAMINATION VITAL SIGNS: The patient's temperature is 97.8, blood pressure is 102/53, pulse 80, respirations 16. HEENT: He has periorbital abrasion around his right eye. LUNGS: His lungs sound clear to auscultation, but lung sounds are diminished. HEART: Heart sounds are regular. S1, S2 audible. ABDOMEN: Soft and nontender. EXTREMITIES: Showed slightly increased muscle tone. GENITOURINARY: The patient did have several drops of blood, appeared to be coming from his penile area. NEUROLOGIC: The patient was alert, oriented to himself. Muscle strength seemed to be about 4/5 throughout. FUNCTIONAL EXAM: He transfers with max assist. ASSESSMENT: 1. Parkinson disease. 2. Possible urosepsis. PLAN: We are going to integrate him into a comprehensive and therapeutic rehab program with the following goals: 1. Physical Therapy will work with the patient. They are going to work on functional transfer training, ambulation training with a walker. 2. Occupational Therapy will see the patient, work on his activities of daily living including toileting and toilet transfers. 3. Lovenox for DVT prophylaxis. We are going to hold it if he continues to have penile bleeding. 4. Continue Sinemet for Parkinson disease. 5. Continue Entresto for his heart failure. 6. Lipitor for coronary artery disease. 7. For his dementia, we will continue Namenda and Aricept. 8. Legal Billing Coordinator will be closely involved to make sure that any services and equipment that patient requires are in place prior to discharge. 9. Family training as appropriate. 10. Advance directives: The patient is full code. His is his surrogate decision maker. 11. Home with appropriate services. ESTIMATED LENGTH OF STAY: 10 days. [id number]/[facility] #: [id number] MTDD
[2020-01-03] MEDS ORDERED: Enoxaparin(*) 40 MG/0.4 ML SYR SUBCUT SCH (21:00)
[2020-01-03] MEDS: Docusate CAP* 100 MG PO SCH (21:48)
[2020-01-03] MEDS: Gabapentin CAP(*) 300 MG PO SCH (21:48)
[2020-01-03] MEDS: PTO:Sacubitril/Valsartan 24/26(NF) 1 TAB PO SCH (21:49)
[2020-01-03] MEDS: Memantine TAB* 10 MG PO SCH (21:51)
[2020-01-03] MEDS: Nystatin TOP POWDER* 15 GM BTL TOPICAL SCH (22:03)
[2020-01-04] MEDS: Acetaminophen TAB* 325 MG PO PRN ×2 (07:59→13:14)
[2020-01-04] MEDS: Carbidopa/Levodop 10/100 MG TAB(*) PO SCH ×2 (07:59→16:36)
[2020-01-04] MEDS: Aspirin EC TAB* 81 MG TAB.EC PO SCH (09:16)
[2020-01-04] MEDS: Donepezil TAB* 5 MG PO SCH (09:17)
[2020-01-04] MEDS: Docusate CAP* 100 MG PO SCH ×2 (09:17→20:14)
[2020-01-04] MEDS: Calcium/Vitamin D TAB 250/125* TAB PO SCH (09:17)
[2020-01-04] MEDS: Gabapentin CAP(*) 300 MG PO SCH ×3 (09:18→20:14)
[2020-01-04] MEDS: Magnesium Oxide TAB* 400 MG PO SCH (09:20)
[2020-01-04] MEDS: Multivitamins/Minerals TAB PO SCH (09:20)
[2020-01-04] MEDS: Pantoprazole TAB * 40 MG TAB PO SCH (09:21)
[2020-01-04] MEDS: Nystatin TOP POWDER* 15 GM BTL TOPICAL SCH ×2 (09:21→20:15)
[2020-01-04] MEDS: PTO:Linagliptin (NF) 5 MG TAB PO SCH (09:22)
[2020-01-04] MEDS: PTO:Sacubitril/Valsartan 24/26(NF) 1 TAB PO SCH ×2 (09:22→20:14)
[2020-01-04] MEDS: Memantine TAB* 10 MG PO SCH ×2 (09:23→20:15)
--- NOTE | 2020-01-04 12:40 | PMRUTEAM ---
PMRU: Team Meeting Current Status: Physical Therapy: Current Status Current Rolling Status Partial/Moderate Current Supine <-> Sit Status Partial/Moderate Current Sit <-> Stand Status Partial/Moderate Current Bed <-> Chair Status Partial/Moderate Transfer/Bed Mobility Rolling Walker Recommended Devices Transfer Mobility Comment patient needs physical cues and hand over hand procedure. Current Picking Up Object Not attempted Status Current Car Transfer Status Not attempted Current Ambulation Assistance Partial/Moderate Status Ambulation Assistive Device Rolling Walker Ambulation Conditions Two or More Turns Current Ambulation Distance 20 Ambulation Comment has difficulty initiating step. short stride, freezes often. Current Wheelchair Propulsion Not Applicable Ability Status Current Stair Climbing Status Not attempted Current Curb Assistance Status Not attempted Occupational Therapy: Current Status Current Upper Body Dressing Partial/Moderate Status Current Lower Body Dressing Substantial/Maximal Status Current Footwear Status Dependent Current Bathing Status Substantial/Maximal Current Grooming Status Partial/Moderate Current Toileting Status Substantial/Maximal Current Toilet Transfer Status Dependent Current Eating Status Partial/Moderate Nursing: Current Status Skin Deviations [Left Lower Other Back] Skin Deviations [Left Arm] Bruise Skin Deviations [Bilateral Abrasion Hand] Skin Deviations [Bilateral Abrasion Knee] Skin Deviations [Buttocks] Other Skin Deviation Description [ benign cyst, per spouse Left Lower Back] Skin Deviation Description [ scattered; healing Bilateral Hand] Skin Deviation Description [ scabs Bilateral Knee] Skin Deviation Description [ pink, blanchable; lotion applied Buttocks] Bladder Current Status incontinence/need clinical data assistant Bowel Current Status needs help Nutrition Current Status 100% eaten Medication Current Status needs help with medication administration Rec Therapy: Current Status Summary of Assessment and Recreation thearapy services will be introduced Clinical Impression today 01/04/20 Nutrition: Current Status Monitoring pt adm to PMRU 01/03 without noted nutritional concerns. Full nutrition assessment planned 01/10 per NDS protocol. BG well controlled in setting of T2DM; eating generally 75-100% of meals. BAG MAKER eval completed 12/29; no noted dysphagia. Initial nutritional goals as outlined below. SPEECH THERAPY:CURRENT STATUS: BIMS 03/01, MOCA 02/13. Tolerating regular diet. Shows little initiative and a hard time following commands. Goals: Physical Therapy: Goals Goals to Be Accomplished in ( 21 Days) Goal: Rolling Assistance Independent Goal Supine <-> Sit Status Independent Goal Sit <-> Stand Status Independent Goal Bed <-> Chair Status Independent Transfer/Bed Mobility Rolling Walker Recommended Devices Goal: Picking Up Object Independent Goal: Ambulation Assistance Independent Ambulation Assistive Devices Rolling Walker Ambulation Distance (ft) 150 Goal: Wheelchair Propulsion Not Applicable Ability Goal: Stairs Assistance Supervision/Touching Stairs Recommended Devices One Rail Number of Stairs 5 Goal: Curb Assistance Independent Occupational Therapy: Goals Goal Upper Body Dressing Supervision/Touching Routine Goal Lower Body Dressing Supervision/Touching Routine Goal Footwear Status Partial/Moderate Goal Bathing Routine (OT) Supervision/Touching Goal Grooming Routine Setup or Clean-up Assist Goal Toilet Hygiene and Supervision/Touching Clothing Management Routine Goal Toilet Transfer Routine Supervision/Touching Goal Functional Transfers for Supervision/Touching ADL Goal Feeding Routine Setup or Clean-up Assist Goal Light Housekeeping Tasks Dependent Nutrition: Goals Intervention Goals 1. adequate intake to support hydration and lean body mass without add'l wt gain 2. glycemic control within inpatient parameters; no s/sx hypo-hyperglycemia 3. achieve and maintain serum electrolytes WNL 4. regulation of bowel pattern; no c/o constipation (or diarrhea) Nursing: Goals Bladder Goal continent Bowel Goal independent bowel Nutrition Goal continue with 100% meals Medication Goal will need to help with medication Care Plan: Care Plan Communication-Improve/Maintain Start: 01/03/20 16:51 Freq: DAILY@07,1900 Status: Active Target: 01/10/20 Protocol: Activity Type Activity Date Activity User E-Sign Co-Sign Detail Recorded Client Recorded Date Recorded By Document 01/04/20 07:00 [id number] 01/04/20 11:53 [id number] 01/04/20 07:00 PMRU Outcome: Communication/Cognitive Status Current Communication Outcome/Goals Use Comm Tools/ Devices Makes Needs Known Effectively Progression Toward Outcomes/Goals Progressing DVT Prophylaxis- Improve/Maintain Start: 01/03/20 16:51 Freq: DAILY@0700,1900 Status: Active Target: 01/10/20 Protocol: Activity Type Activity Date Activity User E-Sign Co-Sign Detail Recorded Client Recorded Date Recorded By Document 01/04/20 07:00 [id number] [id number] 01/04/20 11:53 [id number] 01/04/20 07:00 PMRU Outcome: DVT Prophylaxis Current DVT Outcome/Goals Remains Free of DVT Complies with DVT Prophylaxis /Treatment Demonstrates Knowledge of DVT Prevention/ Treatment Progression Toward Outcome/Goals Progressing Discharge Planning - Improve/Maintain Start: 01/03/20 16:51 Freq: DAILY@0700,1900 Status: Active Target: 01/10/20 Protocol: Activity Type Activity Date Activity User E-Sign Co-Sign Detail Recorded Client Recorded Date Recorded By Document 01/04/20 07:00 [id number] 01/04/20 11:53 [id number] 01/04/20 07:00 PMRU Outcome: Discharge Planning Current Discharge Planning Outcome/Goals Demonstrates Understanding of Discharge Plan Other Other Discharge Planning Outcome/Goals plan with care Comment partner Other Outcome/Goals plan in accordance with wound care technician Progression Toward Outcome/Goals Progressing /GI-Improve/Maintain Start: 01/03/20 16:51 Freq: DAILY@699,1900 Status: Active Target: 01/10/20 Protocol: Activity Type Activity Date Activity User E-Sign Co-Sign Detail Recorded Client Recorded Date Recorded By Document 01/04/20 07:00 [id number] 01/04/20 11:53 [id number] 01/04/20 07:00 PMRU Outcome: Genitourinary/ Gastrointestinal Current Gastrointestinal Outcome/Goals Maintain/ Achieve Bowel Regularity in Accordance with Pt's Baseline Prevent Constipation Laxatives as Ordered Progression Toward Outcome/Goals Progressing Current Genitourinary Outcome/Goals Maintain/ Achieve Urinary Continence Maintain/ Achieve Adequate Urinary Output Remain Free of Hospital- Acquired UTI Progression Toward Outcome/Goals Progressing Medication Administration Start: 01/03/20 16:51 Freq: DAILY@0700,1900 Status: Active Target: 01/10/20 Protocol: Activity Type Activity Date Activity User E-Sign Co-Sign Detail Recorded Client Recorded Date Recorded By Document 01/04/20 07:00 [id number] 01/04/20 11:53 [id number] 01/04/20 07:00 PMRU Outcome: Medication Administration Current Loan Expeditor Outcome/Goals Family/ Caregiver Administer Medications at Home Progression Towards Outcome/Goals Progressing Is Patient Going Home on Lovenox? No Metabolic Status- Improve/Maintain Start: 01/03/20 16:51 Freq: DAILY@0700,1900 Status: Active Target: 01/10/20 Protocol: Activity Type Activity Date Activity User E-Sign Co-Sign Detail Recorded Client Recorded Date Recorded By Document 01/04/20 07:00 [id number] 01/04/20 11:53 [id number] 01/04/20 07:00 PMRU Outcome: Metabolic Status Have Fingersticks Been Ordered Yes Fingerstick Order Frequency Other Current Metabolic Status Outcome/Goals Maintain/ Improve Metabolic Status Demonstrate Knowledge of Prevention/ Treatment of Metabolic Imbalances Progression Toward Outcome/Goals Progressing Neurological- Improve/Maintain Start: 01/03/20 16:51 Freq: DAILY@699,1900 Status: Active Target: 01/10/20 Protocol: Activity Type Activity Date Activity User E-Sign Co-Sign Detail Recorded Client Recorded Date Recorded By Document 01/04/20 07:00 [id number] 01/04/20 11:53 [id number] 01/04/20 07:00 PMRU Outcome: Neurological Weakness/Aphasia Weakness Current Neurological Outcome/Goals Maintain/ Achieve Baseline Neurological Status Prevent Avoidable Neurological Decline Maintain/ Improve Strength/ROM Progression Toward Outcome/Goals Progressing Safety- Improve/Maintain Start: 01/03/20 15:04 Freq: DAILY@699,1900 Status: Active Target: 01/10/20 Protocol: Activity Type Activity Date Activity User E-Sign Co-Sign Detail Recorded Client Recorded Date Recorded By Document 01/04/20 07:00 [id number] [email or web address] 01/04/20 11:53 [id number] 01/04/20 07:00 PMRU Outcome: Safety Current Safety Outcome/Goals Remain Free of Injury or Harm Cooperates with Safety Measures for Least Restrictive Environment Prevent Falls/ Injury Progression Toward Outcome/Goals Progressing - Interdisciplinary Staff Present Shipping And Receiving Operator/Social Work Staff Present: Aida Goldman LMSW Nursing Staff Present: John Issa RN Nutrition Staff Present: Analy Anand OT Staff Present: Madonna Cochran PT Staff Present: Rafal Sanders Therapy Staff Present: Angelina Holland BAG MAKER Staff Present: Steven Whittaker Medicine Note: Length of Stay: 2 weeks Anticipated Discharge Destination: Home Tentative Discharge Date: 01/18/20 Discharged to: Home
[2020-01-04] MEDS: Atorvastatin* 10 MG TAB PO SCH (16:36)
--- NOTE | 2020-01-04 18:03 | PN ---
Progress Note Date of Service: 01/04/20 Note: MILTON GR was visited. Therapy notes read and reviewed. He was discussed in interdisciplinary plan of care rounds. He has significant difficulties with his memory and figuring out how to do certain tasks. Current Medications: Active Medications Generic Name Dose Route Start Last Admin Trade Name Freq PRN Reason Stop Dose Admin Acetaminophen 650 mg 01/03/20 15:51 01/04/20 13:14 Tylenol Tab* PO 650 mg Q6H PRN Administration MILD PAIN or TEMP > 100.4 Aspirin 81 mg 01/04/20 09:00 01/04/20 09:16 Aspirin Ec Tab* PO 81 mg DAILY ANASTASIA Administration Atorvastatin Calcium 10 mg 01/04/20 17:00 01/04/20 16:36 Lipitor* PO 10 mg 1700 ANASTASIA Administration Calcium/Vitamin D 2 tab 01/04/20 09:00 01/04/20 09:17 Oscal D Tab 250/125* PO 2 tab DAILY ANASTASIA Administration Carbidopa/Levodopa 1 tab 01/04/20 08:00 01/04/20 16:36 Sinemet 10/100 Tab(*) PO 1 tab 0800,1600 ANASTASIA Administration Docusate Sodium 100 mg 01/03/20 21:00 01/04/20 09:17 Colace Cap* PO 100 mg BID ANASTASIA Administration Donepezil HCl 10 mg 01/04/20 09:00 01/04/20 09:17 Aricept Tab* PO 10 mg DAILY ANASTASIA Administration Gabapentin 600 mg 01/03/20 21:00 01/04/20 13:14 Neurontin Cap(*) PO 600 mg TID ANASTASIA Administration Latanoprost 1 drop 01/03/20 18:00 01/03/20 18:17 Xalatan 0.005%* BOTH EYES 1 drop QPM ANASTASIA Administration Linagliptin 5 mg 01/04/20 09:00 01/04/20 09:22 Tradjenta (Nf) PO 5 mg DAILY ANASTASIA Administration Magnesium Hydroxide 30 ml 01/03/20 15:51 Milk Of Magnesia Liq* PO Q6H PRN CONSTIPATION Magnesium Oxide 400 mg 01/04/20 09:00 01/04/20 09:20 Magox 400 Tab* PO 400 mg DAILY ANASTASIA Administration Memantine 10 mg 01/03/20 21:00 01/04/20 09:23 Namenda Tab* PO 10 mg BID ANASTASIA Administration Multivitamins/Minerals 1 tab 01/04/20 09:00 01/04/20 09:20 Theragran/Minerals Tab* PO 1 tab DAILY ANASTASIA Administration Nystatin 1 applic 01/03/20 21:00 01/04/20 09:21 Nystatin Top Powder* TOPICAL 1 applic BID ANASTASIA Administration Pantoprazole Sodium 40 mg 01/04/20 09:00 01/04/20 09:21 Protonix Tab* PO 40 mg DAILY ANASTASIA Administration Sacubitril/Valsartan 1 tab 01/03/20 21:00 01/04/20 09:22 Entresto (Nf) PO 1 tab BID ANASTASIA Administration Senna 2 tab 01/03/20 15:51 Senokot 8.6 Mg Tab* PO BEDTIME PRN CONSTIPATION Vital Signs: Vital Signs Temp Pulse Resp BP Pulse Ox 97.6 F 68 16 107/42 93 01/04/20 15:45 01/04/20 15:45 01/04/20 16:39 01/04/20 15:45 01/04/20 15:55 Lab Results: Laboratory Results - last 24 hr 01/03/20 01/04/20 01/04/20 16:44 07:14 11:46 POC Glucose (mg/dL) 73 103 H 105 H Exam: GENERAL: Alert but confused LUNGS: Clear HEART: reg rhythm ABDOMEN: Soft, +BS EXTREMITIES: Slightly increased tone NEUROLOGIC: sensation mostly intact. Strength 4+/5 Assessment/Plan: 1. 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 PT/OT/CANCER RESEARCHER 2. Dementia: Aricept/Namenda 3. CAD: ASA/Lipitor/Entresto 4. DM: Tradjenta. Cut FS to BID 5. DVT Prophylaxis: Resume Lovenox 6. Advance Directives: Full code. is surrogate decision maker 7. Back and neck pain: Gabapentin 01/04/20 18:01 01/04/20 18:03 01/04/20 18:04
[2020-01-04] MEDS: Latanoprost 0.005%* 2.5 ml BTL BOTH EYES SCH (18:12)
[2020-01-05 05:50] LABS: ABS Basophils 0.1 10^3/ul (0-0.2); ABS Eosinophils 0.5 10^3/ul (0-0.6); ABS Lymphocytes 1.9 10^3/ul (1.0-4.8); ABS Monocytes 0.8 10^3/ul (0-0.8); ABS Neutrophils 4.2 10^3/ul (1.5-7.7); Hematocrit 42 % (42-52); Hemoglobin 14.3 g/dL (14.0-18.0); Lymphocyte % 25.1 %; Mean Corpuscular HGB Conc 34 g/dL (31-36); Mean Corpuscular Hemoglobin 34 pg (27-31); Mean Corpuscular Volume 99 fL (80-94); Mean Platelet Volume 8.6 fL (7.4-10.4); Nucleated Red Blood Cells % 0.1; Platelet Count 208 10^3/uL (150-450); Red Blood Count 4.27 10^6 /uL (4.18-5.48); Red Cell Distribution Width 14 % (10-15); White Blood Count 7.5 10^3/uL (3.5-10.8)
[2020-01-05 06:00] LABS: Albumin 3.5 g/dL (3.2-5.2); Albumin/Globulin Ratio 1.2 (1-3); BUN/Creatinine Ratio 12.7 (8-20); Blood Urea Nitrogen 17 mg/dL (6-24); CO2 Carbon Dioxide 30 mmol/L (22-32); Calcium 8.7 mg/dL (8.6-10.3); Chloride 104 mmol/L (101-111); EGFR African American 62.9 (>60); Glucose 98 mg/dL (70-100); Sodium 140 mmol/L (135-145); Total Protein 6.5 g/dL (6.4-8.9)
[2020-01-05 06:01] LABS: ALT 25 U/L (7-52); Alkaline Phosphatase 78 U/L (34-104)
[2020-01-05 06:08] LABS: Anion Gap 6 mmol/L (2-11)
[2020-01-05 07:31] LABS: Potassium Redraw 4.2 mmol/L (3.5-5.0)
[2020-01-05] MEDS: Aspirin EC TAB* 81 MG TAB.EC PO SCH (07:58)
[2020-01-05] MEDS: Carbidopa/Levodop 10/100 MG TAB(*) PO SCH ×2 (07:58→16:01)
[2020-01-05] MEDS: Enoxaparin(*) 40 MG/0.4 ML SYR SUBCUT SCH (07:59)
[2020-01-05] MEDS: Gabapentin CAP(*) 300 MG PO SCH ×3 (07:59→19:57)
[2020-01-05] MEDS: Calcium/Vitamin D TAB 250/125* TAB PO SCH (07:59)
[2020-01-05] MEDS: Docusate CAP* 100 MG PO SCH ×2 (07:59→19:57)
[2020-01-05] MEDS: Donepezil TAB* 5 MG PO SCH (08:00)
[2020-01-05] MEDS: Memantine TAB* 10 MG PO SCH ×2 (08:00→19:57)
[2020-01-05] MEDS: Multivitamins/Minerals TAB PO SCH (08:00)
[2020-01-05] MEDS: Pantoprazole TAB * 40 MG TAB PO SCH (08:00)
[2020-01-05] MEDS: Nystatin TOP POWDER* 15 GM BTL TOPICAL SCH ×2 (08:00→20:51)
[2020-01-05] MEDS: Magnesium Oxide TAB* 400 MG PO SCH (08:00)
[2020-01-05] MEDS: PTO:Linagliptin (NF) 5 MG TAB PO SCH (08:02)
[2020-01-05] MEDS: PTO:Sacubitril/Valsartan 24/26(NF) 1 TAB PO SCH ×2 (08:02→19:57)
[2020-01-05] MEDS: Atorvastatin* 10 MG TAB PO SCH (16:01)
[2020-01-05] MEDS: Latanoprost 0.005%* 2.5 ml BTL BOTH EYES SCH (17:58)
--- NOTE | 2020-01-05 19:21 | PN ---
Progress Note Date of Service: 01/05/20 Note: MILTON GR was visited. Therapy notes read and reviewed. He remembers that I am the doctor and feels confident he is getting better. Current Medications: Active Medications Generic Name Dose Route Start Last Admin Trade Name Freq PRN Reason Stop Dose Admin Acetaminophen 650 mg 01/03/20 15:51 01/04/20 13:14 Tylenol Tab* PO 650 mg Q6H PRN Administration MILD PAIN or TEMP > 100.4 Aspirin 81 mg 01/04/20 09:00 01/05/20 07:58 Aspirin Ec Tab* PO 81 mg DAILY ANASTASIA Administration Atorvastatin Calcium 10 mg 01/04/20 17:00 01/05/20 16:01 Lipitor* PO 10 mg 1700 ANASTASIA Administration Calcium/Vitamin D 2 tab 01/04/20 09:00 01/05/20 07:59 Oscal D Tab 250/125* PO 2 tab DAILY ANASTASIA Administration Carbidopa/Levodopa 1 tab 01/04/20 08:00 01/05/20 16:01 Sinemet 10/100 Tab(*) PO 1 tab 0800,1600 ANASTASIA Administration Docusate Sodium 100 mg 01/03/20 21:00 01/05/20 07:59 Colace Cap* PO 100 mg BID ANASTASIA Administration Donepezil HCl 10 mg 01/04/20 09:00 01/05/20 08:00 Aricept Tab* PO 10 mg DAILY ANASTASIA Administration Enoxaparin Sodium 40 mg 01/05/20 09:00 01/05/20 07:59 Lovenox(*) SUBCUT 40 mg Q24H ANASTASIA Administration Gabapentin 600 mg 01/03/20 21:00 01/05/20 14:00 Neurontin Cap(*) PO 600 mg TID ANASTASIA Administration Latanoprost 1 drop 01/03/20 18:00 01/05/20 17:58 Xalatan 0.005%* BOTH EYES 1 drop QPM ANASTASIA Administration Linagliptin 5 mg 01/04/20 09:00 01/05/20 08:02 Tradjenta (Nf) PO 5 mg DAILY ANASTASIA Administration Magnesium Hydroxide 30 ml 01/03/20 15:51 Milk Of Magnesia Liq* PO Q6H PRN CONSTIPATION Magnesium Oxide 400 mg 01/04/20 09:00 01/05/20 08:00 Magox 400 Tab* PO 400 mg DAILY ANASTASIA Administration Memantine 10 mg 01/03/20 21:00 01/05/20 08:00 Namenda Tab* PO 10 mg BID ANASTASIA Administration Multivitamins/Minerals 1 tab 01/04/20 09:00 01/05/20 08:00 Theragran/Minerals Tab* PO 1 tab DAILY ANASTASIA Administration Nystatin 1 applic 01/03/20 21:00 01/05/20 08:00 Nystatin Top Powder* TOPICAL 1 applic BID ANASTASIA Administration Pantoprazole Sodium 40 mg 01/04/20 09:00 01/05/20 08:00 Protonix Tab* PO 40 mg DAILY ANASTASIA Administration Sacubitril/Valsartan 1 tab 01/03/20 21:00 01/05/20 08:02 Entresto (Nf) PO 1 tab BID ANASTASIA Administration Senna 2 tab 01/03/20 15:51 Senokot 8.6 Mg Tab* PO BEDTIME PRN CONSTIPATION Vital Signs: Vital Signs Temp Pulse Resp BP Pulse Ox 97.7 F 65 18 126/97 96 01/05/20 16:03 01/05/20 16:03 01/05/20 17:14 01/05/20 16:03 01/05/20 16:03 Lab Results: Laboratory Results - last 24 hr 01/04/20 01/05/20 01/05/20 16:42 05:39 05:39 WBC 7.5 RBC 4.27 Hgb 14.3 Hct 42 MCV 99 H MCH 34 H MCHC 34 RDW 14 Plt Count 208 MPV 8.6 Neut % (Auto) 56.5 Lymph % (Auto) 25.1 [place] % (Auto) 11.2 Eos % (Auto) 6.0 Baso % (Auto) 1.2 Absolute Neuts (auto) 4.2 Absolute Lymphs (auto) 1.9 Absolute Monos (auto) 0.8 Absolute Eos (auto) 0.5 Absolute Basos (auto) 0.1 Absolute Nucleated RBC 0.0 Nucleated RBC % 0.1 Sodium 140 Potassium TNP Chloride 104 Carbon Dioxide 30 Anion Gap 6 BUN 17 Creatinine 1.34 H Est GFR ( Amer) 62.9 Est GFR (Non-Af Amer) 52.0 BUN/Creatinine Ratio 12.7 Glucose 98 POC Glucose (mg/dL) 75 Calcium 8.7 Total Bilirubin 0.40 AST TNP ALT 25 Alkaline Phosphatase 78 Total Protein 6.5 Albumin 3.5 Globulin 3.0 Albumin/Globulin Ratio 1.2 01/05/20 01/05/20 01/05/20 07:10 07:40 16:49 WBC RBC Hgb Hct MCV MCH MCHC RDW Plt Count MPV Neut % (Auto) Lymph % (Auto) [place] % (Auto) Eos % (Auto) Baso % (Auto) Absolute Neuts (auto) Absolute Lymphs (auto) Absolute Monos (auto) Absolute Eos (auto) Absolute Basos (auto) Absolute Nucleated RBC Nucleated RBC % Sodium Potassium 4.2 Chloride Carbon Dioxide Anion Gap BUN Creatinine Est GFR ( Amer) Est GFR (Non-Af Amer) BUN/Creatinine Ratio Glucose POC Glucose (mg/dL) 101 H 101 H Calcium Total Bilirubin AST 34 ALT Alkaline Phosphatase Total Protein Albumin Globulin Albumin/Globulin Ratio Exam: GENERAL: Alert but confused LUNGS: Clear HEART: reg rhythm ABDOMEN: Soft, +BS EXTREMITIES: Slightly increased tone NEUROLOGIC: sensation mostly intact. Strength 4+/5 Assessment/Plan: 1. 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 Dementia: Aricept/Namenda 3. CAD: ASA/Lipitor/Entresto 4. DM: Tradjenta. Cut FS to BID 5. DVT Prophylaxis: Lovenox 6. Advance Directives: Full code. is surrogate decision maker 7. Back and neck pain: Gabapentin 8. Increased serum Cr: Will recheck Friday01/05/20 19:22 01/05/20 19:23
[2020-01-06] MEDS: Calcium/Vitamin D TAB 250/125* TAB PO SCH (08:32)
[2020-01-06] MEDS: Docusate CAP* 100 MG PO SCH ×2 (08:32→20:13)
[2020-01-06] MEDS: Donepezil TAB* 5 MG PO SCH (08:32)
[2020-01-06] MEDS: Carbidopa/Levodop 10/100 MG TAB(*) PO SCH ×2 (08:32→16:12)
[2020-01-06] MEDS: Aspirin EC TAB* 81 MG TAB.EC PO SCH (08:32)
[2020-01-06] MEDS: Gabapentin CAP(*) 300 MG PO SCH ×3 (08:33→20:39)
[2020-01-06] MEDS: Enoxaparin(*) 40 MG/0.4 ML SYR SUBCUT SCH (08:33)
[2020-01-06] MEDS: Nystatin TOP POWDER* 15 GM BTL TOPICAL SCH ×2 (08:34→20:38)
[2020-01-06] MEDS: Pantoprazole TAB * 40 MG TAB PO SCH (08:34)
[2020-01-06] MEDS: Magnesium Oxide TAB* 400 MG PO SCH (08:34)
[2020-01-06] MEDS: Multivitamins/Minerals TAB PO SCH (08:34)
[2020-01-06] MEDS: Memantine TAB* 10 MG PO SCH ×2 (08:34→20:13)
[2020-01-06] MEDS: PTO:Linagliptin (NF) 5 MG TAB PO SCH (08:34)
[2020-01-06] MEDS: PTO:Sacubitril/Valsartan 24/26(NF) 1 TAB PO SCH ×2 (08:35→20:13)
[2020-01-06] MEDS: Atorvastatin* 10 MG TAB PO SCH (16:12)
[2020-01-06] MEDS: Latanoprost 0.005%* 2.5 ml BTL BOTH EYES SCH (17:52)
--- NOTE | 2020-01-06 19:49 | PN ---
Progress Note Date of Service: 01/06/20 Note: MILTON GR was visited. Therapy notes read and reviewed. He did not remember me today, but is pleasant and interactive. Current Medications: Active Medications Generic Name Dose Route Start Last Admin Trade Name Freq PRN Reason Stop Dose Admin Acetaminophen 650 mg 01/03/20 15:51 01/04/20 13:14 Tylenol Tab* PO 650 mg Q6H PRN Administration MILD PAIN or TEMP > 100.4 Aspirin 81 mg 01/04/20 09:00 01/06/20 08:32 Aspirin Ec Tab* PO 81 mg DAILY ANASTASIA Administration Atorvastatin Calcium 10 mg 01/04/20 17:00 01/06/20 16:12 Lipitor* PO 10 mg 1700 ANASTASIA Administration Calcium/Vitamin D 2 tab 01/04/20 09:00 01/06/20 08:32 Oscal D Tab 250/125* PO 2 tab DAILY ANASTASIA Administration Carbidopa/Levodopa 1 tab 01/04/20 08:00 01/06/20 16:12 Sinemet 10/100 Tab(*) PO 1 tab 0800,1600 ANASTASIA Administration Docusate Sodium 100 mg 01/03/20 21:00 01/06/20 08:32 Colace Cap* PO 100 mg BID ANASTASIA Administration Donepezil HCl 10 mg 01/04/20 09:00 01/06/20 08:32 Aricept Tab* PO 10 mg DAILY ANASTASIA Administration Gabapentin 600 mg 01/03/20 21:00 01/06/20 14:34 Neurontin Cap(*) PO 600 mg TID ANASTASIA Administration Latanoprost 1 drop 01/03/20 18:00 01/06/20 17:52 Xalatan 0.005%* BOTH EYES 1 drop QPM ANASTASIA Administration Linagliptin 5 mg 01/04/20 09:00 01/06/20 08:34 Tradjenta (Nf) PO 5 mg DAILY ANASTASIA Administration Magnesium Hydroxide 30 ml 01/03/20 15:51 Milk Of Magnesia Liq* PO Q6H PRN CONSTIPATION Magnesium Oxide 400 mg 01/04/20 09:00 01/06/20 08:34 Magox 400 Tab* PO 400 mg DAILY ANASTASIA Administration Memantine 10 mg 01/03/20 21:00 01/06/20 08:34 Namenda Tab* PO 10 mg BID ANASTASIA Administration Multivitamins/Minerals 1 tab 01/04/20 09:00 02/20/20 08:34 Theragran/Minerals Tab* PO 1 tab DAILY ANASTASIA Administration Nystatin 1 applic 01/03/20 21:00 01/06/20 08:34 Nystatin Top Powder* TOPICAL 1 applic BID ANASTASIA Administration Pantoprazole Sodium 40 mg 01/04/20 09:00 01/06/20 08:34 Protonix Tab* PO 40 mg DAILY ANASTASIA Administration Sacubitril/Valsartan 1 tab 01/03/20 21:00 01/06/20 08:35 Entresto (Nf) PO 1 tab BID ANASTASIA Administration Senna 2 tab 01/03/20 15:51 Senokot 8.6 Mg Tab* PO BEDTIME PRN CONSTIPATION Vital Signs: Vital Signs Temp Pulse Resp BP Pulse Ox 97.5 F 65 18 119/62 100 01/06/20 16:23 01/06/20 16:23 01/06/20 16:34 01/06/20 16:23 01/06/20 19:25 Lab Results: Laboratory Results - last 24 hr 01/06/20 01/06/20 08:07 16:29 POC Glucose (mg/dL) 109 H 93 Exam: GENERAL: Alert but confused LUNGS: Clear HEART: reg rhythm ABDOMEN: Soft, +BS EXTREMITIES: Slightly increased tone NEUROLOGIC: sensation mostly intact. Strength 4+/5 Assessment/Plan: 1. 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 Dementia: Aricept/Namenda 3. CAD: ASA/Lipitor/Entresto 4. DM: Tradjenta. Cut FS to BID 5. DVT Prophylaxis: Lovenox 6. Advance Directives: Full code. is surrogate decision maker 7. Back and neck pain: Gabapentin 8. Increased serum Cr: Will recheck tomorrow 01/06/20 19:49
[2020-01-07 05:42] LABS: BUN/Creatinine Ratio 15.8 (8-20); Calcium 8.8 mg/dL (8.6-10.3); EGFR African American 75.8 (>60); EGFR Non-African American 62.6 (>60); Potassium 4.1 mmol/L (3.5-5.0)
[2020-01-07] MEDS: Carbidopa/Levodop 10/100 MG TAB(*) PO SCH ×2 (08:25→15:56)
[2020-01-07] MEDS: Aspirin EC TAB* 81 MG TAB.EC PO SCH (08:25)
[2020-01-07] MEDS: Donepezil TAB* 5 MG PO SCH (08:25)
[2020-01-07] MEDS: Gabapentin CAP(*) 300 MG PO SCH ×3 (08:25→20:10)
[2020-01-07] MEDS: Calcium/Vitamin D TAB 250/125* TAB PO SCH (08:25)
[2020-01-07] MEDS: Docusate CAP* 100 MG PO SCH ×2 (08:25→20:11)
[2020-01-07] MEDS: Multivitamins/Minerals TAB PO SCH (08:26)
[2020-01-07] MEDS: Nystatin TOP POWDER* 15 GM BTL TOPICAL SCH ×2 (08:26→20:35)
[2020-01-07] MEDS: Magnesium Oxide TAB* 400 MG PO SCH (08:26)
[2020-01-07] MEDS: PTO:Linagliptin (NF) 5 MG TAB PO SCH (08:26)
[2020-01-07] MEDS: Pantoprazole TAB * 40 MG TAB PO SCH (08:26)
[2020-01-07] MEDS: Memantine TAB* 10 MG PO SCH ×2 (08:26→20:10)
[2020-01-07] MEDS: PTO:Sacubitril/Valsartan 24/26(NF) 1 TAB PO SCH ×2 (08:27→20:10)
[2020-01-07] MEDS: Atorvastatin* 10 MG TAB PO SCH (15:56)
--- NOTE | 2020-01-07 17:37 | PN ---
Progress Note Date of Service: 01/07/20 Note: MILTON GR was visited. Therapy notes read and reviewed. His will come in for discharge training next week to see if she can handle his ADLs Current Medications: Active Medications Generic Name Dose Route Start Last Admin Trade Name Freq PRN Reason Stop Dose Admin Acetaminophen 650 mg 01/03/20 15:51 01/04/20 13:14 Tylenol Tab* PO 650 mg Q6H PRN Administration MILD PAIN or TEMP > 100.4 Aspirin 81 mg 01/04/20 09:00 01/07/20 08:25 Aspirin Ec Tab* PO 81 mg DAILY ANASTASIA Administration Atorvastatin Calcium 10 mg 01/04/20 17:00 01/07/20 15:56 Lipitor* PO 10 mg 1700 ANASTASIA Administration Calcium/Vitamin D 2 tab 01/04/20 09:00 01/07/20 08:25 Oscal D Tab 250/125* PO 2 tab DAILY ANASTASIA Administration Carbidopa/Levodopa 1 tab 01/04/20 08:00 01/07/20 15:56 Sinemet 10/100 Tab(*) PO 1 tab 0800,1600 ANASTASIA Administration Docusate Sodium 100 mg 01/03/20 21:00 01/07/20 08:25 Colace Cap* PO 100 mg BID ANASTASIA Administration Donepezil HCl 10 mg 01/04/20 09:00 01/07/20 08:25 Aricept Tab* PO 10 mg DAILY ANASTASIA Administration Gabapentin 600 mg 01/03/20 21:00 01/07/20 14:20 Neurontin Cap(*) PO 600 mg TID ANASTASIA Administration Latanoprost 1 drop 01/03/20 18:00 01/06/20 17:52 Xalatan 0.005%* BOTH EYES 1 drop QPM ANASTASIA Administration Linagliptin 5 mg 01/04/20 09:00 01/07/20 08:26 Tradjenta (Nf) PO 5 mg DAILY ANASTASIA Administration Magnesium Hydroxide 30 ml 01/03/20 15:51 Milk Of Magnesia Liq* PO Q6H PRN CONSTIPATION Magnesium Oxide 400 mg 01/04/20 09:00 01/07/20 08:26 Magox 400 Tab* PO 400 mg DAILY ANASTASIA Administration Memantine 10 mg 01/03/20 21:00 01/07/20 08:26 Namenda Tab* PO 10 mg BID ANASTASIA Administration Multivitamins/Minerals 1 tab 01/04/20 09:00 01/07/20 08:26 Theragran/Minerals Tab* PO 1 tab DAILY ANASTASIA Administration Nystatin 1 applic 01/03/20 21:00 01/07/20 08:26 Nystatin Top Powder* TOPICAL 1 applic BID ANASTASIA Administration Pantoprazole Sodium 40 mg 01/04/20 09:00 01/07/20 08:26 Protonix Tab* PO 40 mg DAILY ANASTASIA Administration Sacubitril/Valsartan 1 tab 01/03/20 21:00 01/07/20 08:27 Entresto (Nf) PO 1 tab BID ANASTASIA Administration Senna 2 tab 01/03/20 15:51 Senokot 8.6 Mg Tab* PO BEDTIME PRN CONSTIPATION Vital Signs: Vital Signs Temp Pulse Resp BP Pulse Ox 98.4 F 74 14 99/56 94 01/07/20 15:48 01/07/20 15:48 01/07/20 15:48 01/07/20 16:25 01/07/20 16:25 Lab Results: Laboratory Results - last 24 hr 01/07/20 01/07/20 01/07/20 04:45 07:52 16:32 Sodium 138 Potassium 4.1 Chloride 105 Carbon Dioxide 26 Anion Gap 7 BUN 18 Creatinine 1.14 Est GFR ( Amer) 75.8 Est GFR (Non-Af Amer) 62.6 BUN/Creatinine Ratio 15.8 Glucose 82 POC Glucose (mg/dL) 101 H 102 H Calcium 8.8 Exam: GENERAL: Alert but confused LUNGS: Clear HEART: reg rhythm ABDOMEN: Soft, +BS EXTREMITIES: Slightly increased tone NEUROLOGIC: sensation mostly intact. Strength 4+/5 Assessment/Plan: 1. 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 Dementia: Aricept/Namenda 3. CAD: ASA/Lipitor/Entresto 4. DM: Tradjenta. Cut FS to BID 5. DVT Prophylaxis: Lovenox 6. Advance Directives: Full code. is surrogate decision maker 7. Back and neck pain: Gabapentin 8. Increased serum Cr: Better today 01/07/20 17:38 01/07/20 17:38
[2020-01-07] MEDS: Latanoprost 0.005%* 2.5 ml BTL BOTH EYES SCH (18:00)
[2020-01-07] MEDS: Senna TAB 8.6 mg* TAB PO PRN (20:11)
[2020-01-08] MEDS: Nystatin TOP POWDER* 15 GM BTL TOPICAL SCH ×2 (08:46→19:57)
[2020-01-08] MEDS: Carbidopa/Levodop 10/100 MG TAB(*) PO SCH ×2 (08:49→15:52)
[2020-01-08] MEDS: Magnesium Oxide TAB* 400 MG PO SCH (08:50)
[2020-01-08] MEDS: Pantoprazole TAB * 40 MG TAB PO SCH (08:50)
[2020-01-08] MEDS: Aspirin EC TAB* 81 MG TAB.EC PO SCH (08:50)
[2020-01-08] MEDS: Calcium/Vitamin D TAB 250/125* TAB PO SCH (08:51)
[2020-01-08] MEDS: Multivitamins/Minerals TAB PO SCH (08:51)
[2020-01-08] MEDS: Gabapentin CAP(*) 300 MG PO SCH ×3 (08:52→19:58)
[2020-01-08] MEDS: Memantine TAB* 10 MG PO SCH ×2 (08:52→19:57)
[2020-01-08] MEDS: Donepezil TAB* 5 MG PO SCH (08:53)
[2020-01-08] MEDS: PTO:Linagliptin (NF) 5 MG TAB PO SCH (08:53)
[2020-01-08] MEDS: Docusate CAP* 100 MG PO SCH ×2 (08:53→19:57)
[2020-01-08] MEDS: PTO:Sacubitril/Valsartan 24/26(NF) 1 TAB PO SCH ×2 (08:54→19:58)
[2020-01-08] MEDS: Acetaminophen TAB* 325 MG PO PRN (15:52)
[2020-01-08] MEDS: Latanoprost 0.005%* 2.5 ml BTL BOTH EYES SCH (17:48)
[2020-01-08] MEDS: Atorvastatin* 10 MG TAB PO SCH (17:48)
--- NOTE | 2020-01-08 20:13 | PN ---
Progress Note Date of Service: 01/08/20 Note: MILTON GR was visited. Therapy notes read and reviewed. He thinks he is doing ok and has no specific complaints. Current Medications: Active Medications Generic Name Dose Route Start Last Admin Trade Name Freq PRN Reason Stop Dose Admin Acetaminophen 650 mg 01/03/20 15:51 01/08/20 15:52 Tylenol Tab* PO 650 mg Q6H PRN Administration MILD PAIN or TEMP > 100.4 Aspirin 81 mg 01/04/20 09:00 01/08/20 08:50 Aspirin Ec Tab* PO 81 mg DAILY ANASTASIA Administration Atorvastatin Calcium 10 mg 01/04/20 17:00 01/08/20 17:48 Lipitor* PO 10 mg 1700 ANASTASIA Administration Calcium/Vitamin D 2 tab 01/04/20 09:00 01/08/20 08:51 Oscal D Tab 250/125* PO 2 tab DAILY ANASTASIA Administration Carbidopa/Levodopa 1 tab 01/04/20 08:00 01/08/20 15:52 Sinemet 10/100 Tab(*) PO 1 tab 0800,1600 ANASTASIA Administration Docusate Sodium 100 mg 01/03/20 21:00 01/08/20 08:53 Colace Cap* PO Not Given BID ANASTASIA Donepezil HCl 10 mg 01/04/20 09:00 01/08/20 08:53 Aricept Tab* PO 10 mg DAILY ANASTASIA Administration Gabapentin 600 mg 01/03/20 21:00 01/08/20 14:23 Neurontin Cap(*) PO 600 mg TID ANASTASIA Administration Latanoprost 1 drop 01/03/20 18:00 01/08/20 17:48 Xalatan 0.005%* BOTH EYES 1 drop QPM ANASTASIA Administration Linagliptin 5 mg 01/04/20 09:00 01/08/20 08:53 Tradjenta (Nf) PO 5 mg DAILY ANASTASIA Administration Magnesium Hydroxide 30 ml 01/03/20 15:51 Milk Of Magnesia Liq* PO Q6H PRN CONSTIPATION Magnesium Oxide 400 mg 01/04/20 09:00 01/08/20 08:50 Magox 400 Tab* PO 400 mg DAILY ANASTASIA Administration Memantine 10 mg 01/03/20 21:00 01/08/20 08:52 Namenda Tab* PO 10 mg BID ANASTASIA Administration Multivitamins/Minerals 1 tab 01/04/20 09:00 01/08/20 08:51 Theragran/Minerals Tab* PO 1 tab DAILY ANASTASIA Administration Nystatin 1 applic 01/03/20 21:00 01/08/20 08:46 Nystatin Top Powder* TOPICAL 1 applic BID ANASTASIA Administration Pantoprazole Sodium 40 mg 01/04/20 09:00 01/08/20 08:50 Protonix Tab* PO 40 mg DAILY ANASTASIA Administration Sacubitril/Valsartan 1 tab 01/03/20 21:00 01/08/20 08:54 Entresto (Nf) PO 1 tab BID ANASTASIA Administration Senna 2 tab 01/03/20 15:51 01/07/20 20:11 Senokot 8.6 Mg Tab* PO 2 tab BEDTIME PRN Administration CONSTIPATION Vital Signs: Vital Signs Temp Pulse Resp BP Pulse Ox 98.5 F 73 16 102/57 99 01/08/20 15:45 01/08/20 15:45 01/08/20 17:48 01/08/20 15:45 01/08/20 15:45 Lab Results: Laboratory Results - last 24 hr 01/08/20 07:54 POC Glucose (mg/dL) 93 Exam: GENERAL: Alert but confused LUNGS: Clear HEART: reg rhythm ABDOMEN: Soft, +BS EXTREMITIES: Slightly increased tone NEUROLOGIC: sensation mostly intact. Strength 4+/5 Assessment/Plan: 1. 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 Dementia: Aricept/Namenda 3. CAD: ASA/Lipitor/Entresto 4. DM: Tradjenta. FS BID 5. DVT Prophylaxis: Lovenox 6. Advance Directives: Full code. is surrogate decision maker 7. Back and neck pain: Gabapentin 8. Increased serum Cr: Better 01/08/20 20:14
[2020-01-09] MEDS: Nystatin TOP POWDER* 15 GM BTL TOPICAL SCH ×3 (09:25→20:00)
[2020-01-09] MEDS: PTO:Linagliptin (NF) 5 MG TAB PO SCH (09:26)
[2020-01-09] MEDS: Magnesium Oxide TAB* 400 MG PO SCH (09:26)
[2020-01-09] MEDS: Aspirin EC TAB* 81 MG TAB.EC PO SCH (09:26)
[2020-01-09] MEDS: PTO:Sacubitril/Valsartan 24/26(NF) 1 TAB PO SCH ×2 (09:26→20:24)
[2020-01-09] MEDS: Carbidopa/Levodop 10/100 MG TAB(*) PO SCH ×2 (09:27→16:09)
[2020-01-09] MEDS: Docusate CAP* 100 MG PO SCH ×2 (09:27→20:21)
[2020-01-09] MEDS: Pantoprazole TAB * 40 MG TAB PO SCH (09:27)
[2020-01-09] MEDS: Gabapentin CAP(*) 300 MG PO SCH ×3 (09:27→20:21)
[2020-01-09] MEDS: Multivitamins/Minerals TAB PO SCH (09:28)
[2020-01-09] MEDS: Donepezil TAB* 5 MG PO SCH (09:28)
[2020-01-09] MEDS: Calcium/Vitamin D TAB 250/125* TAB PO SCH (09:29)
[2020-01-09] MEDS: Memantine TAB* 10 MG PO SCH ×2 (09:55→20:23)
[2020-01-09] MEDS: Acetaminophen TAB* 325 MG PO PRN ×2 (12:58→20:22)
[2020-01-09] MEDS: Atorvastatin* 10 MG TAB PO SCH (16:09)
--- NOTE | 2020-01-09 16:34 | PN ---
Progress Note Date of Service: 01/09/20 Note: MILTON GR was visited. Therapy notes read and reviewed. He has no specific compplaints. His will be in for training tomorrow. Current Medications: Active Medications Generic Name Dose Route Start Last Admin Trade Name Freq PRN Reason Stop Dose Admin Acetaminophen 650 mg 01/03/20 15:51 01/09/20 12:58 Tylenol Tab* PO 650 mg Q6H PRN Administration MILD PAIN or TEMP > 100.4 Aspirin 81 mg 01/04/20 09:00 01/09/20 09:26 Aspirin Ec Tab* PO 81 mg DAILY ANASTASIA Administration Atorvastatin Calcium 10 mg 01/04/20 17:00 01/09/20 16:09 Lipitor* PO 10 mg 1700 ANASTASIA Administration Calcium/Vitamin D 2 tab 01/04/20 09:00 01/09/20 09:29 Oscal D Tab 250/125* PO 2 tab DAILY ANASTASIA Administration Carbidopa/Levodopa 1 tab 01/04/20 08:00 01/09/20 16:09 Sinemet 10/100 Tab(*) PO 1 tab 0800,1600 ANASTASIA Administration Docusate Sodium 100 mg 01/03/20 21:00 01/09/20 09:27 Colace Cap* PO 100 mg BID ANASTASIA Administration Donepezil HCl 10 mg 01/04/20 09:00 01/09/20 09:28 Aricept Tab* PO 10 mg DAILY ANASTASIA Administration Gabapentin 600 mg 01/03/20 21:00 01/09/20 13:54 Neurontin Cap(*) PO 600 mg TID ANASTASIA Administration Latanoprost 1 drop 01/03/20 18:00 01/08/20 17:48 Xalatan 0.005%* BOTH EYES 1 drop QPM ANASTASIA Administration Linagliptin 5 mg 01/04/20 09:00 01/09/20 09:26 Tradjenta (Nf) PO 5 mg DAILY ANASTASIA Administration Magnesium Hydroxide 30 ml 01/03/20 15:51 Milk Of Magnesia Liq* PO Q6H PRN CONSTIPATION Magnesium Oxide 400 mg 01/04/20 09:00 01/09/20 09:26 Magox 400 Tab* PO 400 mg DAILY ANASTASIA Administration Memantine 10 mg 01/03/20 21:00 01/09/20 09:55 Namenda Tab* PO 10 mg BID ANASTASIA Administration Multivitamins/Minerals 1 tab 01/04/20 09:00 01/09/20 09:28 Theragran/Minerals Tab* PO 1 tab DAILY ANASTASIA Administration Nystatin 1 applic 01/03/20 21:00 01/09/20 09:25 Nystatin Top Powder* TOPICAL 1 applic BID ANASTASIA Administration Pantoprazole Sodium 40 mg 01/04/20 09:00 01/09/20 09:27 Protonix Tab* PO 40 mg DAILY ANASTASIA Administration Sacubitril/Valsartan 1 tab 01/03/20 21:00 01/09/20 09:26 Entresto (Nf) PO 1 tab BID ANASTASIA Administration Senna 2 tab 01/03/20 15:51 01/07/20 20:11 Senokot 8.6 Mg Tab* PO 2 tab BEDTIME PRN Administration CONSTIPATION Vital Signs: Vital Signs Temp Pulse Resp BP Pulse Ox 97.9 F 64 14 96/46 97 01/09/20 15:33 01/09/20 15:33 01/09/20 16:24 01/09/20 15:33 01/09/20 15:33 Lab Results: Laboratory Results - last 24 hr 01/08/20 16:44 POC Glucose (mg/dL) 111 H Exam: GENERAL: Alert but confused LUNGS: Clear HEART: reg rhythm ABDOMEN: Soft, +BS EXTREMITIES: Slightly increased tone NEUROLOGIC: sensation mostly intact. Strength 4+/5 Assessment/Plan: 1. 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 Dementia: Aricept/Namenda 3. CAD: ASA/Lipitor/Entresto 4. DM: Tradjenta. FS BID 5. DVT Prophylaxis: Lovenox 6. Advance Directives: Full code. is surrogate decision maker 7. Back and neck pain: Gabapentin 8. Increased serum Cr: Better 01/09/20 16:34
[2020-01-09] MEDS: Latanoprost 0.005%* 2.5 ml BTL BOTH EYES SCH (17:23)
[2020-01-10] MEDS: Gabapentin CAP(*) 300 MG PO SCH ×3 (08:09→20:52)
[2020-01-10] MEDS: Calcium/Vitamin D TAB 250/125* TAB PO SCH (08:09)
[2020-01-10] MEDS: Donepezil TAB* 5 MG PO SCH (08:09)
[2020-01-10] MEDS: Aspirin EC TAB* 81 MG TAB.EC PO SCH (08:09)
[2020-01-10] MEDS: Carbidopa/Levodop 10/100 MG TAB(*) PO SCH ×2 (08:09→15:49)
[2020-01-10] MEDS: Docusate CAP* 100 MG PO SCH ×2 (08:09→20:52)
[2020-01-10] MEDS: Memantine TAB* 10 MG PO SCH ×2 (08:10→20:52)
[2020-01-10] MEDS: Magnesium Oxide TAB* 400 MG PO SCH (08:10)
[2020-01-10] MEDS: PTO:Linagliptin (NF) 5 MG TAB PO SCH (08:10)
[2020-01-10] MEDS: Nystatin TOP POWDER* 15 GM BTL TOPICAL SCH (08:10)
[2020-01-10] MEDS: Multivitamins/Minerals TAB PO SCH (08:10)
[2020-01-10] MEDS: PTO:Sacubitril/Valsartan 24/26(NF) 1 TAB PO SCH ×2 (08:10→21:02)
[2020-01-10] MEDS: Pantoprazole TAB * 40 MG TAB PO SCH (08:10)
[2020-01-10] MEDS: Atorvastatin* 10 MG TAB PO SCH (16:47)
[2020-01-10] MEDS: Latanoprost 0.005%* 2.5 ml BTL BOTH EYES SCH (17:57)
--- NOTE | 2020-01-10 19:39 | PN ---
Progress Note Date of Service: 01/10/20 Note: MILTON GR was visited. Therapy notes read and reviewed. He has no complaints at the present time. Will discuss with therapy team how training went with his Current Medications: Active Medications Generic Name Dose Route Start Last Admin Trade Name Freq PRN Reason Stop Dose Admin Acetaminophen 650 mg 01/03/20 15:51 01/09/20 20:22 Tylenol Tab* PO 650 mg Q6H PRN Administration MILD PAIN or TEMP > 100.4 Aspirin 81 mg 01/04/20 09:00 01/10/20 08:09 Aspirin Ec Tab* PO 81 mg DAILY ANASTASIA Administration Atorvastatin Calcium 10 mg 01/04/20 17:00 01/10/20 16:47 Lipitor* PO 10 mg 1700 ANASTASIA Administration Calcium/Vitamin D 2 tab 01/04/20 09:00 01/10/20 08:09 Oscal D Tab 250/125* PO 2 tab DAILY ANASTASIA Administration Carbidopa/Levodopa 1 tab 01/04/20 08:00 01/10/20 15:49 Sinemet 10/100 Tab(*) PO 1 tab 0800,1600 ANASTASIA Administration Docusate Sodium 100 mg 01/03/20 21:00 01/10/20 08:09 Colace Cap* PO 100 mg BID ANASTASIA Administration Donepezil HCl 10 mg 01/04/20 09:00 01/10/20 08:09 Aricept Tab* PO 10 mg DAILY ANASTASIA Administration Gabapentin 600 mg 01/03/20 21:00 01/10/20 14:31 Neurontin Cap(*) PO 600 mg TID ANASTASIA Administration Latanoprost 1 drop 01/03/20 18:00 01/10/20 17:57 Xalatan 0.005%* BOTH EYES 1 drop QPM ANASTASIA Administration Linagliptin 5 mg 01/04/20 09:00 01/10/20 08:10 Tradjenta (Nf) PO 5 mg DAILY ANASTASIA Administration Magnesium Hydroxide 30 ml 01/03/20 15:51 Milk Of Magnesia Liq* PO Q6H PRN CONSTIPATION Magnesium Oxide 400 mg 01/04/20 09:00 01/10/20 08:10 Magox 400 Tab* PO 400 mg DAILY ANASTASIA Administration Memantine 10 mg 01/03/20 21:00 01/10/20 08:10 Namenda Tab* PO 10 mg BID ANASTASIA Administration Multivitamins/Minerals 1 tab 01/04/20 09:00 01/10/20 08:10 Theragran/Minerals Tab* PO 1 tab DAILY ANASTASIA Administration Nystatin 1 applic 01/03/20 21:00 01/10/20 08:10 Nystatin Top Powder* TOPICAL 1 applic BID ANASTASIA Administration Pantoprazole Sodium 40 mg 01/04/20 09:00 01/10/20 08:10 Protonix Tab* PO 40 mg DAILY ANASTASIA Administration Sacubitril/Valsartan 1 tab 01/03/20 21:00 01/10/20 08:10 Entresto (Nf) PO 1 tab BID ANASTASIA Administration Senna 2 tab 01/03/20 15:51 01/07/20 20:11 Senokot 8.6 Mg Tab* PO 2 tab BEDTIME PRN Administration CONSTIPATION Vital Signs: Vital Signs Temp Pulse Resp BP Pulse Ox 97.6 F 69 18 108/55 99 01/10/20 15:00 01/10/20 15:00 01/10/20 16:35 01/10/20 15:00 01/10/20 15:53 Lab Results: Laboratory Results - last 24 hr 01/10/20 07:58 POC Glucose (mg/dL) 87 Exam: GENERAL: Alert but confused LUNGS: Clear HEART: reg rhythm ABDOMEN: Soft, +BS EXTREMITIES: Slightly increased tone NEUROLOGIC: sensation mostly intact. Strength 4+/5 Assessment/Plan: 1. 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 Dementia: Aricept/Namenda 3. CAD: ASA/Lipitor/Entresto 4. DM: Tradjenta. FS BID 5. DVT Prophylaxis: Lovenox 6. Advance Directives: Full code. is surrogate decision maker 7. Back and neck pain: Gabapentin 8. Increased serum Cr: Better 01/10/20 19:39
[2020-01-11] MEDS: Nystatin TOP POWDER* 15 GM BTL TOPICAL SCH ×3 (00:15→20:05)
[2020-01-11] MEDS: Acetaminophen TAB* 325 MG PO PRN ×2 (00:34→11:18)
[2020-01-11] MEDS: Carbidopa/Levodop 10/100 MG TAB(*) PO SCH ×2 (09:00→15:55)
[2020-01-11] MEDS: Memantine TAB* 10 MG PO SCH ×2 (09:01→20:01)
[2020-01-11] MEDS: Magnesium Oxide TAB* 400 MG PO SCH (09:01)
[2020-01-11] MEDS: Docusate CAP* 100 MG PO SCH ×2 (09:01→20:01)
[2020-01-11] MEDS: Pantoprazole TAB * 40 MG TAB PO SCH (09:01)
[2020-01-11] MEDS: Gabapentin CAP(*) 300 MG PO SCH ×3 (09:01→20:01)
[2020-01-11] MEDS: Aspirin EC TAB* 81 MG TAB.EC PO SCH (09:01)
[2020-01-11] MEDS: Donepezil TAB* 5 MG PO SCH (09:03)
[2020-01-11] MEDS: Multivitamins/Minerals TAB PO SCH (09:03)
[2020-01-11] MEDS: Calcium/Vitamin D TAB 250/125* TAB PO SCH (09:03)
[2020-01-11] MEDS: PTO:Linagliptin (NF) 5 MG TAB PO SCH (09:04)
[2020-01-11] MEDS: PTO:Sacubitril/Valsartan 24/26(NF) 1 TAB PO SCH ×2 (09:04→20:01)
--- NOTE | 2020-01-11 12:46 | PMRUTEAM ---
PMRU: Team Meeting Current Status: Physical Therapy: Current Status Current Rolling Status Substantial/Maximal Current Supine <-> Sit Status Substantial/Maximal Current Sit <-> Stand Status Dependent Current Bed <-> Chair Status Substantial/Maximal Transfer/Bed Mobility Rolling Walker Recommended Devices Transfer Mobility Comment patient needs physical cues and hand over hand procedure. Current Picking Up Object Not attempted Status Current Car Transfer Status Not attempted Current Ambulation Assistance Supervision/Touching Status Ambulation Assistive Device Rolling Walker Ambulation Conditions Two or More Turns Current Ambulation Distance 40' Ambulation Comment has difficulty initiating step. short stride, freezes often. Current Wheelchair Propulsion Not Applicable Ability Status Current Stair Climbing Status Not attempted Current Curb Assistance Status Not attempted Occupational Therapy: Current Status Current Upper Body Dressing Supervision/Touching Status Current Lower Body Dressing Partial/Moderate Status Current Footwear Status Substantial/Maximal Current Bathing Status Partial/Moderate Current Grooming Status Supervision/Touching Current Toileting Status Dependent Current Toilet Transfer Status Dependent Current Eating Status Supervision/Touching Nursing: Current Status Skin Deviations [Right Eye] Bruise Skin Deviations [Left Lower Other Back] Skin Deviations [Left Arm] Abrasion Skin Deviations [Bilateral Abrasion Hand] Skin Deviations [Bilateral Abrasion Knee] Skin Deviations [Buttocks] Other Skin Deviation Description [ s/p recent fall Right Eye] Skin Deviation Description [ benign lump according to Left Lower Back] Skin Deviation Description [ scabs Bilateral Hand] Skin Deviation Description [ scabs Bilateral Knee] Skin Deviation Description [ did not observe Buttocks] Bladder Current Status incontinence/need bilingual sales assistant Bowel Current Status needs help Nutrition Current Status 100% eaten Medication Current Status needs help with medication administration Rec Therapy: Current Status Summary of Assessment and Recreation therapy assessment complete and pt is Clinical Impression aware of services. Pt participates in some leisure activities with staff assistance, and is open to continued leisure visits and pet therapy. Treatment Goals Pt will engage in leisure activities while on the unit, as tolerated Treatment Plan Provide recreation therapy services and encourage involvement Social Work: Current Status Discharge Plan return home with home care svs and family support Potential for Family Training pt's is involved and supportive Anticipated Discharge Home Destination Discharge With home care svs and family support Nutrition: Current Status Monitoring pt adm to PMRU 01/03 without noted nutritional concerns. Full nutrition assessment planned 01/10 per NDS protocol. BG well controlled in setting of T2DM; eating generally 75-100% of meals. CONSTRUCTION SAFETY MANAGER eval completed 12/29; no noted dysphagia. Initial nutritional goals as outlined below. Speech: Current Status Assessment Patient is not progressing. Staffand caregivers understand methods to provide directions so that patientcan follw them and maintain safety. Goals: Physical Therapy: Goals Goals to Be Accomplished in ( 14 Days) Goal: Rolling Assistance Independent Goal Supine <-> Sit Status Independent Goal Sit <-> Stand Status Independent Goal Bed <-> Chair Status Independent Transfer/Bed Mobility SAVAGE Recommended Devices Goal: Picking Up Object Independent Goal: Car Transfer Status Setup or Clean-up Assist Goal: Ambulation Assistance Independent Ambulation Assistive Devices Rolling Walker Ambulation Distance (ft) 150 Goal: Wheelchair Propulsion Not Applicable Ability Goal: Stairs Assistance Independent Stairs Recommended Devices One Rail Number of Stairs 4 Goal: Curb Assistance Independent Occupational Therapy: Goals Goals to be Completed in (Days 14 days ) Goal Upper Body Dressing Supervision/Touching Routine Goal Lower Body Dressing Supervision/Touching Routine Goal Footwear Status Partial/Moderate Goal Bathing Routine (OT) Supervision/Touching Goal Grooming Routine Setup or Clean-up Assist Goal Toilet Hygiene and Supervision/Touching Clothing Management Routine Goal Toilet Transfer Routine Supervision/Touching Goal Functional Transfers for Supervision/Touching ADL Goal Feeding Routine Setup or Clean-up Assist Goal Light Housekeeping Tasks Dependent Nutrition: Goals Intervention Goals 1. adequate intake to support hydration and lean body mass without significant wt change 2. glycemic control within inpatient parameters; no s/sx hypo-hyperglycemia 3. maintain serum electrolytes WNL 4. regulation of bowel pattern; no c/o constipation (or diarrhea) Speech: Goals Speech Goal 1 Problem Solving/Safety Goal 1 Comments Problem Solving Goal: Long-Term Goal: Patient will respond to verbal directions to solve simple routine problems, for transfer and mobility safety, and activites of daily living, with 90% accuracy, given Moderate verbal cueing and use of compensatory strategies by caregivers. . Status: Progressing slowly as expected Problem Solving Goal: Short-Term: Patient will respond to modified verbal directions to solve simple routine problems, for transfer and mobility safety, aand activites of daily living, with 100% accuracy, given Moderate verbal cueing and use of compensatory strategies by caregivers. Status: Progressing slowly as expected. Social Work: Goals Discharge Plan return home with home care svs and family support Potential for Family Training pt's is involved and supportive Anticipated Discharge Home Destination Discharge With home care svs and family support Nursing: Goals Bladder Goal independent Bowel Goal independent bowel Nutrition Goal continue with 100% meals Medication Goal may have to help/supervise with medications Care Plan: Care Plan ADL's - Improve/Maintain Start: 01/03/20 16:51 Freq: DAILY@0700,1900 Status: Active Target: 01/10/20 Protocol: Activity Type Activity Date Activity User E-Sign Co-Sign Detail Recorded Client Recorded Date Recorded By Document 01/11/20 06:34 [id number] 01/11/20 06:34 [id number] 01/11/20 06:34 PMRU Outcome: ADL's/ADL Transfers Orders/Interventions Occupational Therapy Evaluation & Treatment Device Yes Address Deficits Secondary To: Parkinson's Dz Patient to receive OT 5x/wk for 60-120 Therex min/day Self Care Management Group Therapy Neuromuscular ReEducation UE/LE ADL's with Assist Yes: supervision ADL Transfers with Assist Yes: supervision Toileting: Transfers,Clothing Management Yes: ,Hygeine w/Assist supervision Light Kitchen/Laundry w/Assist Yes: totalA Progression Toward Outcome/Goals Not Progressing Lack of Progression Comment Pt continues to require max verbal cues to complete his ADL routine. Pt also requires CGA- modA for balancing in standing while completing ADLs . Will continue to work with pt. Unclear at this time if pts will be able to provide amount of assist alone for pt to be d/ c home safely. Communication-Improve/Maintain Start: 01/03/20 16:51 Freq: DAILY@[id number] Status: Active Target: 01/18/20 Protocol: Activity Type Activity Date Activity User E-Sign Co-Sign Detail Recorded Client Recorded Date Recorded By Document 01/11/20 07:00 [id number] [id number] 01/11/20 10:06 [id number] 01/11/20 07:00 PMRU Outcome: Communication/Cognitive Status Current Communication Outcome/Goals Use Comm Tools/ Devices Makes Needs Known Effectively Progression Toward Outcomes/Goals Progressing DVT Prophylaxis- Improve/Maintain Start: 01/03/20 16:51 Freq: DAILY@07,1900 Status: Active Target: 01/18/20 Protocol: Activity Type Activity Date Activity User E-Sign Co-Sign Detail Recorded Client Recorded Date Recorded By Document 01/11/20 07:00 [id number] [email or web address] 01/11/20 10:06 [id number] 01/11/20 07:00 PMRU Outcome: DVT Prophylaxis Current DVT Outcome/Goals Remains Free of DVT Complies with DVT Prophylaxis /Treatment Demonstrates Knowledge of DVT Prevention/ Treatment Progression Toward Outcome/Goals Progressing Discharge Planning - Improve/Maintain Start: 01/03/20 16:51 Freq: DAILY@0700,1900 Status: Active Target: 01/18/20 Protocol: Activity Type Activity Date Activity User E-Sign Co-Sign Detail Recorded Client Recorded Date Recorded By Document 01/11/20 07:00 [id number] [email or web address] 01/11/20 10:06 [id number] 01/11/20 07:00 PMRU Outcome: Discharge Planning Update Patient Family No Current Discharge Planning Outcome/Goals Demonstrates Understanding of Discharge Plan Progression Toward Outcome/Goals Progressing /GI-Improve/Maintain Start: 01/03/20 16:51 Freq: DAILY@0700,1900 Status: Active Target: 01/18/20 Protocol: Activity Type Activity Date Activity User E-Sign Co-Sign Detail Recorded Client Recorded Date Recorded By Document 01/11/20 07:00 [id number] [email or web address] 01/11/20 10:06 [id number] 01/11/20 07:00 PMRU Outcome: Genitourinary/ Gastrointestinal Current Gastrointestinal Outcome/Goals Maintain/ Achieve Bowel Regularity in Accordance with Pt's Baseline Prevent Constipation Laxatives as Ordered Progression Toward Outcome/Goals Progressing Current Genitourinary Outcome/Goals Maintain/ Achieve Urinary Continence Maintain/ Achieve Adequate Urinary Output Remain Free of Hospital- Acquired UTI Progression Toward Outcome/Goals Goals Adjusted Lack of Progression Comment pt incontinent once overnight caregiver and once this shift so far, this is pt baseline Medication Administration Start: 01/03/20 16:51 Freq: DAILY@0700,1900 Status: Active Target: 01/18/20 Protocol: Activity Type Activity Date Activity User E-Sign Co-Sign Detail Recorded Client Recorded Date Recorded By Document 01/11/20 07:00 [id number] [email or web address] 01/11/20 10:06 [id number] 01/11/20 07:00 PMRU Outcome: Medication Administration Assess Patient Knowledge/Teach Med No: forgetful Education for all Meds and confused; caregiver helps with meds Current Payroll Benefits Clerk Outcome/Goals Family/ Caregiver Administer Medications at Home Progression Towards Outcome/Goals Progressing Is Patient Going Home on Lovenox? No Metabolic Status- Improve/Maintain Start: 01/03/20 16:51 Freq: DAILY@ Status: Active Target: 01/18/20 Protocol: Activity Type Activity Date Activity User E-Sign Co-Sign Detail Recorded Client Recorded Date Recorded By Document 01/11/20 07:00 [id number] 01/11/20 10:06 [id number] 01/11/20 07:00 PMRU Outcome: Metabolic Status Have Fingersticks Been Ordered Yes Fingerstick Order Frequency BID Current Metabolic Status Outcome/Goals Maintain/ Improve Metabolic Status Demonstrate Knowledge of Prevention/ Treatment of Metabolic Imbalances Progression Toward Outcome/Goals Progressing Mobility- Improve/Maintain Start: 01/03/20 16:51 Freq: DAILY@ Status: Active Target: 01/10/20 Protocol: Activity Type Activity Date Activity User E-Sign Co-Sign Detail Recorded Client Recorded Date Recorded By Document 01/06/20 14:37 [id number] 01/06/20 14:39 [id number] 01/06/20 14:37 PMRU Outcome: Mobility Physical Therapy Evaluation and Yes Treatment Activity OOB with Assistance Yes WBAT Yes NWB No TTWB No Device Yes Assistance Yes Patient to be seen 5x/wk for 60-120 min/ Therex day for: Mobility Training Gait Training Balance Other Other Therapy Comment Discharge training, discharge planning Current Mobility Outcome/Goals Maintain/ Achieve Baseline Mobility Status Improve Mobility Status Demonstrates Proper Use of Assistive Devices Free from Complications of Immobility Progression Toward Outcome/Goals Goal Initiation Outcome/Goals Met Maintain/ Achieve Baseline Mobility Status Improve Mobility Status Demonstrates Proper Use of Assistive Devices Free from Complications of Immobility Bed Mobility Yes: Independent Transfers Yes: Independent with RW Gait x ft Yes: 150' Independent with RW W/C Mobility x ft No Up/Down Stairs Yes: 4 steps with 2 rails, supervision With HEP Yes: supervision Neurological- Improve/Maintain Start: 01/03/20 16:51 Freq: DAILY@ Status: Active Target: 01/18/20 Protocol: Activity Type Activity Date Activity User E-Sign Co-Sign Detail Recorded Client Recorded Date Recorded By Document 01/11/20 07:00 [id number] 01/11/20 10:06 [id number] 01/11/20 07:00 PMRU Outcome: Neurological Weakness/Aphasia Weakness Current Neurological Outcome/Goals Maintain/ Achieve Baseline Neurological Status Prevent Avoidable Neurological Decline Maintain/ Improve Strength/ROM Progression Toward Outcome/Goals Progressing Rec Therapy- Improve/Maintain Start: 01/03/20 15:43 Freq: DAILY@[id number] Status: Active Target: 01/18/20 Protocol: Activity Type Activity Date Activity User E-Sign Co-Sign Detail Recorded Client Recorded Date Recorded By Document 01/10/20 16:15 [id number] 01/10/20 16:16 [id number] 01/10/20 16:15 PMRU Outcome: Recreation Therapy Current Rec Ther Outcome/Goals Complete Rec Therapy Assessment Meet with Patient Regularly for Support Encourage Leisure Involvement Progression Toward Outcome/Goals Progressing Lack of Progression Comment Met with pt for a brief leisure visit. Pt declined offer for formal activities, stated that he was tired this afternoon. Outcome/Goals Met Complete Rec Therapy Assessment Safety- Improve/Maintain Start: 01/03/20 15:04 Freq: DAILY@ Status: Active Target: 01/18/20 Protocol: Activity Type Activity Date Activity User E-Sign Co-Sign Detail Recorded Client Recorded Date Recorded By Document 01/11/20 07:00 [id number] 01/11/20 10:06 [id number] 01/11/20 07:00 PMRU Outcome: Safety Current Safety Outcome/Goals Remain Free of Injury or Harm Cooperates with Safety Measures for Least Restrictive Environment Prevent Falls/ Injury Progression Toward Outcome/Goals Progressing Outcome/Goals Met Comment Personal alarm armed - Interdisciplinary Staff Present Advertising Columnist/Social Work Staff Present: Sarita Damon LMSW Nursing Staff Present: John Issa OT Staff Present: Madonna Cochran PT Staff Present: Rafal Whitfield Rec Therapy Staff Present: Angelina Holland CONSTRUCTION SAFETY MANAGER Staff Present: Steven Whittaker Medicine Note: Length of Stay: 7 days Anticipated Discharge Destination: Home Tentative Discharge Date: 01/18/20 Discharged to: Home
[2020-01-11] MEDS: Atorvastatin* 10 MG TAB PO SCH (15:55)
[2020-01-11] MEDS: Latanoprost 0.005%* 2.5 ml BTL BOTH EYES SCH (18:22)
--- NOTE | 2020-01-11 21:33 | PN ---
Progress Note Date of Service: 01/11/20 Note: MILTON GR was visited. Therapy notes read and reviewed. He was discussed in interdisciplinary team rounds. has been in for training sessions. She wishes to take him home Current Medications: Active Medications Generic Name Dose Route Start Last Admin Trade Name Freq PRN Reason Stop Dose Admin Acetaminophen 650 mg 01/03/20 15:51 01/11/20 11:18 Tylenol Tab* PO 650 mg Q6H PRN Administration MILD PAIN or TEMP > 100.4 Aspirin 81 mg 01/04/20 09:00 01/11/20 09:01 Aspirin Ec Tab* PO 81 mg DAILY ANATSASIA Administration Atorvastatin Calcium 10 mg 01/04/20 17:00 01/11/20 15:55 Lipitor* PO 10 mg 1700 ANASTASIA Administration Calcium/Vitamin D 2 tab 01/04/20 09:00 01/11/20 09:03 Oscal D Tab 250/125* PO 2 tab DAILY ANASTASIA Administration Carbidopa/Levodopa 1 tab 01/04/20 08:00 01/11/20 15:55 Sinemet 10/100 Tab(*) PO 1 tab 0800,1600 ANASTASIA Administration Docusate Sodium 100 mg 01/03/20 21:00 01/11/20 20:01 Colace Cap* PO 100 mg BID ANASTASIA Administration Donepezil HCl 10 mg 01/04/20 09:00 01/11/20 09:03 Aricept Tab* PO 10 mg DAILY ANASTASIA Administration Gabapentin 600 mg 01/03/20 21:00 01/11/20 20:01 Neurontin Cap(*) PO 600 mg TID ANASTASIA Administration Latanoprost 1 drop 01/03/20 18:00 01/11/20 18:22 Xalatan 0.005%* BOTH EYES 1 drop QPM ANASTASIA Administration Linagliptin 5 mg 01/04/20 09:00 01/11/20 09:04 Tradjenta (Nf) PO 5 mg DAILY ANASTASIA Administration Magnesium Hydroxide 30 ml 01/03/20 15:51 Milk Of Magnesia Liq* PO Q6H PRN CONSTIPATION Magnesium Oxide 400 mg 01/04/20 09:00 01/11/20 09:01 Magox 400 Tab* PO 400 mg DAILY ANASTASIA Administration Memantine 10 mg 01/03/20 21:00 01/11/20 20:01 Namenda Tab* PO 10 mg BID ANASTASIA Administration Multivitamins/Minerals 1 tab 01/04/20 09:00 01/11/20 09:03 Theragran/Minerals Tab* PO 1 tab DAILY ANASTASIA Administration Nystatin 1 applic 01/03/20 21:00 01/11/20 20:05 Nystatin Top Powder* TOPICAL 1 applic BID ANASTASIA Administration Pantoprazole Sodium 40 mg 01/04/20 09:00 01/11/20 09:01 Protonix Tab* PO 40 mg DAILY ANASTASIA Administration Sacubitril/Valsartan 1 tab 01/03/20 21:00 01/11/20 20:01 Entresto (Nf) PO 1 tab BID ANASTASIA Administration Senna 2 tab 01/03/20 15:51 01/07/20 20:11 Senokot 8.6 Mg Tab* PO 2 tab BEDTIME PRN Administration CONSTIPATION Vital Signs: Vital Signs Temp Pulse Resp BP Pulse Ox 97.6 F 61 18 102/49 96 01/11/20 15:12 01/11/20 15:12 01/11/20 20:01 01/11/20 15:12 01/11/20 18:09 Lab Results: Laboratory Results - last 24 hr 01/11/20 01/11/20 07:28 16:17 POC Glucose (mg/dL) 103 H 101 H Exam: GENERAL: Alert but confused LUNGS: Clear HEART: reg rhythm ABDOMEN: Soft, +BS EXTREMITIES: Slightly increased tone NEUROLOGIC: sensation mostly intact. Strength 4+/5 Assessment/Plan: 1. 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 Dementia: Aricept/Namenda 3. CAD: ASA/Lipitor/Entresto 4. DM: Tradjenta. FS have been normal. He has not needed coverage. Will d/c fingersticks 5. DVT Prophylaxis: Lovenox 6. Advance Directives: Full code. is surrogate decision maker 7. Back and neck pain: Gabapentin 8. Increased serum Cr: Better 01/11/20 21:34
[2020-01-12 05:18] LABS: ABS Basophils 0.1 10^3/ul (0-0.2); ABS Eosinophils 0.5 10^3/ul (0-0.6); ABS Lymphocytes 1.8 10^3/ul (1.0-4.8); ABS Monocytes 0.8 10^3/ul (0-0.8); ABS Neutrophils 5.3 10^3/ul (1.5-7.7); Eosinophil % 5.7 %; Hematocrit 42 % (42-52); Hemoglobin 14.3 g/dL (14.0-18.0); Mean Corpuscular HGB Conc 34 g/dL (31-36); Mean Corpuscular Hemoglobin 33 pg (27-31); Mean Corpuscular Volume 97 fL (80-94); Mean Platelet Volume 8.2 fL (7.4-10.4); Platelet Count 230 10^3/uL (150-450); Red Blood Count 4.34 10^6 /uL (4.18-5.48); Red Cell Distribution Width 13 % (10-15); White Blood Count 8.5 10^3/uL (3.5-10.8)
[2020-01-12 05:34] LABS: Albumin 3.7 g/dL (3.2-5.2); Albumin/Globulin Ratio 1.2 (1-3); Calcium 8.9 mg/dL (8.6-10.3); EGFR African American 62.3 (>60); EGFR Non-African American 51.5 (>60); Potassium 4.5 mmol/L (3.5-5.0); Total Bilirubin 0.4 mg/dL (0.2-1.0); Total Protein 6.7 g/dL (6.4-8.9)
[2020-01-12] MEDS: Calcium/Vitamin D TAB 250/125* TAB PO SCH (08:17)
[2020-01-12] MEDS: Aspirin EC TAB* 81 MG TAB.EC PO SCH (08:17)
[2020-01-12] MEDS: Gabapentin CAP(*) 300 MG PO SCH ×3 (08:17→20:03)
[2020-01-12] MEDS: Docusate CAP* 100 MG PO SCH ×2 (08:17→20:03)
[2020-01-12] MEDS: Carbidopa/Levodop 10/100 MG TAB(*) PO SCH ×2 (08:17→15:57)
[2020-01-12] MEDS: Donepezil TAB* 5 MG PO SCH (08:17)
[2020-01-12] MEDS: Multivitamins/Minerals TAB PO SCH (08:18)
[2020-01-12] MEDS: Nystatin TOP POWDER* 15 GM BTL TOPICAL SCH ×2 (08:18→20:07)
[2020-01-12] MEDS: Memantine TAB* 10 MG PO SCH ×2 (08:18→20:03)
[2020-01-12] MEDS: Magnesium Oxide TAB* 400 MG PO SCH (08:18)
[2020-01-12] MEDS: PTO:Linagliptin (NF) 5 MG TAB PO SCH (08:18)
[2020-01-12] MEDS: Pantoprazole TAB * 40 MG TAB PO SCH (08:19)
[2020-01-12] MEDS: PTO:Sacubitril/Valsartan 24/26(NF) 1 TAB PO SCH ×2 (08:19→20:03)
[2020-01-12] MEDS: Atorvastatin* 10 MG TAB PO SCH (15:57)
[2020-01-12] MEDS: Latanoprost 0.005%* 2.5 ml BTL BOTH EYES SCH (18:25)
--- NOTE | 2020-01-12 18:39 | PN ---
Progress Note Date of Service: 01/12/20 Note: MILTON GR was visited. Therapy notes read and reviewed. He has no complaints. Family training ongoing with some success. Has been incontinent Current Medications: Active Medications Generic Name Dose Route Start Last Admin Trade Name Freq PRN Reason Stop Dose Admin Acetaminophen 650 mg 01/03/20 15:51 01/11/20 11:18 Tylenol Tab* PO 650 mg Q6H PRN Administration MILD PAIN or TEMP > 100.4 Aspirin 81 mg 01/04/20 09:00 01/12/20 08:17 Aspirin Ec Tab* PO 81 mg DAILY ANASTASIA Administration Atorvastatin Calcium 10 mg 01/04/20 17:00 01/12/20 15:57 Lipitor* PO 10 mg 1700 ANASTASIA Administration Calcium/Vitamin D 2 tab 01/04/20 09:00 01/12/20 08:17 Oscal D Tab 250/125* PO 2 tab DAILY ANASTASIA Administration Carbidopa/Levodopa 1 tab 01/04/20 08:00 01/12/20 15:57 Sinemet 10/100 Tab(*) PO 1 tab 0800,1600 ANASTASIA Administration Docusate Sodium 100 mg 01/03/20 21:00 01/12/20 08:17 Colace Cap* PO 100 mg BID ANASTASIA Administration Donepezil HCl 10 mg 01/04/20 09:00 01/12/20 08:17 Aricept Tab* PO 10 mg DAILY ANASTASIA Administration Gabapentin 600 mg 01/03/20 21:00 01/12/20 13:41 Neurontin Cap(*) PO 600 mg TID ANASTASIA Administration Latanoprost 1 drop 01/03/20 18:00 01/12/20 18:25 Xalatan 0.005%* BOTH EYES 1 drop QPM ANASTASIA Administration Linagliptin 5 mg 01/04/20 09:00 01/12/20 08:18 Tradjenta (Nf) PO 5 mg DAILY ANASTASIA Administration Magnesium Hydroxide 30 ml 01/03/20 15:51 Milk Of Magnesia Liq* PO Q6H PRN CONSTIPATION Magnesium Oxide 400 mg 01/04/20 09:00 01/12/20 08:18 Magox 400 Tab* PO 400 mg DAILY ANASTASIA Administration Memantine 10 mg 01/03/20 21:00 01/12/20 08:18 Namenda Tab* PO 10 mg BID ANASTASIA Administration Multivitamins/Minerals 1 tab 01/04/20 09:00 01/12/20 08:18 Theragran/Minerals Tab* PO 1 tab DAILY ANASTASIA Administration Nystatin 1 applic 01/03/20 21:00 01/12/20 08:18 Nystatin Top Powder* TOPICAL 1 applic BID ANASTASIA Administration Pantoprazole Sodium 40 mg 01/04/20 09:00 01/12/20 08:19 Protonix Tab* PO 40 mg DAILY ANASTASIA Administration Sacubitril/Valsartan 1 tab 01/03/20 21:00 01/12/20 08:19 Entresto (Nf) PO 1 tab BID ANASTASIA Administration Senna 2 tab 01/03/20 15:51 01/07/20 20:11 Senokot 8.6 Mg Tab* PO 2 tab BEDTIME PRN Administration CONSTIPATION Vital Signs: Vital Signs Temp Pulse Resp BP Pulse Ox 97.6 F 93 18 115/59 94 01/12/20 16:16 01/12/20 16:16 01/12/20 16:45 01/12/20 16:16 01/12/20 17:23 Lab Results: Laboratory Results - last 24 hr 01/12/20 01/12/20 05:12 05:12 WBC 8.5 RBC 4.34 Hgb 14.3 Hct 42 MCV 97 H MCH 33 H MCHC 34 RDW 13 Plt Count 230 MPV 8.2 Neut % (Auto) 62.6 Lymph % (Auto) 21.0 Posey % (Auto) 9.6 Eos % (Auto) 5.7 Baso % (Auto) 1.1 Absolute Neuts (auto) 5.3 Absolute Lymphs (auto) 1.8 Absolute Monos (auto) 0.8 Absolute Eos (auto) 0.5 Absolute Basos (auto) 0.1 Absolute Nucleated RBC 0.0 Nucleated RBC % 0.0 Sodium 138 Potassium 4.5 Chloride 105 Carbon Dioxide 27 Anion Gap 6 BUN 27 H Creatinine 1.35 H Est GFR ( Amer) 62.3 Est GFR (Non-Af Amer) 51.5 BUN/Creatinine Ratio 20.0 Glucose 92 Calcium 8.9 Total Bilirubin 0.40 AST 22 ALT 21 Alkaline Phosphatase 83 Total Protein 6.7 Albumin 3.7 Globulin 3.0 Albumin/Globulin Ratio 1.2 Exam: GENERAL: Alert but confused LUNGS: Clear HEART: reg rhythm ABDOMEN: Soft, +BS EXTREMITIES: Slightly increased tone NEUROLOGIC: sensation mostly intact. Strength 4+/5 Assessment/Plan: 1. 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 Dementia: Aricept/Namenda 3. CAD: ASA/Lipitor/Entresto 4. DM: Tradjenta. FS have been normal. He has not needed coverage. Will d/c fingersticks 5. DVT Prophylaxis: Lovenox 6. Advance Directives: Full code. is surrogate decision maker 7. Back and neck pain: Gabapentin 8. Increased serum Cr: Better 01/12/20 18:39
[2020-01-12] MEDS: Senna TAB 8.6 mg* TAB PO PRN (20:03)
[2020-01-13] MEDS: Calcium/Vitamin D TAB 250/125* TAB PO SCH (08:56)
[2020-01-13] MEDS: Donepezil TAB* 5 MG PO SCH (08:56)
[2020-01-13] MEDS: Aspirin EC TAB* 81 MG TAB.EC PO SCH (08:56)
[2020-01-13] MEDS: Pantoprazole TAB * 40 MG TAB PO SCH (08:56)
[2020-01-13] MEDS: Multivitamins/Minerals TAB PO SCH (08:56)
[2020-01-13] MEDS: Docusate CAP* 100 MG PO SCH ×2 (08:57→20:59)
[2020-01-13] MEDS: Magnesium Oxide TAB* 400 MG PO SCH (08:57)
[2020-01-13] MEDS: PTO:Linagliptin (NF) 5 MG TAB PO SCH (08:58)
[2020-01-13] MEDS: PTO:Sacubitril/Valsartan 24/26(NF) 1 TAB PO SCH ×2 (08:58→20:58)
[2020-01-13] MEDS: Carbidopa/Levodop 10/100 MG TAB(*) PO SCH ×2 (08:58→16:31)
[2020-01-13] MEDS: Memantine TAB* 10 MG PO SCH ×2 (08:58→20:59)
[2020-01-13] MEDS: Gabapentin CAP(*) 300 MG PO SCH ×3 (08:59→20:58)
[2020-01-13] MEDS: Acetaminophen TAB* 325 MG PO PRN ×2 (08:59→21:03)
[2020-01-13] MEDS: Nystatin TOP POWDER* 15 GM BTL TOPICAL SCH ×2 (09:45→20:58)
[2020-01-13] MEDS: Atorvastatin* 10 MG TAB PO SCH (16:31)
[2020-01-13] MEDS: Latanoprost 0.005%* 2.5 ml BTL BOTH EYES SCH (18:14)
--- NOTE | 2020-01-13 18:15 | PN ---
Progress Note Date of Service: 01/13/20 Note: MILTON GR was visited. Therapy notes read and reviewed. I spoke with him and his regarding discharge options. As of now, her preference is to return home. She is familiar with both [facility] and [facility] and has a clear preference for the former over the latter but will try it at home. We spoke about a lift chair as well as family training which will continue tomorrow with physical therapy. Current Medications: Active Medications Generic Name Dose Route Start Last Admin Trade Name Freq PRN Reason Stop Dose Admin Acetaminophen 650 mg 01/03/20 15:51 01/13/20 08:59 Tylenol Tab* PO 650 mg Q6H PRN Administration MILD PAIN or TEMP > 100.4 Aspirin 81 mg 01/04/20 09:00 01/13/20 08:56 Aspirin Ec Tab* PO 81 mg DAILY ANASTASIA Administration Atorvastatin Calcium 10 mg 01/04/20 17:00 01/13/20 16:31 Lipitor* PO 10 mg 1700 ANASTASIA Administration Calcium/Vitamin D 2 tab 01/04/20 09:00 01/13/20 08:56 Oscal D Tab 250/125* PO 2 tab DAILY ANASTASIA Administration Carbidopa/Levodopa 1 tab 01/04/20 08:00 01/13/20 16:31 Sinemet 10/100 Tab(*) PO 1 tab 0800,1600 ANASTASIA Administration Docusate Sodium 100 mg 01/03/20 21:00 01/13/20 08:57 Colace Cap* PO 100 mg BID ANASTASIA Administration Donepezil HCl 10 mg 01/04/20 09:00 01/13/20 08:56 Aricept Tab* PO 10 mg DAILY ANASTASIA Administration Gabapentin 600 mg 01/03/20 21:00 01/13/20 14:17 Neurontin Cap(*) PO 600 mg TID ANASTASIA Administration Latanoprost 1 drop 01/03/20 18:00 01/12/20 18:25 Xalatan 0.005%* BOTH EYES 1 drop QPM ANASTASIA Administration Linagliptin 5 mg 01/04/20 09:00 01/13/20 08:58 Tradjenta (Nf) PO 5 mg DAILY ANASTASIA Administration Magnesium Hydroxide 30 ml 01/03/20 15:51 Milk Of Magnesia Liq* PO Q6H PRN CONSTIPATION Magnesium Oxide 400 mg 01/04/20 09:00 01/13/20 08:57 Magox 400 Tab* PO 400 mg DAILY ANASTASIA Administration Memantine 10 mg 01/03/20 21:00 01/13/20 08:58 Namenda Tab* PO 10 mg BID ANASTASIA Administration Multivitamins/Minerals 1 tab 01/04/20 09:00 01/13/20 08:56 Theragran/Minerals Tab* PO 1 tab DAILY ANASTASIA Administration Nystatin 1 applic 01/03/20 21:00 01/13/20 09:45 Nystatin Top Powder* TOPICAL 1 applic BID ANASTASIA Administration Pantoprazole Sodium 40 mg 01/04/20 09:00 01/13/20 08:56 Protonix Tab* PO 40 mg DAILY ANASTASIA Administration Sacubitril/Valsartan 1 tab 01/03/20 21:00 01/13/20 08:58 Entresto (Nf) PO 1 tab BID ANASTASIA Administration Senna 2 tab 01/03/20 15:51 01/12/20 20:03 Senokot 8.6 Mg Tab* PO 2 tab BEDTIME PRN Administration CONSTIPATION Vital Signs: Vital Signs Temp Pulse Resp BP Pulse Ox 98.7 F 69 18 108/61 88 01/13/20 16:05 01/13/20 16:05 01/13/20 16:10 01/13/20 16:05 01/13/20 16:05 Exam: GENERAL: Alert but confused LUNGS: Clear HEART: reg rhythm ABDOMEN: Soft, +BS EXTREMITIES: Slightly increased tone NEUROLOGIC: sensation mostly intact. Strength 4+/5 Assessment/Plan: 1. 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 Dementia: Aricept/Namenda 3. CAD: ASA/Lipitor/Entresto 4. DM: Tradjenta. FS have been normal. He has not needed coverage. Will d/c fingersticks 5. DVT Prophylaxis: Lovenox 6. Advance Directives: Full code. is surrogate decision maker 7. Back and neck pain: Gabapentin 8. Increased serum Cr: Better 01/13/20 18:15
[2020-01-13 22:29] LABS: Urine Appearance Clear; Urine Bilirubin Negative (Negative); Urine Blood Negative (Negative); Urine Color Yellow; Urine Glucose Negative (Negative); Urine Ketones Negative (Negative); Urine Nitrite Negative (Negative); Urine Protein Negative (Negative); Urine Specific Gravity 1.008 (1.010-1.030); Urine Urobilinogen Negative (Negative)
[2020-01-14 05:33] LABS: ABS Basophils 0.1 10^3/ul (0-0.2); ABS Eosinophils 0.4 10^3/ul (0-0.6); ABS Lymphocytes 1.9 10^3/ul (1.0-4.8); ABS Monocytes 0.9 10^3/ul (0-0.8); ABS Neutrophils 3.6 10^3/ul (1.5-7.7); Eosinophil % 6.2 %; Hematocrit 41 % (42-52); Hemoglobin 13.9 g/dL (14.0-18.0); Lymphocyte % 27.2 %; Mean Corpuscular HGB Conc 34 g/dL (31-36); Mean Corpuscular Hemoglobin 33 pg (27-31); Mean Corpuscular Volume 97 fL (80-94); Mean Platelet Volume 8.7 fL (7.4-10.4); Platelet Count 223 10^3/uL (150-450); Red Blood Count 4.25 10^6 /uL (4.18-5.48); Red Cell Distribution Width 13 % (10-15); White Blood Count 6.9 10^3/uL (3.5-10.8)
[2020-01-14] MEDS: PTO:Sacubitril/Valsartan 24/26(NF) 1 TAB PO SCH ×2 (08:43→20:45)
[2020-01-14] MEDS: PTO:Linagliptin (NF) 5 MG TAB PO SCH (08:43)
[2020-01-14] MEDS: Carbidopa/Levodop 10/100 MG TAB(*) PO SCH ×2 (08:44→15:58)
[2020-01-14] MEDS: Memantine TAB* 10 MG PO SCH ×2 (08:44→20:45)
[2020-01-14] MEDS: Calcium/Vitamin D TAB 250/125* TAB PO SCH (08:44)
[2020-01-14] MEDS: Donepezil TAB* 5 MG PO SCH (08:44)
[2020-01-14] MEDS: Pantoprazole TAB * 40 MG TAB PO SCH (08:44)
[2020-01-14] MEDS: Multivitamins/Minerals TAB PO SCH (08:44)
[2020-01-14] MEDS: Magnesium Oxide TAB* 400 MG PO SCH (08:44)
[2020-01-14] MEDS: Aspirin EC TAB* 81 MG TAB.EC PO SCH (08:44)
[2020-01-14] MEDS: Gabapentin CAP(*) 300 MG PO SCH ×3 (08:45→20:44)
[2020-01-14] MEDS: Nystatin TOP POWDER* 15 GM BTL TOPICAL SCH ×2 (09:01→20:45)
[2020-01-14] MEDS: Docusate CAP* 100 MG PO SCH ×2 (09:01→20:44)
--- NOTE | 2020-01-14 09:02 | PN ---
Progress Note Date of Service: 01/14/20 Note: MILTON GR was visited. Nursing and therapy notes read and reviewed. Nursing last night noted some redness, swelling and tenderness posterior to lateral ankle last night after removing IVÁN hose. No pain this morning and he has not reported pain with transfers. His said some discoloration and swelling has been chronic as she is in this morning while I look with the nurse. No chest pain, shortness of breath or abdominal pain. He has some chronic low back pain. Current Medications: Active Medications Generic Name Dose Route Start Last Admin Trade Name Freq PRN Reason Stop Dose Admin Acetaminophen 650 mg 01/03/20 15:51 01/13/20 21:03 Tylenol Tab* PO 650 mg Q6H PRN Administration MILD PAIN or TEMP > 100.4 Aspirin 81 mg 01/04/20 09:00 01/14/20 08:44 Aspirin Ec Tab* PO 81 mg DAILY ANASTASIA Administration Atorvastatin Calcium 10 mg 01/04/20 17:00 01/13/20 16:31 Lipitor* PO 10 mg 1700 ANASTASIA Administration Calcium/Vitamin D 2 tab 01/04/20 09:00 01/14/20 08:44 Oscal D Tab 250/125* PO 2 tab DAILY ANASTASIA Administration Carbidopa/Levodopa 1 tab 01/04/20 08:00 01/14/20 08:44 Sinemet 10/100 Tab(*) PO 1 tab 0800,1600 ANASTASIA Administration Docusate Sodium 100 mg 01/03/20 21:00 01/13/20 20:59 Colace Cap* PO 100 mg BID ANASTASIA Administration Donepezil HCl 10 mg 01/04/20 09:00 01/14/20 08:44 Aricept Tab* PO 10 mg DAILY ANASTASIA Administration Gabapentin 600 mg 01/03/20 21:00 01/13/20 20:58 Neurontin Cap(*) PO 600 mg TID ANASTASIA Administration Latanoprost 1 drop 01/03/20 18:00 01/13/20 18:14 Xalatan 0.005%* BOTH EYES 1 drop QPM ANASTASIA Administration Linagliptin 5 mg 01/04/20 09:00 01/14/20 08:43 Tradjenta (Nf) PO 5 mg DAILY ANASTASIA Administration Magnesium Hydroxide 30 ml 01/03/20 15:51 Milk Of Magnesia Liq* PO Q6H PRN CONSTIPATION Magnesium Oxide 400 mg 01/04/20 09:00 01/14/20 08:44 Magox 400 Tab* PO 400 mg DAILY ANASTASIA Administration Memantine 10 mg 01/03/20 21:00 01/14/20 08:44 Namenda Tab* PO 10 mg BID ANASTASIA Administration Multivitamins/Minerals 1 tab 01/04/20 09:00 01/14/20 08:44 Theragran/Minerals Tab* PO 1 tab DAILY ANASTASIA Administration Nystatin 1 applic 01/03/20 21:00 01/13/20 20:58 Nystatin Top Powder* TOPICAL 1 applic BID ANASTASIA Administration Pantoprazole Sodium 40 mg 01/04/20 09:00 01/14/20 08:44 Protonix Tab* PO 40 mg DAILY ANASTASIA Administration Sacubitril/Valsartan 1 tab 01/03/20 21:00 01/14/20 08:43 Entresto (Nf) PO 1 tab BID ANASTASIA Administration Senna 2 tab 01/03/20 15:51 01/12/20 20:03 Senokot 8.6 Mg Tab* PO 2 tab BEDTIME PRN Administration CONSTIPATION Vital Signs: Vital Signs Temp Pulse Resp BP Pulse Ox 98.1 F 64 16 108/58 94 01/14/20 04:47 01/14/20 04:47 01/14/20 04:47 01/14/20 04:47 01/14/20 04:47 Lab Results: Laboratory Results - last 24 hr 01/13/20 01/14/20 20:20 04:38 WBC 6.9 RBC 4.25 Hgb 13.9 L Hct 41 L MCV 97 H MCH 33 H MCHC 34 RDW 13 Plt Count 223 MPV 8.7 Neut % (Auto) 52.5 Lymph % (Auto) 27.2 [place] % (Auto) 13.3 Eos % (Auto) 6.2 Baso % (Auto) 0.8 Absolute Neuts (auto) 3.6 Absolute Lymphs (auto) 1.9 Absolute Monos (auto) 0.9 H Absolute Eos (auto) 0.4 Absolute Basos (auto) 0.1 Absolute Nucleated RBC 0.0 Nucleated RBC % 0.0 Urine Color Yellow Urine Appearance Clear Urine pH 6.0 Ur Specific [place] 1.008 L Urine Protein Negative Urine Ketones Negative Urine Blood Negative Urine Nitrate Negative Urine Bilirubin Negative Urine Urobilinogen Negative Ur Leukocyte Esterase Negative Urine Glucose Negative Exam: GENERAL: Alert and appropriate but difficulty understanding MMT commands LUNGS: Clear to auscultation bilaterally HEART: regular rate and rhythm ABDOMEN: Soft, + bowel sounds, non-tender, non-distended EXTREMITIES: No edema. 2+ pedal pulses SKIN: Both feet examined. No skin breakdown. No concerning erythema. There is some blanching purplish discoloration in right greater than left lateral foot consistent with a history of venous congestion. No tenderness to palpation. NEUROLOGIC: sensation intact x4. BUE/BLE motor 4+/5. Assessment/Plan: 1. 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 Dementia: Aricept/Namenda. Urinalysis negative 01/13/2020. 3. CAD: ASA/Lipitor/Entresto 4. DM: Tradjenta. FS have been normal. He has not needed coverage. Fingersticks d/c'd. 5. DVT Prophylaxis: Lovenox 6. Advance Directives: Full code. is surrogate decision maker 7. Back and neck pain: Gabapentin 8. Increased serum Cr: encourage po fluids. 01/14/20 09:06
[2020-01-14] MEDS: Atorvastatin* 10 MG TAB PO SCH (17:22)
[2020-01-14] MEDS: Latanoprost 0.005%* 2.5 ml BTL BOTH EYES SCH (17:22)
[2020-01-15] MEDS: Carbidopa/Levodop 10/100 MG TAB(*) PO SCH ×2 (08:11→16:11)
[2020-01-15] MEDS: Pantoprazole TAB * 40 MG TAB PO SCH (08:12)
[2020-01-15] MEDS: Donepezil TAB* 5 MG PO SCH (08:12)
[2020-01-15] MEDS: Memantine TAB* 10 MG PO SCH ×2 (08:12→20:44)
[2020-01-15] MEDS: Calcium/Vitamin D TAB 250/125* TAB PO SCH (08:12)
[2020-01-15] MEDS: Multivitamins/Minerals TAB PO SCH (08:12)
[2020-01-15] MEDS: Magnesium Oxide TAB* 400 MG PO SCH (08:12)
[2020-01-15] MEDS: Aspirin EC TAB* 81 MG TAB.EC PO SCH (08:12)
[2020-01-15] MEDS: Docusate CAP* 100 MG PO SCH ×2 (08:12→20:44)
[2020-01-15] MEDS: PTO:Linagliptin (NF) 5 MG TAB PO SCH (08:14)
[2020-01-15] MEDS: PTO:Sacubitril/Valsartan 24/26(NF) 1 TAB PO SCH ×2 (08:14→20:44)
[2020-01-15] MEDS: Gabapentin CAP(*) 300 MG PO SCH ×3 (08:15→20:44)
--- NOTE | 2020-01-15 09:38 | PN ---
Progress Note Date of Service: 01/15/20 Note: MILTON GR was visited. Nursing and therapy notes read and reviewed. No new issues overnight. No chest pain, shortness of breath or abdominal pain. Current Medications: Active Medications Generic Name Dose Route Start Last Admin Trade Name Freq PRN Reason Stop Dose Admin Acetaminophen 650 mg 01/03/20 15:51 01/13/20 21:03 Tylenol Tab* PO 650 mg Q6H PRN Administration MILD PAIN or TEMP > 100.4 Aspirin 81 mg 01/04/20 09:00 01/15/20 08:12 Aspirin Ec Tab* PO 81 mg DAILY ANASTASIA Administration Atorvastatin Calcium 10 mg 01/04/20 17:00 01/14/20 17:22 Lipitor* PO 10 mg 1700 ANASTASIA Administration Calcium/Vitamin D 2 tab 01/04/20 09:00 01/15/20 08:12 Oscal D Tab 250/125* PO 2 tab DAILY ANASTASIA Administration Carbidopa/Levodopa 1 tab 01/04/20 08:00 01/15/20 08:11 Sinemet 10/100 Tab(*) PO 1 tab 0800,1600 ANASTASIA Administration Docusate Sodium 100 mg 01/03/20 21:00 01/15/20 08:12 Colace Cap* PO 100 mg BID ANASTASIA Administration Donepezil HCl 10 mg 01/04/20 09:00 01/15/20 08:12 Aricept Tab* PO 10 mg DAILY ANASTASIA Administration Gabapentin 600 mg 01/03/20 21:00 01/15/20 08:15 Neurontin Cap(*) PO 600 mg TID ANASTASIA Administration Latanoprost 1 drop 01/03/20 18:00 01/14/20 17:22 Xalatan 0.005%* BOTH EYES 1 drop QPM ANASTASIA Administration Linagliptin 5 mg 01/04/20 09:00 01/15/20 08:14 Tradjenta (Nf) PO 5 mg DAILY ANASTASIA Administration Magnesium Hydroxide 30 ml 01/03/20 15:51 Milk Of Magnesia Liq* PO Q6H PRN CONSTIPATION Magnesium Oxide 400 mg 01/04/20 09:00 01/15/20 08:12 Magox 400 Tab* PO 400 mg DAILY ANASTASIA Administration Memantine 10 mg 01/03/20 21:00 01/15/20 08:12 Namenda Tab* PO 10 mg BID ANASTASIA Administration Multivitamins/Minerals 1 tab 01/04/20 09:00 01/15/20 08:12 Theragran/Minerals Tab* PO 1 tab DAILY ANASTASIA Administration Nystatin 1 applic 01/03/20 21:00 01/14/20 20:45 Nystatin Top Powder* TOPICAL 1 applic BID ANASTASIA Administration Pantoprazole Sodium 40 mg 01/04/20 09:00 01/15/20 08:12 Protonix Tab* PO 40 mg DAILY ANASTASIA Administration Sacubitril/Valsartan 1 tab 01/03/20 21:00 01/15/20 08:14 Entresto (Nf) PO 1 tab BID ANASTASIA Administration Senna 2 tab 01/03/20 15:51 01/12/20 20:03 Senokot 8.6 Mg Tab* PO 2 tab BEDTIME PRN Administration CONSTIPATION Vital Signs: Vital Signs Temp Pulse Resp BP Pulse Ox 97.5 F 64 18 110/45 96 01/15/20 05:01 01/15/20 05:01 01/15/20 08:15 01/15/20 05:01 01/15/20 05:01 Exam: GENERAL: Alert and appropriate but difficulty understanding MMT commands LUNGS: Clear to auscultation bilaterally HEART: regular rate and rhythm ABDOMEN: Soft, + bowel sounds, non-tender, non-distended EXTREMITIES: No edema. 2+ pedal pulses SKIN: No edema. No tenderness to palpation. NEUROLOGIC: sensation intact x4. BUE/BLE motor 4+/5. Assessment/Plan: 1. 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 Dementia: Aricept/Namenda. Urinalysis negative 01/13/2020. 3. CAD: ASA/Lipitor/Entresto 4. DM: Tradjenta. FS have been normal. He has not needed coverage. Fingersticks d/c'd. 5. DVT Prophylaxis: Lovenox 6. Advance Directives: Full code. is surrogate decision maker 7. Back and neck pain: Gabapentin 8. Increased serum Cr: encourage po fluids. 01/15/20 09:38
[2020-01-15] MEDS: Nystatin TOP POWDER* 15 GM BTL TOPICAL SCH ×2 (12:13→20:44)
[2020-01-15] MEDS: Atorvastatin* 10 MG TAB PO SCH (17:13)
[2020-01-15] MEDS: Latanoprost 0.005%* 2.5 ml BTL BOTH EYES SCH (17:47)
[2020-01-16 05:17] LABS: BUN/Creatinine Ratio 18.4 (8-20); Calcium 9.1 mg/dL (8.6-10.3); EGFR African American 68.1 (>60); EGFR Non-African American 56.3 (>60); Potassium 4.2 mmol/L (3.5-5.0)
[2020-01-16] MEDS: Multivitamins/Minerals TAB PO SCH (08:35)
[2020-01-16] MEDS: Calcium/Vitamin D TAB 250/125* TAB PO SCH (08:35)
[2020-01-16] MEDS: Donepezil TAB* 5 MG PO SCH (08:35)
[2020-01-16] MEDS: Gabapentin CAP(*) 300 MG PO SCH ×3 (08:35→20:50)
[2020-01-16] MEDS: Memantine TAB* 10 MG PO SCH ×2 (08:35→20:50)
[2020-01-16] MEDS: Docusate CAP* 100 MG PO SCH ×2 (08:35→20:50)
[2020-01-16] MEDS: Pantoprazole TAB * 40 MG TAB PO SCH (08:35)
[2020-01-16] MEDS: Magnesium Oxide TAB* 400 MG PO SCH (08:35)
[2020-01-16] MEDS: Aspirin EC TAB* 81 MG TAB.EC PO SCH (08:35)
[2020-01-16] MEDS: Carbidopa/Levodop 10/100 MG TAB(*) PO SCH ×2 (08:35→16:16)
[2020-01-16] MEDS: PTO:Linagliptin (NF) 5 MG TAB PO SCH (08:38)
[2020-01-16] MEDS: PTO:Sacubitril/Valsartan 24/26(NF) 1 TAB PO SCH ×2 (08:38→20:49)
--- NOTE | 2020-01-16 09:05 | PN ---
Progress Note Date of Service: 01/16/20 Note: MILTON GR was visited. Nursing notes read and reviewed. Often incontinent. No chest pain, shortness of breath or abdominal pain. No new issues. Current Medications: Active Medications Generic Name Dose Route Start Last Admin Trade Name Freq PRN Reason Stop Dose Admin Acetaminophen 650 mg 01/03/20 15:51 01/13/20 21:03 Tylenol Tab* PO 650 mg Q6H PRN Administration MILD PAIN or TEMP > 100.4 Aspirin 81 mg 01/04/20 09:00 01/16/20 08:35 Aspirin Ec Tab* PO 81 mg DAILY ANASTASIA Administration Atorvastatin Calcium 10 mg 01/04/20 17:00 01/15/20 17:13 Lipitor* PO 10 mg 1700 ANASTASIA Administration Calcium/Vitamin D 2 tab 01/04/20 09:00 01/16/20 08:35 Oscal D Tab 250/125* PO 2 tab DAILY ANASTASIA Administration Carbidopa/Levodopa 1 tab 01/04/20 08:00 01/16/20 08:35 Sinemet 10/100 Tab(*) PO 1 tab 0800,1600 ANASTASIA Administration Docusate Sodium 100 mg 01/03/20 21:00 01/16/20 08:35 Colace Cap* PO 100 mg BID ANASTASIA Administration Donepezil HCl 10 mg 01/04/20 09:00 01/16/20 08:35 Aricept Tab* PO 10 mg DAILY ANASTASIA Administration Gabapentin 600 mg 01/03/20 21:00 01/16/20 08:35 Neurontin Cap(*) PO 600 mg TID ANASTASIA Administration Latanoprost 1 drop 01/03/20 18:00 01/15/20 17:47 Xalatan 0.005%* BOTH EYES 1 drop QPM ANASTASIA Administration Linagliptin 5 mg 01/04/20 09:00 01/16/20 08:38 Tradjenta (Nf) PO 5 mg DAILY ANASTASIA Administration Magnesium Hydroxide 30 ml 01/03/20 15:51 Milk Of Magnesia Liq* PO Q6H PRN CONSTIPATION Magnesium Oxide 400 mg 01/04/20 09:00 01/16/20 08:35 Magox 400 Tab* PO 400 mg DAILY ANASTASIA Administration Memantine 10 mg 01/03/20 21:00 01/16/20 08:35 Namenda Tab* PO 10 mg BID ANASTASIA Administration Multivitamins/Minerals 1 tab 01/04/20 09:00 01/16/20 08:35 Theragran/Minerals Tab* PO 1 tab DAILY ANASTASIA Administration Nystatin 1 applic 01/03/20 21:00 01/15/20 20:44 Nystatin Top Powder* TOPICAL 1 applic BID ANASTASIA Administration Pantoprazole Sodium 40 mg 01/04/20 09:00 01/16/20 08:35 Protonix Tab* PO 40 mg DAILY ANASTASIA Administration Sacubitril/Valsartan 1 tab 01/03/20 21:00 01/16/20 08:38 Entresto (Nf) PO 1 tab BID ANASTASIA Administration Senna 2 tab 01/03/20 15:51 01/12/20 20:03 Senokot 8.6 Mg Tab* PO 2 tab BEDTIME PRN Administration CONSTIPATION Vital Signs: Vital Signs Temp Pulse Resp BP Pulse Ox 98.9 F 70 18 110/77 97 01/16/20 05:18 01/16/20 05:18 01/16/20 08:35 01/16/20 05:18 01/16/20 05:18 Lab Results: Laboratory Results - last 24 hr 01/16/20 04:56 Sodium 137 Potassium 4.2 Chloride 104 Carbon Dioxide 27 Anion Gap 6 BUN 23 Creatinine 1.25 H Est GFR ( Amer) 68.1 Est GFR (Non-Af Amer) 56.3 BUN/Creatinine Ratio 18.4 Glucose 98 Calcium 9.1 Exam: GENERAL: Alert and appropriate but difficulty understanding MMT commands LUNGS: Clear to auscultation bilaterally HEART: regular rate and rhythm ABDOMEN: Soft, + bowel sounds, non-tender, non-distended EXTREMITIES: No edema. 2+ pedal pulses SKIN: No edema. No tenderness to palpation. No mottling noted. NEUROLOGIC: sensation intact x4. BUE/BLE motor 4+/5. Assessment/Plan: 1. 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 Dementia: Aricept/Namenda. Urinalysis negative 01/13/2020. 3. CAD: ASA/Lipitor/Entresto 4. DM: Tradjenta. FS have been normal. He has not needed coverage. Fingersticks d/c'd. 5. DVT Prophylaxis: Lovenox 6. Advance Directives: Full code. is surrogate decision maker 7. Back and neck pain: Gabapentin 8. Increased serum Cr: Little better today. Continue to encourage po fluids. 01/16/20 09:05
[2020-01-16] MEDS: Nystatin TOP POWDER* 15 GM BTL TOPICAL SCH ×2 (12:05→20:50)
[2020-01-16] MEDS: Atorvastatin* 10 MG TAB PO SCH (16:16)
[2020-01-16] MEDS: Latanoprost 0.005%* 2.5 ml BTL BOTH EYES SCH (17:36)
[2020-01-16] MEDS: Acetaminophen TAB* 325 MG PO PRN (20:50)
[2020-01-17] MEDS: Carbidopa/Levodop 10/100 MG TAB(*) PO SCH ×2 (07:41→16:24)
[2020-01-17] MEDS: Acetaminophen TAB* 325 MG PO PRN (07:41)
[2020-01-17] MEDS: Calcium/Vitamin D TAB 250/125* TAB PO SCH (08:38)
[2020-01-17] MEDS: Aspirin EC TAB* 81 MG TAB.EC PO SCH (08:38)
[2020-01-17] MEDS: Donepezil TAB* 5 MG PO SCH (08:39)
[2020-01-17] MEDS: Docusate CAP* 100 MG PO SCH ×2 (08:39→20:08)
[2020-01-17] MEDS: Gabapentin CAP(*) 300 MG PO SCH ×3 (08:39→20:08)
[2020-01-17] MEDS: Magnesium Oxide TAB* 400 MG PO SCH (08:40)
[2020-01-17] MEDS: PTO:Linagliptin (NF) 5 MG TAB PO SCH (08:40)
[2020-01-17] MEDS: Memantine TAB* 10 MG PO SCH ×2 (08:41→20:08)
[2020-01-17] MEDS: PTO:Sacubitril/Valsartan 24/26(NF) 1 TAB PO SCH ×2 (08:41→20:09)
[2020-01-17] MEDS: Pantoprazole TAB * 40 MG TAB PO SCH (08:41)
[2020-01-17] MEDS: Multivitamins/Minerals TAB PO SCH (08:41)
[2020-01-17] MEDS: Nystatin TOP POWDER* 15 GM BTL TOPICAL SCH ×2 (09:50→20:09)
[2020-01-17] MEDS: Atorvastatin* 10 MG TAB PO SCH (18:38)
[2020-01-17] MEDS: Latanoprost 0.005%* 2.5 ml BTL BOTH EYES SCH (18:38)
--- NOTE | 2020-01-17 19:16 | PN ---
Progress Note Date of Service: 01/17/20 Note: MILTON GR was visited. Therapy notes read and reviewed. He has no complaints and hopes to go home. He did not have a great day in therapy today. Current Medications: Active Medications Generic Name Dose Route Start Last Admin Trade Name Freq PRN Reason Stop Dose Admin Acetaminophen 650 mg 01/03/20 15:51 01/17/20 07:41 Tylenol Tab* PO 650 mg Q6H PRN Administration MILD PAIN or TEMP > 100.4 Aspirin 81 mg 01/04/20 09:00 01/17/20 08:38 Aspirin Ec Tab* PO 81 mg DAILY ANASTASIA Administration Atorvastatin Calcium 10 mg 01/04/20 17:00 01/17/20 18:38 Lipitor* PO 10 mg 1700 ANASTASIA Administration Calcium/Vitamin D 2 tab 01/04/20 09:00 01/17/20 08:38 Oscal D Tab 250/125* PO 2 tab DAILY ANASTASIA Administration Carbidopa/Levodopa 1 tab 01/04/20 08:00 01/17/20 16:24 Sinemet 10/100 Tab(*) PO 1 tab 0800,1600 ANASTASIA Administration Docusate Sodium 100 mg 01/03/20 21:00 01/17/20 08:39 Colace Cap* PO 100 mg BID ANASTASIA Administration Donepezil HCl 10 mg 01/04/20 09:00 01/17/20 08:39 Aricept Tab* PO 10 mg DAILY ANASTASIA Administration Gabapentin 600 mg 01/03/20 21:00 01/17/20 14:20 Neurontin Cap(*) PO 600 mg TID ANASTASIA Administration Latanoprost 1 drop 01/03/20 18:00 01/17/20 18:38 Xalatan 0.005%* BOTH EYES 1 drop QPM ANASTASIA Administration Linagliptin 5 mg 01/04/20 09:00 01/17/20 08:40 Tradjenta (Nf) PO 5 mg DAILY ANASTASIA Administration Magnesium Hydroxide 30 ml 01/03/20 15:51 Milk Of Magnesia Liq* PO Q6H PRN CONSTIPATION Magnesium Oxide 400 mg 01/04/20 09:00 01/17/20 08:40 Magox 400 Tab* PO 400 mg DAILY ANASTASIA Administration Memantine 10 mg 01/03/20 21:00 01/17/20 08:41 Namenda Tab* PO 10 mg BID ANASTASIA Administration Multivitamins/Minerals 1 tab 01/04/20 09:00 01/17/20 08:41 Theragran/Minerals Tab* PO 1 tab DAILY ANASTASIA Administration Nystatin 1 applic 01/03/20 21:00 01/17/20 09:50 Nystatin Top Powder* TOPICAL 1 applic BID ANASTASIA Administration Pantoprazole Sodium 40 mg 01/04/20 09:00 01/17/20 08:41 Protonix Tab* PO 40 mg DAILY ANASTASIA Administration Sacubitril/Valsartan 1 tab 01/03/20 21:00 01/17/20 08:41 Entresto (Nf) PO 1 tab BID ANASTASIA Administration Senna 2 tab 01/03/20 15:51 01/12/20 20:03 Senokot 8.6 Mg Tab* PO 2 tab BEDTIME PRN Administration CONSTIPATION Vital Signs: Vital Signs Temp Pulse Resp BP Pulse Ox 98.6 F 64 18 110/52 96 01/17/20 16:00 01/17/20 16:00 01/17/20 16:38 01/17/20 16:00 01/17/20 16:38 Exam: GENERAL: Alert and appropriate but difficulty understanding MMT commands LUNGS: Clear to auscultation bilaterally HEART: regular rate and rhythm ABDOMEN: Soft, + bowel sounds, non-tender, non-distended EXTREMITIES: No edema. 2+ pedal pulses SKIN: No edema. No tenderness to palpation. No mottling noted. NEUROLOGIC: sensation intact x4. BUE/BLE motor 4+/5. Assessment/Plan: 1. 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 Dementia: Aricept/Namenda. Urinalysis negative 01/13/2020. 3. CAD: ASA/Lipitor/Entresto 4. DM: Tradjenta. 5. DVT Prophylaxis: Lovenox 6. Advance Directives: Full code. is surrogate decision maker 7. Back and neck pain: Gabapentin 8. Increased serum Cr: Little better today. Continue to encourage po fluids. 01/17/20 19:16
[2020-01-17] MEDS: Senna TAB 8.6 mg* TAB PO PRN (20:09)
[2020-01-18] MEDS: Acetaminophen TAB* 325 MG PO PRN ×2 (07:35→15:48)
[2020-01-18] MEDS: Carbidopa/Levodop 10/100 MG TAB(*) PO SCH ×2 (07:35→15:47)
[2020-01-18] MEDS: Magnesium Oxide TAB* 400 MG PO SCH (09:29)
[2020-01-18] MEDS: Aspirin EC TAB* 81 MG TAB.EC PO SCH (09:29)
[2020-01-18] MEDS: PTO:Sacubitril/Valsartan 24/26(NF) 1 TAB PO SCH ×2 (09:30→20:45)
[2020-01-18] MEDS: Donepezil TAB* 5 MG PO SCH (09:30)
[2020-01-18] MEDS: Calcium/Vitamin D TAB 250/125* TAB PO SCH (09:30)
[2020-01-18] MEDS: Docusate CAP* 100 MG PO SCH ×2 (09:30→20:45)
[2020-01-18] MEDS: Multivitamins/Minerals TAB PO SCH (09:30)
[2020-01-18] MEDS: Pantoprazole TAB * 40 MG TAB PO SCH (09:30)
[2020-01-18] MEDS: Memantine TAB* 10 MG PO SCH ×2 (09:30→20:44)
[2020-01-18] MEDS: PTO:Linagliptin (NF) 5 MG TAB PO SCH (09:31)
[2020-01-18] MEDS: Gabapentin CAP(*) 300 MG PO SCH ×3 (09:32→20:45)
[2020-01-18] MEDS: Nystatin TOP POWDER* 15 GM BTL TOPICAL SCH ×2 (09:58→20:46)
--- NOTE | 2020-01-18 12:59 | PMRUTEAM ---
PMRU: Team Meeting Current Status: Physical Therapy: Current Status Current Rolling Status Supervision/Touching Current Supine <-> Sit Status Supervision/Touching Current Sit <-> Stand Status Partial/Moderate Current Bed <-> Chair Status Partial/Moderate Transfer/Bed Mobility Rolling Walker Recommended Devices Transfer Mobility Comment patient needs physical cues and hand over hand procedure. Current Picking Up Object Not attempted Status Current Car Transfer Status Not attempted Current Ambulation Assistance Supervision/Touching Status Ambulation Assistive Device Rolling Walker Ambulation Conditions Two or More Turns Current Ambulation Distance 110' Ambulation Comment has difficulty initiating step. short stride, freezes often. Current Wheelchair Propulsion Not Applicable Ability Status Current Stair Climbing Status Partial/Moderate Current Curb Assistance Status Partial/Moderate Curb Assistive Devices Rolling Walker Objective Comments Pt. is easily confused and has a difficult time with simple commands. Occupational Therapy: Current Status Current Upper Body Dressing Partial/Moderate Status Current Lower Body Dressing Substantial/Maximal Status Current Footwear Status Dependent Current Bathing Status Partial/Moderate Current Grooming Status Partial/Moderate Current Toileting Status Dependent Current Toilet Transfer Status Partial/Moderate Current Eating Status Supervision/Touching Nursing: Current Status Skin Deviations [L toes 2,3,4] Abrasion Skin Deviations [Bilateral Rash Groin] Skin Deviations [Right Eye] Bruise Skin Deviations [Left Lower Other Back] Skin Deviations [Left Arm] Abrasion Skin Deviations [Bilateral Abrasion Hand] Skin Deviations [Bilateral Abrasion Knee] Skin Deviations [Buttocks] Other Skin Deviation Description [L swollen and reddened toes 2,3,4] Skin Deviation Description [ reddened and itchy, nystatin applied Bilateral Groin] Skin Deviation Description [ healed Right Eye] Skin Deviation Description [ benign lump according to Left Lower Back] Skin Deviation Description [ no skin issue noted Left Arm] Skin Deviation Description [ scabs noted Bilateral Hand] Skin Deviation Description [ scabs fell off, new skin noted Bilateral Knee] Skin Deviation Description [ reddened and cream applied, not visualize this Buttocks] shift Bladder Current Status dependent Bowel Current Status dependent Nutrition Current Status 100% eaten Medication Current Status dependent with medication administration Rec Therapy: Current Status Summary of Assessment and Recreation therapy assessment complete and pt is Clinical Impression aware of services. Pt participates in some leisure activities with staff assistance, and is open to continued leisure visits and pet therapy. Treatment Goals Pt will engage in leisure activities while on the unit, as tolerated Treatment Plan Provide recreation therapy services and encourage involvement Social Work: Current Status Discharge Plan Discharge to [facility] for continued therapy prior to returning home Potential for Family Training pt's has participated in family training [place] [facility] [place] [facility] [place] Nutrition: Current Status Monitoring Pt continues on consistent carb, heart healthy diet, regular texture, thin liquids, with good intake at meals - 80-100%. Skin intact. Labs/meds rev'd; FSBG within normal limits. No nutrition intervention indicated at this time. Will remain available as needed. Speech: Current Status Assessment Patient is not progressing. Staffand caregivers understand methods to provide directions so that patientcan follw them and maintain safety. Goals: Physical Therapy: Goals Goals to Be Accomplished in ( 14 Days) Goal: Rolling Assistance Independent Goal Supine <-> Sit Status Independent Goal Sit <-> Stand Status Independent Goal Bed <-> Chair Status Independent Transfer/Bed Mobility Rolling Walker Recommended Devices Goal: Picking Up Object Independent Goal: Car Transfer Status Setup or Clean-up Assist Goal: Ambulation Assistance Independent Ambulation Assistive Devices Rolling Walker Ambulation Distance (ft) 150 Goal: Wheelchair Propulsion Not Applicable Ability Goal: Stairs Assistance Independent Stairs Recommended Devices Two Rails Number of Stairs 3 Goal: Curb Assistance Independent Occupational Therapy: Goals Goals to be Completed in (Days 14 days ) Goal Upper Body Dressing Supervision/Touching Routine Goal Lower Body Dressing Supervision/Touching Routine Goal Footwear Status Partial/Moderate Goal Bathing Routine (OT) Supervision/Touching Goal Grooming Routine Setup or Clean-up Assist Goal Toilet Hygiene and Supervision/Touching Clothing Management Routine Goal Toilet Transfer Routine Supervision/Touching Goal Functional Transfers for Supervision/Touching ADL Goal Feeding Routine Setup or Clean-up Assist Goal Light Housekeeping Tasks Dependent Nutrition: Goals Intervention Goals 1. adequate intake to support hydration and lean body mass without significant wt change 2. glycemic control within inpatient parameters; no s/sx hypo-hyperglycemia 3. maintain serum electrolytes WNL 4. regulation of bowel pattern; no c/o constipation (or diarrhea) Speech: Goals Speech Goal 1 Problem Solving/Safety Goal 1 Comments Problem Solving Goal: Long-Term Goal: Patient will respond to verbal directions to solve simple routine problems, for transfer and mobility safety, and activites of daily living, with 90% accuracy, given Moderate verbal cueing and use of compensatory strategies by caregivers. . Status: Progressing slowly as expected Problem Solving Goal: Short-Term: Patient will respond to modified verbal directions to solve simple routine problems, for transfer and mobility safety, aand activites of daily living, with 100% accuracy, given Moderate verbal cueing and use of compensatory strategies by caregivers. Status: Progressing slowly as expected. Social Work: Goals Discharge Plan Discharge to [facility] for continued therapy prior to returning home Potential for Family Training pt's has participated in family training [place]ticipated [place]charge [facility] [place] Dest[place] [facility] [place] a [place] Nursing: Goals Bladder Goal independent Bowel Goal independent Nutrition Goal continue with 100% meals Medication Goal will help/supervise with medications Care Plan: Care Plan ADL's - Improve/Maintain Start: 01/03/20 16:51 Freq: [id number] Status: Active Target: 01/10/20 Protocol: Activity Type Activity Date Activity User E-Sign Co-Sign Detail Recorded Client Recorded Date Recorded By Document 01/18/20 12:03 [id number] 01/18/20 12:03 [id number] 01/18/20 12:03 PMRU Outcome: ADL's/ADL Transfers Orders/Interventions Occupational Therapy Evaluation & Treatment Device Yes Address Deficits Secondary To: Parkinson's Dz Patient to receive OT 5x/wk for 60-120 Therex min/day Self Care Management Group Therapy Neuromuscular ReEducation UE/LE ADL's with Assist Yes: supervision ADL Transfers with Assist Yes: supervision Toileting: Transfers,Clothing Management Yes: ,Hygeine w/Assist supervision Light Kitchen/Laundry w/Assist Yes: totalA Progression Toward Outcome/Goals Not Progressing Lack of Progression Comment Pt continues to demonstrate difficulty making functional progress 2* his cognitive deficits and balance deficits. Pt fluccuates between CGA- modA for transfers. Communication-Improve/Maintain Start: 01/03/20 16:51 Freq: [id number] Status: Active Target: 01/18/20 Protocol: Activity Type Activity Date Activity User E-Sign Co-Sign Detail Recorded Client Recorded Date Recorded By Document 01/18/20 07:00 [id number] 01/18/20 10:57 [id number] 01/18/20 07:00 PMRU Outcome: Communication/Cognitive Status Current Communication Outcome/Goals Use Comm Tools/ Devices Makes Needs Known Effectively Other Communication Outcomes/Goals pt rarely uses cb; does make requests when prompted Progression Toward Outcomes/Goals Goals Adjusted DVT Prophylaxis- Improve/Maintain Start: 01/03/20 16:51 Freq: [id number] Status: Complete Target: 01/18/20 Protocol: Activity Type Activity Date Activity User E-Sign Co-Sign Detail Recorded Client Recorded Date Recorded By Document 01/18/20 00:04 [id number] 01/18/20 00:05 [id number] 01/18/20 00:04 PMRU Outcome: DVT Prophylaxis Current DVT Outcome/Goals Remains Free of DVT Complies with DVT Prophylaxis /Treatment Demonstrates Knowledge of DVT Prevention/ Treatment TEDS Stockings on Every AM, Off at HS Progression Toward Outcome/Goals Progressing Discharge Planning - Improve/Maintain Start: 01/03/20 16:51 Freq: [id number] Status: Active Target: 01/18/20 Protocol: Activity Type Activity Date Activity User E-Sign Co-Sign Detail Recorded Client Recorded Date Recorded By Document 01/18/20 07:00 [id number] 01/18/20 10:57 [id number] 01/18/20 07:00 PMRU Outcome: Discharge Planning Update Patient Family Yes Current Discharge Planning Outcome/Goals Demonstrates Understanding of Discharge Plan Homecare Referral - See Comment Progression Toward Outcome/Goals Progressing Education-Improve/Maintain Start: 01/14/20 14:50 Freq: [id number] Status: Active Target: 01/18/20 Protocol: Activity Type Activity Date Activity User E-Sign Co-Sign Detail Recorded Client Recorded Date Recorded By Document 01/18/20 07:00 [id number] 01/18/20 10:57 [id number] 01/18/20 07:00 PMRU Outcome: Education Current Education Outcome/Goals Demonstrate/ Verbalize Understanding of Written Discharge Instructions Demonstrates Skills Encourage Questions Progression Toward Outcome/Goals Progressing /GI-Improve/Maintain Start: 01/03/20 16:51 Freq: [id number] Status: Active Target: 01/18/20 Protocol: Activity Type Activity Date Activity User E-Sign Co-Sign Detail Recorded Client Recorded Date Recorded By Document 01/18/20 07:00 [id number] 01/18/20 10:57 [id number] 01/18/20 07:00 PMRU Outcome: Genitourinary/ Gastrointestinal Current Gastrointestinal Outcome/Goals Maintain/ Achieve Bowel Regularity in Accordance with Pt's Baseline Prevent Constipation Bowel Regularity at Home Laxatives as Ordered Progression Toward Outcome/Goals Progressing Current Genitourinary Outcome/Goals Maintain/ Achieve Adequate Urinary Output Remain Free of Hospital- Acquired UTI Progression Toward Outcome/Goals Progressing Medication Administration Start: 01/03/20 16:51 Freq: DAILY@0700,1900 Status: Active Target: 01/18/20 Protocol: Activity Type Activity Date Activity User E-Sign Co-Sign Detail Recorded Client Recorded Date Recorded By Document 01/18/20 07:00 [id number] 01/18/20 10:57 [id number] 01/18/20 07:00 PMRU Outcome: Medication Administration Assess Patient Knowledge/Teach Med No: pt confused Education for all Meds ; primary care md to admin medications Current German Instructor Outcome/Goals Family/ Caregiver Administer Medications at Home Demonstrates Understanding Progression Towards Outcome/Goals Progressing Is Patient Going Home on Lovenox? No Metabolic Status- Improve/Maintain Start: 01/03/20 16:51 Freq: [id number] Status: Complete Target: 01/18/20 Protocol: Activity Type Activity Date Activity User E-Sign Co-Sign Detail Recorded Client Recorded Date Recorded By Document 01/12/20 02:00 [id number] 01/12/20 02:02 [id number] 01/12/20 02:00 PMRU Outcome: Metabolic Status Have Fingersticks Been Ordered No Current Metabolic Status Outcome/Goals Maintain/ Improve Metabolic Status Demonstrate Knowledge of Prevention/ Treatment of Metabolic Imbalances Progression Toward Outcome/Goals Progressing Mobility- Improve/Maintain Start: 01/03/20 16:51 Freq: DAILY@[id number] Status: Active Target: 01/10/20 Protocol: Activity Type Activity Date Activity User E-Sign Co-Sign Detail Recorded Client Recorded Date Recorded By Document 01/06/20 14:37 [id number] 01/06/20 14:39 [id number] 01/06/20 14:37 PMRU Outcome: Mobility Physical Therapy Evaluation and Yes Treatment Activity OOB with Assistance Yes WBAT Yes NWB No TTWB No Device Yes Assistance Yes Patient to be seen 5x/wk for 60-120 min/ Therex day for: Mobility Training Gait Training Balance Other Other Therapy Comment Discharge training, discharge planning Current Mobility Outcome/Goals Maintain/ Achieve Baseline Mobility Status Improve Mobility Status Demonstrates Proper Use of Assistive Devices Free from Complications of Immobility Progression Toward Outcome/Goals Goal Initiation Outcome/Goals Met Maintain/ Achieve Baseline Mobility Status Improve Mobility Status Demonstrates Proper Use of Assistive Devices Free from Complications of Immobility Bed Mobility Yes: Independent Transfers Yes: Independent with RW Gait x ft Yes: 150' Independent with RW W/C Mobility x ft No Up/Down Stairs Yes: 4 steps with 2 rails, supervision With HEP Yes: supervision Neurological- Improve/Maintain Start: 01/03/20 16:51 Freq: DAILY@0700,1900 Status: Active Target: 01/18/20 Protocol: Activity Type Activity Date Activity User E-Sign Co-Sign Detail Recorded Client Recorded Date Recorded By Document 01/18/20 07:00 [id number] 01/18/20 10:57 [id number] 01/18/20 07:00 PMRU Outcome: Neurological Weakness/Aphasia Weakness Current Neurological Outcome/Goals Maintain/ Achieve Baseline Neurological Status Prevent Avoidable Neurological Decline Maintain/ Improve Strength/ROM Progression Toward Outcome/Goals Progressing Rec Therapy- Improve/Maintain Start: 01/03/20 15:43 Freq: DAILY@07,190 Status: Complete Target: 01/18/20 Protocol: Activity Type Activity Date Activity User E-Sign Co-Sign Detail Recorded Client Recorded Date Recorded By Document 01/17/20 15:44 [id number] 01/17/20 15:49 [id number] 01/17/20 15:44 PMRU Outcome: Recreation Therapy Current Rec Ther Outcome/Goals Complete Rec Therapy Assessment Meet with Patient Regularly for Support Encourage Leisure Involvement Progression Toward Outcome/Goals Goals Met Lack of Progression Comment Met with pt for a leisure visit, pt appeared tired, nodding off while talking with staff. Staff visited briefly to allow pt to rest. Outcome/Goals Met Complete Rec Therapy Assessment Meet with Patient Regularly for Support Encourage Leisure Involvement Outcome/Goals Met Comment Recreation therapy assessment is complete. Pt expressed being tired in the afternoon after therapy, but was open to leisure visits and pet therapy throughout admission. Safety- Improve/Maintain Start: 01/03/20 15:04 Freq: DAILY@0700,1900 Status: Active Target: 01/18/20 Protocol: Activity Type Activity Date Activity User E-Sign Co-Sign Detail Recorded Client Recorded Date Recorded By Document 01/18/20 07:00 [id number] 01/18/20 10:57 [id number] 01/18/20 07:00 PMRU Outcome: Safety Current Safety Outcome/Goals Remain Free of Injury or Harm Cooperates with Safety Measures for Least Restrictive Environment Prevent Falls/ Injury Progression Toward Outcome/Goals Progressing Outcome/Goals Met Cooperates with Safety Measures for Least Restrictive Environment Outcome/Goals Met Comment personal alarm in place - Interdisciplinary Staff Present Binder Operator/Social Work Staff Present: Aida Goldman LMSW Nursing Staff Present: John Issa, PEPE Nutrition Staff Present: Analy Anand OT Staff Present: Madonna Cochran PT Staff Present: Orlando Hoyt PTA Rec Therapy Staff Present: Angelina Holland WAIST FITTER Staff Present: Steven Whittaker Medicine Note: Length of Stay: 1-2 days [place]ticip[place] [facility] [place] Tentative Discharge Date: 01/20/20 Discharged to: SNF[facility]
--- NOTE | 2020-01-18 17:29 | PN ---
Progress Note Date of Service: 01/18/20 Note: MILTON GR was visited. Therapy notes read and reviewed. His has elected to have him go to [facility] for short term subacute rehab. He has a bed for tomorrow. He was discussed in interdisciplinary team rounds Current Medications: Active Medications Generic Name Dose Route Start Last Admin Trade Name Freq PRN Reason Stop Dose Admin Acetaminophen 650 mg 01/03/20 15:51 01/18/20 15:48 Tylenol Tab* PO 650 mg Q6H PRN Administration MILD PAIN or TEMP > 100.4 Aspirin 81 mg 01/04/20 09:00 01/18/20 09:29 Aspirin Ec Tab* PO 81 mg DAILY ANASTASIA Administration Atorvastatin Calcium 10 mg 01/04/20 17:00 01/17/20 18:38 Lipitor* PO 10 mg 1700 ANASTASIA Administration Calcium/Vitamin D 2 tab 01/04/20 09:00 01/18/20 09:30 Oscal D Tab 250/125* PO 2 tab DAILY ANASTASIA Administration Carbidopa/Levodopa 1 tab 01/04/20 08:00 01/18/20 15:47 Sinemet 10/100 Tab(*) PO 1 tab 0800,1600 ANASTASIA Administration Docusate Sodium 100 mg 01/03/20 21:00 01/18/20 09:30 Colace Cap* PO 100 mg BID ANASTASIA Administration Donepezil HCl 10 mg 01/04/20 09:00 01/18/20 09:30 Aricept Tab* PO 10 mg DAILY ANASTASIA Administration Gabapentin 600 mg 01/03/20 21:00 01/18/20 14:13 Neurontin Cap(*) PO 600 mg TID ANASTASIA Administration Latanoprost 1 drop 01/03/20 18:00 01/17/20 18:38 Xalatan 0.005%* BOTH EYES 1 drop QPM ANASTASIA Administration Linagliptin 5 mg 01/04/20 09:00 01/18/20 09:31 Tradjenta (Nf) PO 5 mg DAILY ANASTASIA Administration Magnesium Hydroxide 30 ml 01/03/20 15:51 Milk Of Magnesia Liq* PO Q6H PRN CONSTIPATION Magnesium Oxide 400 mg 01/04/20 09:00 01/18/20 09:29 Magox 400 Tab* PO 400 mg DAILY ANASTASIA Administration Memantine 10 mg 01/03/20 21:00 01/18/20 09:30 Namenda Tab* PO 10 mg BID ANASTASIA Administration Multivitamins/Minerals 1 tab 01/04/20 09:00 01/18/20 09:30 Theragran/Minerals Tab* PO 1 tab DAILY ANASTASIA Administration Nystatin 1 applic 01/03/20 21:00 01/18/20 09:58 Nystatin Top Powder* TOPICAL 1 applic BID ANASTASIA Administration Pantoprazole Sodium 40 mg 01/04/20 09:00 01/18/20 09:30 Protonix Tab* PO 40 mg DAILY ANASTASIA Administration Sacubitril/Valsartan 1 tab 01/03/20 21:00 01/18/20 09:30 Entresto 24/(Nf) PO 1 tab BID ANASTASIA Administration Senna 2 tab 01/03/20 15:51 01/17/20 20:09 Senokot 8.6 Mg Tab* PO 2 tab BEDTIME PRN Administration CONSTIPATION Vital Signs: Vital Signs Temp Pulse Resp BP Pulse Ox 98.5 F 63 20 103/47 94 01/18/20 15:42 01/18/20 15:42 01/18/20 15:57 01/18/20 15:42 01/18/20 15:57 Exam: GENERAL: Alert and appropriate but difficulty understanding MMT commands LUNGS: Clear to auscultation bilaterally HEART: regular rate and rhythm ABDOMEN: Soft, + bowel sounds, non-tender, non-distended EXTREMITIES: No edema. 2+ pedal pulses SKIN: No edema. No tenderness to palpation. No mottling noted. NEUROLOGIC: sensation intact x4. BUE/BLE motor 4+/5. Assessment/Plan: 1. 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 PT/OT/PACK CHANGER 2. Dementia: Aricept/Namenda. Urinalysis negative 01/13/2020. 3. CAD: ASA/Lipitor/Entresto 4. DM: Tradjenta. 5. DVT Prophylaxis: Lovenox 6. Advance Directives: Full code. is surrogate decision maker 7. Back and neck pain: Gabapentin 8. Increased serum Cr: Little better today. Continue to encourage po fluids. 01/18/20 17:29
[2020-01-18] MEDS: Latanoprost 0.005%* 2.5 ml BTL BOTH EYES SCH (18:15)
[2020-01-18] MEDS: Atorvastatin* 10 MG TAB PO SCH (18:15)
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
[2020-01-19 06:24] VITALS: BP 121/55
[2020-01-19] MEDS: Carbidopa/Levodop 10/100 MG TAB(*) PO SCH (07:44)
[2020-01-19 08:57] LABS: ABS Basophils 0.1 10^3/ul (0-0.2); ABS Eosinophils 0.4 10^3/ul (0-0.6); ABS Lymphocytes 1.3 10^3/ul (1.0-4.8); ABS Monocytes 0.7 10^3/ul (0-0.8); ABS Neutrophils 5.3 10^3/ul (1.5-7.7); Eosinophil % 5.4 %; Hematocrit 46 % (42-52); Hemoglobin 15.2 g/dL (14.0-18.0); Lymphocyte % 16.8 %; Mean Corpuscular HGB Conc 33 g/dL (31-36); Mean Corpuscular Hemoglobin 33 pg (27-31); Mean Corpuscular Volume 99 fL (80-94); Mean Platelet Volume 8.8 fL (7.4-10.4); Platelet Count 201 10^3/uL (150-450); Red Blood Count 4.65 10^6 /uL (4.18-5.48); Red Cell Distribution Width 14 % (10-15); White Blood Count 7.7 10^3/uL (3.5-10.8)
[2020-01-19 09:14] LABS: Albumin/Globulin Ratio 1.3 (1-3); Calcium 9.3 mg/dL (8.6-10.3); EGFR African American 60.3 (>60); EGFR Non-African American 49.8 (>60); Globulin 3.2 g/dL (2-4); Potassium 4.7 mmol/L (3.5-5.0); Total Bilirubin 0.5 mg/dL (0.2-1.0); Total Protein 7.2 g/dL (6.4-8.9)
[2020-01-19] MEDS: PTO:Sacubitril/Valsartan 24/26(NF) 1 TAB PO SCH (09:50)
[2020-01-19] MEDS: PTO:Linagliptin (NF) 5 MG TAB PO SCH (09:51)
[2020-01-19] MEDS: Magnesium Oxide TAB* 400 MG PO SCH (09:51)
[2020-01-19] MEDS: Multivitamins/Minerals TAB PO SCH (09:51)
[2020-01-19] MEDS: Aspirin EC TAB* 81 MG TAB.EC PO SCH (09:51)
[2020-01-19] MEDS: Pantoprazole TAB * 40 MG TAB PO SCH (09:51)
[2020-01-19] MEDS: Donepezil TAB* 5 MG PO SCH (09:51)
[2020-01-19] MEDS: Docusate CAP* 100 MG PO SCH (09:51)
[2020-01-19] MEDS: Calcium/Vitamin D TAB 250/125* TAB PO SCH (09:52)
[2020-01-19] MEDS: Memantine TAB* 10 MG PO SCH (09:52)
[2020-01-19] MEDS: Gabapentin CAP(*) 300 MG PO SCH (09:52)
[2020-01-19] MEDS: Nystatin TOP POWDER* 15 GM BTL TOPICAL SCH (09:57)
== END 2020-01-19 11:15 | DRG 57 ==
LOC: PMRU 14:51
PROVIDERS: ADMIT Physical Medicine & Rehabilitation; ATTEND Physical Medicine & Rehabilitation
PROC: F07Z5ZZ Bed Mobility Treatment (ICD-10-PCS; principal; 2020-01-03)
PROC: F07Z9ZZ Gait Training/Functional Ambulation Treatment (ICD-10-PCS; 2020-01-03)
PROC: F07Z8ZZ Transfer Training Treatment (ICD-10-PCS; 2020-01-03)
PROC: F07Z4ZZ Wheelchair Mobility Treatment (ICD-10-PCS; 2020-01-03)
PROC: F08Z0ZZ Bathing/Showering Techniques Treatment (ICD-10-PCS; 2020-01-03)
PROC: F08Z1ZZ Dressing Techniques Treatment (ICD-10-PCS; 2020-01-03)
PROC: F08Z3ZZ Feeding/Eating Treatment (ICD-10-PCS; 2020-01-03)
PROC: F08Z2ZZ Grooming/Personal Hygiene Treatment (ICD-10-PCS; 2020-01-03)
DX: G20 Parkinson's disease (principal); F02.80 Dementia in other diseases classified elsewhere, unspecified severity, without behavioral disturbance, psychotic disturbance, mood disturbance, and anxiety; E11.9 Type 2 diabetes mellitus without complications; I10 Essential (primary) hypertension; M54.5 Low back pain; M54.2 Cervicalgia; E78.5 Hyperlipidemia, unspecified; I25.10 Atherosclerotic heart disease of native coronary artery without angina pectoris; M25.473 Effusion, unspecified ankle; G89.29 Other chronic pain; R32 Unspecified urinary incontinence; Z95.1 Presence of aortocoronary bypass graft; Z95.5 Presence of coronary angioplasty implant and graft; Z86.73 Personal history of transient ischemic attack (TIA), and cerebral infarction without residual deficits; Z79.899 Other long term (current) drug therapy; Z88.8 Allergy status to other drugs, medicaments and biological substances; Z79.84 Long term (current) use of oral hypoglycemic drugs
CPT/HCPCS: 36415; 80048; 80053; 81003; 85025; A9270-GY; G0515-GO; J1650

== ENCOUNTER 2020-02-11 23:01 | Inpatient (IN) | payer MEDICARE, OTHER ==
--- NOTE | 2020-02-11 23:27 | ED ---
Syncope/Near Syncope - HPI Summary HPI Summary: Per EMS patient from [facility] presents for being found unresponsive at 10: 15 PM tonight. EMS states [facility] staff told them patient was hypotensive , unresponsive and 90% O2 on room air. [facility] staff stated to EMS they gave patient 1 L fluid by mouth. Per EMS BGL 140. EMS states they woke patient up just by opening his eyes, and then patient was alert and responsive however 90% on room air. EMS placed patient on 4 L O2. Patient not normally on O2. [facility] staff states patient was at baseline all day, denies patient having any respiratory symptoms. Patient denies any pain, states he feels his normal self at this time. Patient has history of DM 2, Parkinson's, dementia, CVA, CAD, HTN, CHF, hypertension, aphasia. - History Of Current Complaint Time Seen by Provider: 02/11/20 23:14 Hx Obtained From: Patient, EMS Hx From Patient Unobtainable Due To: Dementia Onset/Duration: Sudden Onset, Lasting Hours Context: Unwitnessed Associated Head Trauma: No Associated Signs And Symptoms: Negative - Allergies/Home Medications Allergies/Adverse Reactions: Allergies Allergy/AdvReac Type Severity Reaction Status Date / Time carvedilol Allergy Unknown Verified 12/28/19 19:51 Reaction Details metoprolol [From Toprol XL] Allergy Unknown Verified 12/28/19 19:51 Reaction Details lorazepam [From Ativan] AdvReac Mild Agitation Verified 02/13/20 08:38 Home Medications: Home Medications Acetaminophen [Tylenol Extra Strength] 1,000 mg PO TID PRN 09/30/19 [History Confirmed 02/12/20] Glucos Sul 2Kcl/MSM/Chond/C/Mn [Glucosamine Chondroitin Cap] 1 each PO DAILY [History Confirmed 02/12/20] Magnesium Oxide TAB* [MagOx 400 TAB*] 400 mg PO DAILY 09/30/19 [History Confirmed 02/12/20] Acetaminophen TAB* [Tylenol TAB*] 650 mg PO Q6H PRN tab 01/17/20 [Rx Confirmed 02/12/20] Aspirin EC TAB* [Ecotrin EC Low Dose 81 MG*] 81 mg PO DAILY tab.ec 01/17/20 [ Rx Confirmed 02/12/20] Carbidopa/Levodop 10/100 MG(*) [Sinemet 10/100 TAB(*)] 1 tab PO 0800,1600 tab 01/17/20 [Rx Confirmed 02/12/20] Gabapentin CAP(*) [Neurontin 300 CAP(*)] 600 mg PO TID cap 01/17/20 [Rx Confirmed 02/12/20] Latanoprost 0.005%* [Xalatan 0.005%*] 1 drop BOTH EYES QPM btl 01/17/20 [Rx Confirmed 02/12/20] Linagliptin (NF) [Tradjenta (NF)] 5 mg PO DAILY tab 01/17/20 [Rx Confirmed ] Sacubitril/Valsartan (NF) [Entresto (NF)] 1 tab PO BID tab 01/17/20 [ Rx Confirmed 02/12/20] PMH/Surg Hx/FS Hx/Imm Hx Endocrine/Hematology History: Reports: Hx Diabetes Denies: Hx Anticoagulant Therapy Cardiovascular History: Reports: Hx Angina, Hx Congestive Heart Failure, Hx Coronary Artery Disease, Hx Hypercholesterolemia, Hx Hypertension, Hx Myocardial Infarction, Other Cardiovascular Problems/Disorders - heart failure, irregular HR Denies: Hx Pacemaker/ICD Respiratory History: Denies: Hx Asthma, Hx Chronic Obstructive Pulmonary Disease (COPD) History: Denies: Hx Dialysis Musculoskeletal History: Reports: Hx Arthritis, Hx Back Problems Sensory History: Reports: Hx Cataracts, Hx Hearing Problem Denies: Hx Contacts or Glasses, Hx Hearing Aid Opthamlomology History: Reports: Hx Cataracts Denies: Hx Contacts or Glasses Neurological History: Reports: Hx Dementia Denies: Hx Seizures Psychiatric History: Denies: Hx Panic Disorder - Surgical History Surgery Procedure, Year, and Place: HEART CATH WITH STENTS 2001, TRIPLE BYPASS 2000. [place] [facility] [place] EXCISION OF HEMATOMA IN BACK, LAMINECTOMY OF L2-3- 04/24/18 Infectious Disease History: No Infectious Disease History: Denies: Traveled Outside the [place] in Last 30 Days - Family History Known Family History: Positive: Diabetes, Other - cancer - Social History Alcohol Use: Occasionally Alcohol Amount: 3-4 drinks weekly Hx Substance Use: No Substance Use Type: Reports: None Hx Tobacco Use: No Smoking Status (MU): Never Smoked Tobacco Review of Systems Constitutional: Negative Eyes: Negative ENT: Negative Cardiovascular: Negative Respiratory: Negative Gastrointestinal: Negative Genitourinary: Negative Musculoskeletal: Negative Skin: Negative Neurological/Mental Status: Negative Psychological: Normal All Other Systems Reviewed And Are Negative: Yes Physical Exam - Summary Physical Exam Summary: Patient alert and active. No difficulty speaking. Answers questions appropriately. No evidence of trauma noted. Abdomen soft nontender. Lung sounds clear to auscultation bilaterally. RRR. Neurologically difficult to assess due to dementia and history of CVA. Triage Information Reviewed: Yes Vital Signs On Initial Exam: Initial Vitals Temp Pulse Resp BP Pulse Ox 97 F 91 18 100/69 100 02/11/20 23:08 02/11/20 23:08 02/11/20 23:08 02/11/20 23:08 02/11/20 23:08 Vital Signs Reviewed: Yes Appearance: Positive: Well-Appearing Skin: Positive: Warm Head/Face: Positive: Normal Head/Face Inspection Eyes: Positive: Normal Neck: Positive: Supple Respiratory/Lung Sounds: Positive: Clear to Auscultation Cardiovascular: Positive: Normal Abdomen Description: Positive: Nontender Musculoskeletal: Positive: Normal Psychiatric: Positive: Normal AVPU Assessment: Alert - Elliot Coma Scale Best Eye Response: 4 - Spontaneous Best Motor Response: 6 - Obeys Commands Procedures - Sedation Patient Received Moderate/Deep Sedation with Procedure: No Diagnostics - Vital Signs Vital Signs Temp Pulse Resp BP Pulse Ox 02/11/20 23:08 97 F 91 18 100/69 100 - Laboratory Result Diagrams: 02/13/20 04:29 02/14/20 06:02 Lab Statement: Any lab studies that have been ordered have been reviewed, and results considered in the medical decision making process. Course/Dx Course Of Treatment: Per EMS patient from [facility] presents for being found unresponsive at 10:15 PM tonight. EMS states [facility] staff told them patient was hypotensive, unresponsive and 90% O2 on room air. [facility] staff stated to EMS they gave patient 1 L fluid by mouth. Per EMS BGL 140. EMS states they woke patient up just by opening his eyes, and then patient was alert and responsive however 90% on room air. EMS placed patient on 4 L O2. Patient not normally on O2. [facility] staff states patient was at baseline all day, denies patient having any respiratory symptoms. Patient denies any pain, states he feels his normal self at this time. Patient has history of DM 2 , Parkinson's, dementia, CVA, CAD, HTN, CHF, hypertension, aphasia. Vital signs within normal limits. WBC 13.2. Potassium 5.1. BUN 54. Creatinine 2.71 , significant increase from baseline. Magnesium 2.9. CRP 10.5. EKG sinus rhythm, heart rate of 78, PACs, normal P axis. Patient O2 sats did not drop below 95% when placed back on room air. Chest x-ray and BNP unremarkable. Patient is receiving 2 L normal saline. UA inconclusive. - Diagnoses Provider Diagnoses: Acute kidney injury Discharge ED - Sign-Out/Discharge Documenting (check all that apply): Patient Departure - Discharge Plan Condition: Stable Disposition: ADMITTED TO [facility] - Billing Disposition and Condition Condition: STABLE Disposition: Admitted to [facility]
--- OUTSIDE RECORDS SUMMARY | 2020-02-11 23:33 | XMS REPORT | Continuity of Care Document ---
:1945 External Reference #:[id number] Author Name Vidya Rosenthal PA-C (transmitted by agent of provider Shelbie Nguyen) Address [address] [place] [address] Care Team Providers Name Role Phone Sergio Deshpande MD - Cardiovascular Care Team Information Reproduction Technician Disease Nidhi Medeiros MD - Family Medicine Care Team Information Reproduction Technician Brian Lion MD - Urology Care Team Information Reproduction Technician [phone] Problems Active Problems Provider Date Mitral valve disorder Sergio Whitley M.D. Onset: 06/29/2013 Coronary arteriosclerosis Sergio Whitley M.D. Onset: 06/29/2013 Benign essential hypertension Sergio Whitley M.D. Onset: 06/29/2013 Type 2 diabetes mellitus Sergio Whitley M.D. Onset: 06/29/2013 Alzheimer's disease Nivia Leal M.D. Onset: 08/31/2015 Essential hypertension ESE Howard Onset: 10/07/2016 Parkinson's disease Kj Wood M.D. Onset: 02/10/2018 Convalescence after surgery Forrest Brewster M.D. Onset: 05/27/2018 Low back pain Forrest Brewster M.D. Onset: 09/04/2018 Lumbar spondylolisthesis Forrest Brewster M.D. Onset: 09/04/2018 Neurogenic claudication co-occurrent and Forrest Brewster M.D. Onset: 2017 due to spinal stenosis of lumbar region Social History Type Date Description Comments Sex Unknown ETOH Use consumes 5 beers per week Tobacco Use Start: Unknown End: Patient is a former smoker Unknown Recreational Drug Use Denies Drug Use Smoking Status Reviewed: 10/06/19 Patient is a former smoker Exercise Type/Frequency Does not exercise Allergies, Adverse Reactions, Alerts Active Allergies Reaction Severity Comments Date Carvedilol Diarrhea 07/30/2016 Toprol XL diarrhea 09/20/2016 Ativan agitation 04/07/2018 Inactive Allergies NKDA 07/05/2004 Medications Active Medications SIG Qnty Indications Ordering Provider Date Donepezil HCL 2 tab po every 90tabs Forrest Hernandez, 08/16/2019 5mg day M.DRenée Tablets Entresto take 1 tab by 120tabs Segrio Naqvi 07/16/2019 24-26mg mouth twice Yobany Whitley Tablets daily Aspir-81 1 by mouth every 100tabs Sergio Naqvi 07/08/2014 81mg Tablets day Yobany Whitley DR Vitamins Multiple 1 PO qd 30tabs Sergio Naqvi 07/04/2004 Yobany Whitley Tablets Calcium/Vit D 1 tablet by Sergio Naqvi 07/04/2004 600mg mouth twice Yobany Whitley daily Lumigan instill one drop Unknown 0.01% Solution in both eye at bedtime every day Magnesium Oxide -MG 1 by mouth every Unknown Supplement day 400mg Capsules Vitamin B1 1 by mouth every Unknown 100mg day Tablets Carbidopa-Levodopa 2-3 tablets by 60tabs Forrest Hernandez, mouth daily M.D. 10-100mg Tablets Memantine HCL 1 by mouth twice Unknown 10mg a day Tablets Pantoprazole Sodium 1 by mouth every Unknown day 40mg Solution Rec Atorvastatin Calcium half tab daily Unknown 20mg Tablets Tylenol Extra 2 by mouth 3 Unknown Strength times daily as 500mg Tablets needed Glucosamine 1 capsule by Unknown Chondroitin 1500 mouth daily Complex 1500Com Capsules Gabapentin take one tablet Unknown 600mg by mouth three Tablets times a day Bimatoprost 0.01% 1 drop Unknown both eyes at bedtime Medications Administered in Office Medication SIG Qnty Indications Ordering Provider Date Inj, Regadenoson, 0.1 MG Eduardo Ramsey, DO [facility] 08/05/2016 Injection Technetium TC 99M Eduardo Ramsey, DO [facility] 08/05/2016 Tetrofosmin, Per Unit Dose Up To 40 Millicuries Injection Immunizations Description No Information Available Vital Signs Date Vital Result Comment 10/06/2019 10:34am Height 70 inches 5'10" Weight 232.38 lb with shoes Heart Rate 80 /min BP Systolic Sitting 114 mmHg Rue (regular cuff) BP Diastolic Sitting 70 mmHg Rue (regular cuff) BP Systolic Standing 110 mmHg BP Diastolic Standing 70 mmHg BMI (Body Mass Index) 33.3 kg/m2 Ejection Fraction 25-30% echocardiogram 07/15/19 08/16/2019 9:55am Height 70 inches 5'10" Weight 228.00 lb Heart Rate 78 /min BP Systolic 138 mmHg BP Diastolic 40 mmHg BMI (Body Mass Index) 32.7 kg/m2 Results Test Acquired Date Facility Test Result H/L Range Note Laboratory test 10/01/2019 [facility] Point of 104 mg/dL High 70-100 1 finding [address] [facility] [place] [address] [phone] Basic Metabolic 08/06/2019 [facility] Sodium 140 mmol/L Normal 135-145 Panel [address] [place] [address] [phone] Potassium 4.8 mmol/L Normal 3.5-5.0 Chloride 103 mmol/L Normal 101-111 Co2 Carbon Dioxide 30 mmol/L Normal 22-32 Anion Gap 7 mmol/L Normal 2-11 Glucose 129 mg/dL High 70-100 Blood Urea Nitrogen 14 mg/dL Normal 6-24 Creatinine 1.44 mg/dL High 0.67-1.17 BUN/Creatinine Ratio 9.7 Normal 8-20 Calcium 9.6 mg/dL Normal 8.6-10.3 Egfr Non- 47.8 >60 Egfr 57.9 >60 2 Laboratory test 08/06/2019 [facility] Magnesium 1.9 mg/dL Normal 1.9-2.7 3 finding [address] [place] [address] [phone] 1 Research Administrator: [id number] 2 Because ethnic data is not always [...] 5 Kidney failure <15 (or dialysis) 3 Copy Result to: NIDHI MEDEIROS ([id number]) Procedures Date Code Description Status 11/25/2019 90181 Echocardiogram, Limited Study Completed 11/25/2019 20047 Echocardiogram, Limited Study Completed 10/01/2019 12614 Treadmill Interp/Report Only Completed 10/01/2019 14137 Stress Test Supervsn W/Out I/R Completed Medical Devices Description No Information Available Encounters Type Date Location Provider Dx Diagnosis Office Visit 01/03/2020 [facility] Vidya R41.82 Altered mental 10:00a Assoc,rebeka Rosenthal PA-C status, Hospitalists unspecified I25.10 Athscl heart disease of [place] coronary artery w/o ang pctrs E11.9 Type 2 diabetes mellitus without complications I10 Essential (primary) hypertension E78.5 Hyperlipidemia, unspecified G20 Parkinson's disease F03.90 Unspecified dementia without behavioral disturbance I63.9 Cerebral infarction, unspecified Office Visit 01/02/2020 9:59a [facility] Marni R41.82 Altered mental Assoc,SORAYA Ramos status, Hospitalists unspecified I25.10 Athscl heart disease of [place] coronary artery w/o ang pctrs I10 Essential (primary) hypertension G20 Parkinson's disease E11.9 Type 2 diabetes mellitus without complications R21 Rash and other nonspecific skin eruption Z86.73 Prsnl hx of TIA (TIA), and cereb infrc w/o resid deficits Office Visit 01/01/2020 9:58a [facility] R41.82 Altered mental Assoc,SORAYA Ramos status, Hospitalists unspecified I25.10 Athscl heart disease of [place] coronary artery w/o ang pctrs I10 Essential (primary) hypertension G20 Parkinson's disease E11.9 Type 2 diabetes mellitus without complications R21 Rash and other nonspecific skin eruption Z86.73 Prsnl hx of TIA (TIA), and cereb infrc w/o resid deficits Office Visit 12/31/2019 9:57a [facility] R41.82 Altered mental Assoc,rebeka Bonilla MD status, Hospitalists unspecified I25.10 Athscl heart disease of [place] coronary artery w/o ang pctrs I10 Essential (primary) hypertension G20 Parkinson's disease E11.9 Type 2 diabetes mellitus without complications R21 Rash and other nonspecific skin eruption Z86.73 Prsnl hx of TIA (TIA), and cereb infrc w/o resid deficits Office Visit 12/30/2019 9:56a [facility] R41.82 Altered mental Assoc,SORAYA Ramos status, Hospitalists unspecified I25.10 Athscl heart disease of [place] coronary artery w/o ang pctrs N17.9 Acute kidney failure, unspecified I10 Essential (primary) hypertension G20 Parkinson's disease E11.9 Type 2 diabetes mellitus without complications R21 Rash and other nonspecific skin eruption Z86.73 Prsnl hx of TIA (TIA), and cereb infrc w/o resid deficits Office Visit 12/29/2019 9:55a [facility] R41.82 Altered mental Assoc,SORAYA Ramos status, Hospitalists unspecified I25.10 Athscl heart disease of [place] coronary artery w/o ang pctrs N17.9 Acute kidney failure, unspecified I10 Essential (primary) hypertension G20 Parkinson's disease E11.9 Type 2 diabetes mellitus without complications R21 Rash and other nonspecific skin eruption Z86.73 Prsnl hx of TIA (TIA), and cereb infrc w/o resid deficits Office Visit 12/28/2019 [facility] Emperatriz Jordan, F05 Delirium due to 9:52a rebeka Young M.D. known physiological Hospitalists condition N17.9 Acute kidney failure, unspecified E11.9 Type 2 diabetes mellitus without complications Z86.59 Personal history of other mental and behavioral disorders Z86.79 Personal history of other diseases of the circulatory system Office Visit 10/06/2019 [facility] Delicia RazoRenée I42.9 Cardiomyopathy, 10:30a Cardiology Wade N.PRenée unspecified I50.42 Chronic combined systolic and diastolic hrt fail I25.10 Athscl heart disease of [place] coronary artery w/o ang pctrs I10 Essential (primary) hypertension I34.0 Nonrheumatic mitral (valve) insufficiency Office Visit 08/16/2019 10:00a [facility] John Sarai, Z79.899 Other wire dropper [facility] AUTOMATION QA ANALYST (current) drug therapy G31.84 Mild cognitive impairment, so stated 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, unspecified M54.5 Low back pain Assessments Date Code Description Provider 01/03/2020 R41.82 Altered mental status, unspecified Vidya O'karlie, PA-C 01/03/2020 I25.10 Atherosclerotic heart disease of [place] Vidya O'karlie, PA-C coronary artery without angina pectoris 01/03/2020 E11.9 Type 2 diabetes mellitus without Vidya O'karlie, PA-C complications 01/03/2020 I10 Essential (primary) hypertension Vidya O'karlie, PA-C 01/03/2020 E78.5 Hyperlipidemia, unspecified Vidya O'karlie, PA-C 01/03/2020 G20 Parkinson's disease Vidya O'karlie, PA-C 01/03/2020 F03.90 Unspecified dementia without behavioral Vidya O'karlie, PA-C disturbance 01/03/2020 I63.9 Cerebral infarction, unspecified Vidya O'karlie, PA-C 01/02/2020 R41.82 Altered mental status, unspecified ANJU SousaP 01/02/2020 R41.82 Altered mental status, unspecified SORAYA Sousa 01/02/2020 I25.10 Atherosclerotic heart disease of [place] MarniSORAYA Keene coronary artery without angina pectoris 01/02/2020 I10 Essential (primary) hypertension SORAYA Sousa 01/02/2020 G20 Parkinson's disease SORAYA Sousa 01/02/2020 E11.9 Type 2 diabetes mellitus without Marni Chavez, VETERINARY MEDICAL OFFICER complications 01/02/2020 R21 Rash and other nonspecific skin eruption Marni Chavez, VETERINARY MEDICAL OFFICER 01/02/2020 Z86.73 Personal history of transient ischemic Marni Chavez, VETERINARY MEDICAL OFFICER attack (TIA), and cerebral infarction without residual deficits 01/01/2020 R41.82 Altered mental status, unspecified Marni Chavez, VETERINARY MEDICAL OFFICER 01/01/2020 R41.82 Altered mental status, unspecified Marni Chavez, VETERINARY MEDICAL OFFICER 01/01/2020 I25.10 Atherosclerotic heart disease of [place] Marni Chavez, VETERINARY MEDICAL OFFICER coronary artery without angina pectoris 01/01/2020 I25.10 Atherosclerotic heart disease of [place] Marni Chavez, VETERINARY MEDICAL OFFICER coronary artery without angina pectoris 01/01/2020 I10 Essential (primary) hypertension Marni Chavez, VETERINARY MEDICAL OFFICER 01/01/2020 I10 Essential (primary) hypertension Marni Chavez, VETERINARY MEDICAL OFFICER 01/01/2020 G20 Parkinson's disease Marni Chavez, VETERINARY MEDICAL OFFICER 01/01/2020 G20 Parkinson's disease Marni Chavez, VETERINARY MEDICAL OFFICER 01/01/2020 E11.9 Type 2 diabetes mellitus without Marni Chavez, VETERINARY MEDICAL OFFICER complications 01/01/2020 E11.9 Type 2 diabetes mellitus without Marni Chavez, VETERINARY MEDICAL OFFICER complications 01/01/2020 R21 Rash and other nonspecific skin eruption Marni Chavez, VETERINARY MEDICAL OFFICER 01/01/2020 R21 Rash and other nonspecific skin eruption Marni Chavez, VETERINARY MEDICAL OFFICER 01/01/2020 Z86.73 Personal history of transient ischemic Marni Chavez, VETERINARY MEDICAL OFFICER attack (TIA), and cerebral infarction without residual deficits 01/01/2020 Z86.73 Personal history of transient ischemic Marni Chavez, VETERINARY MEDICAL OFFICER attack (TIA), and cerebral infarction without residual deficits 12/31/2019 R41.82 Altered mental status, unspecified Marni Chavez, VETERINARY MEDICAL OFFICER 12/31/2019 R41.82 Altered mental status, unspecified Guera Bonilla MD 12/31/2019 I25.10 Atherosclerotic heart disease of [place] Marni Chavez, VETERINARY MEDICAL OFFICER coronary artery without angina pectoris 12/31/2019 I25.10 Atherosclerotic heart disease of [place] Guera Bonilla MD coronary artery without angina pectoris 12/31/2019 I10 Essential (primary) hypertension Marni Chavez, VETERINARY MEDICAL OFFICER 12/31/2019 I10 Essential (primary) hypertension Guera Bonilla MD 12/31/2019 G20 Parkinson's disease Marni Chavez, VETERINARY MEDICAL OFFICER 12/31/2019 G20 Parkinson's disease Guera Bonilla MD 12/31/2019 E11.9 Type 2 diabetes mellitus without Marni Chavez, VETERINARY MEDICAL OFFICER complications 12/31/2019 E11.9 Type 2 diabetes mellitus without Guera Bonilla MD complications 12/31/2019 R21 Rash and other nonspecific skin eruption Marni Chavez, VETERINARY MEDICAL OFFICER 12/31/2019 R21 Rash and other nonspecific skin eruption Guera Bonilla MD 12/31/2019 Z86.73 Personal history of transient ischemic Marni Chavez, VETERINARY MEDICAL OFFICER attack (TIA), and cerebral infarction without residual deficits 12/31/2019 Z86.73 Personal history of transient ischemic Guera Bonilla MD attack (TIA), and cerebral infarction without residual deficits 12/30/2019 R41.82 Altered mental status, unspecified Marni Chavez, VETERINARY MEDICAL OFFICER 12/30/2019 R41.82 Altered mental status, unspecified Marni Chavez, VETERINARY MEDICAL OFFICER 12/30/2019 I25.10 Atherosclerotic heart disease of [place] Marni Chavez, VETERINARY MEDICAL OFFICER coronary artery without angina pectoris 12/30/2019 I25.10 Atherosclerotic heart disease of [place] Marni Chavez, VETERINARY MEDICAL OFFICER coronary artery without angina pectoris 12/30/2019 N17.9 Acute kidney failure, unspecified Marni Chavez, VETERINARY MEDICAL OFFICER 12/30/2019 N17.9 Acute kidney failure, unspecified Marni Chavez, VETERINARY MEDICAL OFFICER 12/30/2019 I10 Essential (primary) hypertension Marni Chavez, VETERINARY MEDICAL OFFICER 12/30/2019 I10 Essential (primary) hypertension Marni Chavez, VETERINARY MEDICAL OFFICER 12/30/2019 G20 Parkinson's disease Marni Chavez, VETERINARY MEDICAL OFFICER 12/30/2019 G20 Parkinson's disease Marni Chavez, VETERINARY MEDICAL OFFICER 12/30/2019 E11.9 Type 2 diabetes mellitus without Marni Chavez, VETERINARY MEDICAL OFFICER complications 12/30/2019 E11.9 Type 2 diabetes mellitus without Marni Chavez, VETERINARY MEDICAL OFFICER complications 12/30/2019 R21 Rash and other nonspecific skin eruption Marni Chavez, VETERINARY MEDICAL OFFICER 12/30/2019 R21 Rash and other nonspecific skin eruption Marni Chavez, VETERINARY MEDICAL OFFICER 12/30/2019 Z86.73 Personal history of transient ischemic Marni Chavez, VETERINARY MEDICAL OFFICER attack (TIA), and cerebral infarction without residual deficits 12/30/2019 Z86.73 Personal history of transient ischemic Marni Chavez, VETERINARY MEDICAL OFFICER attack (TIA), and cerebral infarction without residual deficits 12/29/2019 R41.0 Disorientation, unspecified Emperatriz Jordan M.D. 12/29/2019 R41.82 Altered mental status, unspecified Marni Chavez [facility] 12/29/2019 F03.90 Unspecified dementia without behavioral Emperatriz Jordan M.D. disturbance 12/29/2019 I25.10 Atherosclerotic heart disease of [place] Marni Chavez [facility] coronary artery without angina pectoris 12/29/2019 I25.10 Atherosclerotic heart disease of [place] Emperatriz Jordan M.D. coronary artery without angina pectoris 12/29/2019 N17.9 Acute kidney failure, unspecified Marni Chavez [facility] 12/29/2019 I10 Essential (primary) hypertension Emperatriz Jordan M.D. 12/29/2019 I10 Essential (primary) hypertension Marni Chavez [facility] 12/29/2019 N17.9 Acute kidney failure, unspecified Emperatriz Jordan M.D. 12/29/2019 G20 Parkinson's disease Marni Chavez [facility] 12/29/2019 E11.9 Type 2 diabetes mellitus without Emperatriz Jordan M.D. complications 12/29/2019 E11.9 Type 2 diabetes mellitus without Marni Chavez [facility] complications 12/29/2019 R21 Rash and other nonspecific skin eruption Marni Chavez [facility] 12/29/2019 Z86.73 Personal history of transient ischemic ANJU SousaP attack (TIA), and cerebral infarction without residual deficits 12/28/2019 F05 Delirium due to known physiological Emperatriz Jordan M.D. condition 12/28/2019 N17.9 Acute kidney failure, unspecified Emperatriz Jordan M.D. 12/28/2019 E11.9 Type 2 diabetes mellitus without Emperatriz Jordan M.D. complications 12/28/2019 Z86.59 Personal history of other mental and Emperatriz Jordan M.D. behavioral disorders 12/28/2019 Z86.79 Personal history of other diseases of the Emperatriz Jordna M.D. circulatory system 11/25/2019 I42.9 Cardiomyopathy, unspecified Sergio Whitley M.D. 11/25/2019 I42.9 Cardiomyopathy, unspecified [facility] 10/06/2019 I42.9 Cardiomyopathy, unspecified Delicia S. Wade, N.P. 10/06/2019 I50.42 Chronic combined systolic (congestive) Delicia S. Wade, N.P. and diastolic (conges 10/06/2019 I25.10 Atherosclerotic heart disease of [place] Delicia S. Wade, N.P. coronary artery with 10/06/2019 I10 Essential (primary) hypertension Delicia S. Wade, N.P. 10/06/2019 I34.0 Nonrheumatic mitral (valve) insufficiency Delicia S. Wade, N.P. 10/01/2019 R06.02 Shortness of breath Sergio Whitley M.D. 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 at [facility]02/28/2020 11:00 am - Sergio Whitley M.D. at [facility]83/20/2019 - Delicia Olvera, N.P.I42.9 Cardiomyopathy, unspecifiedFollow up:OV 02/2020 JFMI50.42 Chronic combined systolic (congestive) and diastolic (congesNew Therapy:Cardiac HhzsnE21.10 Atherosclerotic heart disease of [place] coronary artery withI10 Essential (primary) vbfswkqunsopV58.0 Nonrheumatic mitral (valve) insufficiency Functional Status Description No Information Available Mental Status Description No Information Available Referrals Description No Information Available
[2020-02-11 23:45] LABS: ABS Eosinophils 0.1 10^3/ul (0-0.6); ABS Lymphocytes 1.1 10^3/ul (1.0-4.8); ABS Monocytes 1.2 10^3/ul (0-0.8); ABS Neutrophils 10.9 10^3/ul (1.5-7.7); Eosinophil % 0.6 %; Hematocrit 49 % (42-52); Hemoglobin 16.6 g/dL (14.0-18.0); Lymphocyte % 8.4 %; Mean Corpuscular HGB Conc 34 g/dL (31-36); Mean Corpuscular Hemoglobin 33 pg (27-31); Mean Corpuscular Volume 97 fL (80-94); Mean Platelet Volume 9.3 fL (7.4-10.4); Platelet Count 209 10^3/uL (150-450); Red Blood Count 5.07 10^6 /uL (4.18-5.48); Red Cell Distribution Width 14 % (10-15); White Blood Count 13.3 10^3/uL (3.5-10.8)
[2020-02-11] MEDS ORDERED: NS 0.9% w/ 20 Meq KCL 1000 ML* 1,000 ML IV SCH (23:45)
[2020-02-12] LABS: ALT 12 U/L (7-52); AST 25 U/L (13-39); Albumin 4.3 g/dL (3.2-5.2); Albumin/Globulin Ratio 1.2 (1-3); Alkaline Phosphatase 99 U/L (34-104); BUN/Creatinine Ratio 19.9 (8-20); Blood Urea Nitrogen 54 mg/dL (6-24); C Reactive Protein 10.55 mg/L (<8.01); CO2 Carbon Dioxide 28 mmol/L (22-32); Calcium 10.2 mg/dL (8.6-10.3); Chloride 105 mmol/L (101-111); EGFR African American 27.8 (>60); Globulin 3.7 g/dL (2-4); Glucose 122 mg/dL (70-100); Magnesium 2.9 mg/dL (1.9-2.7); Sodium 143 mmol/L (135-145)
[2020-02-12 00:01] LABS: Troponin I 0.01 ng/mL (<0.03)
[2020-02-12 00:05] LABS: Anion Gap 10 mmol/L (2-11); Potassium 5.1 mmol/L (3.5-5.0)
[2020-02-12] MEDS: NS 0.9% 1000 ML** 1,000 ML IV ONE ×2 (00:09→02:21)
[2020-02-12 00:32] LABS: Alcohol < 10 mg/dL (<10)
[2020-02-12 00:47] LABS: TSH (Thyroid Stimulating Horm) 1.56 mcIU/mL (0.34-5.60)
[2020-02-12 02:15] LABS: Urine Appearance Cloudy; Urine Bilirubin Negative (Negative); Urine Blood 2+ (Negative); Urine Color Amber; Urine Glucose Negative (Negative); Urine Ketones Negative (Negative); Urine Nitrite Negative (Negative); Urine Protein Negative (Negative); Urine Specific Gravity 1.025 (1.010-1.030); Urine Urobilinogen Negative (Negative)
[2020-02-12 02:19] LABS: Urine Bacteria Absent (Absent); Urine Red Blood Cell 3+(>10/hpf) (Absent); Urine Squamous Epithelial Cell Present (Absent); Urine White Blood Cell 1+(6-10/hpf) (Absent)
[2020-02-12] MEDS ORDERED: NS 0.9% 1000 ML** 1,000 ML IV ONE (02:25)
[2020-02-12 02:32] LABS: Urine Benzodiazepine Screen None Detected (None Detect); Urine Opiates Screen None Detected (None Detect)
[2020-02-12] MEDS ORDERED: Dextrose 50% Syringe 50 ML* 25 GM/50 ML SYRINGE IV PUSH PRN (03:18)
[2020-02-12] MEDS ORDERED: NS 0.9% 1000 ML** 1,000 ML IV SCH (04:45)
[2020-02-12] MEDS: Heparin VIAL(*) 5000 UNITS/ML VIAL (FIVE THOUSAND) SUBCUT SCH ×3 (05:36→21:44)
--- NOTE | 2020-02-12 07:52 | HP ---
HISTORY AND PHYSICAL: DATE OF ADMISSION: HISTORY OF PRESENT ILLNESS: This is a 75-year-old male with past medical history significant for dementia; diabetes mellitus, type 2; Parkinson' s disease; CVA; CAD; hypertension and aphasia, who presented from [facility] with chief complaint of unresponsiveness, hypotension, and saturating at 90% on room air and below. Per staff of the facility, the patient was found unresponsive at about 10:15 p.m. EMS was called. Staff stated that they gave the patient about a liter of fluid by mouth. Per EMS, blood glucose on arrival was 140. The patient was responsive by opening his eyes and was alert, however, he was saturating at 90% on room air and when given 4 L of oxygen, he became more alert. Normally, the patient is not on home O2. Per staff of the facility, the patient was at his baseline all day. They denied having any respiratory symptoms, pain. No fever. PAST MEDICAL HISTORY: 1. History of coronary artery disease, status post triple bypass in 1996 followed by a stent in 2007. 2. Type 2 diabetes, on p.o. medication. 3. Hypertension. 4. Hyperlipidemia. 5. Advanced dementia. 6. History of stroke in 2007 without any residual deficits, though the patient did require rehab at that time. 7. Parkinson's disease, but the diagnosis is unclear. Per record, one neurologist states he does he does have Parkinson's while the other is not sure. However, the patient is on Sinemet. PAST SURGICAL HISTORY: 1. He had an open heart surgery as mentioned with a stent. 2. He also had lumbar laminectomy in the remote past. 3. Bilateral cataract extraction. HOME MEDICATIONS: 1. Neurontin 600 mg t.i.d. 2. Sinemet, which is carbidopa/levodopa ratio of 10/100 mg 1 tablet p.o. b.i.d. 3. Baby aspirin 1 tablet daily. 4. Atorvastatin 10 mg p.o. daily. 5. Donepezil or Aricept 10 mg p.o. daily. 6. Memantine or Namenda 10 mg p.o. b.i.d. 7. Protonix 40 mg p.o. daily. 8. Glucosamine 1 capsule p.o. daily. 9. Tradjenta 5 mg p.o. daily. 10. Magnesium oxide 400 mg p.o. daily. 11. Sacubitril and valsartan or Entresto 24 mg/26 mg ratio 1 tablet p.o. b.i.d. 12. Multivitamin Theragran 1 tablet p.o. daily. 13. Latanoprost eyedrops 1 drop both eyes daily. ALLERGIES: The patient is allergic to ATIVAN, CARVEDILOL and METOPROLOL. ATIVAN causes severe agitation and unknown reaction regarding CARVEDILOL and METOPROLOL. FAMILY HISTORY: Brother had colon cancer at age 55 and his father also had colon cancer at age 55 as well. Mother of lymphoma at age 75. SOCIAL HISTORY: He is a former smoker of 2 packs per day for a total of 25 weeks. He quit smoking over 5 years ago. Denies any alcohol or illicit drug use. Lives with his , Margot, who is his surrogate decision maker. The patient is otherwise full code according to his and record. REVIEW OF SYSTEMS: Unable to obtain due to the patient's mental status of dementia, but per record the patient was unresponsive. There was no fever, no nausea, no vomiting, no pain and no respiratory distress or symptoms. PHYSICAL EXAMINATION GENERAL: The patient is arousable and does not follow commands. Well appearing. VITAL SIGNS: Temperature 97, pulse 91, respiratory rate 18, blood pressure 100/ 69, pulse oximetry 100. HEAD and NECK: Normocephalic, atraumatic. Eyes: EOMI. Neck: Supple. No JVD , no thyromegaly, no nuchal rigidity. LUNGS: Reduced breath sounds, but clear to auscultation bilaterally. No wheezing, no rhonchi. CARDIOVASCULAR: S1, S2 heard. Regular rate and rhythm. ABDOMEN: Soft, obese with positive bowel sounds all 4 quadrants. No palpable mass. No guarding. Nontender, nondistended. EXTREMITIES: Moves all 4 limbs. Acyanotic. No edema. NEUROLOGIC: Difficult to assess. PSYCHIATRIC: Difficult to assess. SKIN: Warm, dry, no rashes. DIAGNOSTIC STUDIES/LAB DATA: Hematology: WBC 13.3, RBC 5.07, hemoglobin 16.6 , hematocrit 49, MCV 97, MCH 33, MCHC 34, RDW 14, platelet count 209. MPV 9.3, neutrophil 81.9, absolute neutrophils 10.9. Chemistry: Sodium 143, potassium 5.1, chloride 105, carbon dioxide 28, anion gap 10, BUN 54, creatinine 2.71, estimated GFR non- 23.0, BUN and creatinine ratio 19.9, glucose 122, lactic acid 0.3, calcium 10.2, magnesium 2.9. Total bilirubin 0.70, AST 25 , ALT 12, alkaline phosphatase 99. Troponin 0.01. C-reactive protein 10.65. BNP 48. Total protein 8.0, albumin 4.3, globulin 3.7, albumin/globulin ratio of 1.2. TSH 1.56. Urine toxicology: Unremarkable. Urinalysis: Negative leukocyte esterase. Negative nitrite, specific gravity 1.025, urine pH 5.0, appearance, cloudy. Color, olga. Urine WBC 1+, urine RBC 3+, squamous epithelial cells present 8, bacteria absent, hyaline casts present 8. Urine glucose negative. CT brain, impression: Moderate volume loss and small vessel ischemic changes. No acute intracranial abnormalities. EKG: Normal sinus rhythm with normal P axis. Chest x-ray: Awaiting official read, but unremarkable. ASSESSMENT AND PLAN: A 75-year-old male male with past medical history significant for dementia; Parkinson's disease; diabetes mellitus, type 2 ; cerebrovascular accident; coronary artery disease; hypertension; congestive heart failure; aphasia; who presented with chief complaint of hypotension and unresponsiveness at his [facility]. He was found to be dehydrated with acute kidney injury. The patient will be admitted to the medical floor. For acute kidney injury and dehydration, the patient already received a bolus of normal saline 1 L in the ED and started on maintenance dose of 150 mL/hour. This I will continue. The patient is saturating well now on room air. We will follow up a BMP in a.m. For hypotension, we will hold the patient's hypertensive medications for now until BP improves and normalizes. For the elevated WBCs, no focus of infection was found now. It could be due to dehydration. We will monitor by trending the WBC. Follow up CBC a.m. For Parkinson's disease, the patient will continue his home Sinemet. For dementia, the patient will continue donepezil and Namenda. The patient will continue ADL. For cerebrovascular accident, the patient will continue statin for secondary stroke prevention and also continue baby aspirin. For type 2 diabetes, we will monitor fingersticks. The patient will be monitored with insulin sliding scale as an adjunct while he continues his p.o. medication of Tradjenta. Code status: The patient will remain full code at this time. DVT prophylaxis: Heparin subcu. Diet: Diabetic diet. TIME SPENT: Time spent on the admission 65 minutes. [id number]/CPS #: [id number] [email or web address]
[2020-02-12] MEDS: Insulin LISPRO* 1 UNITS UNIT SUBCUT SCH ×4 (07:54→21:38)
[2020-02-12] MEDS ORDERED: Linagliptin (NF) 5 MG TAB PO SCH (09:00)
[2020-02-12] MEDS: Aspirin EC TAB* 81 MG TAB.EC PO SCH (10:03)
[2020-02-12] MEDS: Carbidopa/Levodop 10/100 MG TAB(*) PO SCH ×2 (10:03→16:18)
[2020-02-12] MEDS: Gabapentin CAP(*) 300 MG PO SCH ×3 (10:04→21:42)
[2020-02-12] MEDS: Sacubitril/Valsartan 24/26(NF) 1 TAB PO SCH ×2 (10:04→20:40)
[2020-02-12] MEDS: Magnesium Oxide TAB* 400 MG PO SCH (10:04)
[2020-02-12] MEDS: GLUCOS SUL PO SCH (10:04)
[2020-02-12] MEDS: [UNRECOGNIZED DRUG - OTHER] PO SCH (10:04)
[2020-02-12 11:38] LABS: ABS Basophils 0.1 10^3/ul (0-0.2); ABS Eosinophils 0.1 10^3/ul (0-0.6); ABS Lymphocytes 1.1 10^3/ul (1.0-4.8); ABS Monocytes 0.9 10^3/ul (0-0.8); ABS Neutrophils 7.9 10^3/ul (1.5-7.7); Eosinophil % 0.5 %; Hematocrit 44 % (42-52); Hemoglobin 14.3 g/dL (14.0-18.0); Lymphocyte % 11.3 %; Mean Corpuscular HGB Conc 33 g/dL (31-36); Mean Corpuscular Hemoglobin 32 pg (27-31); Mean Corpuscular Volume 98 fL (80-94); Platelet Count 174 10^3/uL (150-450); Red Blood Count 4.44 10^6 /uL (4.18-5.48); Red Cell Distribution Width 13 % (10-15); White Blood Count 10.1 10^3/uL (3.5-10.8)
[2020-02-12 11:53] LABS: BUN/Creatinine Ratio 24.8 (8-20); Calcium 8.5 mg/dL (8.6-10.3); EGFR African American 36.5 (>60); EGFR Non-African American 30.2 (>60); Potassium 4.6 mmol/L (3.5-5.0)
[2020-02-12] MEDS ORDERED: Piperacillin/Tazobac ADVAN(*) 3.375 GM in NS 0.9% 100 ML* 100 ML IVPB ONE (12:00)
[2020-02-12] MEDS ORDERED: Zosyn per Pharmacy* NOTE FOLLOW UP SCH (12:00)
--- NOTE | 2020-02-12 12:18 | PN ---
Subjective Date of Service: 02/12/20 Interval History: Pt somnolent unable to keep eyes open, will mumble answers to questions. pt was able to report that he [place] in [facility] [place]. However, Mr. Antony does not respond to further questions. Attempts to follow instruction but without enough effort to complete requested task, such as rolling over. Pt does have baseline dementia Family History: Unchanged from Admission Social History: Unchanged from Admission Past Medical History: Unchanged from Admission Objective Active Medications: Acetaminophen (Tylenol Tab*) 650 mg PO Q4H PRN PRN Reason: MILD PAIN or TEMP > 100.4 Aspirin (Aspirin Ec Tab*) 81 mg PO DAILY [facility] Last Admin: 02/12/20 10:03 Dose: 81 mg Carbidopa/Levodopa (Sinemet 10/100 Tab(*)) 1 tab PO 0800,1600 [facility] Last Admin: 02/12/20 10:03 Dose: 1 tab Dextrose (D50w Syringe 50 Ml*) 12.5 gm IV PUSH .FOR FS < 60 - SS PRN PRN Reason: FS < 60 Gabapentin (Neurontin Cap(*)) 600 mg PO TID [facility] Last Admin: 02/12/20 10:04 Dose: 600 mg Heparin Sodium (Porcine) (Heparin Vial(*)) 5,000 units SUBCUT Q8HR [facility] Last Admin: 02/12/20 05:36 Dose: 5,000 units Piperacillin Sod/Tazobactam (Sod 3.375 gm/ Sodium Chloride) 100 mls @ 200 mls/ hr IVPB ONCE ONE Stop: 02/12/20 12:29 Sodium Chloride (Ns 0.9% 1000 Ml) 1,000 mls @ 75 mls/hr IV PER RATE [facility] Insulin Human Lispro (Humalog*) 0 units SUBCUT ACHS [facility]; Protocol Last Admin: 02/12/20 11:53 Dose: Not Given Latanoprost (Xalatan 0.005%*) 1 drop BOTH EYES QPM [facility] Magnesium Oxide (Magox 400 Tab*) 400 mg PO DAILY [facility] Last Admin: 02/12/20 10:04 Dose: 400 mg Non-Formulary Medication (Glucos Sul 2kcl/Msm/Chond/C/Mn [Glucosamine Chondroitin Cap]) 1 each PO DAILY [facility] Last Admin: 02/12/20 10:04 Dose: Not Given Pharmacy Consult (Zosyn Per Pharmacy*) 1 note FOLLOW UP .ZOSYN PER PHARMACY [facility] Sacubitril/Valsartan (Entresto (Nf)) 1 tab PO BID [facility] Last Admin: 02/12/20 10:04 Dose: Not Given Vital Signs - 8 hr 02/12/20 02/12/20 02/12/20 04:18 04:22 04:48 Temperature 98.2 F 97.9 F Pulse Rate 95 95 88 Respiratory 20 18 17 Rate Blood Pressure 135/58 119/95 110/73 (mmHg) O2 Sat by Pulse 95 98 99 Oximetry 02/12/20 02/12/20 02/12/20 07:15 10:04 11:15 Temperature 98.5 F Pulse Rate 83 86 Respiratory 15 16 14 Rate Blood Pressure 120/79 142/103 (mmHg) O2 Sat by Pulse 100 100 Oximetry Oxygen Devices in Use Now: Simple Face Mask, OxyMask Appearance: Elderly gentleman laying in bed sleeping, does not appear to be in distress Eyes: No Scleral Icterus, PERRLA Ears/Nose/Mouth/Throat: NL Teeth, Lips, Gums, Clear Oropharnyx, Mucous Membranes Moist Neck: NL Appearance and Movements; NL JVP, Trachea Midline Respiratory: Symmetrical Chest Expansion and Respiratory Effort, - - Crackles at bilateral bases Cardiovascular: NL Sounds; No Murmurs; No JVD, No Edema, - - Irregular rate and rhythm Abdominal: NL Sounds; No Tenderness; No Distention, No Hepatosplenomegaly Lymphatic: No Cervical Adenopathy Extremities: No Edema, No Clubbing, Cyanosis Skin: - - Concerning erythema, warmth on right foot with multiple open areas and no drainage. Redness covers toes and dorsal aspect right foot extending to ankle. Left foot does have erythema on toes that does not extend further than metarsal phalangeal joints. Neurological: - - Pt does not have strength to follow direction, patient attempts to lift hands or roll over but unable to complete. Pt is unable to keep eyes open, and has difficulty answering questions. Pt is able to state that he is located at [facility] but unable to state date or time. Is able to indicate that foot is being touched however patient does not report back which side. Result Diagrams: 02/12/20 11:32 02/12/20 11:32 Assess/Plan/Problems-Billing Assessment: 75 yo gentleman with hx significant for dementia, CAD, DM2, HTN, Hyperlipidemia , CVA, and Parkinsons presents to the hospital with decreased level of consciousness and low oxygen saturation. - Patient Problems (1) Hypoxia Current Visit: Yes Comment: -pt does not use O2 at home -Desaturates quickly on room air, placed on simple face mask at 4L -Appears to be more alert on 4L supp ox (2) Sepsis due to cellulitis Current Visit: Yes Comment: -Tachycardia >90 and WBC 13.3 -Concern for right foot cellulits, many abrasions and non draining open wounds on left foot. Erythema on skin over toes, dorsal aspect of left foot, and advancing to ankle. -Zosyn 3.375 renal dosing per pharmacy (3) Encephalopathy acute Current Visit: Yes Comment: -Possibly due to infectious process -Pt presents as somnolent -opens eyes but unable to keep open frequent prompting necessary to keep patient awake. -Ammonia 38 -Brain CT negative for abnormalities -Urinalysis not concerning for UTI (4) Acute kidney injury Current Visit: Yes Comment: -Likely ISRA due to dehydration -Cr 2.71 on arrival with mild improvement to 2.14 -Continue entle IV hydration -Yun catheter- coude inserted with 50 to 100cc out Dark yellow urine -Renal and bladder US ordered (5) CAD (coronary artery disease) Current Visit: No Comment: -Stable -Continue aspirin and statin therapy (6) History of CVA (cerebrovascular accident) Current Visit: No Status: Acute Code(s): Z86.73 - PRSNL HX OF TIA (TIA), AND CEREB INFRC W/O RESID DEFICITS SNOMED Code(s): 411382590 Comment: -CT brain negative -pt able to follow some direction but continues to be confused. Does not present with any focal neurological deficits. Facial features symmetric. Unable to assess upper and lower extremity function as patient unable to follow direction. (7) HTN (hypertension) Current Visit: No Comment: BPs stable with mild elevations at times - continue to monitor BPs - continue entresto (8) Systolic and diastolic CHF, chronic Current Visit: No Comment: -Cautious rehydration with IV fluids -Lung sounds with faint crackles in bilateral bases -Absent of edema in lower extremities -BNP 48 (9) Type II diabetes mellitus Current Visit: Yes Comment: -A1c 5.8 12/28/19 -Pt must use own Trajenta in hospital if spouse can bring -Continue insulin lispro -Well controlled presently -Continue to monitor (10) DVT prophylaxis Current Visit: Yes Comment: -Heparin SQ -SCD's (11) Full code status Current Visit: Yes Status and Disposition: Guarded
[2020-02-12 15:44] LABS: Urine Appearance Cloudy; Urine Bilirubin Negative (Negative); Urine Blood 3+ (Negative); Urine Color Yellow; Urine Glucose Negative (Negative); Urine Ketones Negative (Negative); Urine Nitrite Negative (Negative); Urine Protein Negative (Negative); Urine Specific Gravity 1.021 (1.010-1.030); Urine Urobilinogen Negative (Negative)
[2020-02-12 15:47] LABS: Urine Bacteria Absent (Absent); Urine Red Blood Cell 3+(>10/hpf) (Absent); Urine White Blood Cell Absent (Absent)
[2020-02-12] MEDS: NS 0.9% 1000 ML** 1,000 ML IV SCH (17:53)
[2020-02-12] MEDS: Atorvastatin* 10 MG TAB PO SCH (17:58)
[2020-02-12] MEDS: Latanoprost 0.005%* 2.5 ml BTL BOTH EYES SCH (17:59)
[2020-02-12] MEDS: ZOSYN 3.375 GM Q8H per EXTENDED INFUSION IVPB SCH ×2 (18:19)
[2020-02-13] MEDS: ZOSYN 3.375 GM Q8H per EXTENDED INFUSION IVPB SCH ×2 (01:59)
[2020-02-13 04:53] LABS: ABS Basophils 0.1 10^3/ul (0-0.2); ABS Eosinophils 0.4 10^3/ul (0-0.6); ABS Lymphocytes 1.4 10^3/ul (1.0-4.8); ABS Monocytes 0.9 10^3/ul (0-0.8); ABS Neutrophils 6.6 10^3/ul (1.5-7.7); Eosinophil % 4.5 %; Hematocrit 42 % (42-52); Hemoglobin 13.9 g/dL (14.0-18.0); Lymphocyte % 14.5 %; Mean Corpuscular HGB Conc 33 g/dL (31-36); Mean Corpuscular Hemoglobin 33 pg (27-31); Mean Corpuscular Volume 98 fL (80-94); Mean Platelet Volume 9.3 fL (7.4-10.4); Nucleated Red Blood Cells % 0.1; Platelet Count 158 10^3/uL (150-450); Red Blood Count 4.28 10^6 /uL (4.18-5.48); Red Cell Distribution Width 14 % (10-15); White Blood Count 9.4 10^3/uL (3.5-10.8)
[2020-02-13 05:07] LABS: BUN/Creatinine Ratio 23.7 (8-20); Calcium 8.6 mg/dL (8.6-10.3); EGFR African American 52.6 (>60); EGFR Non-African American 43.5 (>60); Potassium 4.2 mmol/L (3.5-5.0)
[2020-02-13] MEDS: Heparin VIAL(*) 5000 UNITS/ML VIAL (FIVE THOUSAND) SUBCUT SCH ×3 (06:16→21:33)
[2020-02-13] MEDS: Insulin LISPRO* 1 UNITS UNIT SUBCUT SCH ×4 (08:13→20:35)
[2020-02-13] MEDS: GLUCOS SUL PO SCH (08:14)
[2020-02-13] MEDS: [UNRECOGNIZED DRUG - OTHER] PO SCH (08:14)
[2020-02-13] MEDS: Sacubitril/Valsartan 24/26(NF) 1 TAB PO SCH ×2 (08:14→20:35)
[2020-02-13] MEDS ORDERED: LORazepam TAB(*) 0.5 MG PO ONE (08:37)
--- NOTE | 2020-02-13 08:39 | PN ---
Subjective Date of Service: 02/13/20 Interval History: HOSPITALIST PROGRESS NOTE Patient seen and examined at bedside. Care reviewed and d/w Shruthi Hoover RN. He is confused, does not follow commands nor offer complaints. Family History: Unchanged from Admission Social History: Unchanged from Admission Past Medical History: Unchanged from Admission Objective Active Medications: Acetaminophen (Tylenol Tab*) 650 mg PO Q4H PRN PRN Reason: MILD PAIN or TEMP > 100.4 Aspirin (Aspirin Ec Tab*) 81 mg PO DAILY [facility] Last Admin: 02/12/20 10:03 Dose: 81 mg Atorvastatin Calcium (Lipitor*) 10 mg PO 1700 [facility] Last Admin: 02/12/20 17:58 Dose: 10 mg Carbidopa/Levodopa (Sinemet 10/100 Tab(*)) 1 tab PO 0800,1600 [facility] Last Admin: 02/12/20 16:18 Dose: 1 tab Dextrose (D50w Syringe 50 Ml*) 12.5 gm IV PUSH .FOR FS < 60 - SS PRN PRN Reason: FS < 60 Gabapentin (Neurontin Cap(*)) 600 mg PO TID [facility] Last Admin: 02/12/20 21:42 Dose: 600 mg Heparin Sodium (Porcine) (Heparin Vial(*)) 5,000 units SUBCUT Q8HR [facility] Last Admin: 02/13/20 06:16 Dose: 5,000 units Sodium Chloride (Ns 0.9% 1000 Ml) 1,000 mls @ 75 mls/hr IV PER RATE [facility] Last Admin: 02/12/20 17:53 Dose: 75 mls/hr Cefazolin Sodium 1 gm/ Sodium (Chloride) 50 mls @ 200 mls/hr IVPB Q8H [facility] Insulin Human Lispro (Humalog*) 0 units SUBCUT ACHS [facility]; Protocol Last Admin: 02/13/20 08:13 Dose: Not Given Latanoprost (Xalatan 0.005%*) 1 drop BOTH EYES QPM [facility] Last Admin: 02/12/20 17:59 Dose: 1 drop Lorazepam (Ativan Tab(*)) 0.5 mg PO ONCE ONE Stop: 02/13/20 08:38 Magnesium Oxide (Magox 400 Tab*) 400 mg PO DAILY [facility] Last Admin: 02/12/20 10:04 Dose: 400 mg Sacubitril/Valsartan (Entresto (Nf)) 1 tab PO BID [facility] Last Admin: 02/13/20 08:14 Dose: Not Given Vital Signs - 8 hr 02/13/20 02/13/20 04:00 08:02 Temperature 98.7 F 98.5 F Pulse Rate 88 84 Respiratory 18 18 Rate Blood Pressure 106/80 123/52 (mmHg) O2 Sat by Pulse 97 93 Oximetry Oxygen Devices in Use Now: None Appearance: Elderly gentleman lying in bed in NAD Eyes: No Scleral Icterus Ears/Nose/Mouth/Throat: Mucous Membranes Moist Neck: Trachea Midline Respiratory: Symmetrical Chest Expansion and Respiratory Effort, - - BS+ bilaterally coarse with no added sounds Cardiovascular: RRR - Normal S1 and S2 Abdominal: NL Sounds; No Tenderness; No Distention Extremities: - - right foot erythema Neurological: - - AAOx1(self only), moves in bed but doesn't follow commands Result Diagrams: 02/13/20 04:29 02/13/20 04:29 Microbiology and Other Data: Microbiology 02/12/20 02:04 Urine Culture - Final Urine No Growth (<1,000 CFU/mL) Assess/Plan/Problems-Billing Assessment: Mr Antony is a 75 yo M with PMH of CAD s/p CABG and PCI, type 2 DM, HTN, Hyperlipidemia, CVA, Parkinsonism, dementia, recent admission for delirium secondary to UTI, sent to ED from [facility] with lethargy and hypoxia. - Patient Problems (1) Hypoxia Comment: - Etiology unclear at this time. - CxR negative in ED. - Check CT chest without contrast. - SO2 93% on RA today. (2) Acute kidney injury Comment: - Likely pre renal in the setting of dehydration - Creatinine down to 1.5 from 2.7 on admission - Continue gentle IV hydration - Continue to monitor UO. (3) Sepsis due to cellulitis Comment: - Patient presentation compatible with sepsis with tachycardia and leukocytosis. - Recent admission for UTI - urine culture is negative this visit. - Source appears to be right foot cellulitis - no evidence of purulence - change Zosyn to Cefazolin and monitor. (4) Encephalopathy acute Comment: - Likely metabolic encephalopathy in the setting of dehydration and cellulitis. - Continue to monitor. (5) CAD (coronary artery disease) Comment: - Stable - no complaint of CP, negative troponins, no acute ischemic changes in EKG - Continue aspirin and statin (6) Type II diabetes mellitus Comment: - A1c 5.8 12/28/19 - FS with Lispro SS. (7) DVT prophylaxis Comment: - SQ Heparin (8) Full code status Status and Disposition: Inpatient.
[2020-02-13] MEDS: Aspirin EC TAB* 81 MG TAB.EC PO SCH (09:22)
[2020-02-13] MEDS: Gabapentin CAP(*) 300 MG PO SCH ×3 (09:22→21:22)
[2020-02-13] MEDS: ceFAZolin 1 GM ADVAN(*) 1 GM in NS 0.9% 50 ML* 50 ML IVPB SCH ×2 (09:22→16:33)
[2020-02-13] MEDS: Magnesium Oxide TAB* 400 MG PO SCH (09:22)
[2020-02-13] MEDS: Carbidopa/Levodop 10/100 MG TAB(*) PO SCH ×2 (09:23→16:28)
[2020-02-13] MEDS: NS 0.9% 1000 ML** 1,000 ML IV SCH (15:19)
[2020-02-13] MEDS: Atorvastatin* 10 MG TAB PO SCH (16:28)
[2020-02-13] MEDS: Latanoprost 0.005%* 2.5 ml BTL BOTH EYES SCH (17:56)
[2020-02-13] MEDS: Acetaminophen TAB* 325 MG PO PRN (21:22)
[2020-02-14] MEDS: ceFAZolin 1 GM ADVAN(*) 1 GM in NS 0.9% 50 ML* 50 ML IVPB SCH ×2 (01:09→08:18)
[2020-02-14] MEDS: NS 0.9% 1000 ML** 1,000 ML IV SCH (04:57)
[2020-02-14] MEDS: Heparin VIAL(*) 5000 UNITS/ML VIAL (FIVE THOUSAND) SUBCUT SCH ×3 (05:16→22:00)
[2020-02-14 07:06] LABS: BUN/Creatinine Ratio 17.6 (8-20); Calcium 8.3 mg/dL (8.6-10.3); EGFR African American 71.9 (>60); EGFR Non-African American 59.4 (>60); Potassium 4.1 mmol/L (3.5-5.0)
[2020-02-14] MEDS: Insulin LISPRO* 1 UNITS UNIT SUBCUT SCH ×4 (07:33→22:17)
[2020-02-14] MEDS: Carbidopa/Levodop 10/100 MG TAB(*) PO SCH ×2 (08:18→16:56)
[2020-02-14] MEDS: Gabapentin CAP(*) 300 MG PO SCH ×3 (08:18→21:58)
[2020-02-14] MEDS: Magnesium Oxide TAB* 400 MG PO SCH (08:18)
[2020-02-14] MEDS: Aspirin EC TAB* 81 MG TAB.EC PO SCH (08:18)
[2020-02-14] MEDS: Sacubitril/Valsartan 24/26(NF) 1 TAB PO SCH (08:19)
--- NOTE | 2020-02-14 11:17 | PN ---
Subjective Date of Service: 02/14/20 Interval History: HOSPITALIST PROGRESS NOTE Patient seen and examined at bedside. Care reviewed and d/w John Wood RN. He offers no complaints today. Much more cooperative with care today. Family History: Unchanged from Admission Social History: Unchanged from Admission Past Medical History: Unchanged from Admission Objective Active Medications: Acetaminophen (Tylenol Tab*) 650 mg PO Q4H PRN PRN Reason: MILD PAIN or TEMP > 100.4 Last Admin: 02/13/20 21:22 Dose: 650 mg Aspirin (Aspirin Ec Tab*) 81 mg PO DAILY [facility] Last Admin: 02/14/20 08:18 Dose: 81 mg Atorvastatin Calcium (Lipitor*) 10 mg PO 1700 [facility] Last Admin: 02/13/20 16:28 Dose: 10 mg Carbidopa/Levodopa (Sinemet 10/100 Tab(*)) 1 tab PO 0800,1600 [facility] Last Admin: 02/14/20 08:18 Dose: 1 tab Dextrose (D50w Syringe 50 Ml*) 12.5 gm IV PUSH .FOR FS < 60 - SS PRN PRN Reason: FS < 60 Gabapentin (Neurontin Cap(*)) 600 mg PO TID [facility] Last Admin: 02/14/20 08:18 Dose: 600 mg Heparin Sodium (Porcine) (Heparin Vial(*)) 5,000 units SUBCUT Q8HR [facility] Last Admin: 02/14/20 05:16 Dose: 5,000 units Cefazolin Sodium 1 gm/ Sodium (Chloride) 50 mls @ 200 mls/hr IVPB Q8H [facility] Last Admin: 02/14/20 08:18 Dose: 200 mls/hr Insulin Human Lispro (Humalog*) 0 units SUBCUT ACHS [facility]; Protocol Last Admin: 02/14/20 07:33 Dose: Not Given Latanoprost (Xalatan 0.005%*) 1 drop BOTH EYES QPM [facility] Last Admin: 02/13/20 17:56 Dose: 1 drop Magnesium Oxide (Magox 400 Tab*) 400 mg PO DAILY [facility] Last Admin: 02/14/20 08:18 Dose: 400 mg Sacubitril/Valsartan (Entresto (Nf)) 1 tab PO BID [facility] Last Admin: 02/14/20 08:19 Dose: Not Given Vital Signs - 8 hr 02/14/20 02/14/20 02/14/20 03:30 07:15 08:00 Temperature 98 F 98.1 F Pulse Rate 68 87 Respiratory 20 22 18 Rate Blood Pressure 131/64 147/82 (mmHg) O2 Sat by Pulse 99 96 Oximetry 02/14/20 08:18 Temperature Pulse Rate Respiratory 18 Rate Blood Pressure (mmHg) O2 Sat by Pulse Oximetry Oxygen Devices in Use Now: None Appearance: Elderly gentleman lying in bed in NAD Eyes: No Scleral Icterus Ears/Nose/Mouth/Throat: Mucous Membranes Moist Neck: Trachea Midline Respiratory: Symmetrical Chest Expansion and Respiratory Effort, Clear to Auscultation - diminished in both bases Cardiovascular: RRR - Normal S1 and S2 Neurological: - - AAOx1 (self), GRANADO Result Diagrams: 02/13/20 04:29 02/14/20 06:02 Microbiology and Other Data: Microbiology 02/12/20 02:04 Urine Culture - Final Urine No Growth (<1,000 CFU/mL) Assess/Plan/Problems-Billing Assessment: Mr Antony is a 75 yo M with PMH of CAD s/p CABG and PCI, type 2 DM, HTN, Hyperlipidemia, CVA, Parkinsonism, dementia, recent admission for delirium secondary to UTI, sent to ED from [facility] with lethargy and hypoxia. - Patient Problems (1) Hypoxia Comment: - CxR negative in ED. - CT chest showed "Right basilar atelectasis with pleural thickening in the right lung base. Motion artifact limits evaluation. Minimal groundglass opacities are noted in the right upper lobe left upper lobe just adjacent to the fissure." - SO2 96% on RA today. - He has no complaints of CP, cough, or dyspnea, but with his advanced dementia , there is concern for possible pneumonia. - Will change antibiotics to Ceftriaxone and Zithromax. (2) Acute kidney injury Comment: - Likely pre renal in the setting of dehydration - Creatinine down to 1.1 from 2.7 on admission - D/c IVF and monitor PO intake (3) Sepsis due to cellulitis Comment: - Patient presentation compatible with sepsis with tachycardia and leukocytosis. - Recent admission for UTI - urine culture is negative this visit. - Source appears to be right foot cellulitis (4) Encephalopathy acute Comment: - Likely metabolic encephalopathy in the setting of dehydration and cellulitis. - Seems to be close to his baseline confusion - more cooperative with care. - Continue to monitor. (5) CAD (coronary artery disease) Comment: - Stable - no complaint of CP, negative troponins, no acute ischemic changes in EKG - Continue aspirin and statin (6) Type II diabetes mellitus Comment: - A1c 5.8 12/28/19 - FS with Lispro SS. (7) DVT prophylaxis Comment: - SQ Heparin (8) Full code status Status and Disposition: Inpatient.
[2020-02-14] MEDS ORDERED: Azithromycin TAB* 250 MG PO ONE (11:28)
[2020-02-14] MEDS ORDERED: SACUBITRIL PO SCH (12:05)
[2020-02-14] MEDS ORDERED: VALSARTAN PO SCH (12:05)
[2020-02-14] MEDS: cefTRIAXone(*) 1 GM in NS 0.9% 50 ML* 50 ML IVPB SCH (13:02)
[2020-02-14] MEDS: Latanoprost 0.005%* 2.5 ml BTL BOTH EYES SCH (16:56)
[2020-02-14] MEDS: Atorvastatin* 10 MG TAB PO SCH (16:56)
[2020-02-14] MEDS: Acetaminophen TAB* 325 MG PO PRN (21:59)
[2020-02-15] MEDS: Heparin VIAL(*) 5000 UNITS/ML VIAL (FIVE THOUSAND) SUBCUT SCH ×3 (06:48→21:30)
[2020-02-15] MEDS: Insulin LISPRO* 1 UNITS UNIT SUBCUT SCH ×3 (07:57→17:38)
[2020-02-15] MEDS: Magnesium Oxide TAB* 400 MG PO SCH (08:21)
[2020-02-15] MEDS: Carbidopa/Levodop 10/100 MG TAB(*) PO SCH ×2 (08:21→16:46)
[2020-02-15] MEDS: Aspirin EC TAB* 81 MG TAB.EC PO SCH (08:21)
[2020-02-15] MEDS: Azithromycin TAB* 250 MG PO SCH (08:21)
[2020-02-15] MEDS: Gabapentin CAP(*) 300 MG PO SCH ×4 (08:22→21:29)
[2020-02-15] MEDS ORDERED: Albuterol/Ipratropium NEB.SOL* Albuterol 2.5 MG/Ipratropium 0.5 MG 3 ML INH PRN (09:38)
--- NOTE | 2020-02-15 09:47 | PN ---
Subjective Date of Service: 02/15/20 Interval History: HOSPITALIST PROGRESS NOTE Patient seen and examined at bedside. Care reviewed and d/w Mary Kate Pearce RN. He is more dyspneic today, and now has wheezes. He offers no complaints. Family History: Unchanged from Admission Social History: Unchanged from Admission Past Medical History: Unchanged from Admission Objective Active Medications: Acetaminophen (Tylenol Tab*) 650 mg PO Q4H PRN PRN Reason: MILD PAIN or TEMP > 100.4 Last Admin: 02/14/20 21:59 Dose: 650 mg Albuterol/Ipratropium (Duoneb (Albuterol 2.5 Mg/Ipratropium 0.5 Mg)) 1 neb INH Q4H PRN PRN Reason: SOB/WHEEZING Aspirin (Aspirin Ec Tab*) 81 mg PO DAILY [facility] Last Admin: 02/15/20 08:21 Dose: 81 mg Atorvastatin Calcium (Lipitor*) 10 mg PO 1700 [facility] Last Admin: 02/14/20 16:56 Dose: 10 mg Azithromycin (Zithromax Tab*) 250 mg PO DAILY [facility] Stop: 02/18/20 09:01 Last Admin: 02/15/20 08:21 Dose: 250 mg Carbidopa/Levodopa (Sinemet 10/100 Tab(*)) 1 tab PO 0800,1600 [facility] Last Admin: 02/15/20 08:21 Dose: 1 tab Dextrose (D50w Syringe 50 Ml*) 12.5 gm IV PUSH .FOR FS < 60 - SS PRN PRN Reason: FS < 60 Gabapentin (Neurontin Cap(*)) 600 mg PO TID [facility] Last Admin: 02/15/20 08:29 Dose: Not Given Heparin Sodium (Porcine) (Heparin Vial(*)) 5,000 units SUBCUT Q8HR [facility] Last Admin: 02/15/20 06:48 Dose: 5,000 units Ceftriaxone Sodium 1 gm/ (Sodium Chloride) 50 mls @ 100 mls/hr IVPB Q24H [facility] Last Admin: 02/14/20 13:02 Dose: 100 mls/hr Insulin Human Lispro (Humalog*) 0 units SUBCUT ACHS [facility]; Protocol Last Admin: 02/15/20 07:57 Dose: Not Given Latanoprost (Xalatan 0.005%*) 1 drop BOTH EYES QPM [facility] Last Admin: 02/14/20 16:56 Dose: 1 drop Magnesium Oxide (Magox 400 Tab*) 400 mg PO DAILY [facility] Last Admin: 02/15/20 08:21 Dose: 400 mg Methylprednisolone Sodium Succinate (Solu-Medrol 40 Mg) 40 mg IV DAILY [facility] Vital Signs - 8 hr 02/15/20 02/15/20 02/15/20 05:14 06:49 07:15 Temperature 98.1 F 98.8 F Pulse Rate 91 95 Respiratory 17 19 20 Rate Blood Pressure 153/79 155/86 (mmHg) O2 Sat by Pulse 95 92 Oximetry Oxygen Devices in Use Now: None Appearance: Elderly gentleman lying in bed in NAD Eyes: No Scleral Icterus Ears/Nose/Mouth/Throat: Mucous Membranes Moist Neck: Trachea Midline Respiratory: Symmetrical Chest Expansion and Respiratory Effort, - - BS+ bilaterally with scattered wheezes and rhonchi Cardiovascular: RRR - Normal S1 and S2 Abdominal: NL Sounds; No Tenderness; No Distention Neurological: - - AAOx1(self only), GRANADO Result Diagrams: 02/13/20 04:29 02/14/20 06:02 Microbiology and Other Data: Microbiology 02/12/20 02:04 Urine Culture - Final Urine No Growth (<1,000 CFU/mL) Assess/Plan/Problems-Billing Assessment: Mr Antony is a 75 yo M with PMH of CAD s/p CABG and PCI, type 2 DM, HTN, Hyperlipidemia, CVA, Parkinsonism, dementia, recent admission for delirium secondary to UTI, sent to ED from [facility] with lethargy and hypoxia. - Patient Problems (1) Hypoxia Comment: - CxR negative in ED. - CT chest showed "Right basilar atelectasis with pleural thickening in the right lung base. Motion artifact limits evaluation. Minimal groundglass opacities are noted in the right upper lobe left upper lobe just adjacent to the fissure." - SO2 92-96% on RA today, but now with wheezing and rhonchi. Patient was a heavy smoker, but never formaly diagnosed with COPD. - He has no complaints of CP, cough, or dyspnea, but with his advanced dementia , there is concern for possible pneumonia. - Also concerned his worsening overnight may be secondary to aspiration - Swallow evaluation requested. - Continue Ceftriaxone and Zithromax, add steroids and bronchodilators. (2) Acute kidney injury Comment: - Likely pre renal in the setting of dehydration - Creatinine down to 1.1 from 2.7 on admission - PO intake seems to be picking up (3) Sepsis due to cellulitis Comment: - Patient presentation compatible with sepsis with tachycardia and leukocytosis. - Recent admission for UTI - urine culture is negative this visit. - Source appears to be right foot cellulitis (improving) and pneumonia. (4) Encephalopathy acute Comment: - Likely metabolic encephalopathy in the setting of dehydration and cellulitis. - Seems to be close to his baseline confusion - more cooperative with care. - Continue to monitor. (5) CAD (coronary artery disease) Comment: - Stable - no complaint of CP, negative troponins, no acute ischemic changes in EKG - Continue aspirin and statin (6) Type II diabetes mellitus Comment: - A1c 5.8 12/28/19 - FS with Lispro SS. (7) DVT prophylaxis Comment: - SQ Heparin (8) Full code status Status and Disposition: Inpatient. called and updated.
[2020-02-15] MEDS: methylPREDNISolone SOD 40 MG* 1 ML VIAL IV SCH (10:56)
[2020-02-15] MEDS: cefTRIAXone(*) 1 GM in NS 0.9% 50 ML* 50 ML IVPB SCH (12:15)
[2020-02-15] MEDS ORDERED: LORazepam TAB(*) 0.5 MG PO PRN (16:11)
[2020-02-15] MEDS: Atorvastatin* 10 MG TAB PO SCH (16:46)
[2020-02-15] MEDS: Latanoprost 0.005%* 2.5 ml BTL BOTH EYES SCH (16:46)
[2020-02-16 05:28] LABS: ABS Lymphocytes 1.3 10^3/ul (1.0-4.8); ABS Monocytes 0.8 10^3/ul (0-0.8); ABS Neutrophils 5.6 10^3/ul (1.5-7.7); Eosinophil % 0.1 %; Hematocrit 46 % (42-52); Hemoglobin 15.3 g/dL (14.0-18.0); Lymphocyte % 16.6 %; Mean Corpuscular HGB Conc 34 g/dL (31-36); Mean Corpuscular Hemoglobin 32 pg (27-31); Mean Corpuscular Volume 96 fL (80-94); Mean Platelet Volume 9.3 fL (7.4-10.4); Nucleated Red Blood Cells % 0.2; Platelet Count 175 10^3/uL (150-450); Red Blood Count 4.75 10^6 /uL (4.18-5.48); Red Cell Distribution Width 13 % (10-15); White Blood Count 7.7 10^3/uL (3.5-10.8)
[2020-02-16 05:45] LABS: BUN/Creatinine Ratio 15.4 (8-20); EGFR Non-African American 69.4 (>60); Potassium 4.6 mmol/L (3.5-5.0)
[2020-02-16] MEDS: Heparin VIAL(*) 5000 UNITS/ML VIAL (FIVE THOUSAND) SUBCUT SCH (06:12)
[2020-02-16] MEDS: Insulin LISPRO* 1 UNITS UNIT SUBCUT SCH ×3 (07:21→11:44)
[2020-02-16] MEDS: Azithromycin TAB* 250 MG PO SCH (09:01)
[2020-02-16] MEDS: Aspirin EC TAB* 81 MG TAB.EC PO SCH (09:02)
[2020-02-16] MEDS: Carbidopa/Levodop 10/100 MG TAB(*) PO SCH (09:02)
[2020-02-16] MEDS: Magnesium Oxide TAB* 400 MG PO SCH (09:03)
[2020-02-16] MEDS: Gabapentin CAP(*) 300 MG PO SCH (09:05)
[2020-02-16] MEDS: methylPREDNISolone SOD 40 MG* 1 ML VIAL IV SCH (09:09)
[2020-02-16 11:19] VITALS: BP 119/68
[2020-02-16] MEDS: cefTRIAXone(*) 1 GM in NS 0.9% 50 ML* 50 ML IVPB SCH (11:26)
--- NOTE | 2020-02-16 11:32 | DS ---
CC: Dr. Luc Medeiros; [facility] * DISCHARGE SUMMARY: DATE OF ADMISSION: 02/12/20 DATE OF DISCHARGE: 02/16/20 PRIMARY CARE PROVIDER: Dr. Luc Medeiros. DISCHARGE DIAGNOSES: 1. Acute hypoxemic respiratory failure, likely secondary to aspiration pneumonia and probable chronic obstructive pulmonary disease. 2. Acute kidney injury secondary to dehydration. 3. Sepsis, present on admission. 4. Right lower extremity cellulitis. 5. Metabolic encephalopathy. SECONDARY DIAGNOSES: 1. Coronary artery disease status post coronary artery bypass grafting and percutaneous coronary intervention. 2. Type 2 diabetes. 3. Hypertension. 4. Hyperlipidemia. 5. History of cerebrovascular accident. 6. Parkinson's disease with dementia. MEDICATION LIST: 1. Acetaminophen 650 mg p.o. q.6 hours p.r.n. pain or fever. 2. Aspirin 81 mg p.o. daily. 3. Atorvastatin 10 mg p.o. daily. 4. Carbidopa/levodopa 10/100 one tablet p.o. at 8 in the morning and 4 in the afternoon. 5. Gabapentin 600 mg p.o. t.i.d. 6. Glucosamine chondroitin 1 capsule p.o. daily. 7. Latanoprost 0.005% 1 drop both eyes at bedtime. 8. Magnesium oxide 400 mg p.o. daily. 9. Entresto 24 mg/26 1 tablet p.o. b.i.d. New medications: 1. Azithromycin 250 mg p.o. daily for 3 more days. 2. Cefpodoxime 200 mg p.o. q.12 hours for 5 more days. 3. Prednisone 40 mg p.o. daily for 4 days. 4. Albuterol HFA 2 puffs inhaled q.4 hours p.r.n. shortness of breath or wheezing. HOSPITAL COURSE: Mr. Antony is a 75-year-old male with a past medical history as stated above that presented to the emergency room on 02/12/20 from [facility] with complaints of unresponsiveness, hypotension, and hypoxia. For more details about his presentation, I refer you to his history and physical. The patient was admitted for further evaluation and workup. Initially, the impression was that he had acute kidney injury secondary to dehydration as well as metabolic encephalopathy. He was started on IV fluids and his creatinine improved from 2.7 on admission to 1.04 on the day of discharge. While in the hospital, the patient was also noted to have right lower extremity cellulitis and although his hypoxia resolved quickly, he was noted to still have tachypnea. So a CT of the chest was performed despite a negative chest x-ray on admission and that showed right basilar atelectasis with pleural thickening in the right lung base, also minimal ground-glass opacities in the right upper lobe and left upper lobe adjacent to the fissure. The patient had no cough, no fever, and his mild leukocytosis resolved quickly. There was concern for a possible aspiration so the patient was seen in consultation by Speech Pathology. The impression was the patient had mild to moderate oropharyngeal dysphagia characterized by prolonged reduced mastication of solids and intermittent clinical signs and symptoms of aspiration of thin liquids. The recommendation was for the patient to be on a mechanical ground texture diet with nectar thick liquids, straws are okay, and medication should be crushed. The patient was started on antibiotics with improvement of his symptoms. He was also noted to have some wheezing. Although, he does not have a formal diagnosis of COPD. The patient was smoker in the past, so he received steroids in the hospital and he is being discharged on a short course of prednisone. He will also benefit from bronchodilators. I did update the patient's (Margot Antony) about the patient's clinical condition. I am specially concerned with dysphagia, if it continues to progress , it may be an indication for artificial nutrition. At the time of this discharge, the patient is on full code. I did talk to the patient's and explained that it appears since the beginning of this year the patient is on this downwards spiral and he may benefit of a Palliative Care consult depending on his prior wishes. We talked at length about the possibility of a feeding tube in the future and she is not sure if the patient would want that done or not. Her plan is to discuss this situation with her son, but the patient may benefit of further evaluation as well as a palliative care consultation in the outpatient setting. The patient carries a diagnosis of diabetes and he was on Tradjenta as outpatient. While in the hospital, the patient did not require insulin coverage and his p.o. intake was poor, so then he was changed to a regular diet with improvement. At this point, with glucose ranging from 70s to 90s, I do not think any hypoglycemia is indicated, but this should be monitored at [facility] as his glucose may start to trend up. His last A1c in December was 5.8. He is medically stable for discharge at this time. PHYSICAL EXAMINATION: Vital Signs: Temperature 98.7, heart rate is 93, respiratory rate is 16, oxygen saturation is 98% on room air, blood pressure is 126/64. General: The patient is an elderly gentleman lying in bed, in no acute distress. CVS: Normal S1, S2. Regular rate and rhythm. Chest: Breath sounds bilaterally coarse with no added sounds. Abdomen is soft. Bowel sounds are present. Extremities: The patient has right foot edema, but erythema is much improved. Neuro: He is alert x1 to self only. Able to move all 4 extremities. DIET: Regular diet, mechanical ground texture, nectar thick liquids. DISPOSITION: To [facility]. STATUS WHILE IN THE HOSPITAL: Inpatient. CONDITION AT THE TIME OF DISCHARGE: Fair. Please keep in mind that this is a summarized version of this patient's hospital stay. If you need more information, please feel free to call me at [phone] or please obtain the full medical records. TIME SPENT: Approximately 50 minutes was spent on this discharge. [id number]/CPS #: [id number] FAIZAN
== END 2020-02-16 12:35 | DRG 871 ==
LOC: ED 23:01 → MED 02-12 02:58 → SSU 02-12 16:45
PROVIDERS: ADMIT Family Medicine; ATTEND Internal Medicine
DX: A41.9 Sepsis, unspecified organism (principal); J96.01 Acute respiratory failure with hypoxia; J69.0 Pneumonitis due to inhalation of food and vomit; G93.41 Metabolic encephalopathy; N17.9 Acute kidney failure, unspecified; J44.0 Chronic obstructive pulmonary disease with (acute) lower respiratory infection; R47.01 Aphasia; L03.115 Cellulitis of right lower limb; J98.11 Atelectasis; I50.42 Chronic combined systolic (congestive) and diastolic (congestive) heart failure; I11.0 Hypertensive heart disease with heart failure; G20 Parkinson's disease; F02.80 Dementia in other diseases classified elsewhere, unspecified severity, without behavioral disturbance, psychotic disturbance, mood disturbance, and anxiety; I95.9 Hypotension, unspecified; E86.0 Dehydration; I25.10 Atherosclerotic heart disease of native coronary artery without angina pectoris; E11.9 Type 2 diabetes mellitus without complications; E78.5 Hyperlipidemia, unspecified; R13.12 Dysphagia, oropharyngeal phase; Z95.1 Presence of aortocoronary bypass graft; Z95.5 Presence of coronary angioplasty implant and graft; Z86.73 Personal history of transient ischemic attack (TIA), and cerebral infarction without residual deficits; Z79.84 Long term (current) use of oral hypoglycemic drugs; Z79.82 Long term (current) use of aspirin; Z79.899 Other long term (current) drug therapy; Z88.8 Allergy status to other drugs, medicaments and biological substances; Z80.0 Family history of malignant neoplasm of digestive organs; Z80.7 Family history of other malignant neoplasms of lymphoid, hematopoietic and related tissues; Z87.891 Personal history of nicotine dependence
CPT/HCPCS: 36415; 70450; 71046; 71250; 76775; 80048; 80053; 80307; 80320; 81003; 81015; 82140; 83605; 83735; 83880; 84443; 84484; 85025; 86140; 87040; 87086; 93005; 99285; A9270-GY; G0480; J0690; J0696; J1644; J2543; J2920